=== PATIENT | female | born 1950 | race Caucasian/White ===

== ENCOUNTER 2020-02-29 09:56 | Day surgery (SDC) | payer MEDICARE, SELFPAY ==
--- NOTE | 2020-02-19 15:00 | EKG12_ITS ---
Test Reason : PRE-OP Blood Pressure : / mmHG Vent. Rate : 079 BPM Atrial Rate : 079 BPM P-R Int : 144 ms QRS Dur : 084 ms QT Int : 410 ms P-R-T Axes : 048 016 036 degrees QTc Int : 470 ms Normal sinus rhythm Nonspecific ST and T wave abnormality Prolonged QT Abnormal ECG Confirmed by YE DINERO, DELIA ([id number]), editorial assistant ORLY HERNANDEZ ([id number]) on 02/23/2020 10:59:53 AM Referred By: Levi Garnica Confirmed By:DELIA BELCHER MD
[2020-02-19 15:32] LABS: Hemoglobin 14.1 g/dL (12.0-15.0); Mean Corp Hgb Conc 33.6 g/dL (32-36); Mean Corpuscular Hgb 30.7 pg (27.0-32.0); Mean Corpuscular Volume 91.5 fL (81-99); Mean Platelet Vol. 10.6 fl (6.2-12.0); Platelet Count 408 K/mm3 (150-450); RBC Distribution Width CV 13.1 % (11.6-14.6); RBC Distribution Width SD 44.1 fl (35.1-43.9); Red Blood Count 4.59 M/mm3 (4.2-5.4); White Blood Count 8.1 K/mm3 (4.4-11.0)
[2020-02-19 15:55] LABS: Anion Gap 8 (5-15); BUN 16 mg/dL (7-18); Calcium,Total 9.1 mg/dL (8.5-10.1); Chloride 103 mmol/L (98-107); Creatinine, Serum 1.14 mg/dL (0.55-1.02); EST Glomerular Filtration Rate 50 mL/min (>60); Est Glom Filt Rate - Afr Amer 61 mL/min (>60); Glucose 95 mg/dL (74-106); Potassium 3.4 mmol/L (3.5-5.1); Sodium Level 141 mmol/L (136-145)
[2020-02-22 11:44] LABS: AST(SGOT) 34 U/L (15-37); Alanine Aminotransfer ALT/SGPT 54 U/L (13-56); Albumin, Serum 3.9 g/dL (3.2-5.0); Alkaline Phosphatase 71 U/L (45-117); Bilirubin, Direct 0.18 mg/dL (0.00-0.30); Globulin 3.3 g/dL (2.2-4.2); Protein, Total 7.2 g/dL (6.4-8.2)
[2020-02-29] VITALS (9 sets, daily range): BP systolic 126–149; BP diastolic 69–86; PULSE 73–91; RESP 16; TEMP 36.1–37.4; O2SAT 87–95; BMI 29.9
[2020-02-29] MEDS: Lactated Ringers 1,000 ML 100 ML IV (10:28)
[2020-02-29] MEDS: Epinephrine (1 mg/ml) 1 MG/ML VIAL ×2 (12:16)
[2020-02-29] MEDS: Bupiv/Epi 0.5% Mpf 30 ML Vial (12:16)
--- NOTE | 2020-02-29 13:09 | OP.PCM_ITS ---
Report of Operation Date of Procedure: 02/29/20 Pre-Operative Diagnosis: SAIS, AC arthrosis, RC tear, and chronic biceps tendon rupture right shoulder Post-Operative Diagnosis: same Surgery/Procedure Performed:: ASD, Nehal procedure, intra-articular debridement and rotator cuff repair right pantograph ii engraver: Levi Garnica Type of Anesthesia:: General/Regional Anesthesiologist: Anthony Santa - Admrichie VTE Documentation VTE Present on Admission: No VTE Mechan Device Prophylaxis: SCD's VTE Pharm Prophylaxis ordered?: No Reason prophylaxis not ordered:: Treatment Not Indicated
--- NOTE | 2020-02-29 14:45 | SUR.PHASEII ---
PATIENT HAD ULTRASLING IN ROOM, CAME FROM SURGERY WITH REGULAR ARM SLING. PAGED DR NAYLOR TO CLARIFY WHO STATES PATIENT SHOULD BE WEARING ULTRASLING. WHEN VITAL SIGNS CHECKED AT 1510, SPO2 NOTED TO BE 87%, ENCOURAGED PULMONARY TOILET, FINGERS ARE COOL. CHECK SPO2 WITH EAR PROBE, NOW 93% ON ROOM AIR. WILL GIVE PATIENT INCENTIVE SPIROMETER AND CONTINUE PULMONARY TOILET.
== END 2020-02-29 16:18 | disposition home or self-care (01) ==
LOC: SDC 09:57 → AC 10:03
PROVIDERS: Anesthesiology; PCP Family Medicine; Referring Provider Physician Assistant; Visit Provider Orthopaedic Surgery
PROC: (CPT 29827; principal; 2020-02-29 11:45)
DX: S46.211A Strain of muscle, fascia and tendon of other parts of biceps, right arm, initial encounter (principal); M75.51 Bursitis of right shoulder; M19.011 Primary osteoarthritis, right shoulder; M75.101 Unspecified rotator cuff tear or rupture of right shoulder, not specified as traumatic; Z11.59 Encounter for screening for other viral diseases; M79.7 Fibromyalgia; J45.909 Unspecified asthma, uncomplicated; Z87.891 Personal history of nicotine dependence
CPT/HCPCS: 29824; 29826; 29827; 36415; 80048; 80076; 85027; 87635; 93005; G2023; J7120; J2405; U0003

== ENCOUNTER 2020-11-09 16:41 | Emergency (ER) | payer MEDICARE, MEDICAID, SELFPAY ==
[2020-02-29 10:23] VITALS: BMI 29.9
[2020-11-09 16:43] VITALS: BP 166/90; PULSE 97; RESP 18; TEMP 36.1; O2SAT 97; BMI 25.9
--- NOTE | 2020-11-09 17:02 | ED.DCSUM_ITS ---
- ER Visit Summary Date of Service: 11/09/20 Chief Complaint: Dizziness History of Present Illness: The patient is a 70 F who presents with dizziness that began today. Patient states it began rather suddenly today. Patient states that she felt jittery and felt like her blood sugar was dropping. Patient states she turned her head and started feeling dizzy and off-balance. Patient states this is worse whenever she moves her head or bends forward. Patient denies any loss of consciousness. Patient denies any nausea or vomiting. Patient admits to some dull pain in both the ears. Patient denies any visual changes. Patient does admit to some mild neck pain. Patient denies any chest pain or shortness of breath. Physical Examination: Vital signs are stable. Patient is afebrile. Patient is in no acute distress. Pupils are equal, round, and reactive to light bilaterally. Extraocular muscles are intact. There is no nystagmus noted. Tympanic membranes are clear bilaterally. Oral mucosa is pink and moist. Neck is supple. Trachea is midline. There is no JVD noted. Heart was regular rate and rhythm. Lungs are clear and equal bilaterally. Abdomen is soft. Bowel sounds are normal. There is no tenderness. There is no rebound or guarding noted. Skin is warm dry. Cranial nerves II through XII are intact. There are no focal motor or sensory deficits noted. Extremities are intact. There is no calf tenderness or edema. Test Results: CBC and comprehensive metabolic profile were obtained and were essentially within normal limits. Urinalysis does not show any evidence of urinary tract infection. CT scan of the brain was obtained. There is no acute intracranial abnormality. This was interpreted by the radiologist and reviewed by myself. Emergency Department Course and Treatment: Patient was given a dose of meclizine initially. Patient had no improvement with this. Patient was given a dose of Valium. Patient states her symptoms are improving. Patient wants to go home. Patient was given a prescription for Valium. Patient was instructed to get plenty of rest. Patient was instructed to follow-up with her primary care physician in 5 to 7 days. Patient was instructed return if worse in any way. Patient understood and was agreeable with the plan. All questions were answered. Disposition: Discharge home Impression: 1. Vertigo This note was generated with Hydrophiation software. It may contain incorrect words, spelling, and punctuation that were not noted in review of the chart prior to signing ED Disposition - Plan for ED Patient: Disposition: Home or Assisted Living Diagnosis: Vertigo Instructions: ED Vertigo, Unspecified Prescriptions: Diazepam [Valium] 2 mg PO TID PRN PRN #10 tab PRN Reason: Vertigo Prescription Printed Referrals: Erich Hall DO [Primary Care Provider] - 3-5 Days
--- NOTE | 2020-11-09 17:04 | CT_ITS ---
STUDY: CT BRAIN WITHOUT CONTRAST REASON FOR EXAM: Female, 70 years old. Dizziness RADIATION DOSAGE (If Supplied By Facility): CTDIvol = ( 44.99 ) mGy, DLP = ( 796.11 ) mGycm TECHNIQUE: Transaxial CT imaging of the brain was performed without administration of intravenous contrast material. Individualized dose optimization techniques were used for this CT. COMPARISON: No relevant priors. FINDINGS: Normal soft tissue structures. Normal calvarium. Normal size ventricles and extra-axial spaces for the patient''s age. Normal white matter tracts of the cerebral hemispheres. Normal basal ganglia and thalami. Normal brainstem. Normal cerebellum. There is no intracranial hemorrhage. There are no findings of an acute ischemic infarction. Normal visualized paranasal sinuses. CT/Brain/Head without Contrast IMPRESSION: Normal unenhanced CT scan of the brain. Electronically Signed: Morales Mckee MD at 18:01 EST , Service support ,
[2020-11-09] MEDS: Meclizine HCl 25 MG Tablet PO (17:34)
[2020-11-09] MEDS: 0.9% Normal Saline 1,000 ML 1000 ML IV (17:34)
[2020-11-09 17:40] LABS: Absolute Lymphocyte Count 1.46 X10^3/uL (0.83-4.51); Absolute Neutrophil Count 5.9 X10^3/uL (2.0-7.7); Basophil# 0.03 X10^3/uL; Basophil% 0.4 % (0-1); Eosinophil# 0.06 X10^3/uL; Eosinophils% 0.7 % (0-5); Hematocrit 40.6 % (37-47); Hemoglobin 13.8 g/dL (12.0-15.0); Lymphocyte # 1.46 X10^3/ul (4.0); Lymphocyte % 17.7 % (19-41); Mean Corpuscular Hgb 30.5 pg (27.0-32.0); Mean Corpuscular Volume 89.6 fL (81-99); Mean Platelet Vol. 10.5 fl (6.2-12.0); Monocyte# 0.76 X10^3/uL; Monocyte% 9.2 % (0-10); NRBC Flagged by Analyzer 0 % (0-5); Neutrophil # 5.91 X10^3/uL (2.7-7.7); Neutrophil % 71.8 % (47-70); Platelet Count 390 K/mm3 (150-450); RBC Distribution Width CV 13.5 % (11.6-14.6); RBC Distribution Width SD 44.4 fl (35.1-43.9); Red Blood Count 4.53 M/mm3 (4.2-5.4); White Blood Count 8.2 K/mm3 (4.4-11.0)
[2020-11-09 17:41] LABS: Bacteria 0 SEEN /hpf (None Seen); Mucous, Urine 0 SEEN /hpf (<or=2+); Red Blood Cells-Urine 0 SEEN /hpf (0-5); Squamous Epithelial Cells - UA 0 SEEN /hpf (5-10)
[2020-11-09 17:44] LABS: Color, Urine Yellow (Yellow); Glucose, Dipstick Normal (Normal); Ketone-Dipstick Negative (Negative); Leukocyte Esterase-Dipstick 500 /ul (Negative); Nitrite-Dipstick Negative (Negative); Occult Blood-Urine Negative /ul (Negative); Protein-Dipstick Negative (Negative); Urine Bilirubin Dipstick Negative (Negative); Urine Clarity Clear (Clear); Urine Urobilinogen Normal (Normal)
[2020-11-09 17:54] LABS: ALB/GLOB Ratio 1.1 RATIO (0.9-2.4); AST(SGOT) 21 U/L (15-37); Alanine Aminotransfer ALT/SGPT 38 U/L (13-56); Albumin, Serum 3.7 g/dL (3.2-5.0); Alkaline Phosphatase 88 U/L (45-117); Anion Gap 9 (5-15); BUN 19 mg/dL (7-18); Calcium,Total 8.9 mg/dL (8.5-10.1); Chloride 105 mmol/L (98-107); Creatinine, Serum 1.19 mg/dL (0.55-1.02); EST Glomerular Filtration Rate 48 mL/min (>60); Est Glom Filt Rate - Afr Amer 58 mL/min (>60); Estimated Creatinine Clearance 35.29 ml/min; Globulin 3.3 g/dL (2.2-4.2); Glucose 90 mg/dL (74-106); Potassium 3.1 mmol/L (3.5-5.1); Sodium Level 142 mmol/L (136-145)
[2020-11-09 18:00] LABS: White Blood Cells 0-5 SEEN /hpf (0-5)
[2020-11-09] MEDS: diazePAM 5 MG Tablet 2.5 MG PO (18:46)
[2020-11-09 18:47] VITALS: BP 149/84; PULSE 77; RESP 16; O2SAT 98
[2020-11-09 19:59] VITALS: BP 175/92; PULSE 85; RESP 14; O2SAT 95
[2020-11-09 20:02] VITALS: RESP 17
== END 2020-11-09 20:03 | disposition home or self-care (01) ==
PROVIDERS: Emergency Provider Emergency Medicine; PCP Family Medicine
DX: R42 Dizziness and giddiness (principal); M54.2 Cervicalgia; J34.89 Other specified disorders of nose and nasal sinuses; H92.03 Otalgia, bilateral; I10 Essential (primary) hypertension; Z79.899 Other long term (current) drug therapy
CPT/HCPCS: 70450; 80053; 81001; 85025; 99285; A4216

== ENCOUNTER 2020-11-10 14:06 | Inpatient (IN) | payer MEDICARE, MEDICAID, SELFPAY ==
[2020-11-09 16:43] VITALS: BMI 25.9
[2020-11-10] VITALS (13 sets, daily range): BP systolic 116–183; BP diastolic 56–145; PULSE 73–88; RESP 10–19; TEMP 36.1–36.8; O2SAT 95–98; BMI 26.9; BMI 26.2; BMI 26.4
--- NOTE | 2020-11-10 14:13 | CM.ED ---
Social Work Responding to stroke alert. Patient sister present. Patient alert and oriented as well. Patient tearful and states I am scared. Support provided from this dialysis social worker and patient sister. Will continue to follow as needed. Patient prior level of functioning is independent. Patient lives alone. Aruna BROWN, GIO
[2020-11-10 14:15] LABS: Bedside Glucose 99 mg/dL (70-110)
--- NOTE | 2020-11-10 14:26 | EKG12_ITS ---
Test Reason : STROKE TEAM Blood Pressure : / mmHG Vent. Rate : 072 BPM Atrial Rate : 072 BPM P-R Int : 164 ms QRS Dur : 088 ms QT Int : 428 ms P-R-T Axes : 060 012 050 degrees QTc Int : 468 ms Normal sinus rhythm Normal ECG Confirmed by ANTHONY DINERO, MEGAN ([id number]), news videotape editor ORLY HERNANDEZ ([id number]) on 11/14/2020 11:04:02 A M Referred By: GLENYS Confirmed By:JERAMIE CRUZ MD
--- NOTE | 2020-11-10 14:26 | CT_ITS ---
We are attempting to reach an attending provider to discuss findings. An addendum with communication details will be sent when the communication is complete. STUDY: CT HEAD STROKE PROTOCOL W/O CONTRAST INJECTION REASON FOR EXAM: Female, 70 years old. Mental status change, no deficits RADIATION DOSAGE (If Supplied By Facility): CTDIvol = ( ) mGy, DLP = ( ) mGycm TECHNIQUE: Transaxial CT imaging of the brain was performed without administration of intravenous contrast material. Individualized dose optimization techniques were used for this CT. COMPARISON: 11/09/2020 FINDINGS: Normal soft tissue structures. Normal calvarium. Normal size ventricles and extra-axial spaces for the patient''s age. Normal white matter tracts of the cerebral hemispheres. Stable hypoattenuation within the right basal ganglia likely previous infarcts. Normal brainstem. Normal cerebellum. There is no intracranial hemorrhage. There are no findings of an acute ischemic infarction. Normal visualized paranasal sinuses. ASPECT score: 10 CT/STROKE Brain/Head without Cont IMPRESSION: No acute intracranial hemorrhage, midline shift or mass effect Stable hypoattenuations in the right basal ganglia likely remote infarcts Electronically Signed: Benson Ulloa MD at 14:45 EST , Service support ,
--- NOTE | 2020-11-10 14:27 | CT_ITS ---
STUDY: CTA HEAD AND NECK WITH CONTRAST REASON FOR EXAM: Female, 70 years old. Neuro deficit, acute, stroke suspected RADIATION DOSAGE (If Supplied By Facility): CTDIvol = ( 17.30 ) mGy, DLP = ( 626.36 ) mGycm TECHNIQUE: CT angiography was performed with a multi-detector CT scanner. Data acquisition was obtained from the skull base through the vertex following intravenous administration of IV 100mL Isovue-370. MIP images were reconstructed from the axial data set. Post-processing of the angiographic images was performed, with multiplanar reformation and 3D reconstruction. Individualized dose optimization techniques were used for this CT. COMPARISON: No relevant priors. FINDINGS: Normal bilateral petrous carotid arteries. Normal right cavernous carotid artery with a normal supraclinoid bifurcation. Normal left cavernous carotid artery with a normal supraclinoid bifurcation. Normal right A1 segments of the anterior cerebral artery. Normal left A1 segments of the anterior cerebral artery. Normal intact anterior communicating artery (ACOM). Normal bilateral A2 segments of the anterior cerebral arteries. Normal right M1 and M2 segments of the middle cerebral arteries, with a normal M1 bifurcation. Normal left M1 and M2 segments of the middle cerebral arteries, with a normal M1 bifurcation. Normal right posterior communicating artery (PCOM). Normal left posterior communicating artery (PCOM). Normal bilateral vertebral arteries. Normal basilar artery with a normal basilar bifurcation. The visualized bilateral superior cerebellar (SCA) arteries are normal. Normal bilateral P1, P2 and visualized P3 segments of the posterior cerebral arteries. There is no demonstrated aneurysm of the resighini of [place]. There is no demonstrated abnormality of the visualized brain. AORTIC ARCH: Normal visualized aortic arch. Normal origins of the brachiocephalic, left common carotid, and left subclavian arteries. RIGHT CAROTID ARTERIES: Normal right common carotid artery (CCA). There is mild atherosclerotic plaque formation with minimal narrowing of the right carotid bulb. Peripheral calcifications and mural thrombus at the origin of the right ICA with 50% stenosis noted on axial source images 108-110, series 2. Normal visualized cervical portion of the right internal carotid artery. Normal origin of the right external carotid artery (ECA). LEFT CAROTID ARTERIES: Normal left common carotid artery (CCA). Normal left common carotid bulb. Normal origin of the left internal carotid (ICA) artery without a hemodynamically significant stenosis. Normal visualized cervical portion of the left internal carotid artery. Normal origin of the left external carotid artery (ECA). VERTEBRAL ARTERIES: There is enhancement within the bilateral vertebral arteries with a small right vertebral artery, and a dominant left vertebral artery. The source images do not show evidence of a suspicious enhancing lesion, airway narrowing or deviation. Mild degenerative changes noted in the cervical spine. CT/STROKE CTA Head AND Neck W/Con IMPRESSION: Peripheral calcifications and mural thrombus at the origin of the right ICA with 50% stenosis noted. No evidence of dissection. No CTA evidence of common carotid or left ICA stenosis Small right vertebral artery No evidence of significant stenosis, obstructing thrombus, aneurysm or AVM in the brain N.B. : The above information has been verbally conveyed by Benson Ulloa MD to MALIKA VERONICA MD, on 11/10/2020 14:50:37 (ET). Electronically Signed: Benson Ulloa MD at 14:51 EST , Service support ,
[2020-11-10 14:39] LABS: Absolute Lymphocyte Count 1.56 X10^3/uL (0.83-4.51); Absolute Neutrophil Count 6.9 X10^3/uL (2.0-7.7); Basophil# 0.04 X10^3/uL; Basophil% 0.4 % (0-1); Eosinophil# 0.09 X10^3/uL; Hematocrit 43.9 % (37-47); Hemoglobin 15.2 g/dL (12.0-15.0); Lymphocyte # 1.56 X10^3/ul (4.0); Lymphocyte % 16.6 % (19-41); Mean Corp Hgb Conc 34.6 g/dL (32-36); Mean Corpuscular Hgb 30.6 pg (27.0-32.0); Mean Corpuscular Volume 88.5 fL (81-99); Mean Platelet Vol. 10.3 fl (6.2-12.0); Monocyte# 0.81 X10^3/uL; Monocyte% 8.6 % (0-10); NRBC Flagged by Analyzer 0 % (0-5); Neutrophil # 6.87 X10^3/uL (2.7-7.7); Neutrophil % 73.2 % (47-70); Platelet Count 446 K/mm3 (150-450); RBC Distribution Width CV 13.3 % (11.6-14.6); RBC Distribution Width SD 43.3 fl (35.1-43.9); Red Blood Count 4.96 M/mm3 (4.2-5.4); White Blood Count 9.4 K/mm3 (4.4-11.0)
--- NOTE | 2020-11-10 14:42 | RAD_ITS ---
STUDY: X-RAY CHEST REASON FOR EXAM: Female, 70 years old. Neuro deficit, acute, stroke suspected TECHNIQUE: Single AP portable view of the chest. COMPARISON: None. FINDINGS: EKG leads overlie the chest The lungs are clear and expanded. There is no demonstrated pleural abnormality. Normal size heart. Normal mediastinum and ramandeep. Normal visualized pulmonary arteries. Normal visualized aortic arch and descending thoracic aorta. Normal visualized thoracic spine. Normal visualized ribs, clavicles, and shoulders. There is no demonstrated abnormality of the visualized soft tissue structures of the upper abdomen. RAD/Chest 1 View IMPRESSION: No acute pulmonary process Electronically Signed: Benson Ulloa MD at 15:15 EST , Service support ,
[2020-11-10 14:49] LABS: International Normalized Ratio 0.9; Prothrombin Time (Protime)PT. 11.9 SECONDS (11.7-14.9)
[2020-11-10 14:50] LABS: Partial Thromboplast Time 31.7 Seconds (24.1-36.2)
--- NOTE | 2020-11-10 14:50 | CHAPLAIN ---
Type of Pastoral Visit ___ Initial Visit ___ Follow-up Visit ___ On-call Visit ___ General Patient Visit ___ Spiritual Assessment ___ Family Conference ___ Bereavement _x__ Rapid Response ___ Code Blue ___ Other (describe below) Pastoral Care Referral From ___ Patient ___ Family ___ Nurse ___ Physician ___ Liturgical Music Director ___ Oxygen Equipment Technician _x__ Other (describe below) Sacrament/Intervention ___ Active listening ___ Anointing ___ Advent ___ Bereavement ___ Communion ___ Emili exploration ___ ___ Life review ___ Prayer ___ Reconciliation ___ Sacrament of Sick _x__ Supportive presence ___ Wedding ___ Other (describe below) Pastoral Comments responded to stroke alert that was soon after cancelled; patient and her sister were in room; introduced self and role to both; offered presence with family member
[2020-11-10 14:51] LABS: Anion Gap 10 (5-15); BUN 16 mg/dL (7-18); BUN/Creat Ratio 19.6 RATIO (10-20); Calcium,Total 9.4 mg/dL (8.5-10.1); Chloride 103 mmol/L (98-107); Creatinine, Serum 0.82 mg/dL (0.55-1.02); EST Glomerular Filtration Rate 74 mL/min (>60); Est Glom Filt Rate - Afr Amer 89 mL/min (>60); Estimated Creatinine Clearance 51.21 ml/min; Glucose 97 mg/dL (74-106); Potassium 3.4 mmol/L (3.5-5.1); Sodium Level 138 mmol/L (136-145)
--- NOTE | 2020-11-10 15:03 | ED.RN ---
Pt is very tearful. states that she was here yesterday at 5pm and left at 8pm and was dx with vertigo. Pt stated that she was walking down the ramp last night and was walking sideways. Pt stated that she was trying to go straight and just kept going sideways.
--- NOTE | 2020-11-10 15:07 | ED.VIS.GEN ---
History of Present Illness Chief Complaint: Weakness Informant: Patient Narrative: Patient is a 70-year-old female who presents to the emergency department for dizziness, left-sided tingling and fine motor muscle loss. She feels like she is veering off to the left when walking. She was seen in the emergency department yesterday and diagnosed with vertigo. She was placed on Valium. She did take that this morning. She states that she did developed issues with her speech and felt like she was slurring her speech. She is trying the voice to text and it was not picking up what she was saying. She was having difficulty typing with her left hand. Has no history of strokes before in the past. She does have a moderate headache that is diffuse. She feels like she has had some blurred vision. She denies any chest pain, shortness of breath or heart palpitations. She is not on any blood thinning medications. Past Medical History - Allergies and Home Meds Allergies/Adverse Reactions: Allergies codeine Allergy (Verified 11/10/20 14:23) Vomiting Penicillins [PCN] Allergy (Verified 11/10/20 14:23) Shortness of breath Sulfa (Sulfonamide Antibiotics) Allergy (Verified 11/10/20 14:23) Vomiting Prior records reviewed: Yes Surgical History: noncontributory Smoking Status: Former smoker Review of Systems All systems negative except as indicated General: Denies: Chills, Fever, Sweats Eyes: Reports: Blurred Vision - bilaterally. Denies: Diplopia ENT: Denies: Rhinorrhea, Sore throat Cardiovascular: Denies: Chest pain, Palpitations Respiratory: Denies: Dyspnea, Cough, Dyspnea on exertion Gastrointestinal: Denies: Abdominal pain, Nausea, Vomiting, Diarrhea Genitourinary: Denies: Dysuria, Hematuria, Frequency Musculoskeletal: Denies: Back pain, Extremity Pain Skin: Denies: Rash, Wounds Neurological: Reports: Headache, Weakness, Numbness Physical Exam Vital Signs/Narrative: Vital Signs Temp Pulse Resp BP Pulse Ox 11/10/20 14:56 77 18 175/81 H 96 11/10/20 14:29 77 13 181/94 H 97 11/10/20 14:26 81 14 181/94 H 97 11/10/20 14:17 98.1 F 87 16 183/145 H 96 11/10/20 14:07 98.1 F 87 16 183/145 H 98 Inital Vital Signs reviewed: Yes General: Well nourished, Well developed, No Acute Distress Head: Normocephalic, Atraumatic Eyes: Perrl, EOMI ENT: Moist mucous membranes, No rhinorrhea Neck: Supple, Nontender Cardiovascular: Regular rate, Regular rhythm, No murmurs Respiratory: No distress, CTA bilaterally, Chest nontender Abdomen: Soft, Nontender, Nondistended, Normal bowel sounds Back: Nontender, Normal Inspection Extremities: Nontender, No edema Skin: Normal color, No rash Neurological: Alert, Oriented x3, Cranial nerves II-XII grossly intact, Normal Strength, Normal Sensation, - - Mildly slurred speech but is understandable. 5 out of 5 muscle strength. Facial droop present, NIH =3 Psychological: Normal affect, Normal Mood Diagnostic/Tx/Re-eval Chest X-Ray - ED: 1 View - Single view portable x-ray interpreted by myself. No evidence of consolidation. Normal mediastinum. No large effusion. Normal cardiac silhouette. Agree with radiologist interpretation. - EKG Initial EKG Interpretation: - - Rate of 72 bpm and normal sinus rhythm. Normal intervals. Normal axis. No significant ST elevation or depression. No T wave abnormalities. - Medical Decision Making Patient presents to the emergency department concern for stroke. Her last known well was 12:00 yesterday and she is out of the TPA window. I have given her NIH score of 3 for sensation change of the left arm, speech issue and facial droop. Will obtain CT scans, basic lab work at this time. CTA showed a 50% stenosis of the right RCA area without any large vessel occlusion or hemorrhagic stroke. Otherwise has been stable throughout ED stay. Lab work did not reveal any significant acute abnormality. Will bring into the hospital for further stroke evaluation. ED Disposition - Plan for ED Patient: Disposition: Acute Care Hospital [facility] Diagnosis: Facial droop, CVA (cerebral vascular accident)
--- NOTE | 2020-11-10 15:34 | PCM.HP.STD ---
Problem List (1) CVA (cerebral vascular accident) Status: Acute Qualifiers: CVA mechanism: unspecified Qualified Code(s): I63.9 - Cerebral infarction, unspecified (2) Chronic obstructive pulmonary disease Status: Chronic Qualifiers: COPD type: unspecified COPD Qualified Code(s): J44.9 - Chronic obstructive pulmonary disease, unspecified (3) Allergic rhinitis Status: Chronic Qualifiers: Allergic rhinitis trigger: unspecified (4) Hypertension Status: Chronic Qualifiers: Hypertension type: essential hypertension Qualified Code(s): I10 - Essential (primary) hypertension (5) Former tobacco use Status: Chronic History of Present Illness Date of Admission: 11/10/20 Chief Complaint: L sided weakness, heaviness, facial droop, slurred speech, ongoing sensation of boat rocking with activity. The patient is a 70 y/o F w/ PMHx: HTN, Chronic COPD, Former Tobacco use, Allergic rhinitis, recent presentation to the [facility] ED on 11/09/20 evening with history of onset at approximately 12:30 PM the day prior sensation of being on a boat with a rocking sensation with difficulty maintaining her balance, occasionally falling to the left more so and reportedly following turning her head administered both meclizine and Valium with reportedly some improvement however patient now represents to the [facility] ED on 11/10/20 with onset starting today left-sided facial droop, mildly slurred speech and now onset left upper extremity weakness and heaviness sensation. Upon ED arrival stroke alert called. NIH SS 3 per ED physician. Work-up in the ED included T 98.1, heart rate 87, BP 183/145 initially with repeat during evaluation 175/81, respiratory rate 16, 98% room air, CBC with WC 9.4, hemoglobin 15.2, platelet 446 without marked shift, unremarkable coags, BMP with potassium 3.4 otherwise not marked appearing, troponin less than 0.015, EKG with sinus rhythm with no acute evidence of ischemia, chest x-ray with no acute cardiopulmonary findings, CT brain with no acute intracranial hemorrhage, midline shift or mass-effect with a stable hypoattenuation in the right basal ganglia possibly a remote infarct, CTA head neck with peripheral calcifications and mural thrombus at the origin of the right ICA with 50% stenosis with no evidence of dissection, no evidence of common carotid or left ICA stenosis, small right vertebral artery, no evidence of significant stenosis, obstructing thrombus, aneurysm or AVM in the brain. Past Medical History Past Medical History (Chronic Problems): Chronic Problems Chronic obstructive pulmonary disease (Chronic) Allergic rhinitis (Chronic) Hypertension (Chronic) Former tobacco use (Chronic) Allergies codeine Allergy (Verified 11/10/20 14:23) Vomiting Penicillins [PCN] Allergy (Verified 11/10/20 14:23) Shortness of breath Sulfa (Sulfonamide Antibiotics) Allergy (Verified 11/10/20 14:23) Vomiting Home Medications: Ambulatory Orders Medication Instructions Recorded Diclofenac Sodium 75 mg PO BID PRN 02/22/20 Fluticasone/Salmeterol [Advair 1 ea IH PRN PRN 02/22/20 250-50 Diskus] Montelukast [Singulair] 10 mg PO DAILY 02/22/20 Triamterene 37.5MG/Hctz 25MG 1 cap PO DAILY 02/22/20 [Dyazide (G)] Diazepam [Valium] 2 mg PO TID PRN PRN #10 tab 11/09/20 Surgical History: - - Tonsillectomy, hysterectomy, appendectomy, right lower extremity and foot surgery, R shoulder surgery for rotator cuff and bicep tendon. 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 Tobacco Use: Non-smoker Alcohol: Occasional Drugs: None - *Family History Maternal History Items: - - Patient with maternal family history of heart disease, breast cancer. Paternal History Items: - - With a paternal family history of lymphoma, heart disease. Review of Systems Constitutional: Reports: Weakness, Fatigue. Denies: Anorexia, Chills, Fever, Malaise, Weight Change HEENT: Reports: - - L sided facial droop, slurred speech.. Denies: Head Aches, Sinus Congestion, Sinus Drainage Cardiovascular: Denies: Chest Pain, Palpitations Respiratory: Denies: Cough, Shortness of breath at rest, Sputum production Gastrointestinal: Denies: Abdominal Pain, Nausea, Vomiting Genitourinary: Denies: Dysuria Musculoskeletal: Denies: Joint Pain, Joint Tenderness Skin: Denies: Rash, Wounds Neurological: Reports: Slurred speech, Focal weakness, - - L sided heaviness sensation.. Denies: Numbness, Tingling Psychiatric: Denies: Anxiety, Depression, Homicidal Ideations, Suicidal Ideations Hematologic/ Lymphatic: Denies: Easy Bruising, Easy Bleeding VTE Information - Inpt Only VTE Present on Admission: No VTE Mechan Device Prophylaxis: SCD's VTE Pharm Prophylaxis ordered?: Yes Patient Problems: Active and Suspected Problems Facial droop (Acute) CVA (cerebral vascular accident) (Acute) Subjective: Patient seated upright in ED bed, fatigued appearance, intermittently tearful, ongoing left-sided facial droop primarily noted of the lip with flattening of the folds, correct some. Objective: Physical Examination: General: awake, alert, oriented x 3 and cooperative, seated upright in the ED bed in no apparent distress, tearful during some discussions. Skin: normal color, turgor, no icterus, cyanosis. HEENT: AT/NC, EOMI, PERRLA, mildly dry MM, ongoing left-sided mild facial droop primarily flattening near the lip edge, some correction with smiling, no carotid bruits or JVD noted. Lungs: CTA bilaterally, moderate effort, mild decrease BL bases, no rales, ronchi or wheezing. Heart: Regular rate and rhythm; no gallop, rub audible. Abdomen: soft, NTTP, ND, normal BS, no HSM. Extremities: no cyanosis, clubbing, or edema. Neurological: patient awake, alert, oriented as noted; cognitive function intact; pupils equally reactive to light and accomodation; cranial nerves II-XII grossly normal except as noted mild left-sided facial droop, correct some with smiling, moving all extremities except left upper extremity with some drift with difficulty accordingly with [id number], bilateral lower extremity intact with [id number] appropriate, reports sensation as appropriate but says that in general left side feels heavy, equivocal Babinski bilaterally. Psychiatric: affect appears anxious, intermittently tearful, no underlying history of anxiety or depression. - Physical Exam Vitals/I&O's: Vital Signs Temp Pulse Resp BP Pulse Ox 98.1 F 77 18 175/81 H 96 11/10/20 14:17 11/10/20 14:56 11/10/20 14:56 11/10/20 14:56 11/10/20 14:56 Oxygen Delivery Method Room Air Weight: 147 lb 0.773 oz Body Mass Index (BMI) 26.9 Finger Stick Blood Glucose 99 Laboratory Results 11/10/20 14:10: WBC 9.4, RBC 4.96, Hgb 15.2 H, Hct 43.9, MCV 88.5, MCH 30.6, MCHC 34.6, RDW Std Deviation 43.3, RDW Coeff of [place] 13.3, Plt Count 446, MPV 10.3, Immature Gran % (Auto) 0.200, Neut % (Auto) 73.2 H, Lymph % (Auto) 16.6 L, [place] % (Auto) 8.6, Eos % (Auto) 1.0, Baso % (Auto) 0.4, Absolute Neuts (auto) 6.9, Absolute Lymphs (auto) 1.56, Nucleated RBC % 0 11/10/20 14:10: PT 11.9, INR 0.9, APTT 31.7 11/10/20 14:10: Sodium 138, Potassium 3.4 L, Chloride 103, Carbon Dioxide 25.0, Anion Gap 10, BUN 16, Creatinine 0.82, Estim Creat Clear Calc 51.21, Est GFR (MDRD) Af Amer 89, Est GFR (MDRD) Non-Af 74, BUN/Creatinine Ratio 19.6, Glucose 97, Calcium 9.4, Troponin I < 0.015 11/10/20 14:11: POC Glucose 99 Assessment/Plan All Active Problems Facial droop (Acute) CVA (cerebral vascular accident) (Acute) The patient is a 70 y/o F w/ PMHx: HTN, Chronic COPD, Former Tobacco use, Allergic rhinitis with history of onset at approximately 11/09/20 12:30 PM sensation of being on a boat with a rocking sensation with difficulty maintaining her balance, occasionally falling to the left more so and reportedly following turning her head with ED evaluation w/ meclizine and Valium administered with reportedly some improvement however patient now represents to the [facility] ED on 11/10/20 with onset starting today left-sided facial droop, mildly slurred speech and now onset left upper extremity weakness and heaviness sensation. 1. Left-sided facial droop, slurred speech, left upper extremity weakness and sensation alteration secondary to acute CVA: ED evaluation with noted CT brain with no acute intracranial hemorrhage, midline shift or mass-effect with a stable hypoattenuation in the right basal ganglia possibly a remote infarct, CTA head neck with peripheral calcifications and mural thrombus at the origin of the right ICA with 50% stenosis with no evidence of dissection, no evidence of common carotid or left ICA stenosis, small right vertebral artery, no evidence of significant stenosis, obstructing thrombus, aneurysm or AVM in the brain. Will admit to PCU, will obtain MRI Brain, ECHO, PT/OT/Speech/Nutrition evaluation per protocol. Will consult Neurology for evaluation once work-up obtained. Will allow permissive HTN, maintain on asa, add statin w/ AM FLP, fall precautions. HgbA1c, mag, TSH, FLP pending. If appropriate patient is amenable to acute rehab. 2. Hypokalemia: Admission K+ 3.4, magnesium level requested, supplementation given, repeat level in AM. 3. Chronic COPD with Allergic Rhinitis: We will hold patient inhalers and transition to ATC DuoNeb with as needed albuterol, continue patient's Singulair regimen. 4. Hypertension: Given acute presentation we will maintain permissive hypertension with as needed agents only. 5. Former tobacco use: Encourage continued tobacco cessation. 6. DVT prophylaxis: SCDs, Lovenox. 7. CODE status: Patient does not have healthcare power of appeals referee nor living will in place. Sister also present for these discussions. Discussed CODE status at length including difference between FULL code, DNR-CCA and DNR-CC status. Following discussions about the differences in these status, requested Full Code status but notes she will think on it further1. Advanced Care Planning Face to Face Time: 16 minutes. Inpatient E&M: 58820 Init Hosp L3 Procedures: 41490 Advncd Care Plan 30 Min
--- NOTE | 2020-11-10 16:19 | ECHOD_ITS ---
Reason For Study: CVA Procedure This was a 2D Doppler, Color Flow transthoracic echocardiogram. Exam performed portable in patient room. Left Ventricle Normal LV size. The estimated ejection fraction is 65 %. No evidence for diastolic dysfunction. No regional wall motion abnormalities noted. Right Ventricle Normal RV size. Normal systolic function. Atria Normal left atrium. Normal right atrium. No doppler evidence for ASD. Bubble contrast study negative for right to left interatrial shunt. Mitral Valve There is no mitral valve stenosis. No mitral valve insufficiency. Tricuspid Valve There is no tricuspid stenosis. No tricuspid valve insufficiency. Unable to estimate RV systolic pressure due to inadequate jet, pulmonary artery pressure probably normal. Aortic Valve Trisinus/trileaflet aortic valve. There is no aortic stenosis. No aortic valve insufficiency. Pulmonic Valve There is no pulmonic valvular stenosis. No pulmonic valve insufficiency. Great Vessels Normal aortic root. Pericardium/Pleural No pericardial effusion. Medication Performed a rapid injection of agitated mix of 9 cc saline and 1cc air to assess for atrial septal defect. MMode/2D Measurements & Calculations LVIDd: 3.2 cm IVSd: 1.0 cm Ao root diam: 3.3 cm LVIDs: 2.3 cm LVPWd: 0.92 cm RVDd: 2.7 cm FS: 29.4 % LAV(MOD-bp): 32.7 ml LVAd ap4: 21.5 cm2 SV(MOD-sp4): 30.6 ml LAV(MOD-bp) Indexed: 19.6 ml/m2 EDV(MOD-sp4): 51.6 ml LAV(MOD-sp2): 28.9 ml EDV(sp4-el): 55.1 ml LAV(MOD-sp4): 32.8 ml LVAs ap4: 11.8 cm2 ESV(MOD-sp4): 21.0 ml ESV(sp4-el): 20.6 ml EF(MOD-sp4): 59.3 % EF(sp4-el): 62.5 % SV(sp4-el): 34.4 ml LA A4 area: 13.0 cm2 LA dimension(2D): 2.8 cm RA A4 area: 8.8 cm2 Time Measurements MV dec time: 0.28 sec Doppler Measurements & Calculations MV E max isaiah: 66.1 cm/sec Lat Peak E' Isaiah: 10.2 cm/sec Med Peak E' Isaiah: 7.8 cm/sec MV A max isaiah: 101.6 cm/sec E/E' lat: 6.5 E/E' med: 8.5 MV E/A: 0.65 Ao V2 max: 118.8 cm/sec LV V1 max: 93.0 cm/sec PA V2 max: 70.1 cm/sec Ao max P.6 mmHg LV V1 max P.5 mmHg TR max isaiah: 207.5 cm/sec TR max P.2 mmHg Interpretation Summary The estimated ejection fraction is 65 %. No evidence for diastolic dysfunction. Ordering Physician: Tonja Brewer Referring Physician: HEAVEN TAPIA Performed By: Domonique Salazar, JAYNA, RVT
--- NOTE | 2020-11-10 16:19 | MRI_ITS ---
We are attempting to reach an attending provider to discuss findings. An addendum with communication details will be sent when the communication is complete. HISTORY: CVA COMPARISON: CT brain 11/10/2020 TECHNIQUE: Multisequence multiplanar MR imaging of the brain per department protocol without IV gadolinium. # of images including paperwork: 279 FINDINGS: BRAIN: Small foci of right periventricular white matter infarcts mid body level of the right lateral ventricle as seen by hyperintense signal on DWI and corresponding decreased signal on ADC maps. Tiny focus of acute infarct body of the right caudate nucleus. No other areas of acute infarct. No remote parenchymal infarct. No parenchymal hemorrhage, intra-axial mass, mass effect, or midline shift. No abnormal extra-axial fluid collections. Minimal periventricular white matter and mild left periatrial white matter changes as seen by hyperintense foci of FLAIR and T2 signal. VENTRICLES: Ventricles are normal in size and configuration. No hydrocephalus. PARANASAL SINUSES: Clear. MASTOIDS: Mastoid air cells are clear. ORBITS: Orbits are unremarkable. MRI/Brain without Contrast IMPRESSION: 1. Small foci of acute infarct right periventricular white matter region/gonzalez radiata and a tiny focus of acute infarct body of right caudate nucleus. 2. No parenchymal hemorrhage. 3. Minimal chronic small vessel ischemic white matter changes. . at 2017 Reported and signed by: Christoph Mayes MD Electronically Signed: Christoph Mayes MD at 20:16 EST Tel , Service support ,
[2020-11-10] MEDS: 0.9% Normal Saline 1,000 ML 100 ML IV (16:50)
[2020-11-10 16:54] LABS: Magnesium 1.9 mg/dL (1.6-2.6)
[2020-11-10] MEDS: Potassium Chloride Oral Tablet 20 MEQ 40 MEQ PO (17:08)
--- NOTE | 2020-11-10 20:38 | PCM.HOSP.N ---
Hospitalist Note Radiologist called me to inform about abnormal finding on MRI brain. Small foci of acute infarct in right periventricular white matter and right coronary radiata and body of right caudate nucleus. Patient already on baby aspirin and atorvastatin. CT angiogram also shows 50% stenosis at origin of ICA. Plavix added for dual antiplatelet agent. Rest of the work-up is already ordered.
[2020-11-10] MEDS: Clopidogrel Bisulfate 75 MG Tablet PO (22:14)
[2020-11-10] MEDS: Atorvastatin Calcium 80 MG Tablet PO (22:14)
[2020-11-10] MEDS: MELATONIN 3 MG TABLET PO (22:15)
[2020-11-10] MEDS: Acetaminophen 325 MG Tablet 650 MG PO (22:15)
[2020-11-11] VITALS (10 sets, daily range): BP systolic 135–169; BP diastolic 72–88; PULSE 69–89; RESP 16; TEMP 36.2–37.1; O2SAT 95–96; BMI 26.2
[2020-11-11 05:01] LABS: Absolute Lymphocyte Count 1.77 X10^3/uL (0.83-4.51); Absolute Neutrophil Count 3.8 X10^3/uL (2.0-7.7); Basophil# 0.05 X10^3/uL; Basophil% 0.8 % (0-1); Eosinophil# 0.12 X10^3/uL; Eosinophils% 1.9 % (0-5); Hematocrit 41.1 % (37-47); Hemoglobin 13.7 g/dL (12.0-15.0); Lymphocyte # 1.77 X10^3/ul (4.0); Lymphocyte % 27.7 % (19-41); Mean Corp Hgb Conc 33.3 g/dL (32-36); Mean Corpuscular Hgb 30.2 pg (27.0-32.0); Mean Corpuscular Volume 90.5 fL (81-99); Mean Platelet Vol. 9.8 fl (6.2-12.0); Monocyte# 0.64 X10^3/uL; NRBC Flagged by Analyzer 0 % (0-5); Neutrophil # 3.78 X10^3/uL (2.7-7.7); Neutrophil % 59.3 % (47-70); Platelet Count 353 K/mm3 (150-450); RBC Distribution Width CV 13.7 % (11.6-14.6); Red Blood Count 4.54 M/mm3 (4.2-5.4); White Blood Count 6.4 K/mm3 (4.4-11.0)
[2020-11-11 05:33] LABS: AST(SGOT) 18 U/L (15-37); Alanine Aminotransfer ALT/SGPT 35 U/L (13-56); Albumin, Serum 3.2 g/dL (3.2-5.0); Alkaline Phosphatase 76 U/L (45-117); Anion Gap 5 (5-15); BUN 15 mg/dL (7-18); Calcium,Total 8.9 mg/dL (8.5-10.1); Chloride 107 mmol/L (98-107); Cholesterol 248 mg/dL (200); Creatinine, Serum 0.94 mg/dL (0.55-1.02); EST Glomerular Filtration Rate 63 mL/min (>60); Est Glom Filt Rate - Afr Amer 76 mL/min (>60); Estimated Creatinine Clearance 44.67 ml/min; Globulin 3.3 g/dL (2.2-4.2); Glucose 94 mg/dL (74-106); High Density Lipoprotein 60 mg/dL; Potassium 3.5 mmol/L (3.5-5.1); Protein, Total 6.5 g/dL (6.4-8.2); Sodium Level 139 mmol/L (136-145); Triglycerides 139 mg/dL; Very Low Density Lipoprotein 28 mg/dL (5-40)
[2020-11-11] MEDS: 0.9% Normal Saline 1,000 ML 100 ML IV (06:29)
--- NOTE | 2020-11-11 08:19 | TELEMED_ITS ---
[facility] Tele[facility] has confirmed receipt of a request for visit. This document confirms receipt of the order initiating the consult. To find the results of the consultation, please view the patient's reports for the scanned Telemed Consult.
[2020-11-11 08:35] LABS: Hemoglobin A1c 5.2 % (3.8-5.6)
[2020-11-11] MEDS: Enoxaparin 40 MG/0.4 ML Syringe SC (08:55)
[2020-11-11] MEDS: Aspirin 81 MG TAB.CHEW PO (08:55)
[2020-11-11] MEDS: Clopidogrel Bisulfate 75 MG Tablet PO (08:55)
[2020-11-11] MEDS: Montelukast 10 MG Tablet PO (08:55)
--- NOTE | 2020-11-11 10:43 | CASEMGMT ---
SW completed a PHQ 9 with patient as she had a Stroke. She scored an 8 which indicates minimal depression. Patient was tearful during conversation. She is normally independent and this Stroke has left her with left sided weakness. SW suggested counseling and SW will give her a list of in network counselors. SW encouraged her to think about going to [facility] 4th floor rehab pending what therapy recommends. ALYCE explained [facility] 4th floor rehab unit and she was in agreement. Vanessa ANAYA MSW
--- NOTE | 2020-11-11 11:34 | CASEMGMT ---
Assessment- SW completed assessment with patient at bedside. SW also confirmed addresses and phone numbers. She wanted her daughter to also be listed as a contact. SW did put this in the computer. Living situation- Patient lives alone in a 1 story condo. Her laundry is in the basement. She has 1 entry step. PCP: Dr Hall Specialists: None Pharmacy: [facility] [place] DME: None ADL's/IADL's: Patient is normally completely independent with everything. She drives. She also works at [employer]. Past SNF/rehab: None Past HH: None LW: She does not have them, but would like to complete them POA: She does not have them, but would like to complete them SW spoke with patient about her d/c plan. She was tearful in regards to having the Stroke. SW provided emotional support. SW spoke with her about Acute Rehab as those units specialize in Strokes. She said she wants to stay local. ALYCE told her the only one in [place] is at [facility]. She would like to go there if it is recommended. ALYCE offered to give her a list of other in network Acute Rehab Units, but she declined stating she wants [facility] 4th floor Rehab. SW also let her know SW can come back and complete HCPOP and HCLW with her. She also would like to change PCP's so SW will give her a PCP list. SW also will give her a list of counselors in network with her insurance. Plan: [facility] 4th floor rehab pending therapy evaluations and insurance approval. Vanessa ANAYA SKOOG PATCHING MACHINE OPERATOR
--- NOTE | 2020-11-11 12:31 | PN_ITS ---
<Darion Rodriguezssica MARKETING INFORMATION MANAGER - Last Filed: 11/11/20 12:42> Patient Problems: Active and Suspected Problems Facial droop (Acute) CVA (cerebral vascular accident) (Acute) Subjective: Patient seen and examined. Continues to have left-sided weakness/heaviness, left facial droop and intermittent speech difficulty. Patient amenable to rehab unit at discharge. Awaiting pre-cert. - Physical Exam Vitals/I&O's: Vital Signs Temp Pulse Resp BP Pulse Ox 98.3 F 88 16 147/87 H 96 11/11/20 10:23 11/11/20 10:23 11/11/20 10:23 11/11/20 10:23 11/11/20 10:23 Oxygen Delivery Method Room Air Weight: 145 lb 4.554 oz Body Mass Index (BMI) 26.2 Finger Stick Blood Glucose 99 Intake and Output for Last 24 Hours 11/09/20 11/10/20 11/11/20 23:59 23:59 23:59 Intake Total 906.67 / 1306.67 1570.00 / 1570.00 Balance 906.67 / 1306.67 1570.00 / 1570.00 General: Alert, Oriented x3, Cooperative HEENT: Atraumatic, PERRLA, EOMI, Normocephalic Neck: Supple, No JVD, Negative Carotid Bruits Lungs: Clear to auscultation, Normal air movement Cardiovascular: Regular rate, No murmurs Abdomen: Bowel Sounds Present, Soft, Non Tender, Non-Distended Extremities: No clubbing, No cyanosis, No edema, Capillary Refill Less than 3 Seconds Skin: No rashes, No breakdown Musculoskeletal: No Tenderness to Palpation of Joints or Extremities Neurological: Cranial nerves II-XII grossly intact, - - Left-sided weakness, left facial droop, speech difficulty. Psych/Mental Status: Normal Affect, Appropriate Laboratory Results 11/10/20 14:10: WBC 9.4, RBC 4.96, Hgb 15.2 H, Hct 43.9, MCV 88.5, MCH 30.6, MCHC 34.6, RDW Std Deviation 43.3, RDW Coeff of Keya 13.3, Plt Count 446, MPV 10.3, Immature Gran % (Auto) 0.200, Neut % (Auto) 73.2 H, Lymph % (Auto) 16.6 L, Charlton % (Auto) 8.6, Eos % (Auto) 1.0, Baso % (Auto) 0.4, Absolute Neuts (auto) 6.9, Absolute Lymphs (auto) 1.56, Nucleated RBC % 0 11/10/20 14:10: PT 11.9, INR 0.9, APTT 31.7 11/10/20 14:10: Sodium 138, Potassium 3.4 L, Chloride 103, Carbon Dioxide 25.0, Anion Gap 10, BUN 16, Creatinine 0.82, Estim Creat Clear Calc 51.21, Est GFR (MDRD) Af Amer 89, Est GFR (MDRD) Non-Af 74, BUN/Creatinine Ratio 19.6, Glucose 97, Calcium 9.4, Troponin I < 0.015 11/10/20 14:10: Magnesium 1.9 11/10/20 14:11: POC Glucose 99 11/11/20 04:45: WBC 6.4, RBC 4.54, Hgb 13.7, Hct 41.1, MCV 90.5, MCH 30.2, MCHC 33.3, RDW Std Deviation 45.0 H, RDW Coeff of Keya 13.7, Plt Count 353, MPV 9.8, Immature Gran % (Auto) 0.300, Neut % (Auto) 59.3, Lymph % (Auto) 27.7, Charlton % (Auto) 10.0, Eos % (Auto) 1.9, Baso % (Auto) 0.8, Absolute Neuts (auto) 3.8, Absolute Lymphs (auto) 1.77, Nucleated RBC % 0 11/11/20 04:45: Sodium 139, Potassium 3.5, Chloride 107, Carbon Dioxide 27.0, Anion Gap 5, BUN 15, Creatinine 0.94, Estim Creat Clear Calc 44.67, Est GFR (MDRD) Af Amer 76, Est GFR (MDRD) Non-Af 63, BUN/Creatinine Ratio 16.0, Glucose 94, Calcium 8.9, Total Bilirubin 0.90, AST 18, ALT 35, Alkaline Phosphatase 76, Total Protein 6.5, Albumin 3.2, Globulin 3.3, Albumin/Globulin Ratio 1.0, Triglycerides 139, Cholesterol 248 H, LDL Cholesterol 160 H, VLDL Cholesterol 28, HDL Cholesterol 60, TSH 4.00 H 11/11/20 04:45: Hemoglobin A1c 5.2 Current Medications Acetaminophen (Acetaminophen 325 Mg Tablet) 650 mg PO Q6H PRN PRN PRN Reason: Pain Score 1-10/Temp > 100.7 F Last Admin: 11/10/20 22:15 Dose: 650 mg Documented by: Albuterol Sulfate (Albuterol 2.5 Mg/3 Ml Vial.Neb.) 2.5 mg INHALATION Q2H PRN PRN PRN Reason: Dyspnea, wheezing Albuterol/Ipratropium (Ipratropium/Albuterol Sulfate 3 Ml Ampul.Neb) 3 ml INHALATION Q6HWA.RT COUNT INCLUDES THE [facility] Aspirin (Aspirin 81 Mg Tab.Chew) 81 mg PO DAILY@0800 COUNT INCLUDES THE [facility] Last Admin: 11/11/20 08:55 Dose: 81 mg Documented by: Atorvastatin Calcium (Atorvastatin Calcium 80 Mg Tablet) 80 mg PO QHS COUNT INCLUDES THE [facility] Last Admin: 11/10/20 22:14 Dose: 80 mg Documented by: Clopidogrel Bisulfate (Clopidogrel Bisulfate 75 Mg Tablet) 75 mg PO DAILY COUNT INCLUDES THE [facility] Last Admin: 11/11/20 08:55 Dose: 75 mg Documented by: Enoxaparin Sodium (Enoxaparin 40 Mg/0.4 Ml Syringe) 40 mg SC DAILY COUNT INCLUDES THE [facility] Last Admin: 11/11/20 08:55 Dose: 40 mg Documented by: Guaifenesin (Guaifenesin 10 Ml Udc (200mg/10ml)) 20 ml PO Q4H PRN PRN PRN Reason: COUGH Hydralazine HCl (Hydralazine 20 Mg/Ml Vial) 5 mg IV Q30M PRN PRN Reason: to maintain BP goals Labetalol HCl (Labetalol (Prefilled) 20 Mg/4 Ml) 10 - 20 mg IV Q10M PRN PRN PRN Reason: to Maintain BP Goals Magnesium Hydroxide (Magnesium Hydroxide 30 Ml Udc) 30 ml PO DAILY PRN PRN PRN Reason: Constipation Melatonin (Melatonin 3 Mg Tablet) 3 mg PO QHS PRN PRN PRN Reason: INSOMNIA Last Admin: 11/10/20 22:15 Dose: 3 mg Documented by: Montelukast Sodium (Montelukast 10 Mg Tablet) 10 mg PO DAILY COUNT INCLUDES THE [facility] Last Admin: 11/11/20 08:55 Dose: 10 mg Documented by: Psyllium Hydrophilic Mucilloid (Psyllium 1 Packet) 1 packet PO DAILY PRN PRN PRN Reason: Constipation Senna/Docusate Sodium (Senna/Docusate Sodium 1 Tablet) 2 tablet PO BID PRN PRN PRN Reason: Constipation Sodium Chloride (0.9% Saline Lock 10 Ml Syringe) 10 - 40 ml IV UD PRN PRN Reason: SALINE FLUSH Throat Lozenges (Benzocaine/Menthol 1 Lozenge) 1 lozenge MUCOUS MEM Q2H PRN PRN PRN Reason: SORE THROAT Medical Necessity - Tobacco Use Smoking Status: Former smoker Tobacco Use: Non-smoker Assessment/Plan All Active Problems Facial droop (Acute) CVA (cerebral vascular accident) (Acute) 1. Acute CVA-MRI demonstrates small acute infarct right periventricular white matter region/gonzalez radiata and tiny acute infarct body of right caudate nucleus. CTA demonstrates right ICA 50% stenosis with possible mural thrombus, no evidence of left ICA stenosis. SOC neurology consult obtained. Dual antip latelets with aspirin and Plavix for 1 month then aspirin alone. Continue high- dose statin. Echocardiogram pending. PT/OT/ST. Plan for rehab unit pending pre-cert. 2. Hypertension-resume home Dyazide regimen. As needed hydralazine. 3. Hyperlipidemia-patient reports adverse side effects with statins in the past however amenable to try again. Continue high-dose statin and monitor. 4. Chronic COPD-as needed albuterol aerosol. 5. Former tobacco use-encouraged continued cessation. DVT prophylaxis-Lovenox, SCDs Discharge planning: Rehab unit pending pre-cert/acceptance. This patient was seen by FLOYD Le under the supervision of Dr. Almendarez. <Alin Almendarez - Last Filed: 11/11/20 13:28> - Physical Exam Vitals/I&O's: Vital Signs Temp Pulse Resp BP Pulse Ox 98.3 F 88 16 147/87 H 96 11/11/20 10:23 11/11/20 10:23 11/11/20 10:23 11/11/20 10:23 11/11/20 10:23 Oxygen Delivery Method Room Air Weight: 65.9 kg Body Mass Index (BMI) 26.2 Finger Stick Blood Glucose 99 Intake and Output for Last 24 Hours 0311/10/20 11/11/20 23:59 23:59 23:59 Intake Total 906.67 / 1306.67 1570.00 / 1570.00 Balance 906.67 / 1306.67 1570.00 / 1570.00 Laboratory Results 11/10/20 14:10: WBC 9.4, RBC 4.96, Hgb 15.2 H, Hct 43.9, MCV 88.5, MCH 30.6, MCHC 34.6, RDW Std Deviation 43.3, RDW Coeff of Keya 13.3, Plt Count 446, MPV 10.3, Immature Gran % (Auto) 0.200, Neut % (Auto) 73.2 H, Lymph % (Auto) 16.6 L, Charlton % (Auto) 8.6, Eos % (Auto) 1.0, Baso % (Auto) 0.4, Absolute Neuts (auto) 6.9, Absolute Lymphs (auto) 1.56, Nucleated RBC % 0 11/10/20 14:10: PT 11.9, INR 0.9, APTT 31.7 11/10/20 14:10: Sodium 138, Potassium 3.4 L, Chloride 103, Carbon Dioxide 25.0, Anion Gap 10, BUN 16, Creatinine 0.82, Estim Creat Clear Calc 51.21, Est GFR (MDRD) Af Amer 89, Est GFR (MDRD) Non-Af 74, BUN/Creatinine Ratio 19.6, Glucose 97, Calcium 9.4, Troponin I < 0.015 11/10/20 14:10: Magnesium 1.9 11/10/20 14:11: POC Glucose 99 11/11/20 04:45: WBC 6.4, RBC 4.54, Hgb 13.7, Hct 41.1, MCV 90.5, MCH 30.2, MCHC 33.3, RDW Std Deviation 45.0 H, RDW Coeff of Keya 13.7, Plt Count 353, MPV 9.8, Immature Gran % (Auto) 0.300, Neut % (Auto) 59.3, Lymph % (Auto) 27.7, Charlton % (Auto) 10.0, Eos % (Auto) 1.9, Baso % (Auto) 0.8, Absolute Neuts (auto) 3.8, Absolute Lymphs (auto) 1.77, Nucleated RBC % 0 11/11/20 04:45: Sodium 139, Potassium 3.5, Chloride 107, Carbon Dioxide 27.0, Anion Gap 5, BUN 15, Creatinine 0.94, Estim Creat Clear Calc 44.67, Est GFR (MDRD) Af Amer 76, Est GFR (MDRD) Non-Af 63, BUN/Creatinine Ratio 16.0, Glucose 94, Calcium 8.9, Total Bilirubin 0.90, AST 18, ALT 35, Alkaline Phosphatase 76, Total Protein 6.5, Albumin 3.2, Globulin 3.3, Albumin/Globulin Ratio 1.0, Triglycerides 139, Cholesterol 248 H, LDL Cholesterol 160 H, VLDL Cholesterol 28, HDL Cholesterol 60, TSH 4.00 H 11/11/20 04:45: Hemoglobin A1c 5.2 11/11/20 04:45: Free T4 1.13, Free T3 pg/dL 1.9 L Current Medications Acetaminophen (Acetaminophen 325 Mg Tablet) 650 mg PO Q6H PRN PRN PRN Reason: Pain Score 1-10/Temp > 100.7 F Last Admin: 11/10/20 22:15 Dose: 650 mg Documented by: Albuterol Sulfate (Albuterol 2.5 Mg/3 Ml Vial.Neb.) 2.5 mg INHALATION Q2H PRN PRN PRN Reason: Dyspnea, wheezing Albuterol/Ipratropium (Ipratropium/Albuterol Sulfate 3 Ml Ampul.Neb) 3 ml INHALATION Q6HWA.RT COUNT INCLUDES THE [facility] Aspirin (Aspirin 81 Mg Tab.Chew) 81 mg PO DAILY@0800 COUNT INCLUDES THE [facility] Last Admin: 11/11/20 08:55 Dose: 81 mg Documented by: Atorvastatin Calcium (Atorvastatin Calcium 80 Mg Tablet) 80 mg PO QHS COUNT INCLUDES THE [facility] Last Admin: 11/10/20 22:14 Dose: 80 mg Documented by: Clopidogrel Bisulfate (Clopidogrel Bisulfate 75 Mg Tablet) 75 mg PO DAILY COUNT INCLUDES THE [facility] Last Admin: 11/11/20 08:55 Dose: 75 mg Documented by: Enoxaparin Sodium (Enoxaparin 40 Mg/0.4 Ml Syringe) 40 mg SC DAILY COUNT INCLUDES THE [facility] Last Admin: 11/11/20 08:55 Dose: 40 mg Documented by: Guaifenesin (Guaifenesin 10 Ml Udc (200mg/10ml)) 20 ml PO Q4H PRN PRN PRN Reason: COUGH Hydralazine HCl (Hydralazine 20 Mg/Ml Vial) 5 mg IV Q30M PRN PRN Reason: to maintain BP goals Labetalol HCl (Labetalol (Prefilled) 20 Mg/4 Ml) 10 - 20 mg IV Q10M PRN PRN PRN Reason: to Maintain BP Goals Magnesium Hydroxide (Magnesium Hydroxide 30 Ml Udc) 30 ml PO DAILY PRN PRN PRN Reason: Constipation Melatonin (Melatonin 3 Mg Tablet) 3 mg PO QHS PRN PRN PRN Reason: INSOMNIA Last Admin: 11/10/20 22:15 Dose: 3 mg Documented by: Montelukast Sodium (Montelukast 10 Mg Tablet) 10 mg PO DAILY LEANDRO Last Admin: 11/11/20 08:55 Dose: 10 mg Documented by: Psyllium Hydrophilic Mucilloid (Psyllium 1 Packet) 1 packet PO DAILY PRN PRN PRN Reason: Constipation Senna/Docusate Sodium (Senna/Docusate Sodium 1 Tablet) 2 tablet PO BID PRN PRN PRN Reason: Constipation Sodium Chloride (0.9% Saline Lock 10 Ml Syringe) 10 - 40 ml IV UD PRN PRN Reason: SALINE FLUSH Throat Lozenges (Benzocaine/Menthol 1 Lozenge) 1 lozenge MUCOUS MEM Q2H PRN PRN PRN Reason: SORE THROAT Triamterene/Hydrochlorothiazide (Triamterene 37.5mg/Hctz 25mg Capsule) 1 cap PO DAILY COUNT INCLUDES THE [facility] Assessment/Plan This patient was seen in conjunction with FLOYD Le . I have independently interviewed and examined the patient and reviewed pertinent historical, laboratory, and other data. Please refer to FLOYD Le note for details of this patient's presentation, findings, and recommendations. I have reviewed FLOYD Le note and concur with documented findings. In brief, patient is a 10-year-old lady in relatively good health who presented with left-sided weakness. Imaging studies including MRI obtained demonstrated small acute infarct right periventricular white matter region/gonzalez radiata and tiny acute infarct body of right caudate nucleus. Treatment initiated per protocol admitted to monitored bed Physical Examination: GENERAL: cooperative HEENT: Atraumatic; EYES; Anicteric, Normal Conjunctiva NECK; supple, normal thyroid, RESPIRATORY: Diminished to auscultation CARDIOVASCULAR: Regular S1 S2, GI: soft, normoactive bowel sounds, : No Renal angle tenderness; EXTREMITIES: No edema, no clubbing, MUSCULOSKELETAL: no muscle waisting NEURO: Awake; left upper extremity decreased strength 3/5 SKIN: No Rash PSYCH; Flat affect Assessment: 1. Acute CVA 2. Hypertension 3. Dyslipidemia 4. COPD 5. Previous history of tobacco use 6. DVT prophylaxis?Lovenox Recommendations: 1. I have discussed the results of my overview and impressions with the patient 2. Options for management were reviewed Inpatient E&M: [id number] [facility] [place] [facility] L3
[2020-11-11 13:15] LABS: Free T3 1.9 pg/mL (2.18-3.98); T4 Free Direct 1.13 ng/dL (0.76-1.46)
[2020-11-11] MEDS: Acetaminophen 325 MG Tablet 650 MG PO (16:42)
[2020-11-11] MEDS: Atorvastatin Calcium 80 MG Tablet PO (20:51)
[2020-11-11] MEDS: MELATONIN 3 MG TABLET PO (22:36)
[2020-11-12] VITALS (10 sets, daily range): BP systolic 135–168; BP diastolic 78–83; PULSE 67–86; RESP 15–18; TEMP 36.6–36.8; O2SAT 92–98; BMI 26.2
[2020-11-12] MEDS: Acetaminophen 325 MG Tablet 650 MG PO ×2 (03:57→23:34)
[2020-11-12 06:31] LABS: Hematocrit 41.7 % (37-47); Mean Corp Hgb Conc 33.6 g/dL (32-36); Mean Corpuscular Hgb 30.4 pg (27.0-32.0); Mean Corpuscular Volume 90.5 fL (81-99); Mean Platelet Vol. 10.4 fl (6.2-12.0); Platelet Count 352 K/mm3 (150-450); RBC Distribution Width CV 13.7 % (11.6-14.6); RBC Distribution Width SD 45.3 fl (35.1-43.9); Red Blood Count 4.61 M/mm3 (4.2-5.4); White Blood Count 8.6 K/mm3 (4.4-11.0)
[2020-11-12 06:53] LABS: Anion Gap 7 (5-15); BUN 18 mg/dL (7-18); Calcium,Total 9.1 mg/dL (8.5-10.1); Chloride 104 mmol/L (98-107); Creatinine, Serum 0.82 mg/dL (0.55-1.02); EST Glomerular Filtration Rate 74 mL/min (>60); Est Glom Filt Rate - Afr Amer 89 mL/min (>60); Estimated Creatinine Clearance 51.21 ml/min; Glucose 108 mg/dL (74-106); Magnesium 1.7 mg/dL (1.6-2.6); Potassium 3.1 mmol/L (3.5-5.1); Sodium Level 138 mmol/L (136-145)
[2020-11-12] MEDS: Montelukast 10 MG Tablet PO (08:39)
[2020-11-12] MEDS: Enoxaparin 40 MG/0.4 ML Syringe SC (08:39)
[2020-11-12] MEDS: Aspirin 81 MG TAB.CHEW PO (08:39)
[2020-11-12] MEDS: Triamterene 37.5MG/Hctz 25MG Capsule 1 CAP PO (08:40)
[2020-11-12] MEDS: Clopidogrel Bisulfate 75 MG Tablet PO (08:40)
[2020-11-12] MEDS: Diclofenac 75 MG Tablet 150 MG PO (09:43)
[2020-11-12] MEDS: Sertraline 50 MG Tablet PO (09:43)
--- NOTE | 2020-11-12 09:43 | NURSING ---
verified with patient a second time. She states she does take 150mg (2 75mg tabs) once a day as needed for pain
--- NOTE | 2020-11-12 10:16 | NURSING ---
Julia called and approval from insurance was given for in patient rehab admission on Saturday.
--- NOTE | 2020-11-12 10:25 | PN_ITS ---
<MichaelMaegan LAST MODEL MAKER - Last Filed: 11/12/20 10:34> Patient Problems: Active and Suspected Problems Facial droop (Acute) CVA (cerebral vascular accident) (Acute) Subjective: Patient seen and examined. Denies new neurologic symptoms or focal deficits. Patient tearful and states she is having a flareup of fibromyalgia. She states she has difficulty controlling her emotions during these episodes. Also admits to being overwhelmed with new stroke diagnosis and deficits. Amendable to beginning SSRI. Awaiting approval to rehab. - Physical Exam Vitals/I&O's: Vital Signs Temp Pulse Resp BP Pulse Ox 98.2 F 78 16 145/83 H 98 11/12/20 09:45 11/12/20 09:45 11/12/20 09:45 11/12/20 09:45 11/12/20 09:45 Oxygen Delivery Method Room Air Weight: 146 lb 9.718 oz Body Mass Index (BMI) 26.2 Finger Stick Blood Glucose 99 Intake and Output for Last 24 Hours 11/10/20 11/11/20 11/12/20 23:59 23:59 23:59 Intake Total 906.67 / 1306.67 1570.00 / 1820.00 490 / 490 Balance 906.67 / 1306.67 1570.00 / 1820.00 490 / 490 General: Alert, Oriented x3, Cooperative HEENT: Atraumatic, PERRLA, EOMI, Normocephalic Neck: Supple, No JVD, Negative Carotid Bruits Lungs: Clear to auscultation, Normal air movement Cardiovascular: Regular rate, No murmurs Abdomen: Bowel Sounds Present, Soft, Non Tender, Non-Distended Extremities: No clubbing, No cyanosis, No edema, Capillary Refill Less than 3 Seconds Skin: No rashes, No breakdown Musculoskeletal: No Tenderness to Palpation of Joints or Extremities Neurological: Cranial nerves II-XII grossly intact, - - Left-sided weakness, left facial droop, speech difficulty. Psych/Mental Status: Anxious, - - Tearful Laboratory Results 11/11/20 04:45: Free T4 1.13, Free T3 pg/dL 1.9 L 11/12/20 05:50: WBC 8.6, RBC 4.61, Hgb 14.0, Hct 41.7, MCV 90.5, MCH 30.4, MCHC 33.6, RDW Std Deviation 45.3 H, RDW Coeff of [place] 13.7, Plt Count 352, MPV 10.4 11/12/20 05:50: Sodium 138, Potassium 3.1 L, Chloride 104, Carbon Dioxide 27.0, Anion Gap 7, BUN 18, Creatinine 0.82, Estim Creat Clear Calc 51.21, Est GFR (MDRD) Af Amer 89, Est GFR (MDRD) Non-Af 74, BUN/Creatinine Ratio 22.0 H, Glucose 108 H, Calcium 9.1, Magnesium 1.7 Current Medications Acetaminophen (Acetaminophen 325 Mg Tablet) 650 mg PO Q6H PRN PRN PRN Reason: Pain Score 1-10/Temp > 100.7 F Last Admin: 11/12/20 03:57 Dose: 650 mg Documented by: Albuterol Sulfate (Albuterol 2.5 Mg/3 Ml Vial.Neb.) 2.5 mg INHALATION Q2H PRN PRN PRN Reason: Dyspnea, wheezing Albuterol/Ipratropium (Ipratropium/Albuterol Sulfate 3 Ml Ampul.Neb) 3 ml INHALATION Q6HWA.RT [facility] Aspirin (Aspirin 81 Mg Tab.Chew) 81 mg PO DAILY@0800 [facility] Last Admin: 11/12/20 08:39 Dose: 81 mg Documented by: Atorvastatin Calcium (Atorvastatin Calcium 80 Mg Tablet) 80 mg PO QHS [facility] Last Admin: 11/11/20 20:51 Dose: 80 mg Documented by: Clopidogrel Bisulfate (Clopidogrel Bisulfate 75 Mg Tablet) 75 mg PO DAILY [facility] Last Admin: 11/12/20 08:40 Dose: 75 mg Documented by: Diclofenac Sodium (Diclofenac 75 Mg Tablet) 150 mg PO DAILY PRN PRN PRN Reason: Pain Score 1-10 Last Admin: 11/12/20 09:43 Dose: 150 mg Documented by: Enoxaparin Sodium (Enoxaparin 40 Mg/0.4 Ml Syringe) 40 mg SC DAILY [facility] Last Admin: 11/12/20 08:39 Dose: 40 mg Documented by: Guaifenesin (Guaifenesin 10 Ml Udc (200mg/10ml)) 20 ml PO Q4H PRN PRN PRN Reason: COUGH Hydralazine HCl (Hydralazine 20 Mg/Ml Vial) 5 mg IV Q30M PRN PRN Reason: to maintain BP goals Labetalol HCl (Labetalol (Prefilled) 20 Mg/4 Ml) 10 - 20 mg IV Q10M PRN PRN PRN Reason: to Maintain BP Goals Magnesium Hydroxide (Magnesium Hydroxide 30 Ml Udc) 30 ml PO DAILY PRN PRN PRN Reason: Constipation Melatonin (Melatonin 3 Mg Tablet) 3 mg PO QHS PRN PRN PRN Reason: INSOMNIA Last Admin: 11/11/20 22:36 Dose: 3 mg Documented by: Montelukast Sodium (Montelukast 10 Mg Tablet) 10 mg PO DAILY [facility] Last Admin: 11/12/20 08:39 Dose: 10 mg Documented by: Psyllium Hydrophilic Mucilloid (Psyllium 1 Packet) 1 packet PO DAILY PRN PRN PRN Reason: Constipation Senna/Docusate Sodium (Senna/Docusate Sodium 1 Tablet) 2 tablet PO BID PRN PRN PRN Reason: Constipation Sertraline HCl (Sertraline 50 Mg Tablet) 50 mg PO DAILY [facility] Last Admin: 11/12/20 09:43 Dose: 50 mg Documented by: Sodium Chloride (0.9% Saline Lock 10 Ml Syringe) 10 - 40 ml IV UD PRN PRN Reason: SALINE FLUSH Throat Lozenges (Benzocaine/Menthol 1 Lozenge) 1 lozenge MUCOUS MEM Q2H PRN PRN PRN Reason: SORE THROAT Triamterene/Hydrochlorothiazide (Triamterene 37.5mg/Hctz 25mg Capsule) 1 cap PO DAILY [facility] Last Admin: 11/12/20 08:40 Dose: 1 cap Documented by: Medical Necessity - Tobacco Use Smoking Status: Former smoker Tobacco Use: Non-smoker Assessment/Plan All Active Problems Facial droop (Acute) CVA (cerebral vascular accident) (Acute) 1. Acute CVA-MRI demonstrates small acute infarct right periventricular white matter region/gonzalez radiata and tiny acute infarct body of right caudate nucleus. CTA demonstrates right ICA 50% stenosis with possible mural thrombus, no evidence of left ICA stenosis. SOC neurology consult obtained. Dual antiplatelets with aspirin and Plavix for 1 month then aspirin alone. Continue high-dose statin. Echocardiogram demonstrates an EF of 65%. PT/OT/ST. Plan for rehab unit pending pre-cert. 2. Hypertension-resume home Dyazide regimen. As needed hydralazine. 3. Hyperlipidemia-patient reports adverse side effects with statins in the past however amenable to try again. Continue high-dose statin and monitor. 4. Chronic COPD-as needed albuterol aerosol. 5. Former tobacco use-encouraged continued cessation. DVT prophylaxis-Lovenox, SCDs Discharge planning: Rehab unit pending pre-cert/acceptance. This patient was seen by FLOYD Le under the supervision of Dr. Almendarez. <Alin Almendarez - Last Filed: 11/12/20 12:42> - Physical Exam Vitals/I&O's: Vital Signs Temp Pulse Resp BP Pulse Ox 98.2 F 78 16 145/83 H 98 11/12/20 09:45 11/12/20 09:45 11/12/20 09:45 11/12/20 09:45 11/12/20 09:45 Oxygen Delivery Method Room Air Weight: 66.5 kg Body Mass Index (BMI) 26.2 Finger Stick Blood Glucose 99 Intake and Output for Last 24 Hours 11/10/20 11/11/20 11/12/20 23:59 23:59 23:59 Intake Total 906.67 / 1306.67 1570.00 / 1820.00 1290 / 1290 Balance 906.67 / 1306.67 1570.00 / 1820.00 1290 / 1290 Laboratory Results 11/11/20 04:45: Free T4 1.13, Free T3 pg/dL 1.9 L 11/12/20 05:50: WBC 8.6, RBC 4.61, Hgb 14.0, Hct 41.7, MCV 90.5, MCH 30.4, MCHC 33.6, RDW Std Deviation 45.3 H, RDW Coeff of [place] 13.7, Plt Count 352, MPV 10.4 11/12/20 05:50: Sodium 138, Potassium 3.1 L, Chloride 104, Carbon Dioxide 27.0, Anion Gap 7, BUN 18, Creatinine 0.82, Estim Creat Clear Calc 51.21, Est GFR (MDRD) Af Amer 89, Est GFR (MDRD) Non-Af 74, BUN/Creatinine Ratio 22.0 H, Glucose 108 H, Calcium 9.1, Magnesium 1.7 Current Medications Acetaminophen (Acetaminophen 325 Mg Tablet) 650 mg PO Q6H PRN PRN PRN Reason: Pain Score 1-10/Temp > 100.7 F Last Admin: 11/12/20 03:57 Dose: 650 mg Documented by: Albuterol Sulfate (Albuterol 2.5 Mg/3 Ml Vial.Neb.) 2.5 mg INHALATION Q2H PRN PRN PRN Reason: Dyspnea, wheezing Albuterol/Ipratropium (Ipratropium/Albuterol Sulfate 3 Ml Ampul.Neb) 3 ml INHALATION Q6HWA.RT [facility] Aspirin (Aspirin 81 Mg Tab.Chew) 81 mg PO DAILY@0800 [facility] Last Admin: 11/12/20 08:39 Dose: 81 mg Documented by: Atorvastatin Calcium (Atorvastatin Calcium 80 Mg Tablet) 80 mg PO QHS [facility] Last Admin: 11/11/20 20:51 Dose: 80 mg Documented by: Clopidogrel Bisulfate (Clopidogrel Bisulfate 75 Mg Tablet) 75 mg PO DAILY [facility] Last Admin: 11/12/20 08:40 Dose: 75 mg Documented by: Diclofenac Sodium (Diclofenac 75 Mg Tablet) 150 mg PO DAILY PRN PRN PRN Reason: Pain Score 1-10 Last Admin: 11/12/20 09:43 Dose: 150 mg Documented by: Enoxaparin Sodium (Enoxaparin 40 Mg/0.4 Ml Syringe) 40 mg SC DAILY [facility] Last Admin: 11/12/20 08:39 Dose: 40 mg Documented by: Guaifenesin (Guaifenesin 10 Ml Udc (200mg/10ml)) 20 ml PO Q4H PRN PRN PRN Reason: COUGH Hydralazine HCl (Hydralazine 20 Mg/Ml Vial) 5 mg IV Q30M PRN PRN Reason: to maintain BP goals Labetalol HCl (Labetalol (Prefilled) 20 Mg/4 Ml) 10 - 20 mg IV Q10M PRN PRN PRN Reason: to Maintain BP Goals Magnesium Hydroxide (Magnesium Hydroxide 30 Ml Udc) 30 ml PO DAILY PRN PRN PRN Reason: Constipation Melatonin (Melatonin 3 Mg Tablet) 3 mg PO QHS PRN PRN PRN Reason: INSOMNIA Last Admin: 11/11/20 22:36 Dose: 3 mg Documented by: Montelukast Sodium (Montelukast 10 Mg Tablet) 10 mg PO DAILY [facility] Last Admin: 11/12/20 08:39 Dose: 10 mg Documented by: Potassium Chloride (Potassium Chloride Oral Tablet 20 Meq) [facility] Psyllium Hydrophilic Mucilloid (Psyllium 1 Packet) 1 packet PO DAILY PRN PRN PRN Reason: Constipation Senna/Docusate Sodium (Senna/Docusate Sodium 1 Tablet) 2 tablet PO BID PRN PRN PRN Reason: Constipation Sertraline HCl (Sertraline 50 Mg Tablet) 50 mg PO DAILY [facility] Last Admin: 11/12/20 09:43 Dose: 50 mg Documented by: Sodium Chloride (0.9% Saline Lock 10 Ml Syringe) 10 - 40 ml IV UD PRN PRN Reason: SALINE FLUSH Throat Lozenges (Benzocaine/Menthol 1 Lozenge) 1 lozenge MUCOUS MEM Q2H PRN PRN PRN Reason: SORE THROAT Triamterene/Hydrochlorothiazide (Triamterene 37.5mg/Hctz 25mg Capsule) 1 cap PO DAILY [facility] Last Admin: 11/12/20 08:40 Dose: 1 cap Documented by: Assessment/Plan This patient was seen in conjunction with FLOYD Le . I have independently interviewed and examined the patient and reviewed pertinent historical, laboratory, and other data. Please refer to FLOYD Le note for details of this patient's presentation, findings, and recommendations. I have reviewed FLOYD Le note and concur with documented fi ndings. In brief, patient is a 10-year-old lady in relatively good health who presented with left-sided weakness. Imaging studies including MRI obtained demonstrated small acute infarct right periventricular white matter region/gonzalez radiata and tiny acute infarct body of right caudate nucleus. Treatment initiated per protocol admitted to [facility] bed 11/12/2020; patient seen complains of aching all over. Patient is also tearful did initiate low-dose SSRI. Awaiting insurance preset prior to transfer to [facility] facility[facility]rehab Physical Examination: GENERAL: cooperative HEENT: Atraumatic; EYES; Anicteric, Normal Conjunctiva NECK; supple, normal thyroid, RESPIRATORY: Diminished to auscultation CARDIOVASCULAR: Regular S1 S2, GI: soft, normoactive bowel sounds, : No Renal angle tenderness; EXTREMITIES: No edema, no clubbing, MUSCULOSKELETAL: no muscle waisting NEURO: Awake; left upper extremity decreased strength 3/5 SKIN: No Rash PSYCH; Flat affect Assessment: 1. Acute CVA 2. Hypertension 3. Dyslipidemia 4. COPD 5. Previous history of tobacco use 6. DVT prophylaxis?Lovenox 7. Fibromyalgia 8. Depression Recommendations: 1. I have discussed the results of my overview and impressions with the patient 2. Options for management were reviewed Inpatient E&M: [id number] Subs Hosp L2
[2020-11-12] MEDS: Potassium Chloride Oral Tablet 20 MEQ 40 MEQ PO (11:13)
[2020-11-12] MEDS: Potassium Chloride Oral Tablet 20 MEQ PO (17:28)
[2020-11-12] MEDS: Atorvastatin Calcium 80 MG Tablet PO (20:43)
[2020-11-12] MEDS: MELATONIN 3 MG TABLET PO (23:35)
[2020-11-13] VITALS (7 sets, daily range): BP systolic 135–136; BP diastolic 66–77; PULSE 65–77; RESP 15–16; TEMP 36.6; O2SAT 94–97; BMI 26.2
[2020-11-13 06:51] LABS: Hematocrit 43.8 % (37-47); Hemoglobin 14.3 g/dL (12.0-15.0); Mean Corp Hgb Conc 32.6 g/dL (32-36); Mean Corpuscular Hgb 29.5 pg (27.0-32.0); Mean Corpuscular Volume 90.3 fL (81-99); Mean Platelet Vol. 10.6 fl (6.2-12.0); Platelet Count 406 K/mm3 (150-450); RBC Distribution Width CV 13.3 % (11.6-14.6); RBC Distribution Width SD 44.6 fl (35.1-43.9); Red Blood Count 4.85 M/mm3 (4.2-5.4); White Blood Count 10.4 K/mm3 (4.4-11.0)
[2020-11-13 07:19] LABS: Anion Gap 8 (5-15); BUN 19 mg/dL (7-18); Calcium,Total 9.4 mg/dL (8.5-10.1); Chloride 103 mmol/L (98-107); Creatinine, Serum 0.83 mg/dL (0.55-1.02); EST Glomerular Filtration Rate 73 mL/min (>60); Est Glom Filt Rate - Afr Amer 88 mL/min (>60); Estimated Creatinine Clearance 50.59 ml/min; Glucose 99 mg/dL (74-106); Potassium 3.8 mmol/L (3.5-5.1); Sodium Level 135 mmol/L (136-145)
[2020-11-13] MEDS: Sertraline 50 MG Tablet PO (09:33)
[2020-11-13] MEDS: Enoxaparin 40 MG/0.4 ML Syringe SC (09:33)
[2020-11-13] MEDS: Clopidogrel Bisulfate 75 MG Tablet PO (09:34)
[2020-11-13] MEDS: Triamterene 37.5MG/Hctz 25MG Capsule 1 CAP PO (09:35)
[2020-11-13] MEDS: Potassium Chloride Oral Tablet 20 MEQ PO (09:35)
[2020-11-13] MEDS: Aspirin 81 MG TAB.CHEW PO (09:37)
--- NOTE | 2020-11-13 10:49 | DCINST_ITS ---
- Discharge Diagnoses Current Active Problems: Current Active and Chronic Problems Facial droop (Acute) CVA (cerebral vascular accident) (Acute) Chronic obstructive pulmonary disease (Chronic) Allergic rhinitis (Chronic) Hypertension (Chronic) Former tobacco use (Chronic) You will use the following diet at home:: Cardiac Discharge Activity: Return to Normal Activity Call your doctor if you observe: Numbness or Tingling, Shortness of breath, Dizziness, Fainting spells, Chest pain Additional Instructions: Patient would like referral for new PCP at discharge from rehab. Recommend carotid ultrasound to further evaluate possible right ICA mural thrombus. Patient may need vascular follow-up pending results. Allergies/Adverse Reactions: Allergies codeine Allergy (Verified 11/10/20 14:23) Vomiting Penicillins [PCN] Allergy (Verified 11/10/20 14:23) Shortness of breath Sulfa (Sulfonamide Antibiotics) Allergy (Verified 11/10/20 14:23) Vomiting Medications to take at Discharge Diclofenac Sodium 75 mg PO BID PRN 02/22/20 Fluticasone/Salmeterol [Advair 250-50 Diskus] 1 ea IH PRN PRN 02/22/20 Montelukast [Singulair] 10 mg PO DAILY 02/22/20 Triamterene 37.5MG/Hctz 25MG [Dyazide (G)] 1 cap PO DAILY 02/22/20 Diazepam [Valium] 2 mg PO TID PRN PRN #10 tab 11/09/20 Albuterol Aerosols [Ventolin Aerosols] 2.5 mg INHALATION Q2H PRN PRN vial.neb. 11/13/20 Aspirin [Aspirin, Baby] 81 mg PO DAILY@0800 tab.chew 11/13/20 Atorvastatin Calcium [Lipitor] 80 mg PO QHS tab 11/13/20 Clopidogrel Bisulfate [Plavix] 75 mg PO DAILY tab 11/13/20 Sertraline HCl [Zoloft] 50 mg PO DAILY tab 11/13/20 Primary Care Physician: Erich Hall DO [Primary Care Provider] - Please follow up with your Primary Care Physician in: 1 Week Test Results: Test results from this visit will be discussed in further detail at your follow- up appointment, if applicable. Please Follow Up With: Neurology When: 2 Weeks Proposed Discharge Date: 11/13/20
--- NOTE | 2020-11-13 10:52 | PCM.DC.SUM ---
<MichaelMaegan NON DESTRUCTIVE TESTING INSPECTOR - Last Filed: 11/13/20 11:03> Discharge Date and Diagnosis - Problem List Patient Problems: Active and Suspected Problems CVA (cerebral vascular accident) (Acute) Date of Admission: 11/10/20 Date of Discharge: 11/13/20 - Primary Discharge Diagnosis Acute Problems: Active Problems 1. Acute CVA 2. Hypertension 3. Hyperlipidemia 4. Chronic COPD 5. Former tobacco use 6. Fibromyalgia 7. Depression/anxiety - Secondary Discharge Diagnosis Chronic Problems: Chronic Problems Chronic obstructive pulmonary disease (Chronic) Allergic rhinitis (Chronic) Hypertension (Chronic) Former tobacco use (Chronic) Hospital Course and Treatment Imaging Results: Diagnostic Data Brain CT 11/10/20 14:26 IMPRESSION: No acute intracranial hemorrhage, midline shift or mass effect Stable hypoattenuations in the right basal ganglia likely remote infarcts Electronically Signed: Benson Ulloa MD at 14:45 EST , Service support , ADDENDUM: 11/10/20 1457 IMPRESSION: No acute intracranial hemorrhage, midline shift or mass effect Stable hypoattenuations in the right basal ganglia likely remote infarcts N.B. : The above information has been verbally conveyed by Benson Ulloa MD to MALIKA VERONICA MD, on 11/10/2020 14:50:55 (ET). Electronically Signed: Benson Ulloa MD at 14:45 EST , Service support , Head/Neck CTA 11/10/20 14:27 IMPRESSION: Peripheral calcifications and mural thrombus at the origin of the right ICA with 50% stenosis noted. No evidence of dissection. No CTA evidence of common carotid or left ICA stenosis Small right vertebral artery No evidence of significant stenosis, obstructing thrombus, aneurysm or AVM in the brain N.B. : The above information has been verbally conveyed by Benson Ulloa MD to MALIKA VERONICA MD, on 11/10/2020 14:50:37 (ET). Electronically Signed: Benson Ulloa MD at 14:51 EST , Service support , ADDENDUM: 11/10/20 1458 IMPRESSION: Peripheral calcifications and mural thrombus at the origin of the right ICA with 50% stenosis noted. No evidence of dissection. No CTA evidence of common carotid or left ICA stenosis Small right vertebral artery No evidence of significant stenosis, obstructing thrombus, aneurysm or AVM in the brain N.B. : The above information has been verbally conveyed by Benson Ulloa MD to MALIKA VERONICA MD, on 11/10/2020 14:50:37 (ET). Electronically Signed: Benson Ulloa MD at 14:51 EST , Service support , Chest X-Ray 11/10/20 14:42 IMPRESSION: No acute pulmonary process Electronically Signed: Benson Ulloa MD at 15:15 EST , Service support , Brain MRI 11/10/20 16:19 IMPRESSION: 1. Small foci of acute infarct right periventricular white matter region/gonzalez radiata and a tiny focus of acute infarct body of right caudate nucleus. 2. No parenchymal hemorrhage. 3. Minimal chronic small vessel ischemic white matter changes. . at 2017 Reported and signed by: Christoph Mayes MD Electronically Signed: Christoph Mayes MD at 20:16 EST Tel , Service support , ADDENDUM: 11/10/202042 IMPRESSION: 1. Small foci of acute infarct right periventricular white matter region/gonzalez radiata and a tiny focus of acute infarct body of right caudate nucleus. 2. No parenchymal hemorrhage. 3. Minimal chronic small vessel ischemic white matter changes. . at 2017 Reported and signed by: Christoph Mayes MD N.B. : The above information has been verbally conveyed by Christoph Mayes MD to Dr. Candice Singh MD, on 11/10/2020 20:36:42 (ET). Electronically Signed: Christoph Mayes MD at 20:16 EST Tel , Service support , SOC neurology Operations: None Procedures: 2-D Echocardiogram Summary of Care Provided: The patient is a 70 year old F admitted 11/10/2020 due to left-sided weakness, left facial droop and slurred speech. 1. Acute right ICA territory CVA-MRI demonstrates small acute infarct right periventricular white matter region/gonzalez radiata and tiny acute infarct body of right caudate nucleus. CTA demonstrates right ICA 50% stenosis with possible mural thrombus, no evidence of left ICA stenosis. SOC neurology consult obtained. Dual antiplatelets with aspirin and Plavix for 1 month then aspirin alone. Continue high-dose statin. Echocardiogram demonstrates an EF of 65%. PT/OT/ST. Carotid ultrasound ordered however not completed prior to discharge to rehab unit. Recommend carotid ultrasounds for further evaluation of possible right ICA mural thrombus. If carotid ultrasound is unremarkable, consider vascular consult. Neurology notes no critical stenosis. Outpatient follow-up with neurology upon discharge. 2. Hypertension-continue home Dyazide regimen. 3. Hyperlipidemia-patient reports adverse side effects with statins in the past however amenable to try again. Continue high-dose statin and monitor. 4. Chronic COPD-as needed albuterol aerosol. 5. Former tobacco use-encouraged continued cessation. 6. Fibromyalgia-patient reports flareup during admission and states her PRN Voltaren is what typically works for her. Concern for routine use of Voltaren given dual antiplatelet therapy. May consider alternative agent if patient has recurrent symptoms. 7. Depression/anxiety-patient tearful during admission about new diagnosis as well as deficits. Initiated on Zoloft 50 mg daily. Recommend further outpatient counseling/titration of medication. General: Alert, Oriented x3, Cooperative HEENT: Atraumatic, PERRLA, EOMI, Normocephalic Neck: Supple, No JVD, Negative Carotid Bruits Lungs: Clear to auscultation, Normal air movement Cardiovascular: Regular rate, No murmurs Abdomen: Bowel Sounds Present, Soft, Non Tender, Non-Distended Extremities: No clubbing, No cyanosis, No edema, Capillary Refill Less than 3 Seconds Skin: No rashes, No breakdown Musculoskeletal: No Tenderness to Palpation of Joints or Extremities Neurological: Cranial nerves II-XII grossly intact, Left-sided weakness, left facial droop, speech difficulty. Psych/Mental Status: Anxious Patient seen and examined prior to discharge. Physical assessment as noted above. Patient is stable for discharge with follow up recommendations as noted above. This patient was seen by FLOYD Le under the supervision of Dr. Almendarez. Patient Problems: Active and Suspected Problems CVA (cerebral vascular accident) (Acute) - Physical Exam Vitals/I&O's: Vital Signs Temp Pulse Resp BP Pulse Ox 97.8 F 75 16 135/66 H 95 11/13/20 09:30 11/13/20 09:30 11/13/20 09:30 11/13/20 09:30 11/13/20 09:30 Oxygen Delivery Method Room Air Weight: 146 lb 2.664 oz Body Mass Index (BMI) 26.2 Finger Stick Blood Glucose 99 Intake and Output for Last 24 Hours 11/11/20 11/12/20 11/14/20 23:59 23:59 00:59 Intake Total 1570.00 / 1820.00 1290 / 1690 700 / 700 Balance 1570.00 / 1820.00 1290 / 1690 700 / 700 Laboratory Results 11/13/20 05:10: WBC 10.4, RBC 4.85, Hgb 14.3, Hct 43.8, MCV 90.3, MCH 29.5, MCHC 32.6, RDW Std Deviation 44.6 H, RDW Coeff of [place]a 13.3, Plt Count 406, MPV 10.6 11/13/20 05:10: Sodium 135 L, Potassium 3.8, Chloride 103, Carbon Dioxide 24.0, Anion Gap 8, BUN 19 H, Creatinine 0.83, Estim Creat Clear Calc 50.59, Est GFR (MDRD) Af Amer 88, Est GFR (MDRD) Non-Af 73, BUN/Creatinine Ratio 23.0 H, Glucose 99, Calcium 9.4 Current Medications Acetaminophen (Acetaminophen 325 Mg Tablet) 650 mg PO Q6H PRN PRN PRN Reason: Pain Score 1-10/Temp > 100.7 F Last Admin: 11/12/20 23:34 Dose: 650 mg Documented by: Albuterol Sulfate (Albuterol 2.5 Mg/3 Ml Vial.Neb.) 2.5 mg INHALATION Q2H PRN PRN PRN Reason: Dyspnea, wheezing Albuterol/Ipratropium (Ipratropium/Albuterol Sulfate 3 Ml Ampul.Neb) 3 ml INHALATION Q6HWA.RT [facility] Aspirin (Aspirin 81 Mg Tab.Chew) 81 mg PO DAILY@0800 [facility] Last Admin: 11/13/20 09:37 Dose: 81 mg Documented by: Atorvastatin Calcium (Atorvastatin Calcium 80 Mg Tablet) 80 mg PO QHS [facility] Last Admin: 11/12/20 20:43 Dose: 80 mg Documented by: Clopidogrel Bisulfate (Clopidogrel Bisulfate 75 Mg Tablet) 75 mg PO DAILY [facility] Last Admin: 11/13/20 09:34 Dose: 75 mg Documented by: Diclofenac Sodium (Diclofenac 75 Mg Tablet) 150 mg PO DAILY PRN PRN PRN Reason: Pain Score 1-10 Last Admin: 11/12/20 09:43 Dose: 150 mg Documented by: Enoxaparin Sodium (Enoxaparin 40 Mg/0.4 Ml Syringe) 40 mg SC DAILY [facility] Last Admin: 11/13/20 09:33 Dose: 40 mg Documented by: Guaifenesin (Guaifenesin 10 Ml Udc (200mg/10ml)) 20 ml PO Q4H PRN PRN PRN Reason: COUGH Hydralazine HCl (Hydralazine 20 Mg/Ml Vial) 5 mg IV Q30M PRN PRN Reason: to maintain BP goals Labetalol HCl (Labetalol (Prefilled) 20 Mg/4 Ml) 10 - 20 mg IV Q10M PRN PRN PRN Reason: to Maintain BP Goals Magnesium Hydroxide (Magnesium Hydroxide 30 Ml Udc) 30 ml PO DAILY PRN PRN PRN Reason: Constipation Melatonin (Melatonin 3 Mg Tablet) 3 mg PO QHS PRN PRN PRN Reason: INSOMNIA Last Admin: 11/12/20 23:35 Dose: 3 mg Documented by: Montelukast Sodium (Montelukast 10 Mg Tablet) 10 mg PO DAILY [facility] Last Admin: 03/14/21 09:35 Dose: Not Given Documented by: Potassium Chloride (Potassium Chloride Oral Tablet 20 Meq) 20 meq PO BIDCM [facility] Last Admin: 11/13/20 09:35 Dose: 20 meq Documented by: Psyllium Hydrophilic Mucilloid (Psyllium 1 Packet) 1 packet PO DAILY PRN PRN PRN Reason: Constipation Senna/Docusate Sodium (Senna/Docusate Sodium 1 Tablet) 2 tablet PO BID PRN PRN PRN Reason: Constipation Sertraline HCl (Sertraline 50 Mg Tablet) 50 mg PO DAILY [facility] Last Admin: 11/13/20 09:33 Dose: 50 mg Documented by: Sodium Chloride (0.9% Saline Lock 10 Ml Syringe) 10 - 40 ml IV UD PRN PRN Reason: SALINE FLUSH Throat Lozenges (Benzocaine/Menthol 1 Lozenge) 1 lozenge MUCOUS MEM Q2H PRN PRN PRN Reason: SORE THROAT Triamterene/Hydrochlorothiazide (Triamterene 37.5mg/Hctz 25mg Capsule) 1 cap PO DAILY [facility] Last Admin: 11/13/20 09:35 Dose: 1 cap Documented by: Discharge Diet: Low fat/ Low Cholesterol Discharge Activity: Return to Normal Activity Call your doctor if you observe: Numbness or Tingling, Shortness of breath, Dizziness, Fainting spells, Chest pain Home Medications: Medications to take at Discharge Diclofenac Sodium 75 mg PO BID PRN 02/22/20 Fluticasone/Salmeterol [Advair 250-50 Diskus] 1 ea IH PRN PRN 02/22/20 Montelukast [Singulair] 10 mg PO DAILY 02/22/20 Triamterene 37.5MG/Hctz 25MG [Dyazide (G)] 1 cap PO DAILY 02/22/20 Diazepam [Valium] 2 mg PO TID PRN PRN #10 tab 11/09/20 Albuterol Aerosols [Ventolin Aerosols] 2.5 mg INHALATION Q2H PRN PRN vial.neb. 11/13/20 Aspirin [Aspirin, Baby] 81 mg PO DAILY@0800 tab.chew 11/13/20 Atorvastatin Calcium [Lipitor] 80 mg PO QHS tab 11/13/20 Clopidogrel Bisulfate [Plavix] 75 mg PO DAILY tab 11/13/20 Sertraline HCl [Zoloft] 50 mg PO DAILY tab 11/13/20 Primary Care Physician: Erich Hall DO [Primary Care Provider] - Please follow up with your Primary Care Physician in: 1 Week Please Follow Up With: Neurology When: 2 Weeks Disposition: Inpt Rehab Unit/Facility Minutes spent on discharge:: 35 Patient Condition:: Stable Medical Necessity - Tobacco Use Smoking Status: Former smoker Tobacco Use: Non-smoker Meaningful Use Info Meaningful Use Diagnoses (Choose all that apply): Ischemic CVA - CVA Therapy Assessed for PT,OT and/or ST?: Yes - Ischemic Stroke Antithrombotic order at d/c?: Yes Dx of Atrial fib/flutter?: No Statins at discharge?: Yes Primary Dx Acute Ischemic CVA?: Yes IV tPA ordered during stay?: No Reason IV t-PA not ordered: Medical Contraindication <Alin Almendarez - Last Filed: 11/13/20 11:55> Discharge Date and Diagnosis - Primary Discharge Diagnosis Acute Problems: Active Problems CVA (cerebral vascular accident) (Acute) - Secondary Discharge Diagnosis Chronic Problems: Chronic Problems Chronic obstructive pulmonary disease (Chronic) Allergic rhinitis (Chronic) Hypertension (Chronic) Former tobacco use (Chronic) Hospital Course and Treatment Summary of Care Provided: This patient was seen in conjunction with FLOYD Le . I have independently interviewed and examined the patient and reviewed pertinent historical, laboratory, and other data. Please refer to FLOYD Le note for details of this patient's presentation, findings, and recommendations. I have reviewed FLOYD Le note and concur with documented findings. In brief, patient is a 10-year-old lady in relatively good health who presented with left-sided weakness. Imaging studies including MRI obtained demonstrated small acute infarct right periventricular white matter region/gonzalez radiata and tiny acute infarct body of right caudate nucleus. Treatment initiated per protocol admitted to monitored bed Assessment: 1. Acute CVA 2. Hypertension 3. Dyslipidemia 4. COPD 5. Previous history of tobacco use 6. DVT prophylaxis?Lovenox 7. Fibromyalgia 8. Depression Hospital course: As documented above - Physical Exam Vitals/I&O's: Vital Signs Temp Pulse Resp BP Pulse Ox 97.8 F 75 16 135/66 H 95 11/13/20 09:30 11/13/20 09:30 11/13/20 09:30 11/13/20 09:30 11/13/20 09:30 Oxygen Delivery Method Room Air Weight: 66.3 kg Body Mass Index (BMI) 26.2 Finger Stick Blood Glucose 99 Intake and Output for Last 24 Hours 11/11/20 11/12/20 11/14/20 23:59 23:59 00:59 Intake Total 1570.00 / 1820.00 1290 / 1690 700 / 700 Balance 1570.00 / 1820.00 1290 / 1690 700 / 700 Laboratory Results 11/13/20 05:10: WBC 10.4, RBC 4.85, Hgb 14.3, Hct 43.8, MCV 90.3, MCH 29.5, MCHC 32.6, RDW Std Deviation 44.6 H, RDW Coeff of [place] 13.3, Plt Count 406, MPV 10.6 11/13/20 05:10: Sodium 135 L, Potassium 3.8, Chloride 103, Carbon Dioxide 24.0, Anion Gap 8, BUN 19 H, Creatinine 0.83, Estim Creat Clear Calc 50.59, Est GFR (MDRD) Af Amer 88, Est GFR (MDRD) Non-Af 73, BUN/Creatinine Ratio 23.0 H, Glucose 99, Calcium 9.4 Inpatient E&M: 01207 Disch Hosp
== END 2020-11-13 11:30 | DRG 66 ==
LOC: ED 14:31 → PCU 15:54
PROVIDERS: Nurse Practitioner Family; Admitting Provider Family Medicine; Emergency Provider Emergency Medicine; PCP Family Medicine; Visit Provider Internal Medicine
DX: I63.9 Cerebral infarction, unspecified (principal); R29.703 NIHSS score 3; R29.810 Facial weakness; R47.9 Unspecified speech disturbances; G83.24 Monoplegia of upper limb affecting left nondominant side; E87.6 Hypokalemia; E78.5 Hyperlipidemia, unspecified; F32.9 Major depressive disorder, single episode, unspecified; F41.9 Anxiety disorder, unspecified; I10 Essential (primary) hypertension; J44.9 Chronic obstructive pulmonary disease, unspecified; M79.7 Fibromyalgia; Z87.891 Personal history of nicotine dependence; Z79.899 Other long term (current) drug therapy
CPT/HCPCS: 36415; 70450; 70496; 70498; 70551; 71045; 80048; 80053; 80061; 81001; 82962; 83036; 83735; 84439; 84443; 84481; 84484; 85025; 85027; 85610; 85730; 92507; 92523; 92610; 93005; 93306; 96360; 97110; 97116; 97163; 97166; 97530; 97535; 97802; 99251; 99285; J7030; A4216; G0463

== ENCOUNTER 2020-11-13 11:38 | Inpatient (IN) | payer MEDICARE, MEDICAID, SELFPAY ==
[2020-11-13 08:11] VITALS: BMI 26.2
[2020-11-13 11:55] VITALS: BP 145/65; PULSE 71; RESP 16; TEMP 36.9; O2SAT 97; BMI 26.4; BMI 26.7
[2020-11-13 17:00] VITALS: O2SAT 98
[2020-11-13 19:25] VITALS: BP 149/80; PULSE 75; RESP 18; TEMP 36.6; O2SAT 93
[2020-11-13 21:20] VITALS: BMI 26.4
[2020-11-13] MEDS: Atorvastatin Calcium 80 MG Tablet PO (21:28)
[2020-11-13] MEDS: Montelukast 10 MG Tablet PO (21:29)
[2020-11-13] MEDS: Diclofenac 75 MG Tablet PO (21:30)
[2020-11-13 22:00] VITALS: PULSE 75; RESP 17; O2SAT 93
[2020-11-14] VITALS (8 sets, daily range): BP systolic 132–183; BP diastolic 73–88; PULSE 73–88; RESP 16–18; TEMP 36.6; O2SAT 96–97; BMI 26.4
[2020-11-14] MEDS: Enoxaparin 40 MG/0.4 ML Syringe SC (06:39)
[2020-11-14] MEDS: Clopidogrel Bisulfate 75 MG Tablet PO (07:55)
[2020-11-14] MEDS: Aspirin 81 MG TAB.CHEW PO (07:55)
[2020-11-14] MEDS: Triamterene 37.5MG/Hctz 25MG Capsule 1 CAP PO (07:55)
[2020-11-14] MEDS: Sertraline 50 MG Tablet PO (07:55)
[2020-11-14] MEDS: Potassium Chloride Oral Tablet 20 MEQ PO (07:55)
--- NOTE | 2020-11-14 10:29 | HP.PCM_ITS ---
Problem List (1) Hyponatremia Status: Acute (2) Hypokalemia Status: Acute (3) Hyperlipidemia Status: Chronic (4) Carotid stenosis, right Status: Chronic Comment: mural thrombus at the origin of the SHERICE which causes 50% occlusion (5) Allergic rhinitis Status: Chronic Qualifiers: Allergic rhinitis trigger: unspecified (6) Chronic obstructive pulmonary disease Status: Chronic Qualifiers: COPD type: unspecified COPD Qualified Code(s): J44.9 - Chronic obstructive pulmonary disease, unspecified (7) CVA (cerebral vascular accident) Status: Acute Qualifiers: CVA mechanism: unspecified Qualified Code(s): I63.9 - Cerebral infarction, unspecified Comment: R kourtney-ventricular white matter and the R caudate nucleus (8) Former tobacco use Status: Chronic Comment: quit 2003 (9) Hypertension Status: Chronic Qualifiers: Hypertension type: essential hypertension Qualified Code(s): I10 - Essential (primary) hypertension History of Present Illness Date of Admission: 11/13/20 Chief Complaint: Physical debility secondary to recent ischemic right p eriventricular white matter CVA/gonzalez radiata and another small focus in the right caudate nucleus Donita Jay is a 70 year old F with a past medical history of hypertension, allergy induced asthma, hyperlipidemia (untreated), tobacco dependence in remission (she started smoking at 16 years of age and quit at the age of 53), hyponatremia, hypokalemia allergic rhinitis who presented to the emergency department at [facility] on 11/09/2020 complaining of feeling as though she was falling to the left. Stat CT brain was reported as normal. She felt dizzy when she turned her head suddenly and off balance but she denied vertigo. She was discharged home with a prescription for Valium 2 mg 3 times daily as needed vertigo. On 11/10/2020 she came back to the emergency room complaining of left side weakness and heaviness, left facial droop, slurred speech and feeling as though she was on a boat rocking. NIH at presentation to the emergency room was 3 for drift in the left leg, drift in the left arm and mild facial droop. A repeat CT head showed no acute intracranial hemorrhage and showed stable hypoattenuation's in the right basal ganglia thought to be se condary to remote infarct. CTA of the head and neck showed a mural thrombus at the origin of the right internal carotid artery with 50% stenosis. There was no CTA evidence of common carotid or left ICA stenosis. There was a small right vertebral artery. She was admitted to the hospital for acute ischemic CVA work- up. MRI of the brain showed a small focus of acute infarct in the right periventricular white matter region/gonzalez radiata and a tiny focus of acute infarct in the body of the right caudate nucleus. Echocardiogram showed a normal ejection fraction of 65% with no diastolic dysfunction, no wall motion abnormalities and no valvular heart disease. A bubble contrast study was negative for right to left interatrial shunt. Consultation was obtained with [facility] on 11/11/2020 and the teleneurologist felt she had a subacute stroke in the deep R ICA territory which could be due to the Carotid but, also could be due to deep intracranial perforators. The neurologist recommended dual antiplatelet therapy for 1 month then switching to one agent. He also recommended a vascular surgery consult. she was also started on Atorvastatin 80 mg nightly for an LDL of 160. HDL was good at 60 Triglycerides were normal. On 11/12/20 She awoke and could not move her left arm at all. the Left leg felt heavier and she felt weaker. She was transferred to the inpt acute rehab unit at [facility] later in the day on 11/12 for at least 3 hours of therapy a day to restore her at or near her prior level of function. Past Medical History Past Medical History (Chronic Problems): Chronic Problems Hyperlipidemia (Chronic) Carotid stenosis, right (Chronic) mural thrombus at the origin of the SHERICE which causes 50% occlusion Chronic obstructive pulmonary disease (Chronic) Allergic rhinitis (Chronic) Hypertension (Chronic) Former tobacco use (Chronic) quit 2003 Allergies codeine Allergy (Verified 11/10/20 14:23) Vomiting Penicillins [PCN] Allergy (Verified 11/10/20 14:23) Shortness of breath Sulfa (Sulfonamide Antibiotics) Allergy (Verified 11/10/20 14:23) Vomiting Home Medications: Ambulatory Orders Medication Instructions Recorded Diclofenac Sodium 75 mg PO BID PRN 02/22/20 Fluticasone/Salmeterol [Advair 1 ea IH PRN PRN 02/22/20 250-50 Diskus] Montelukast [Singulair] 10 mg PO DAILY 02/22/20 Triamterene 37.5MG/Hctz 25MG 1 cap PO DAILY 02/22/20 [Dyazide (G)] Diazepam [Valium] 2 mg PO TID PRN PRN #10 tab 11/09/20 Albuterol Aerosols [Ventolin 2.5 mg INHALATION Q2H PRN PRN 11/13/20 Aerosols] vial.neb. Aspirin [Aspirin, Baby] 81 mg PO DAILY@0800 11/13/20 Atorvastatin Calcium [Lipitor] 80 mg PO QHS 11/13/20 Clopidogrel Bisulfate [Plavix] 75 mg PO DAILY 11/13/20 Sertraline HCl [Zoloft] 50 mg PO DAILY 11/13/20 Surgical History: - - Tonsillectomy, hysterectomy, appendectomy, right lower extremity and foot surgery, R shoulder surgery for rotator cuff and bicep tendon. 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 She works full-time at [employer] and she drives. Smoking Status: Former smoker - He smoked from the age of [age] and average 1/2 pack/day. Tobacco Use: Cigarettes Alcohol: Occasional Drugs: None - *Family History Maternal History Items: - - Patient with maternal family history of heart disease, breast cancer. Paternal History Items: - - With a paternal family history of lymphoma, heart disease. Review of Systems Constitutional: Denies: Chills, Fever, Weight Change Eyes: Denies: Double vision, Vision Change HEENT: Denies: Head Aches, Nasal Congestion, Sinus Congestion, Sinus Drainage, Sore Throat Cardiovascular: Reports: Light Headedness - when she turns her head.....denies nystagmus. Denies: Chest Pain, Edema, Orthopnea, Palpitations, Syncope Respiratory: Denies: Cough, Shortness of Breath, Shortness of breath at rest, Shortness of breath upon exertion, Sputum production, Wheezing Gastrointestinal: Denies: Abdominal Pain, Nausea, Vomiting Genitourinary: Denies: Dysuria, Frequency, Hesitancy, Urgency Gynecological: Denies: Breast symptoms Musculoskeletal: Denies: Joint Pain, Joint Tenderness Skin: Denies: Jaundice, Lesions, Rash, Wounds Neurological: Reports: Balance problems, Slurred speech. Denies: Blurred vision, Double vision, Focal weakness, Headaches, Numbness, Tingling, Tremor, Seizures Psychiatric: Denies: Anxiety, Depression, Homicidal Ideations, Suicidal Ideations Endocrine: Denies: Hx of Thyroiditis Hematologic/ Lymphatic: Denies: Easy Bruising, Easy Bleeding, Hx of blood clot VTE Information - Inpt Only VTE Present on Admission: No VTE Mechan Device Prophylaxis: SCD's, Knee High DARIEL Hose VTE Pharm Prophylaxis ordered?: No Patient Problems: Active and Suspected Problems Hyponatremia (Acute) Hypokalemia (Acute) CVA (cerebral vascular accident) (Acute) R kourtney-ventricular white matter and the R caudate nucleus - Physical Exam Vitals/I&O's: Vital Signs Temp Pulse Resp BP Pulse Ox 97.8 F 75 16 150/77 H 96 11/14/20 07:00 11/14/20 07:00 11/14/20 07:00 11/14/20 07:00 11/14/20 07:35 Oxygen Delivery Method Room Air Weight: 144 lb 9.972 oz Body Mass Index (BMI) 26.4 Finger Stick Blood Glucose 99 Intake and Output for Last 24 Hours 11/12/20 11/13/20 11/14/20 22:59 23:59 23:59 Intake Total 440 / 440 Output Total 350 / 350 Balance 90 / 90 General: Alert, Oriented x3, Cooperative, Well developed, Well nourished HEENT: Atraumatic, PERRLA, EOMI, Normocephalic, - - tongue protrudes to the left and she complains she has been biting her tongue on the left side Oral: Moist Mucosa Neck: Supple, No JVD, Negative Carotid Bruits, No Nodes, No Nuchal Rigidity, Trachea Midline Lungs: Clear to auscultation, Normal air movement, No rhonchi, No wheeze, No rales Cardiovascular: Regular rate, Regular Rhythm, Normal S1, Normal S2, No murmurs, No rub noted, No Gallop Abdomen: Bowel Sounds Present, Soft, Non Tender, Non-Distended Extremities: No clubbing, No cyanosis, No edema, Capillary Refill Less than 3 Seconds, No Calf Tenderness Skin: No rashes, No breakdown Musculoskeletal: No Tenderness to Palpation of Joints or Extremities Neurological: - - Left facial droop, mild slurring of speech with no dysphasia, Drift with the left leg and no movement in the L arm. No ataxia. No vision loss. Psych/Mental Status: Anxious - amd tearful Current Medications Acetaminophen (Acetaminophen 325 Mg Tablet) 650 mg PO Q6H PRN PRN PRN Reason: Pain Score 1-10 Albuterol Sulfate (Albuterol 2.5 Mg/3 Ml Vial.Neb.) 2.5 mg INHALATION Q2H PRN PRN PRN Reason: Dyspnea, wheezing Aspirin (Aspirin 81 Mg Tab.Chew) 81 mg PO DAILY@0800 [facility] Last Admin: 11/14/20 07:55 Dose: 81 mg Documented by: Atorvastatin Calcium (Atorvastatin Calcium 80 Mg Tablet) 80 mg PO QHS [facility] Last Admin: 11/13/20 21:28 Dose: 80 mg Documented by: Bisacodyl (Bisacodyl 10 Mg Suppository) 10 mg RC .PRN X 1 PRN PRN Reason: Constipation Clopidogrel Bisulfate (Clopidogrel Bisulfate 75 Mg Tablet) 75 mg PO DAILY [facility] Last Admin: 11/14/20 07:55 Dose: 75 mg Documented by: Diazepam (Diazepam 2 Mg Tablet) 2 mg PO TID PRN PRN PRN Reason: VERTIGO Diclofenac Sodium (Diclofenac 75 Mg Tablet) 75 mg PO BID PRN PRN PRN Reason: fibromyalgia Last Admin: 11/13/20 21:30 Dose: 75 mg Documented by: Enoxaparin Sodium (Enoxaparin 40 Mg/0.4 Ml Syringe) 40 mg SC DAILY@0600 [facility] Last Admin: 11/14/20 06:39 Dose: 40 mg Documented by: Magnesium Hydroxide (Magnesium Hydroxide 30 Ml Udc) 30 ml PO .PRN X 1 PRN PRN Reason: Constipation Montelukast Sodium (Montelukast 10 Mg Tablet) 10 mg PO DAILY@2200 [facility] Last Admin: 11/13/20 21:29 Dose: 10 mg Documented by: Potassium Chloride (Potassium Chloride Oral Tablet 20 Meq) [facility] Admin: 11/14/20 07:55 Dose: 20 meq Documented by: Senna/Docusate Sodium (Senna/Docusate Sodium 1 Tablet) 2 tablet PO BID [facility] Last Admin: 11/14/20 07:55 Dose: Not Given Documented by: Sertraline HCl (Sertraline 50 Mg Tablet) 50 mg PO DAILY [facility] Last Admin: 11/14/20 07:55 Dose: 50 mg Documented by: Triamterene/Hydrochlorothiazide (Triamterene 37.5mg/Hctz 25mg Capsule) 1 cap PO DAILY [facility] Last Admin: 11/14/20 07:55 Dose: 1 cap Documented by: Assessment/Plan All Active Problems Hyponatremia (Acute) Hypokalemia (Acute) CVA (cerebral vascular accident) (Acute) Impressions 1. Disability secondary to recent ischemic CVAs in the right periventricular gonzalez radiata and right caudate nucleus. neuro deficit has increased since admission. Extension? or is she embolizing? 2. R ICA mural thrombus with 50% stenosis due to the thrombus 3. Hyponatremia-suspect secondary to diuretics used to control hypertension 4. Hypokalemia at admission to the hospital-resolved with supplementation 5. Essential hypertension 6. Hyperlipidemia 7. Former smoker-quit in 2003 but prior to that smoked 1/2 PPD for 37 years. 8. Allergy induced asthma per patient-uses an Advair inhaler as needed? Because the patient has had significant increase in sx and I now get a 7 on e NIH a stroke alert was called. The CT of the brain shows an increase in size of the CVA in the R periventricular white matter. Per the radiologist the CTA H&N shows no change since admission. I spoke with the Dr. Allen at [facility] who also talked with the patient via tele communication and the decision was made to transfer to [facility] for angiogram. If stenosis in the R ICA is > 50% she will likely have surgery. Will transfer to PCU so she can be monitored and have neurochecks while we await transfer. I spoke with her dtr Loni and updated her on the findings and the plan. Inpatient E&M: 61668 Init Hosp L3
--- NOTE | 2020-11-14 10:41 | CASEMGMT ---
Social Work Met with patient for initial assessment. Pt confirmed full code. Pt named Loni brito, as HCPOA. Explained [employer] insurance with NRD 11/18 and continued stay is not guaranteed. Explained Team meetings each week. The goal is for pt to return home alone, but has 13 steps to basement laundry. 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 Pt frustrated with stroke and discussed some other family hardships currently. Pt was started on antidepressant on acute. SW offered to make counseling appt for pt at [place] if she chooses. Provided and explained stroke support group brochure. SW offered ongoing emotional support. Pt appreciative. Will continue to follow. Edda Mcknight, CURATOR OF MANUSCRIPTS FIELD SUPERVISOR
--- NOTE | 2020-11-14 12:00 | CASEMGMT ---
Social Work Responded to stroke alert. Pt appeared alert and able to converse. Pt appeared calm. Offered support and comfort to pt as needed. Pt being transferred to CT - assured pt dtr will be notified. Contacted dtr and explained pt had change in condition. The medical team is assessing her further and someone will be in contact with the results and further information. Dtr inquired if pt was scared. Explained her demeanor and SW provided support. Dtr very appreciative of support and call. Edda Mcknight, DIE STORAGE WORKER BIOLOGY SPECIMEN TECHNICIAN
--- NOTE | 2020-11-14 12:00 | CT_ITS ---
We are attempting to reach an attending provider to discuss findings. An addendum with communication details will be sent when the communication is complete. STUDY: CT HEAD STROKE PROTOCOL W/O CONTRAST INJECTION REASON FOR EXAM: Female, 70 years old. stroke RADIATION DOSAGE (If Supplied By Facility): CTDIvol = ( ) mGy, DLP = ( ) mGycm TECHNIQUE: Transaxial CT imaging of the brain was performed without administration of intravenous contrast material. Individualized dose optimization techniques were used for this CT. COMPARISON: 11/10/2020 FINDINGS: Normal soft tissue structures. Normal calvarium. Normal size ventricles and extra-axial spaces for the patient''s age. Normal white matter tracts of the cerebral hemispheres. Normal basal ganglia and thalami. Normal brainstem. Normal cerebellum. There is no intracranial hemorrhage. There is an increase in size and decreased attenuation of the infarct of the right periventricular white matter and caudate nucleus consistent with evolution of the infarct. Normal visualized paranasal sinuses. ASPECT score: CT/STROKE Brain/Head without Cont IMPRESSION: Further evolution of the subacute infarct of the right periventricular white matter and caudate nucleus. No acute intracranial hemorrhage. Electronically Signed: Zac Mathew MD at 12:16 EDT Tel , Service support ,
--- NOTE | 2020-11-14 12:00 | CT_ITS ---
STUDY: CTA HEAD AND NECK WITH CONTRAST REASON FOR EXAM: Female, 70 years old. stroke RADIATION DOSAGE (If Supplied By Facility): CTDIvol = ( 17.10 ) mGy, DLP = ( 617.30 ) mGycm TECHNIQUE: CT angiography was performed with a multi-detector CT scanner. Data acquisition was obtained from the skull base through the vertex following intravenous administration of IV 100mL Isovue-370. MIP images were reconstructed from the axial data set. Post-processing of the angiographic images was performed, with multiplanar reformation and 3D reconstruction. Individualized dose optimization techniques were used for this CT. COMPARISON: 11/10/2020 FINDINGS: Normal bilateral petrous carotid arteries. Normal right cavernous carotid artery with a normal supraclinoid bifurcation. Normal left cavernous carotid artery with a normal supraclinoid bifurcation. Normal right A1 segments of the anterior cerebral artery. Normal left A1 segments of the anterior cerebral artery. Normal intact anterior communicating artery (ACOM). Normal bilateral A2 segments of the anterior cerebral arteries. Normal right M1 and M2 segments of the middle cerebral arteries, with a normal M1 bifurcation. Normal left M1 and M2 segments of the middle cerebral arteries, with a normal M1 bifurcation. There is a persistent origin of the right posterior cerebral artery with absence of the posterior communicating artery (PCOM). Normal left posterior communicating artery (PCOM). Normal bilateral vertebral arteries. Normal basilar artery with a normal basilar bifurcation. The visualized bilateral superior cerebellar (SCA) arteries are normal. Normal bilateral P1, P2 and visualized P3 segments of the posterior cerebral arteries. There is no demonstrated aneurysm of the iliamna of [place]. There is no demonstrated abnormality of the visualized brain. AORTIC ARCH: Normal visualized aortic arch. Normal origins of the brachiocephalic, left common carotid, and left subclavian arteries. RIGHT CAROTID ARTERIES: Normal right common carotid artery (CCA). There is moderate atherosclerotic plaque formation with moderate narrowing of the right carotid bulb. There is mild atherosclerotic plaque formation of the origin of the right internal carotid artery with less than 50% cross sectional diameter stenosis. Normal visualized cervical portion of the right internal carotid artery. Normal origin of the right external carotid artery (ECA). LEFT CAROTID ARTERIES: Normal left common carotid artery (CCA). Normal left common carotid bulb. Normal origin of the left internal carotid (ICA) artery without a hemodynamically significant stenosis. Normal visualized cervical portion of the left internal carotid artery. Normal origin of the left external carotid artery (ECA). VERTEBRAL ARTERIES: There is enhancement within the bilateral vertebral arteries with a small right vertebral artery, and a dominant left vertebral artery. CT/STROKE CTA Head AND Neck W/Con IMPRESSION: 1. Mild (50%) right carotid stenosis. 2. No left carotid stenosis. 3. Patent vertebral arteries bilaterally. The right vertebral artery is hypoplastic. 4. Intracranially normal. N.B. : The above information has been verbally conveyed by Zac Mathew MD to Zelalem Pederson on 11/14/2020 12:29:30 (ET). Electronically Signed: Zac Mathew MD at 12:34 EDT Tel , Service support ,
[2020-11-14 12:36] LABS: Bedside Glucose 117 mg/dL (70-110)
--- NOTE | 2020-11-14 13:38 | PCM.DC.SUM ---
Discharge Date and Diagnosis - Problem List Patient Problems: Active and Suspected Problems Hyponatremia (Acute) Hypokalemia (Acute) CVA (cerebral vascular accident) (Acute) R kourtney-ventricular white matter and the R caudate nucleus Date of Admission: 11/13/20 Date of Discharge: 11/14/20 - Primary Discharge Diagnosis Acute Problems: Active Problems Ischemic, possibly embolic CVA (cerebral vascular accident) (Acute) - on 11/09/20 R kourtney-ventricular white matter and the R caudate nucleus Mural thrombus at the origin of the R ICA causing 50% stenosis Hyponatremia (Acute) Hypokalemia (Acute) Extension of the stroke on 11/12/20 Suspected Problems: anxiety/depression - Secondary Discharge Diagnosis Chronic Problems: Chronic Problems Hyperlipidemia (Chronic) Carotid stenosis, right (Chronic) mural thrombus at the origin of the SHERICE which causes 50% occlusion Chronic obstructive pulmonary disease (Chronic) Allergic rhinitis (Chronic) Hypertension (Chronic) Former tobacco use (Chronic) quit 2003 Hospital Course and Treatment Imaging Results: 11/14/20 12:00 STROKE Brain/Head without Cont [CT] Urgent STROKE CTA Head AND Neck W/Con [CT] Urgent [facility] teleneurology - Dr. Allen Operations: None Summary of Care Provided: The patient is a 70 year old F who was admitted to the inpt acute rehab unit at [facility] on 11/12/20 with disability due to acute CVA involving the right periventricular white matter and right caudate nucleus. At admission to the acute hospital she had an NIH of 3 due to drift with the left arm, drift with the left leg and mild left facial droop. When she was initially examined by myself on the morning of 11/13/2020 she had no movement in her left arm, drift with the left leg, left facial droop, slurred speech. A stroke alert was called and she was taken to CT scan. CT scan showed increasing size of the subacute infarct in the right periventricular white matter and caudate nucleus. There was no sign of hemorrhage. Repeat CTA on that date showed right carotid stenosis of 50%. The rest of the CTA was unremarkable. A teleconsult with Dr. Heart from [facility] was obtained and he recommended transfer to [facility] for an angiogram to look at the SHERICE. If the stenosis is >50% she will need surgery. If stenosis is 50% or less she will have aggressive medical management. the pt was then transferred to PCU to await transfer to [facility]. I contacted her dtr Loni and updated her on Donita's findings and plan for treatment. Loni and Donita were both agreeable to transfer. she will return to rehab when the workup at [facility] is complete. Alert and oriented X 3 MM are dry and the tongue deviates a little to the left. She reports biting her tongue on the left side when she is chewing There is a left facial droop. Intact sensation in the face. no visual loss. no carotid bruits and the carotids have brisk upstroke and good pulse volume BL. No JVD Lungs - good air exchange and they are CTA throughout HRRR, no MM and no gallop or rub abd - soft and NT no edema, no calf tenderness no movement L arm. Drift with the Left leg. No ataxia of the let leg. She had ataxia of the Left arm at admission but can not check at this time because she is unable to move the left arm. No loss of sensation. No nystagmus, EOMI. This note was generated with [employer] dictation software. It may contain incorrect words, spelling, and punctuation that were not noted in checking the note before signing. [] Patient Problems: Active and Suspected Problems Hyponatremia (Acute) Hypokalemia (Acute) CVA (cerebral vascular accident) (Acute) R kourtney-ventricular white matter and the R caudate nucleus - Physical Exam Vitals/I&O's: Vital Signs Temp Pulse Resp BP Pulse Ox 97.8 F 88 18 132/88 H 96 11/14/20 11:50 11/14/20 11:50 11/14/20 11:50 11/14/20 11:50 11/14/20 11:50 Oxygen Delivery Method Room Air Weight: 144 lb 9.972 oz Body Mass Index (BMI) 26.4 Finger Stick Blood Glucose 99 Intake and Output for Last 24 Hours 11/12/20 11/13/20 11/14/20 22:59 23:59 23:59 Intake Total 440 / 440 Output Total 350 / 350 Balance 90 / 90 Psych/Mental Status: Anxious - Tearful, Depressed Laboratory Results 11/14/20 11:50: POC Glucose 117 H Home Medications: Medications to take at Discharge Diclofenac Sodium 75 mg PO BID PRN 02/22/20 Fluticasone/Salmeterol [Advair 250-50 Diskus] 1 ea IH PRN PRN 02/22/20 Montelukast [Singulair] 10 mg PO DAILY 02/22/20 Triamterene 37.5MG/Hctz 25MG [Dyazide (G)] 1 cap PO DAILY 02/22/20 Diazepam [Valium] 2 mg PO TID PRN PRN #10 tab 11/09/20 Albuterol Aerosols [Ventolin Aerosols] 2.5 mg INHALATION Q2H PRN PRN vial.neb. 11/13/20 Aspirin [Aspirin, Baby] 81 mg PO DAILY@0800 11/13/20 Atorvastatin Calcium [Lipitor] 80 mg PO QHS 11/13/20 Clopidogrel Bisulfate [Plavix] 75 mg PO DAILY 11/13/20 Sertraline HCl [Zoloft] 50 mg PO DAILY 11/13/20 Primary Care Physician: Erich Hall DO [Primary Care Provider] - Disposition: Acute care Hospital - [facility] Minutes spent on discharge:: 30 Patient Condition:: Guarded Medical Necessity - Tobacco Use Smoking Status: Former smoker - He smoked from the age of [age] and average 1/2 pack/day. Tobacco Use: Cigarettes Meaningful Use Info Meaningful Use Diagnoses (Choose all that apply): Ischemic CVA - CVA Therapy Assessed for PT,OT and/or ST?: Yes - Ischemic Stroke Antithrombotic order at d/c?: Yes Dx of Atrial fib/flutter?: No Anticoagulant at discharge?: No Reason anticoagulant not ordered: Treatment not Indicated Statins at discharge?: Yes Primary Dx Acute Ischemic CVA?: Yes IV tPA ordered during stay?: No Reason IV t-PA not ordered: Treatment not Indicated - Outside the window Inpatient E&M: [id number] [facility]
== END 2020-11-14 12:07 | disposition short-term general hospital (02) | DRG 57 ==
PROVIDERS: Admitting Provider Internal Medicine; PCP Family Medicine; Visit Provider Internal Medicine
DX: I69.393 Ataxia following cerebral infarction (principal); I69.392 Facial weakness following cerebral infarction; J44.9 Chronic obstructive pulmonary disease, unspecified; I10 Essential (primary) hypertension; Z87.891 Personal history of nicotine dependence; E78.5 Hyperlipidemia, unspecified; Z79.82 Long term (current) use of aspirin; Z79.899 Other long term (current) drug therapy; I69.328 Other speech and language deficits following cerebral infarction
CPT/HCPCS: 70450; 70496; 70498; 82962; 92523; 97161; 97166; Q9967

== ENCOUNTER 2020-11-14 12:51 | Observation (INO) | payer MEDICARE, MEDICAID, SELFPAY ==
[2020-11-14 11:20] VITALS: BMI 26.4
[2020-11-14 13:11] VITALS: BMI 26.3
[2020-11-14 13:13] VITALS: BMI 26.3
[2020-11-14 13:29] VITALS: BP 137/77; PULSE 70; RESP 18; O2SAT 92
--- NOTE | 2020-11-14 13:47 | HP.PCM_ITS ---
<Maegan Rodriguez TATTOO IDENTIFIER - Last Filed: 11/14/20 13:57> Problem List (1) Hyperlipidemia Status: Chronic (2) Carotid stenosis, right Status: Chronic Comment: mural thrombus at the origin of the SHERICE which causes 50% occlusion (3) CVA (cerebral vascular accident) Status: Acute Comment: R kourtney-ventricular white matter and the R caudate nucleus (4) Chronic obstructive pulmonary disease Status: Chronic (5) Allergic rhinitis Status: Chronic (6) Hypertension Status: Chronic (7) Former tobacco use Status: Chronic Comment: quit 2003 History of Present Illness Date of Admission: 11/14/20 Chief Complaint: Worsening neuro symptoms. The patient is a 70 year old F who presents from rehab unit due to worsening neuro symptoms. Patient was discharged to rehab unit 11/13/2020 following acute CVA. Stroke alert called today, 11/14/2020 due to worsening neuro deficits. Patient reports worsened left-sided weakness. [facility] neurology consulted and recommends transfer for potential angiogram if right ICA stenosis is greater than 50%. Awaiting transfer to tertiary facility. Past Medical History Past Medical History (Chronic Problems): Chronic Problems Hyperlipidemia (Chronic) Carotid stenosis, right (Chronic) mural thrombus at the origin of the SHERICE which causes 50% occlusion Chronic obstructive pulmonary disease (Chronic) Allergic rhinitis (Chronic) Hypertension (Chronic) Former tobacco use (Chronic) quit 2003 Allergies codeine Allergy (Verified 11/10/20 14:23) Vomiting Penicillins [PCN] Allergy (Verified 11/10/20 14:23) Shortness of breath Sulfa (Sulfonamide Antibiotics) Allergy (Verified 11/10/20 14:23) Vomiting Home Medications: Ambulatory Orders Medication Instructions Recorded Diclofenac Sodium 75 mg PO BID PRN 02/22/20 Fluticasone/Salmeterol [Advair 1 ea IH PRN PRN 02/22/20 250-50 Diskus] Montelukast [Singulair] 10 mg PO DAILY 02/22/20 Triamterene 37.5MG/Hctz 25MG 1 cap PO DAILY 02/22/20 [Dyazide (G)] Diazepam [Valium] 2 mg PO TID PRN PRN #10 tab 11/09/20 Albuterol Aerosols [Ventolin 2.5 mg INHALATION Q2H PRN PRN 11/13/20 Aerosols] vial.neb. Aspirin [Aspirin, Baby] 81 mg PO DAILY@0800 11/13/20 Atorvastatin Calcium [Lipitor] 80 mg PO QHS 11/13/20 Clopidogrel Bisulfate [Plavix] 75 mg PO DAILY 11/13/20 Sertraline HCl [Zoloft] 50 mg PO DAILY 11/13/20 Surgical History: - - Tonsillectomy, hysterectomy, appendectomy, right lower extremity and foot surgery, R shoulder surgery for rotator cuff and bicep tendon. 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 - *Family History Maternal History Items: - - Patient with maternal family history of heart disease, breast cancer. Paternal History Items: - - With a paternal family history of lymphoma, heart disease. Review of Systems Constitutional: Denies: Chills, Fever, Weight Change HEENT: Denies: Head Aches, Sinus Congestion, Sinus Drainage Cardiovascular: Denies: Chest Pain, Palpitations Respiratory: Denies: Cough, Shortness of breath at rest, Sputum production Gastrointestinal: Denies: Abdominal Pain, Nausea, Vomiting Genitourinary: Denies: Dysuria Musculoskeletal: Denies: Joint Pain, Joint Tenderness Skin: Denies: Rash, Wounds Neurological: Reports: Slurred speech, - - Left-sided weakness with no movement left arm. Left facial droop. Psychiatric: Reports: Anxiety, Depression Hematologic/ Lymphatic: Denies: Easy Bruising, Easy Bleeding VTE Information - Inpt Only VTE Present on Admission: No VTE Mechan Device Prophylaxis: None VTE Pharm Prophylaxis ordered?: Yes - Physical Exam Vitals/I&O's: Vital Signs Pulse Resp BP Pulse Ox 70 18 137/77 H 92 11/14/20 13:29 11/14/20 13:29 11/14/20 13:29 11/14/20 13:29 Oxygen Delivery Method Room Air Weight: 144 lb Body Mass Index (BMI) 26.3 Finger Stick Blood Glucose 99 General: Alert, Oriented x3, Cooperative HEENT: Atraumatic, PERRLA, EOMI, Normocephalic Neck: Supple, No JVD, Negative Carotid Bruits Lungs: Clear to auscultation, Normal air movement Cardiovascular: Regular rate, No murmurs Abdomen: Bowel Sounds Present, Soft, Non Tender, Non-Distended Extremities: No clubbing, No cyanosis, No edema, Capillary Refill Less than 3 Seconds Skin: No rashes, No breakdown Musculoskeletal: No Tenderness to Palpation of Joints or Extremities Neurological: - - Left facial droop, slurred speech, left leg drift, flaccid left arm. Psych/Mental Status: Anxious Current Medications Hydralazine HCl (Hydralazine 20 Mg/Ml Vial) 5 mg IV Q30M PRN PRN Reason: to maintain BP goals Labetalol HCl (Labetalol (Prefilled) 20 Mg/4 Ml) 10 - 20 mg IV Q10M PRN PRN PRN Reason: to Maintain BP Goals Sodium Chloride (0.9% Saline Lock 10 Ml Syringe) 10 - 40 ml IV UD PRN PRN Reason: SALINE FLUSH Assessment/Plan All Active Problems Hyponatremia (Acute) Hypokalemia (Acute) CVA (cerebral vascular accident) (Acute) 1. Recurrent ischemic CVA-awaiting transfer to [facility] for further evaluation. 2. Hypertension-continue home Dyazide regimen. 3. Hyperlipidemia-patient reports adverse side effects with statins in the past however amenable to try again. Continue high-dose statin and monitor. 4. Chronic COPD-as needed albuterol aerosol. 5. Former tobacco use-encouraged continued cessation. 6. Fibromyalgia-on PRN voltaren. 7. Depression/anxiety-Initiated on Zoloft 50 mg daily. This patient was seen by FLOYD Le under the supervision of Dr. Rasmussen. <Sky Rasmussen F - Last Filed: 11/14/20 14:35> History of Present Illness The patient is a 70 year old F [] Past Medical History Allergies codeine Allergy (Verified 11/10/20 14:23) Vomiting Penicillins [PCN] Allergy (Verified 11/10/20 14:23) Shortness of breath Sulfa (Sulfonamide Antibiotics) Allergy (Verified 11/10/20 14:23) Vomiting - Physical Exam Vitals/I&O's: Vital Signs Pulse Resp BP Pulse Ox 70 18 137/77 H 92 11/14/20 13:29 11/14/20 13:29 11/14/20 13:29 11/14/20 13:29 Oxygen Delivery Method Room Air Weight: 144 lb Body Mass Index (BMI) 26.3 Finger Stick Blood Glucose 99 Addendum: Dr. Rasmussen I personally examined the patient and reviewed the chart. I agree with the above. 70-year-old female who recently presented with a stroke and was transferred to our inpatient rehab unit was found to be having severe left-sided symptoms this morning. She had an NIH of 7 on exam by the rehab physician and was taken down as a stroke alert for a for CT scan which showed further evolu tion of the subacute infarct in her right periventricular white matter and caudate nucleus which was seen previously. She did have another CTA of her head and neck which just showed the 50% stenosis in her right ICA. This was discussed with [facility] who recommended patient be transferred down to their facility for investigation of this carotid lesion. She was admitted to PCU for observation while pending transfer to [facility]. OBSV E&M: [id number] Observ/hosp same date L2
--- NOTE | 2020-11-14 14:00 | PCM.DC.SUM ---
Discharge Date and Diagnosis - Problem List Patient Problems: Active and Suspected Problems CVA (cerebral vascular accident) (Acute) R kourtney-ventricular white matter and the R caudate nucleus Date of Admission: 11/14/20 Date of Discharge: 11/14/20 - Primary Discharge Diagnosis Acute Problems: Active Problems 1. Recurrent ischemic CVA 2. Hypertension 3. Hyperlipidemia 4. Chronic COPD 5. Former tobacco use 6. Fibromyalgia 7. Depression/anxiety - Secondary Discharge Diagnosis Chronic Problems: Chronic Problems Hyperlipidemia (Chronic) Carotid stenosis, right (Chronic) mural thrombus at the origin of the SHERICE which causes 50% occlusion Chronic obstructive pulmonary disease (Chronic) Allergic rhinitis (Chronic) Hypertension (Chronic) Former tobacco use (Chronic) quit 2003 Hospital Course and Treatment [facility] neurology Summary of Care Provided: The patient is a 70 year old F admitted from rehab unit 11/14/2020 due to worsening neuro symptoms. 1. Recurrent ischemic CVA- Patient was discharged to rehab unit 11/13/2020 following acute CVA. Stroke alert called today, 11/14/2020 due to worsening neuro deficits. Patient reports worsened left-sided weakness. [facility] neurology consulted and recommends transfer for potential angiogram if right ICA stenosis is greater than 50%. On aspirin, Plavix, statin. 2. Hypertension-continue home Dyazide regimen. 3. Hyperlipidemia-patient reports adverse side effects with statins in the past however amenable to try again. Continue high-dose statin and monitor. 4. Chronic COPD-as needed albuterol aerosol. 5. Former tobacco use-encouraged continued cessation. 6. Fibromyalgia-on PRN voltaren. 7. Depression/anxiety-Initiated on Zoloft 50 mg daily. General: Alert, Oriented x3, Cooperative HEENT: Atraumatic, PERRLA, EOMI, Normocephalic Neck: Supple, No JVD, Negative Carotid Bruits Lungs: Clear to auscultation, Normal air movement Cardiovascular: Regular rate, No murmurs Abdomen: Bowel Sounds Present, Soft, Non Tender, Non-Distended Extremities: No clubbing, No cyanosis, No edema, Capillary Refill Less than 3 Seconds Skin: No rashes, No breakdown Musculoskeletal: No Tenderness to Palpation of Joints or Extremities Neurological: - - Left facial droop, slurred speech, left leg drift, flaccid left arm. Psych/Mental Status: Anxious Patient seen and examined prior to discharge. Physical assessment as noted above. Transferred to tertiary facility for further management. This patient was seen by FLOYD Le under the supervision of Dr. Rasmussen. Patient Problems: Active and Suspected Problems CVA (cerebral vascular accident) (Acute) R kourtney-ventricular white matter and the R caudate nucleus - Physical Exam Vitals/I&O's: Vital Signs Pulse Resp BP Pulse Ox 70 18 137/77 H 92 11/14/20 13:29 11/14/20 13:29 11/14/20 13:29 11/14/20 13:29 Oxygen Delivery Method Room Air Weight: 144 lb Body Mass Index (BMI) 26.3 Finger Stick Blood Glucose 99 Home Medications: Medications to take at Discharge Diclofenac Sodium 75 mg PO BID PRN 02/22/20 Fluticasone/Salmeterol [Advair 250-50 Diskus] 1 ea IH PRN PRN 02/22/20 Montelukast [Singulair] 10 mg PO DAILY 02/22/20 Triamterene 37.5MG/Hctz 25MG [Dyazide (G)] 1 cap PO DAILY 02/22/20 Diazepam [Valium] 2 mg PO TID PRN PRN #10 tab 11/09/20 Albuterol Aerosols [Ventolin Aerosols] 2.5 mg INHALATION Q2H PRN PRN vial.neb. 11/13/20 Aspirin [Aspirin, Baby] 81 mg PO DAILY@0800 11/13/20 Atorvastatin Calcium [Lipitor] 80 mg PO QHS 11/13/20 Clopidogrel Bisulfate [Plavix] 75 mg PO DAILY 11/13/20 Sertraline HCl [Zoloft] 50 mg PO DAILY 11/13/20 Primary Care Physician: Erich Hall DO [Primary Care Provider] - Disposition: Acute care Hospital Minutes spent on discharge:: 35 Patient Condition:: Stable Medical Necessity - Tobacco Use Smoking Status: Former smoker - He smoked from the age of [age] and average 1/2 pack/day. Meaningful Use Info Meaningful Use Diagnoses (Choose all that apply): Ischemic CVA - CVA Therapy Assessed for PT,OT and/or ST?: Yes - Ischemic Stroke Antithrombotic order at d/c?: Yes Dx of Atrial fib/flutter?: No Statins at discharge?: Yes Primary Dx Acute Ischemic CVA?: Yes IV tPA ordered during stay?: No Reason IV t-PA not ordered: Medical Contraindication
== END 2020-11-14 13:51 | disposition short-term general hospital (02) ==
PROVIDERS: Admitting Provider Family Medicine; PCP Family Medicine; Visit Provider Family Medicine
DX: I63.9 Cerebral infarction, unspecified (principal); R53.1 Weakness; I10 Essential (primary) hypertension; E78.5 Hyperlipidemia, unspecified; M79.7 Fibromyalgia; F41.9 Anxiety disorder, unspecified; R47.81 Slurred speech; R29.810 Facial weakness; J44.9 Chronic obstructive pulmonary disease, unspecified; Z87.891 Personal history of nicotine dependence; Z79.899 Other long term (current) drug therapy; Z79.51 Long term (current) use of inhaled steroids; Z79.82 Long term (current) use of aspirin; Z79.02 Long term (current) use of antithrombotics/antiplatelets; F32.9 Major depressive disorder, single episode, unspecified
CPT/HCPCS: 99218; G0378; G0379

== ENCOUNTER 2020-11-17 18:35 | Inpatient (IN) | payer MEDICARE, MEDICAID, SELFPAY ==
[2020-11-17 18:39] VITALS: BP 123/68; PULSE 73; RESP 16; TEMP 36.1; O2SAT 92; BMI 25.6
[2020-11-17 21:00] VITALS: BP 116/66; PULSE 75; RESP 16; TEMP 37.6; O2SAT 96
[2020-11-17 21:18] VITALS: O2SAT 93
[2020-11-17 21:45] VITALS: BMI 25.7
[2020-11-17] MEDS: Atorvastatin Calcium 80 MG Tablet PO (22:33)
[2020-11-17] MEDS: tiZANidine HCl 2 MG Tablet PO (22:33)
[2020-11-17] MEDS: Diclofenac 75 MG Tablet PO (22:33)
[2020-11-18] MEDS: Acetaminophen 325 MG Tablet 650 MG PO (00:23)
[2020-11-18 05:48] LABS: Absolute Lymphocyte Count 1.42 X10^3/uL (0.83-4.51); Basophil# 0.04 X10^3/uL; Basophil% 0.5 % (0-1); Eosinophil# 0.11 X10^3/uL; Eosinophils% 1.3 % (0-5); Hematocrit 40.9 % (37-47); Hemoglobin 13.7 g/dL (12.0-15.0); Lymphocyte # 1.42 X10^3/ul (4.0); Lymphocyte % 16.7 % (19-41); Mean Corp Hgb Conc 33.5 g/dL (32-36); Mean Corpuscular Hgb 29.8 pg (27.0-32.0); Mean Corpuscular Volume 88.9 fL (81-99); Mean Platelet Vol. 10.3 fl (6.2-12.0); Monocyte# 0.95 X10^3/uL; Monocyte% 11.2 % (0-10); NRBC Flagged by Analyzer 0 % (0-5); Neutrophil # 5.95 X10^3/uL (2.7-7.7); Neutrophil % 70.1 % (47-70); Platelet Count 420 K/mm3 (150-450); RBC Distribution Width CV 13.2 % (11.6-14.6); RBC Distribution Width SD 43.1 fl (35.1-43.9); White Blood Count 8.5 K/mm3 (4.4-11.0)
[2020-11-18 06:06] LABS: ALB/GLOB Ratio 0.8 RATIO (0.9-2.4); AST(SGOT) 16 U/L (15-37); Alanine Aminotransfer ALT/SGPT 32 U/L (13-56); Albumin, Serum 3.1 g/dL (3.2-5.0); Alkaline Phosphatase 116 U/L (45-117); Anion Gap 8 (5-15); BUN 22 mg/dL (7-18); Calcium,Total 9.6 mg/dL (8.5-10.1); Chloride 100 mmol/L (98-107); Creatinine, Serum 0.92 mg/dL (0.55-1.02); EST Glomerular Filtration Rate 65 mL/min (>60); Est Glom Filt Rate - Afr Amer 78 mL/min (>60); Estimated Creatinine Clearance 45.65 ml/min; Globulin 4.1 g/dL (2.2-4.2); Glucose 96 mg/dL (74-106); Magnesium 2.2 mg/dL (1.6-2.6); Phosphorus 3.9 mg/dL (2.5-4.9); Potassium 3.5 mmol/L (3.5-5.1); Protein, Total 7.2 g/dL (6.4-8.2); Sodium Level 135 mmol/L (136-145)
[2020-11-18 07:01] VITALS: BP 123/68; PULSE 68; RESP 18; TEMP 35.8; O2SAT 97
[2020-11-18] MEDS: Lidocaine 5% Patch 1 PATCH TOPICAL (08:16)
[2020-11-18] MEDS: Fluticasone/Salmeterol 232-14 Inhaler 1 PUFF INHALATION ×2 (08:16→21:00)
[2020-11-18] MEDS: Montelukast 10 MG Tablet PO (08:17)
[2020-11-18] MEDS: Aspirin 81 MG TAB.CHEW PO (08:17)
[2020-11-18] MEDS: Clopidogrel Bisulfate 75 MG Tablet PO (08:17)
[2020-11-18] MEDS: Sertraline 50 MG Tablet PO (08:17)
[2020-11-18 09:00] VITALS: O2SAT 98
[2020-11-18] MEDS: Diclofenac 75 MG Tablet PO ×2 (09:00→16:35)
[2020-11-18] MEDS: Mag Hydrox/Al Hydrox/Simeth 30 ML UDC PO (09:29)
--- NOTE | 2020-11-18 11:04 | HP.PCM_ITS ---
Problem List (1) CVA (cerebral vascular accident) Status: Acute Qualifiers: CVA mechanism: unspecified Qualified Code(s): I63.9 - Cerebral infarction, unspecified Comment: R kourtney-ventricular white matter and the R caudate nucleus. Suspect possible PAF. She has interrmittent rapid heart rate and gets lightheaded and she has been hypokalemic on a diuretic. No other reason for strokes has been found and the strokes are in 2 different locations, frontal gonzalez radiata and the R caudate nucleus. Previous stroke in the right basal ganglia. (2) Hypokalemia Status: Chronic (3) Hyponatremia Status: Acute (4) Allergic rhinitis Status: Chronic (5) Carotid stenosis, right Status: Chronic Comment: No mural thrombus and no significant stenosis of the R carotid found on a diagnostic carotid arterigram at [facility]. (6) Chronic obstructive pulmonary disease Status: Chronic Qualifiers: (7) Former tobacco use Status: Chronic Comment: quit 2003 (8) Hyperlipidemia Status: Chronic (9) Hypertension Status: Chronic Qualifiers: (10) Physical debility Status: Acute Comment: due to ischemic CVA with Left side weakness and left facial droop History of Present Illness Date of Admission: 11/17/20 Chief Complaint: debility due to recent ischemic CVA Donita Jay is a 70 year old F with a past medical history of hypertension, allergy induced asthma, hyperlipidemia (untreated), tobacco dependence in remission (she started smoking at 16 years of age and quit at the age of 53), hyponatremia, hypokalemia and allergic rhinitis who presented to the emergency department at [facility] on 11/09/2020 complaining of feeling as though she was falling to the left. Stat CT brain was reported as normal. She felt dizzy when she turned her head suddenly and off balance but she denied vertigo. She was discharged home with a prescription for Valium 2 mg 3 times daily as needed for vertigo. On 11/10/2020 she came back to the emergency room complaining of left side weakness and heaviness, left facial droop, slurred speech and feeling as though she was on a boat rocking. NIH at presentation to the emergency room was 3 for drift in the left leg, drift in the left arm and mild facial droop. A repeat CT head showed no acute intracranial hemorrhage and showed stable hypoattenuation's in the right basal ganglia thought to be secondary to remote infarct. CTA of the head and neck showed a mural thrombus at the origin of the right internal carotid artery with 50% st enosis. There was no CTA evidence of common carotid or left ICA stenosis. There was a small right vertebral artery. She was admitted to the hospital for acute ischemic CVA work-up. MRI of the brain showed a small focus of acute infarct in the right periventricular white matter region/gonzalez radiata in the R frontal lobe and a tiny focus of acute infarct in the body of the right caudate nucleus. Echocardiogram showed a normal ejection fraction of 65% with no diastolic dysfunction, no wall motion abnormalities and no valvular heart disease. A bubble contrast study was negative for right to left interatrial shunt. Consultation was obtained with [facility] on 11/11/2020 and the teleneurologist felt she had a subacute stroke in the deep R ICA territory which could be due to the R Carotid disease but, also could be due to deep intracranial perforators. The neurologist recommended dual antiplatelet therapy for 1 month then switching to one agent. He also recommended a vascular surgery consult. She was started on Atorvastatin 80 mg nightly for an LDL of 160. HDL was good at 60 Triglycerides were normal. On 11/13/20 She awoke and could not move her left arm at all. Her Left leg felt heavier and she felt weaker. She was transferred to the inpt acute rehab unit at [facility] later in the day on 11/13 for at least 3 hours of therapy a day to restore her at or near her prior level of function. At admission to the acute hospital she had an NIH of 3 due to drift with the left arm, drift with the left leg and mild left facial droop. When she was initially examined by myself on the morning of 11/14/2020 she had no movement in her left arm, drift with the left leg, left facial droop and slurred speech. I got an NIH of 9. A stroke alert was called and she was taken to CT scan. CT scan showed increasing size of the subacute infarct in the right periventricular white matter and caudate nucleus. There was no sign of hemorrhage. Repeat CTA on that date showed right carotid stenosis of 50%. The rest of the CTA was unremarkable and it was not changed from the previous CTA. Teleconsult with Dr. Heart from [facility] was obtained and he recommended transfer to [facility] for an angiogram to look at the SHERICE. Carotid angiogram at [facility] showed the right internal carotid artery to have calcification at the origin but, no significant stenosis. Surgical intervention was not indicated. She returned to acute inpt rehab at [facility] on 11/17/20 and will get at least 3 hours of therapy daily to restore function/independence at or near her level prior to the recent CVA. Past Medical History Past Medical History (Chronic Problems): Chronic Problems Hypokalemia (Chronic) Hyperlipidemia (Chronic) Carotid stenosis, right (Chronic) No mural thrombus and no significant stenosis of the R carotid found on a diagnostic carotid arterigram at [facility]. Chronic obstructive pulmonary disease (Chronic) Allergic rhinitis (Chronic) Hypertension (Chronic) Former tobacco use (Chronic) quit 2003 Allergies codeine Allergy (Verified 11/10/20 14:23) Vomiting Penicillins [PCN] Allergy (Verified 11/10/20 14:23) Shortness of breath Sulfa (Sulfonamide Antibiotics) Allergy (Verified 11/10/20 14:23) Vomiting Home Medications: Ambulatory Orders Medication Instructions Recorded Diclofenac Sodium 75 mg PO BID PRN 02/22/20 Fluticasone/Salmeterol [Advair 1 ea IH Q12H 02/22/20 250-50 Diskus] Montelukast [Singulair] 10 mg PO DAILY 02/22/20 Aspirin [Aspirin, Baby] 81 mg PO DAILY@0800 11/13/20 Atorvastatin Calcium [Lipitor] 80 mg PO QHS 11/13/20 Clopidogrel Bisulfate [Plavix] 75 mg PO DAILY 11/13/20 Sertraline HCl [Zoloft] 50 mg PO DAILY 11/13/20 Lidocaine [Lidoderm Patch] 1 patch TOPICAL DAILY 11/17/20 Tizanidine HCl [Zanaflex] 2 mg PO Q8H PRN PRN 11/17/20 Surgical History: appendectomy, hysterectomy, rotator cuff repair - right side, tonsillectomy, - - Tonsillectomy, hysterectomy, appendectomy, right lower extremity and foot surgery, R shoulder surgery for rotator cuff and bicep tendon. Psychiatric History: No pertinent psych hx TIE IN HAND History: No pertinent TIE IN HAND history Lives: Alone Smoking Status: Former smoker - quit at the age of 53 and prior to that she smoked 1/2 PPD for 32 years Tobacco Use: Cigarettes Alcohol: Occasional Drugs: None - *Family History Maternal History Items: - - Patient with maternal family history of heart disease, breast cancer. Paternal History Items: - - With a paternal family history of lymphoma, heart disease. Review of Systems Constitutional: Denies: Chills, Fever, Weight Change Eyes: Denies: Blurred vision, Vision Change HEENT: Denies: Difficulty Swallowing, Ear Pain, Head Aches, Nasal Congestion, Sinus Congestion, Sinus Drainage, Sore Throat Cardiovascular: Denies: Chest Pain, Edema, Light Headedness, Palpitations, Syncope Respiratory: Denies: Cough, Shortness of Breath, Shortness of breath at rest, Sputum production Gastrointestinal: Denies: Abdominal Pain, Constipation, Diarrhea, Nausea, Vomiting Genitourinary: Denies: Dysuria Gynecological: Denies: Vaginal discharge Musculoskeletal: Denies: Joint Pain, Joint Tenderness, Neck Pain Skin: Denies: Jaundice, Rash, Skin Changes, Wounds Neurological: Reports: Balance problems, Change in Speech, Slurred speech, Focal weakness. Denies: Blurred vision, Double vision, Headaches, Numbness, Tingling, Tremor, Seizures Psychiatric: Reports: Depression. Denies: Anxiety, Homicidal Ideations, Suicidal Ideations Endocrine: Denies: Change in Body Habitus, Hx of Thyroiditis Hematologic/ Lymphatic: Denies: Easy Bruising, Easy Bleeding, Hx of blood clot VTE Information - Inpt Only VTE Present on Admission: No VTE Mechan Device Prophylaxis: SCD's, Knee High DARIEL Hose VTE Pharm Prophylaxis ordered?: No Reason prophylaxis not ordered:: Treatment Not Indicated - she is already on ASA and Plavix and Voltaren and do not want to ppt a GI bleed Patient Problems: Active and Suspected Problems Hyponatremia (Acute) Physical debility (Acute) due to ischemic CVA with Left side weakness and left facial droop CVA (cerebral vascular accident) (Acute) R kourtney-ventricular white matter and the R caudate nucleus. Suspect possible PAF. She has interrmittent rapid heart rate and gets lightheaded and she has been hypokalemic on a diuretic. No other reason for strokes has been found and the strokes are in 2 different locations, frontal gonzalez radiata and the R caudate nucleus. Previous stroke in the right basal ganglia. - Physical Exam Vitals/I&O's: Vital Signs Temp Pulse Resp BP Pulse Ox 96.5 F L 68 18 123/68 H 98 11/18/20 07:01 11/18/20 07:01 11/18/20 07:01 11/18/20 07:01 11/18/20 09:00 Oxygen Delivery Method Room Air Weight: 138 lb 7.205 oz Body Mass Index (BMI) 25.6 Finger Stick Blood Glucose 99 Intake and Output for Last 24 Hours 11/16/20 11/17/20 11/18/20 23:59 23:59 23:59 Intake Total 120 / 120 240 / 240 Output Total 125 / 125 775 / 775 Balance -5 / -5 -535 / -535 General: Alert, Oriented x3, Cooperative, Well developed, Well nourished HEENT: Atraumatic, PERRLA, EOMI, Normocephalic Oral: Dry Mucosa Neck: Supple, No JVD, Negative Carotid Bruits, No Nodes Lungs: Clear to auscultation, Normal air movement Cardiovascular: Regular rate, Regular Rhythm, Normal S1, Normal S2, No murmurs, No rub noted, No Gallop, - - She hqs been in a regular rhythm every time I have examined her but she admits to periods of rapid heartbeat and lightheadedness in past Abdomen: Bowel Sounds Present, Soft, Non Tender, Non-Distended, No Hepato- splenomegaly, - - No abdominal bruits. No masses. Extremities: No clubbing, No cyanosis, Capillary Refill Less than 3 Seconds, Edema - trace BL ankle edema Skin: No rashes, No breakdown Musculoskeletal: No Tenderness to Palpation of Joints or Extremities, No Muscle Wasting Neurological: - - Left facial droop, no movement of the LUE and drift with the LLE. No ataxia. Left foot drop Psych/Mental Status: Normal Affect, Appropriate Laboratory Results 11/18/20 05:42: WBC 8.5, RBC 4.60, Hgb 13.7, Hct 40.9, MCV 88.9, MCH 29.8, MCHC 33.5, RDW Std Deviation 43.1, RDW Coeff of [place] 13.2, Plt Count 420, MPV 10.3, Immature Gran % (Auto) 0.200, Neut % (Auto) 70.1 H, Lymph % (Auto) 16.7 L, [place] % (Auto) 11.2 H, Eos % (Auto) 1.3, Baso % (Auto) 0.5, Absolute Neuts (auto) 6.0, Absolute Lymphs (auto) 1.42, Nucleated RBC % 0 11/18/20 05:42: Sodium 135 L, Potassium 3.5, Chloride 100, Carbon Dioxide 27.0, Anion Gap 8, BUN 22 H, Creatinine 0.92, Estim Creat Clear Calc 45.65, Est GFR (MDRD) Af Amer 78, Est GFR (MDRD) Non-Af 65, BUN/Creatinine Ratio 24.0 H, Glucose 96, Calcium 9.6, Phosphorus 3.9, Magnesium 2.2, Total Bilirubin 0.80, AST 16, ALT 32, Alkaline Phosphatase 116, Total Protein 7.2, Albumin 3.1 L, Globulin 4.1, Albumin/Globulin Ratio 0.8 L Current Medications Acetaminophen (Acetaminophen 325 Mg Tablet) 650 mg PO Q6H PRN PRN PRN Reason: PAIN Last Admin: 11/18/20 00:23 Dose: 650 mg Documented by: Al Hydroxide/Mg Hydroxide (Mag Hydrox/Al Hydrox/Simeth 30 Ml Udc) 30 ml PO Q4H PRN PRN PRN Reason: HEARTBURN OR INDIGESTION Last Admin: 11/18/20 09:29 Dose: 30 ml Documented by: Aspirin (Aspirin 81 Mg Tab.Chew) 81 mg PO DAILY@0800 [facility] Last Admin: 11/18/20 08:17 Dose: 81 mg Documented by: Atorvastatin Calcium (Atorvastatin Calcium 80 Mg Tablet) 80 mg PO QHS [facility] Last Admin: 11/17/20 22:33 Dose: 80 mg Documented by: Bisacodyl (Bisacodyl 10 Mg Suppository) 10 mg RC .PRN X 1 PRN PRN Reason: Constipation Clopidogrel Bisulfate (Clopidogrel Bisulfate 75 Mg Tablet) 75 mg PO DAILY [facility] Stop: 12/07/20 10:01 Last Admin: 11/18/20 08:17 Dose: 75 mg Documented by: Diclofenac Sodium ([facility] 75 Mg [facility]t) [facility] Last Admin: 11/18/20 09:00 Dose: 75 mg Documented by: Lidocaine (Lidocaine 5% Patch) 1 patch TOPICAL DAILY@0600 [facility]; Protocol Magnesium Hydroxide (Magnesium Hydroxide 30 Ml Udc) 30 ml PO .PRN X 1 PRN PRN Reason: Constipation Montelukast Sodium (Montelukast 10 Mg Tablet) 10 mg PO DAILY [facility] Last Admin: 11/18/20 08:17 Dose: 10 mg Documented by: Fluticasone/Salmeterol (Fluticasone/Salmeterol 232-14 Inhaler) 1 puff INHALATION BID [facility] Last Admin: 11/18/20 08:16 Dose: 1 puff Documented by: Senna/Docusate Sodium (Senna/Docusate Sodium 1 Tablet) 2 tablet PO BID [facility] Last Admin: 11/18/20 08:17 Dose: Not Given Documented by: Sertraline HCl (Sertraline 50 Mg Tablet) 50 mg PO DAILY [facility] Last Admin: 11/18/20 08:17 Dose: 50 mg Documented by: Tizanidine HCl (Tizanidine Hcl 2 Mg Tablet) 2 mg PO Q8H PRN PRN PRN Reason: Muscle spasms Last Admin: 11/17/20 22:33 Dose: 2 mg Documented by: Assessment/Plan All Active Problems Hyponatremia (Acute) Physical debility (Acute) CVA (cerebral vascular accident) (Acute) Impressions 1. Post stroke debility with left arm > left leg weakness, left facial droop and left foot drop 2. Acute ischemic CVA in the right frontal gonzalez radiata and the right caudate nucleus. Old stroke in the R basal ganglia. PAF is suspected. 3. Hyponatremia 4. Hypokalemia 5. Essential hypertension 6. Hyperlipidemia 7. COPD 8. History of allergic rhinitis 9. Tobacco dependence in remission-quit in 2004 and started at the age of 16. 10. Mural thrombus in the SHERICE r/o by carotid arteriogram - some calcification only with no significant stenosis 11. dehydration with an increased BUN/CREAT ration 12. suspected PAF 13. suspected depression - she was started on Sertraline at the initial hospitalization. Pt denies feeling depressed but, she is very tearful at times. PLAN PT for gait stability OT for ADL's ST for evaluation Analgesics as needed Bowel protocol Fall precautions Assess for Anxiety/Depression -continue sertraline which was started recently while in the hospital for stroke. GI prophylaxis -not necessary, she has no epigastric discomfort, no nausea, no vomiting and no heartburn. She has no history of peptic ulcer disease. DVT prophylaxis with Teds and SCD's Follow up with Dr. Hall and neurology following DC from [facility] DC HCTZ - she has been hypokalemic on several occasions recently and this could precipitate PAF. She has also had a low magnesium. Event monitor at DC and follow up with cardiology Encourage good fluid intake. Potassium 20 MEQ daily x 3 and then recheck K. Dual antiplatelet agents for 19 more days and then DC the Plavix and continue ASA 81 mg daily Inpatient E&M: 51113 Init Hosp L3
--- NOTE | 2020-11-18 11:42 | PCM.RU.PYE ---
Admission Information Primary Diagnosis:: Post stroke debility Status Changes from Prescreening?: No changes Identified Actual Problem List:: Cognitve Impr/Memory Loss, Depression, Alteration in Sleep, Alteration in Nutrition, Mobility Impaired, Self Care Deficit, BP, Hypertension, Fluid Change-Dehydration, Alteration-Leisure Activ. Potential Problem List:: DVT, Bleeding, Infection, UTI, Aspiration, Falls, Skin Integrity, Depression Risk of Complications DVT: DARIEL Marshall, - - on dual antiplatelet agents Bleeding: Monitor Lab Values, Nursing to Teach Precautions for anti-coagulation therapy., Wound, if applicable, to be assessed every shift., Stroke patients assessed for lethargy or change in status. Infection: Clinical Staff to Monitor for S/S of infection:, S/S of infection include fever, redness, warmth, etc. Urinary Tract Infection: Monitor for frequency, burning, discomfort, or incontinence., Nursing will obtain urine sample for urinalysis and C&S when ordered. Aspiration: Clinical staff will monitor for coughing, drooling, congestion., Speech will evaluate swallowing and dsyphasia., Nursing will monitor patient swallowing during meals. Falls: Patient will be evaluated for Fall Precautions, Patient will be placed on Fall Precautions as indicated per protocol. Skin Breakdown: Nursing will assess skin daily using assessment tool., Nursing will place on Skin Breakdown Precautions as indicated. Pain: Clinical staff will assess patient's pain level per protocol., Medications will be given, if needed, and the pain level reassessed., Other methods: Massage, distraction, decrease stimulus, etc. used PRN. Plan of Care Patient requires physician specializing in physical medicine and rehab oversight to provide close medical supervision of rehab issues including: Pain Management, Sleep Problems, Bowel and Bladder, Medical and co-morbidity Management, DVT prophylaxis, Rehabilitation Leadership, Coordination of treatment team Patient needs Physical Therapy: For a minimum of 1 hour, At least 5 out of 7 days Patient needs Physical Therapy to improve:: Mobility, Mobility, Mobility, Strengthening, Transfers, Stretching, ROM, Endurance, Stairs, Gait, Balance Patient needs Occupational Therapy: For a minimum of 1 hour, At least 5 out of 7 days Patient needs Occupational Therapy to improve ADL's incl.: Eating, Grooming, Bathing, Dressing, Toileting, Toilet transfers, Community Reintegration, Higher functioning activities, Household tasks, Adaptive Equipment, Splinting, Other activities as determined Patient requires speech therapy: For a minimum of 1 hour, At least 5 out of 7 days Patient requires speech therapy for: Swallowing, Cognition, Language Skills, Compensatory Strategies Patient requires 24/ Rehabilitation Nursing for: Pain Issues, Identifying and preventing risk factors, Monitoring and reporting current medical conditions, Assisting with ambulation, transfer, and all ADL's, Teaching patients about disease process and medications, Family teaching, Providing safe environment, Bowel and Bladder Issues, Skin integrity, Medication Management Patient needs [employer]/ Case Management for: Discharge Planning, Arranging Home Equipment or Services, Family Interventions Patient needs Dietary and Nutrition Services for: Adequate Nutrition, Nutritional Supplements, Nutritional Education Goals Patient will remain: free from falls, or injury at time of discharge. Patient will perform bed mobility at: MOD I level of assist. Patient will complete transfers from bed to chair at: MOD I level of assist. Patient will ambulate: 100 feet, with MOD I assist, with LRD Patient will complete upper body dressing at: MOD I level of assist. Patient will complete lower body dressing at: MOD I level of assist. Patient will complete toileting at: MOD I level of assist. Patient will perform bathing at: Standby Assist. Patient will complete grooming at: MOD I level of assist. Patient will complete home management skills at: MOD I level of assist. Patient will achieve: at MOD I assist, - - 2 steps with least restrictive device Patient will have pain level of: of 3 or less Patient's skin will: remain intact, free from infection. Patient will receive: adequate nutrition. Discharge Planning Pt Prognosis for Sig. Practical Improv. w/in Reasonable Time: Good Estimated Length of stay (days): 28 Anticipated D/C Destination: TBD Was Preadmission Assessment Accurate?: Yes
[2020-11-18] MEDS: Potassium Chloride Oral Tablet 20 MEQ PO (11:46)
--- NOTE | 2020-11-18 14:06 | NT.THERAPY_ITS ---
Nutrition Therapy Report - History Nutrition Services has been consulted to:: Manage nutrient details of diet order, Conduct nutrition education Current diet / nutrition support order:: cardiac - Anthropometric Measurements Height:: 5 ft 2 in Weight:: 62.8 kg Body Mass Index (BMI):: 25.3 - Relevant Labs Relevant Labs:: Neut % (Auto) 70.1 % (47-70) H 11/18/20 05:42 Lymph % (Auto) 16.7 % (19-41) L 11/18/20 05:42 [place] % (Auto) 11.2 % (0-10) H 11/18/20 05:42 Sodium 135 mmol/L (136-145) L 11/18/20 05:42 BUN 22 mg/dL (7-18) H 11/18/20 05:42 BUN/Creatinine Ratio 24.0 RATIO (10-20) H 11/18/20 05:42 Albumin 3.1 g/dL (3.2-5.0) L 11/18/20 05:42 Albumin/Globulin Ratio 0.8 RATIO (0.9-2.4) L 11/18/20 05:42 - Assessment Food / Nutrition-Related History:: Good intake reported by nursing at breakfast this AM. Pt states appetite/intake has been poor d/t dislike of [facility] food. Pt was at [facility] 11/10-11/14 and transfered to [facility] prior to admission to [facility]. Wt on 11/10/20 was 143.5#, CBW 138.5#- 5#/3.4% wt loss x 8 days is significant. No special diet at home, states she was on a regular diet at [facility]. - Nutrition Diagnosis Problem / Etiology / Signs & Symptoms (PES):: acute, moderate malnutrition r/t inadequate energy intake during recent hopsitalizations as evidenced by wt loss of 5#/3.4% x 8 days, estimated PO intake meeting <75% of nutritional needs x 1 week. Evidence of Malnutrition Exists:: Yes Moderate PCM:: Acute Illness - Nutrition Intervention Nutrition Prescription:: [id number] calories/day (RMRx1.3). 52-62 g protein/day (1g/kg). 1800mL fluid/day (30mL/kg) - Food / Nutrient Delivery Interventions Summary of nutrition intervention:: Pt does not understand purpose of low sodium/low fat diet. Explained benefits of low sodium/low fat diet for cardiovascular disease. Pt states she does not like low sodium foods and prefers to add salt to foods. Discussed alternate ways to add flavor, pt not interested in making dietary adjustments at this time. Pt states she would like to continue to lose wt w/ goal wt being ~125#. Explained to pt the importance of adequate nu trition to assist w/ therapy and that additional, rapid wt loss is likely not appropriate at this time. Nutrition support ordered as / adjusted to:: continue cardiac diet as ordered Nutrition education provided?: Yes - MNT Monitoring Further MNT monitoring and evaluation required?: Yes MNT Follow-up in:: 7-9 days
[2020-11-18 14:11] VITALS: BMI 25.3
[2020-11-18 15:17] VITALS: BMI 25.3
[2020-11-18 18:57] VITALS: BP 115/71; PULSE 74; RESP 16; TEMP 36.8; O2SAT 95
[2020-11-18] MEDS: Atorvastatin Calcium 80 MG Tablet PO (21:00)
[2020-11-18] MEDS: Senna/Docusate Sodium 1 Tablet 2 TABLET PO (21:00)
[2020-11-18 21:38] VITALS: BMI 25.3
[2020-11-18 22:00] VITALS: PULSE 70; RESP 16; O2SAT 95
[2020-11-18] MEDS: tiZANidine HCl 2 MG Tablet PO (23:27)
[2020-11-19] MEDS: Acetaminophen 325 MG Tablet 650 MG PO ×2 (01:40→21:50)
[2020-11-19] MEDS: Lidocaine 5% Patch 1 PATCH TOPICAL (05:47)
[2020-11-19] MEDS: Aspirin 81 MG TAB.CHEW PO (07:36)
[2020-11-19] MEDS: Diclofenac 75 MG Tablet PO ×2 (07:37→16:52)
[2020-11-19] MEDS: Montelukast 10 MG Tablet PO (07:37)
[2020-11-19] MEDS: Potassium Chloride Oral Tablet 20 MEQ PO (07:37)
[2020-11-19] MEDS: Clopidogrel Bisulfate 75 MG Tablet PO (07:37)
[2020-11-19] MEDS: Sertraline 50 MG Tablet PO (07:37)
[2020-11-19] MEDS: Fluticasone/Salmeterol 232-14 Inhaler 1 PUFF INHALATION ×2 (07:38→21:47)
[2020-11-19] MEDS: tiZANidine HCl 2 MG Tablet PO ×2 (07:39→21:50)
[2020-11-19 09:10] VITALS: BP 121/69; PULSE 81; RESP 16; TEMP 36.7; O2SAT 97
[2020-11-19 09:42] VITALS: BMI 25.3
[2020-11-19 13:17] VITALS: O2SAT 97
[2020-11-19 19:00] VITALS: BP 134/85; PULSE 71; RESP 17; TEMP 36.4; O2SAT 99
[2020-11-19 20:15] VITALS: BMI 25.3
[2020-11-19] MEDS: Atorvastatin Calcium 80 MG Tablet PO (21:47)
[2020-11-20] MEDS: Lidocaine 5% Patch 1 PATCH TOPICAL (06:35)
[2020-11-20 08:23] VITALS: BP 137/70; PULSE 72; RESP 16; TEMP 36.4; O2SAT 95
[2020-11-20] MEDS: Diclofenac 75 MG Tablet PO ×2 (08:28→16:48)
[2020-11-20] MEDS: Sertraline 50 MG Tablet PO (08:28)
[2020-11-20] MEDS: Aspirin 81 MG TAB.CHEW PO (08:28)
[2020-11-20] MEDS: Potassium Chloride Oral Tablet 20 MEQ PO (08:28)
[2020-11-20] MEDS: Fluticasone/Salmeterol 232-14 Inhaler 1 PUFF INHALATION ×2 (08:28→21:16)
[2020-11-20] MEDS: Montelukast 10 MG Tablet PO (08:28)
[2020-11-20] MEDS: tiZANidine HCl 2 MG Tablet PO ×2 (08:29→21:18)
[2020-11-20] MEDS: Clopidogrel Bisulfate 75 MG Tablet PO (08:29)
[2020-11-20 08:55] VITALS: BMI 25.3
[2020-11-20 19:30] VITALS: BP 131/81; PULSE 73; RESP 16; TEMP 36.1; O2SAT 96
[2020-11-20 20:20] VITALS: BMI 25.3
[2020-11-20] MEDS: Senna/Docusate Sodium 1 Tablet 2 TABLET PO (21:16)
[2020-11-20] MEDS: Atorvastatin Calcium 80 MG Tablet PO (21:16)
[2020-11-21] MEDS: Lidocaine 5% Patch 1 PATCH TOPICAL (04:34)
[2020-11-21 07:27] VITALS: BP 130/81; PULSE 70; RESP 18; TEMP 36.3; O2SAT 96
[2020-11-21] MEDS: Sertraline 50 MG Tablet PO (07:31)
[2020-11-21] MEDS: Potassium Chloride Oral Tablet 20 MEQ PO (07:31)
[2020-11-21] MEDS: Aspirin 81 MG TAB.CHEW PO (07:31)
[2020-11-21] MEDS: Diclofenac 75 MG Tablet PO ×2 (07:32→16:14)
[2020-11-21] MEDS: Senna/Docusate Sodium 1 Tablet 2 TABLET PO (07:32)
[2020-11-21] MEDS: Clopidogrel Bisulfate 75 MG Tablet PO (07:32)
[2020-11-21] MEDS: Fluticasone/Salmeterol 232-14 Inhaler 1 PUFF INHALATION ×2 (07:32→21:34)
[2020-11-21 09:29] VITALS: BMI 25.3
--- NOTE | 2020-11-21 10:40 | PN_ITS ---
Progress Note Donita was seen on team rounds today. Her grandson Pee participated by phone. All questions were addressed and answered. Afebrile VSS - BP's have remained in goal with discontinuation of the diuretic Maintaining appropriate oxygen saturation on RA Oral intake is adequate. She is complaining about the food. States is is too dry and has no taste. She wants to be on a regular diet and tells me she eats a pretty Healthy diet. She would like to get [employer] BMP with ham, salami and pepperoni. I told her that the Salami and pepperoni have high fat and she also told me that one time she ate a pound of alcala. We discussed fat restriction and no added salt. She agrees to limit alcala, Salami and pepperoni. Encouraged her to eat more chicken, fish and turkey and avoid red meat more than once a week and to boil, broil and bake not yousif. Discussed with nursing - nursing would like me to set visitation guidelines. She can have 3 visits a week......only 1 person per visit. I reinforced with Donita that family can feel free to call me for updates on progress if they would like. Reviewed the PT/OT/ST notes and listened to their presentations on rounds. Medication list reviewed. Diuretic was discontinued last Saturday. Alert and appropriate, NAD, has not been wearing the boot on the left foot for foot drop while she is in bed. I reinforced with her why she is wearing the boot and told her I recommended she only take it off at night and she understands and is agreeable. Lungs are CTA with no conversational dyspnea and no tachypnea. HRRR, no gallop she has a trace of ankle edema BL. Denies calf pain no rashes and no skin breakdown Abd is soft and non-tender she has some movement in the left foot now. She has some scapular movement on the R but no other movement in the left arm. Impressions 1. 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 Essential HTN - controlled 3. HLD 4. hypokalemia and hyponatremia with dehydration due to diuretic therapy used to control HTN - this was discontinued on 11/18/20 5. depression? Change the diet to regular with no added salt and have the primer expeditor and drier educate her on fat control and how to make better choices. continue the Sertraline Continue therapy lab in the AM to check the K and the creat she is to wear the boot at all times except at night when she is sleeping STROKE Vital Signs/Narrative: Vital Signs Temp Pulse Resp BP Pulse Ox 11/21/20 07:27 97.4 F L 70 18 130/81 H 96 Inpatient E&M: 92734 Subs Hosp L2
--- NOTE | 2020-11-21 12:30 | CASEMGMT ---
Addendum entered by Shayna Reilly 11/21/20 12:54: Correction: Patient Pee brooks present via speaker phone. Original Note: Social Work Team meeting held. Patient present. Patient spouse, Sara present via speaker phone. Patient to continue with further care and treatment on the Inpatient Rehab unit. Patient primary goal is to return to home alone. Social work to continue to follow for discharge planning and support. Insurance update due on 11/25/2020. Will continue to follow. Aruna BROWN, GIO
--- NOTE | 2020-11-21 12:55 | CASEMGMT ---
Social Work Team meeting held. Patient present. Patient Pee brooks present via speaker phone. Patient to continue with further care and treatment on the Inpatient Rehab unit. Patient primary goal is to return to home alone. Social work to continue to follow for discharge planning and support. Insurance update due on 11/25/2020. Will continue to follow.
[2020-11-21 19:24] VITALS: BP 130/75; PULSE 69; RESP 17; TEMP 36.4; O2SAT 96
[2020-11-21 21:23] VITALS: BMI 25.3
[2020-11-21] MEDS: Atorvastatin Calcium 80 MG Tablet PO (21:34)
[2020-11-21] MEDS: Montelukast 10 MG Tablet PO (21:34)
[2020-11-21 22:00] VITALS: PULSE 63; RESP 16; O2SAT 97
[2020-11-22] MEDS: Acetaminophen 325 MG Tablet 650 MG PO ×2 (01:04→21:15)
[2020-11-22] MEDS: tiZANidine HCl 2 MG Tablet PO ×2 (01:05→21:14)
[2020-11-22] MEDS: Lidocaine 5% Patch 1 PATCH TOPICAL (04:45)
[2020-11-22 05:51] LABS: Anion Gap 5 (5-15); BUN 20 mg/dL (7-18); BUN/Creat Ratio 25.4 RATIO (10-20); Calcium,Total 9.1 mg/dL (8.5-10.1); Chloride 103 mmol/L (98-107); Creatinine, Serum 0.79 mg/dL (0.55-1.02); EST Glomerular Filtration Rate 77 mL/min (>60); Est Glom Filt Rate - Afr Amer 93 mL/min (>60); Estimated Creatinine Clearance 41.99 ml/min; Glucose 83 mg/dL (74-106); Magnesium 1.9 mg/dL (1.6-2.6); Potassium 4.3 mmol/L (3.5-5.1); Sodium Level 136 mmol/L (136-145)
[2020-11-22 07:06] VITALS: BP 120/67; PULSE 64; RESP 16; TEMP 36.2; O2SAT 95
[2020-11-22] MEDS: Potassium Chloride Oral Tablet 20 MEQ PO (07:43)
[2020-11-22] MEDS: Aspirin 81 MG TAB.CHEW PO (07:43)
[2020-11-22] MEDS: Clopidogrel Bisulfate 75 MG Tablet PO (07:44)
[2020-11-22] MEDS: Sertraline 50 MG Tablet PO (07:44)
[2020-11-22] MEDS: Fluticasone/Salmeterol 232-14 Inhaler 1 PUFF INHALATION ×2 (07:44→21:16)
[2020-11-22] MEDS: Diclofenac 75 MG Tablet PO ×2 (07:44→16:47)
--- NOTE | 2020-11-22 11:02 | PCM.PN.BLA ---
Progress Note Afebrile VSS Maintaining appropriate oxygen saturation on RA Oral intake is poor....she does not like the food, katherin because she is not allowed to have salt Discussed with nursing - Nursing reports that she is having a hard time going to sleep at night.....she is taking Flexeril to help get to sleep. She asked the nurses about Melatonin. she has had trouble sleeping that predates this stroke Reviewed the PT/OT/ST notes Medication list reviewed. All lab was personally reviewed. Sodium is within normal limits at 136 today and the potassium is 4.3. The BUN is 20 and the creatinine has come down to 0.79 with discontinuation of hydrochlorothiazide and supplementation of potassium. The magnesium is 1.9 and I would like it to be 2. alert, out of sorts HRRR Lungs - CTA has her boot on abd - soft and NT no calf pain no leg edema Impressions 1. post stroke debility 2. cryptogenic CVA - suspect she has been having AF because she complains of feeling her heart race at times and there is no significant arterial disease on the carotid angiogram. K chronically low due to HCTZ which has been discontinued. She needs a 30 day event monitor at DC 3. HTN 4. insomnia 5. suspected Depression - we talked about this at length and I told her depression after a stroke is very common because people are worried about what will happen to them and this causes decreased motivation to do therapy if not treated. She is OK with being on Sertraline 6. foot drop 7. cognitive dysfunction which she is unaware of Start Slo-mag once a day to keep the Mag at 2 or greater Continue the potassium at 20 MEQ per day to keep the K at 4 or greater check the K and the Mag prior to DC and keep the mag at 2 and the K at 4 add Trazodone 50 mg at HS to the current drug regimen. STROKE Vital Signs/Narrative: Vital Signs Temp Pulse Resp BP Pulse Ox 11/22/20 07:06 97.1 F L 64 16 120/67 95 Inpatient E&M: [id number] Subs Hosp L2
[2020-11-22 14:23] VITALS: BMI 25.3
--- NOTE | 2020-11-22 16:55 | CHAPLAIN ---
Type of Pastoral Visit _x__ Initial Visit ___ Follow-up Visit ___ On-call Visit ___ General Patient Visit ___ Spiritual Assessment ___ Family Conference ___ Bereavement ___ Rapid Response ___ Code Blue ___ Other (describe below) Pastoral Care Referral From _x__ Patient ___ Family ___ Nurse ___ Physician ___ Fruit Sorter ___ Team Truck Driver ___ Other (describe below) Sacrament/Intervention _x__ Active listening ___ Anointing ___ Mandaen ___ Bereavement ___ Communion _x__ Emili exploration ___ _x__ Life review _x__ Prayer ___ Reconciliation ___ Sacrament of Sick _x__ Supportive presence ___ Wedding ___ Other (describe below) Pastoral Comments lots of life review and presentation of patient's own thoughts on living and dying; pt appears highly motivated and yet is also expressive of whatever is going to happen will happen and no one can stop it; pt speaks of her strong personality and can do attitude; pt has many grandchildren; pt has a connective to [employer] [facility] in [place] but is not very active there.
[2020-11-22 19:25] VITALS: BP 143/69; PULSE 64; RESP 18; TEMP 36.4; O2SAT 98
[2020-11-22] MEDS: Atorvastatin Calcium 80 MG Tablet PO (21:16)
[2020-11-22] MEDS: Montelukast 10 MG Tablet PO (21:16)
[2020-11-22] MEDS: traZODone 50 MG Tablet PO (21:16)
[2020-11-22 21:25] VITALS: BMI 25.3
[2020-11-22 22:00] VITALS: PULSE 64; RESP 16; O2SAT 98
[2020-11-23] MEDS: Lidocaine 5% Patch 1 PATCH TOPICAL (05:32)
[2020-11-23 07:39] VITALS: BP 139/77; PULSE 74; RESP 17; TEMP 36.7; O2SAT 96
[2020-11-23] MEDS: Fluticasone/Salmeterol 232-14 Inhaler 1 PUFF INHALATION ×2 (08:35→21:52)
[2020-11-23] MEDS: Clopidogrel Bisulfate 75 MG Tablet PO (08:36)
[2020-11-23] MEDS: Magnesium Chloride 64 MG Delay Rel.Tablet 128 MG PO (08:36)
[2020-11-23] MEDS: Sertraline 50 MG Tablet PO (08:36)
[2020-11-23] MEDS: Diclofenac 75 MG Tablet PO ×2 (08:36→16:28)
[2020-11-23] MEDS: Aspirin 81 MG TAB.CHEW PO (08:36)
[2020-11-23] MEDS: Potassium Chloride Oral Tablet 20 MEQ PO (08:36)
--- NOTE | 2020-11-23 10:53 | PN_ITS ---
Progress Note Trazodone was added to her drug regimen yesterday due to complaints of insomnia. Nursing reports that she slept well last night woke a few times but went back to sleep. She has been on the Sertraline for > 1 week now and has no adverse side effects. Vanessa tells me she slept much better last night. She still maintains that she does not like any of the food in the hospital. she is frustrated at having no salt on her tray. she still maintains that she eats a healthy diet at home.......tells me that she only eats alcala about once a week. she grills a lot and does not yousif. She denies palpitations, CP, SOB, cephalgia, lightheadedness. she is not really aware of the cognitive deficit she has and ST has concern about her safety awareness and they at this time do not feel she will be safe at home alone. Pt still thinks she is going to be able to go back to work at [employer] Poor insight into her situation at this time. seems to have decent family support. alert, conversant, showed me pictures of family and dogs and talked about her family she is making good eye contact with me now and she is no longer tearful Lungs - CTA HRRR abd - soft ad NT Still with Left hemiplegia but she is making progress in therapy and is ambulating in the halls with a WW no edema, no calf pain no rashes and no skin breakdown Impressions 1. 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 Essential HTN - controlled 3. HLD 4. hypokalemia and hyponatremia with dehydration due to diuretic therapy used to control HTN - this was discontinued on 11/18/20 5. depression? Increase the Sertraline to 100 mg daily Continue therapy. DC the Trazodone and start Gabapentin for Fibromyalgia. She thinks the reason she does not sleep well is due to the pain from fibromyalgia. fibromyalgia pain is worse in the winter months when she does not get as much exercise change her to a regular diet and continue with education regarding salt and fat reduction in diet STROKE Vital Signs/Narrative: Vital Signs Temp Pulse Resp BP Pulse Ox 11/23/20 07:39 98.0 F 74 17 139/77 H 96 Inpatient E&M: [id number] Subs Hosp L2
[2020-11-23 12:19] VITALS: BMI 25.3
[2020-11-23] MEDS: Gabapentin 100 MG Capsule PO (16:29)
[2020-11-23 19:21] VITALS: BP 166/80; PULSE 69; RESP 16; TEMP 36.6; O2SAT 94
[2020-11-23 19:40] VITALS: PULSE 69; RESP 16; BMI 25.3
[2020-11-23] MEDS: Atorvastatin Calcium 80 MG Tablet PO (21:51)
[2020-11-23] MEDS: Montelukast 10 MG Tablet PO (21:51)
[2020-11-23] MEDS: Gabapentin 300 MG Capsule PO (21:53)
[2020-11-24] MEDS: Lidocaine 5% Patch 1 PATCH TOPICAL (06:25)
[2020-11-24] MEDS: Potassium Chloride Oral Tablet 20 MEQ PO (07:55)
[2020-11-24] MEDS: Aspirin 81 MG TAB.CHEW PO (07:55)
[2020-11-24] MEDS: Gabapentin 100 MG Capsule PO ×2 (07:55→16:07)
[2020-11-24] MEDS: Diclofenac 75 MG Tablet PO ×2 (07:55→16:07)
[2020-11-24] MEDS: Fluticasone/Salmeterol 232-14 Inhaler 1 PUFF INHALATION ×2 (07:56→19:48)
[2020-11-24] MEDS: Magnesium Chloride 64 MG Delay Rel.Tablet 128 MG PO (07:56)
[2020-11-24] MEDS: Sertraline 50 MG Tablet PO (07:56)
[2020-11-24] MEDS: Clopidogrel Bisulfate 75 MG Tablet PO (07:56)
[2020-11-24 08:51] VITALS: BP 105/71; PULSE 80; RESP 18; TEMP 36.6; O2SAT 96
[2020-11-24 09:04] VITALS: BMI 25.3
[2020-11-24 19:30] VITALS: BP 163/82; PULSE 73; RESP 18; TEMP 36.2; O2SAT 97; BMI 25.3
[2020-11-24] MEDS: Gabapentin 300 MG Capsule PO (19:48)
[2020-11-24] MEDS: Atorvastatin Calcium 80 MG Tablet PO (19:48)
[2020-11-24] MEDS: Montelukast 10 MG Tablet PO (19:53)
[2020-11-25 07:44] VITALS: BP 118/86; PULSE 66; RESP 16; TEMP 37.1; O2SAT 96
[2020-11-25] MEDS: Aspirin 81 MG TAB.CHEW PO (07:44)
[2020-11-25] MEDS: Magnesium Chloride 64 MG Delay Rel.Tablet 128 MG PO (07:45)
[2020-11-25] MEDS: Potassium Chloride Oral Tablet 20 MEQ PO (07:45)
[2020-11-25] MEDS: Clopidogrel Bisulfate 75 MG Tablet PO (07:45)
[2020-11-25] MEDS: Fluticasone/Salmeterol 232-14 Inhaler 1 PUFF INHALATION ×2 (07:45→21:09)
[2020-11-25] MEDS: Diclofenac 75 MG Tablet PO ×2 (07:45→16:25)
[2020-11-25] MEDS: Gabapentin 100 MG Capsule PO ×2 (07:45→16:25)
[2020-11-25] MEDS: Sertraline 50 MG Tablet PO (07:46)
[2020-11-25 15:57] VITALS: BMI 25.3
[2020-11-25 19:35] VITALS: BP 134/75; PULSE 78; RESP 16; TEMP 36.3; O2SAT 96
[2020-11-25] MEDS: Gabapentin 300 MG Capsule PO (21:09)
[2020-11-25] MEDS: Atorvastatin Calcium 80 MG Tablet PO (21:09)
[2020-11-25] MEDS: Montelukast 10 MG Tablet PO (21:10)
[2020-11-25] MEDS: tiZANidine HCl 2 MG Tablet PO (23:05)
[2020-11-25] MEDS: Acetaminophen 325 MG Tablet 650 MG PO (23:05)
[2020-11-26 01:55] VITALS: BMI 25.3
[2020-11-26] MEDS: Lidocaine 5% Patch 1 PATCH TOPICAL (06:37)
[2020-11-26 08:25] VITALS: BP 136/62; PULSE 69; RESP 16; TEMP 36.5; O2SAT 95
[2020-11-26] MEDS: Aspirin 81 MG TAB.CHEW PO (09:29)
[2020-11-26] MEDS: Diclofenac 75 MG Tablet PO ×2 (09:29→16:44)
[2020-11-26] MEDS: Clopidogrel Bisulfate 75 MG Tablet PO (09:30)
[2020-11-26] MEDS: Sertraline 50 MG Tablet PO (09:30)
[2020-11-26] MEDS: Fluticasone/Salmeterol 232-14 Inhaler 1 PUFF INHALATION ×2 (09:30→21:01)
[2020-11-26] MEDS: Potassium Chloride Oral Tablet 20 MEQ PO (09:32)
[2020-11-26] MEDS: Magnesium Chloride 64 MG Delay Rel.Tablet 128 MG PO (09:33)
[2020-11-26] MEDS: Gabapentin 100 MG Capsule PO ×2 (09:35→16:44)
[2020-11-26 17:00] VITALS: BMI 25.3
[2020-11-26 19:13] VITALS: BP 143/75; PULSE 71; RESP 16; TEMP 36.6; O2SAT 95
[2020-11-26] MEDS: Gabapentin 300 MG Capsule PO (21:01)
[2020-11-26] MEDS: Montelukast 10 MG Tablet PO (21:01)
[2020-11-26] MEDS: Atorvastatin Calcium 80 MG Tablet PO (21:01)
[2020-11-26] MEDS: tiZANidine HCl 2 MG Tablet PO (22:29)
--- NOTE | 2020-11-27 03:00 | NURSING ---
PT UP TO BATHROOM AND C/O SHARP PAIN LEFT WRIST THAT IS RADIATING UP ARM. PT IS REQUESTING TYLENOL ONLY FOR PAIN. DECLINES ICE PACK OR INCREASED ELEVATION OF L WRIST. PT STATES SHE NOTICED SHE IS ALSO GETTING SOME MOVEMENT OF L THUMB. PILLOW UNDER LUE ADJUSTED. PT STATES PAIN TO L WRIST WAS FIRST NOTED DURING THERAPY.
[2020-11-27] MEDS: Acetaminophen 325 MG Tablet 650 MG PO (03:39)
[2020-11-27] MEDS: Lidocaine 5% Patch 1 PATCH TOPICAL (06:33)
[2020-11-27] MEDS: Fluticasone/Salmeterol 232-14 Inhaler 1 PUFF INHALATION ×2 (08:01→20:44)
[2020-11-27] MEDS: Gabapentin 100 MG Capsule PO ×2 (08:01→17:19)
[2020-11-27] MEDS: Sertraline 50 MG Tablet PO (08:02)
[2020-11-27] MEDS: Magnesium Chloride 64 MG Delay Rel.Tablet 128 MG PO (08:02)
[2020-11-27] MEDS: Aspirin 81 MG TAB.CHEW PO (08:02)
[2020-11-27] MEDS: Clopidogrel Bisulfate 75 MG Tablet PO (08:02)
[2020-11-27] MEDS: Diclofenac 75 MG Tablet PO ×2 (08:03→17:19)
[2020-11-27] MEDS: Potassium Chloride Oral Tablet 20 MEQ PO (08:03)
[2020-11-27 08:24] VITALS: BP 135/62; PULSE 64; RESP 16; TEMP 36.4; O2SAT 95
[2020-11-27 15:18] VITALS: BMI 25.3
[2020-11-27 18:59] VITALS: BP 127/81; PULSE 77; RESP 18; TEMP 36.6; O2SAT 96
[2020-11-27] MEDS: Atorvastatin Calcium 80 MG Tablet PO (20:44)
[2020-11-27] MEDS: Montelukast 10 MG Tablet PO (20:44)
[2020-11-27] MEDS: Gabapentin 300 MG Capsule PO (20:44)
[2020-11-27] MEDS: tiZANidine HCl 2 MG Tablet PO (20:46)
[2020-11-28] MEDS: Fluticasone/Salmeterol 232-14 Inhaler 1 PUFF INHALATION ×2 (07:42→20:11)
[2020-11-28] MEDS: Gabapentin 100 MG Capsule PO ×2 (07:43→16:04)
[2020-11-28] MEDS: Clopidogrel Bisulfate 75 MG Tablet PO (07:43)
[2020-11-28] MEDS: Diclofenac 75 MG Tablet PO ×2 (07:43→16:03)
[2020-11-28] MEDS: Potassium Chloride Oral Tablet 20 MEQ PO (07:43)
[2020-11-28] MEDS: Aspirin 81 MG TAB.CHEW PO (07:43)
[2020-11-28] MEDS: Sertraline 50 MG Tablet PO (07:43)
[2020-11-28] MEDS: Magnesium Chloride 64 MG Delay Rel.Tablet 128 MG PO (07:43)
[2020-11-28 07:57] VITALS: BP 147/84; PULSE 63; RESP 16; TEMP 36.5; O2SAT 94
[2020-11-28 09:41] VITALS: BMI 25.3
--- NOTE | 2020-11-28 10:07 | CASEMGMT ---
Social Work IDT met with patient and sister via conference call for Team meeting. Discussed patient's progress in therapy and nursing. Pt progressing well; however, IDT recommending 24/7 supervision due to impulsivity, poor safety awareness and needing assistance with ADLs at this time. Inquired about alternative plan. Pt cannot DC to sisters home due to steps, and dtr works. Offered to email list of nonskilled HHC - sister agreed and stated 'they will figure it out. Explained [facility] NRD 12/02 and continued stay us not guaranteed. SW to continue to follow.
--- NOTE | 2020-11-28 11:52 | PN_ITS ---
Progress Note Kristopher was seen on team rounds today. Her Sister Nataliia participated by phone. All questions were answered. Afebrile VSS Maintaining appropriate oxygen saturation on RA Oral intake is good Good bowel function without constipation. Discussed with nursing - no problems that need addressed Reviewed the PT/OT/ST notes Medication list reviewed. Vanessa tells me that the fibromyalgia pain is better with gabapentin. When I asked her if it could be better than it is now she said she is happy where she is at. She is sleeping well. She has no complaints. Alert, oriented x3, no apparent distress, sitting in the recliner at the bedside, she was able to apply her own make-up today. She makes good eye contact and has an upbeat mood. Mucous membranes are moist Lungs-clear to auscultation, not tachypneic, no conversational dyspnea Heart-regular rate and rhythm Abdomen-soft, nontender, nondistended No calf tenderness Impressions 1. 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 Essential HTN - controlled 3. HLD 4. hypokalemia and hyponatremia with dehydration due to diuretic therapy used to control HTN - this was discontinued on 11/18/20 5. depression? 6. Fibromyalgia-good improvement in pain with gabapentin. No adverse side effects. 7. 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 [facility] is recommending she follow up with neurology up here rather than in [place]. Her insurance [employer] is assisting her with finding a neurologist who is in network in the area. STROKE Vital Signs/Narrative: Vital Signs Temp Pulse Resp BP Pulse Ox 11/28/20 07:57 97.7 F L 63 16 147/84 H 94 Inpatient E&M: [id number] Subs Hosp L2
[2020-11-28 18:54] VITALS: BP 149/79; PULSE 69; RESP 16; TEMP 36.4; O2SAT 95
[2020-11-28 19:50] VITALS: BMI 25.3
[2020-11-28 19:53] VITALS: PULSE 76; RESP 16
[2020-11-28] MEDS: Gabapentin 300 MG Capsule PO (20:02)
[2020-11-28] MEDS: Atorvastatin Calcium 80 MG Tablet PO (20:10)
[2020-11-28] MEDS: Montelukast 10 MG Tablet PO (20:11)
[2020-11-28] MEDS: Acetaminophen 325 MG Tablet 650 MG PO (20:12)
[2020-11-29] MEDS: tiZANidine HCl 2 MG Tablet PO ×2 (04:25→22:15)
[2020-11-29 07:46] VITALS: BP 134/66; PULSE 79; RESP 16; TEMP 36.4; O2SAT 95
[2020-11-29] MEDS: Gabapentin 100 MG Capsule PO ×2 (08:04→16:31)
[2020-11-29] MEDS: Aspirin 81 MG TAB.CHEW PO (08:04)
[2020-11-29] MEDS: Sertraline 50 MG Tablet PO (08:04)
[2020-11-29] MEDS: Magnesium Chloride 64 MG Delay Rel.Tablet 128 MG PO (08:04)
[2020-11-29] MEDS: Clopidogrel Bisulfate 75 MG Tablet PO (08:04)
[2020-11-29] MEDS: Potassium Chloride Oral Tablet 20 MEQ PO (08:04)
[2020-11-29] MEDS: Diclofenac 75 MG Tablet PO ×2 (08:04→16:31)
[2020-11-29] MEDS: Fluticasone/Salmeterol 232-14 Inhaler 1 PUFF INHALATION ×2 (08:08→22:11)
[2020-11-29 14:52] VITALS: BMI 25.3
--- NOTE | 2020-11-29 15:37 | CHAPLAIN ---
Type of Pastoral Visit ___ Initial Visit _x__ Follow-up Visit ___ On-call Visit ___ General Patient Visit ___ Spiritual Assessment ___ Family Conference ___ Bereavement ___ Rapid Response ___ Code Blue ___ Other (describe below) Pastoral Care Referral From _x__ Patient ___ Family ___ Nurse ___ Physician ___ Loan Associate ___ Senior Supply Chain Analyst ___ Other (describe below) Sacrament/Intervention _x__ Active listening ___ Anointing ___ Jain ___ Bereavement ___ Communion ___ Emili exploration ___ ___ Life review ___ Prayer ___ Reconciliation ___ Sacrament of Sick ___ Supportive presence ___ Wedding ___ Other (describe below) Pastoral Comments
[2020-11-29 19:17] VITALS: BP 138/79; PULSE 74; RESP 18; TEMP 36.6; O2SAT 97
[2020-11-29] MEDS: Gabapentin 300 MG Capsule PO (21:05)
[2020-11-29 22:00] VITALS: PULSE 79; RESP 17
[2020-11-29 22:08] VITALS: BMI 25.3
[2020-11-29] MEDS: Montelukast 10 MG Tablet PO (22:11)
[2020-11-29] MEDS: Atorvastatin Calcium 80 MG Tablet PO (22:11)
[2020-11-29] MEDS: Acetaminophen 325 MG Tablet 650 MG PO (22:20)
[2020-11-30] MEDS: Fluticasone/Salmeterol 232-14 Inhaler 1 PUFF INHALATION ×2 (07:39→21:24)
[2020-11-30] MEDS: Clopidogrel Bisulfate 75 MG Tablet PO (07:40)
[2020-11-30] MEDS: Sertraline 50 MG Tablet PO (07:40)
[2020-11-30] MEDS: Magnesium Chloride 64 MG Delay Rel.Tablet 128 MG PO (07:40)
[2020-11-30] MEDS: Potassium Chloride Oral Tablet 20 MEQ PO (07:40)
[2020-11-30] MEDS: Gabapentin 100 MG Capsule PO ×2 (07:40→16:38)
[2020-11-30] MEDS: Aspirin 81 MG TAB.CHEW PO (07:40)
[2020-11-30] MEDS: Diclofenac 75 MG Tablet PO ×2 (09:12→16:38)
[2020-11-30 09:53] VITALS: BP 133/71; PULSE 66; RESP 16; TEMP 35.8; O2SAT 94
--- NOTE | 2020-11-30 11:56 | PCM.PN.BLA ---
Progress Note Afebrile VSS-blood pressure is controlled Maintaining appropriate oxygen saturation on RA Oral intake is good Discussed with nursing - no problems that need addressed Reviewed the PT/OT/ST notes. Vanessa is suffering from various surfaces and performing bed mobility with minimal assistance x1. She has a ascended and descended 5 steps using a right railing only at minimal assist in a step to step pattern. She is ambulated 165 feet x 3 using a platform walker at minimal assist x1. Still with some scissoring of the left lower extremity. She is doing 11 stands in 30 seconds now. She is standby assist with toileting. She has demonstrated functional mobility with a quad cane with CGA/min assist for balance for approximately 70 feet. She is now able to stand for 8 minutes at contact-guard assist. Still requiring moderate assistance with lower body dressing and upper body dressing. Minimal assistance with grooming. She is standby assist for toileting. She has been trained in strategies to improve speech clarity and has excellent recall of the strategies. Impulsivity has decreased. Medication list reviewed. Vanessa denies chest pain, palpitations, shortness of breath, nausea/vomiting/abdominal pain, constipation/diarrhea, lightheadedness. Alert and oriented x3, tearful because she is happy she is improving. Lungs-clear to auscultation with good air exchange Heart-regular rate and vfhntd-nohbtxa-paht, nontender, nondistended No calf pain, no peripheral edema No rashes and no skin breakdown I observed her using the quad cane today and she is doing well with only occasional LOB. She is making good progress in therapy. she is doing much better with speech with executive function, problem solving, sequencing and planning. she still hopes to go home at [place] but, she lives by herself so we will need to see continued progress. Impressions 1. post stroke debility 2. suspected PAF 3. HTN 4. fibromyalgia - good improvement and sleep with the addition on Gabapentin to the drug regimen. 5. 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
--- NOTE | 2020-11-30 14:49 | NURSING ---
pt refused eliane welch and [facility]
[2020-11-30 14:50] VITALS: BMI 25.3
[2020-11-30 21:15] VITALS: BP 132/84; PULSE 64; RESP 16; TEMP 36.1; O2SAT 98; BMI 25.3
[2020-11-30] MEDS: Atorvastatin Calcium 80 MG Tablet PO (21:23)
[2020-11-30] MEDS: tiZANidine HCl 2 MG Tablet PO (21:23)
[2020-11-30] MEDS: Montelukast 10 MG Tablet PO (21:23)
[2020-11-30] MEDS: Gabapentin 300 MG Capsule PO (21:24)
--- NOTE | 2020-12-01 04:57 | NURSING ---
REVIEWED AND AGREE WITH METAL SPRAYER PRODUCTION ASSESSMENT. LLRN
[2020-12-01] MEDS: Lidocaine 5% Patch 1 PATCH TOPICAL (06:43)
[2020-12-01 07:00] VITALS: BP 130/71; PULSE 75; RESP 16; TEMP 36.3; O2SAT 95
[2020-12-01] MEDS: Potassium Chloride Oral Tablet 20 MEQ PO (08:05)
[2020-12-01] MEDS: Diclofenac 75 MG Tablet PO ×2 (08:05→17:21)
[2020-12-01] MEDS: Gabapentin 100 MG Capsule PO ×2 (08:05→17:20)
[2020-12-01] MEDS: Aspirin 81 MG TAB.CHEW PO (08:05)
[2020-12-01 08:35] VITALS: PULSE 72
[2020-12-01] MEDS: Clopidogrel Bisulfate 75 MG Tablet PO (10:30)
[2020-12-01] MEDS: Magnesium Chloride 64 MG Delay Rel.Tablet 128 MG PO (10:30)
[2020-12-01] MEDS: Sertraline 50 MG Tablet PO (10:30)
[2020-12-01] MEDS: Fluticasone/Salmeterol 232-14 Inhaler 1 PUFF INHALATION ×2 (10:32→20:50)
[2020-12-01 13:19] VITALS: BMI 25.3
[2020-12-01 20:30] VITALS: BP 125/77; PULSE 74; RESP 16; TEMP 36.6; O2SAT 96; BMI 25.3
[2020-12-01] MEDS: Atorvastatin Calcium 80 MG Tablet PO (20:50)
[2020-12-01] MEDS: Gabapentin 300 MG Capsule PO (20:50)
[2020-12-01] MEDS: tiZANidine HCl 2 MG Tablet PO (20:50)
[2020-12-01] MEDS: Montelukast 10 MG Tablet PO (20:50)
--- NOTE | 2020-12-02 02:20 | NURSING ---
REVIEWED AND AGREE WITH [employer] [employer]'S FUNCTIONAL ASSESSMENT CHARTING.
[2020-12-02 08:23] VITALS: BP 133/81; PULSE 75; RESP 20; TEMP 36.4; O2SAT 95
[2020-12-02] MEDS: Fluticasone/Salmeterol 232-14 Inhaler 1 PUFF INHALATION ×2 (09:07→21:20)
[2020-12-02] MEDS: Aspirin 81 MG TAB.CHEW PO (09:07)
[2020-12-02] MEDS: Magnesium Chloride 64 MG Delay Rel.Tablet 128 MG PO (09:07)
[2020-12-02] MEDS: Diclofenac 75 MG Tablet PO ×2 (09:07→17:22)
[2020-12-02] MEDS: Clopidogrel Bisulfate 75 MG Tablet PO (09:07)
[2020-12-02] MEDS: Potassium Chloride Oral Tablet 20 MEQ PO (09:07)
[2020-12-02] MEDS: Gabapentin 100 MG Capsule PO ×2 (09:07→17:22)
[2020-12-02] MEDS: Sertraline 50 MG Tablet PO (09:08)
--- NOTE | 2020-12-02 11:00 | PCM.PN.BLA ---
Progress Note Afebrile VSS Maintaining appropriate oxygen saturation on RA Oral intake is adequate Discussed with nursing - no problems that need addressed Reviewed the PT/OT/ST notes Medication list reviewed. Mood is better and she is no longer bursting into tears frequently. She is very motivated and is very active in therapy. sleeping better at night. She denies chest pain, shortness of breath, palpitations, dysuria, calf pain. Alert and oriented x3. Making good eye contact when talking with me. She is appropriate. The neck is supple, mucous membranes are moist Lungs-clear to auscultation with no wheezes, rhonchi or rails Heart-regular rate and rhythm, no gallop, no ectopy Abdomen-soft, nontender, nondistended, normal bowel sounds, no guarding with palpation No peripheral edema, no calf tenderness No rashes and no skin breakdown Impressions 1. post stroke debility - Left facial droop and left hemiparesis 2. suspected PAF - has been having racing heart and palpitations intermittently. Was deficient in Mag and K due to HCTZ. 3. HTN - controlled 4. fibromyalgia - good improvement and sleep with the addition on Gabapentin to the drug regimen. 5. 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 Continue ongoing discharge planning. STROKE Vital Signs/Narrative: Vital Signs Temp Pulse Resp BP Pulse Ox 12/02/20 08:23 97.6 F L 75 20 H 133/81 H 95 Inpatient E&M: [id number] Subs Hosp L2
--- NOTE | 2020-12-02 12:38 | CASEMGMT ---
Addendum entered by Edda Mcknight 12/02/20 15:09: Followed up with pt. TCU has bed availability for DC 12/05. Will submit for precert. If precert not obtained, will DC to another SNF. Awaiting to hear from [facility] and [facility]. Will continue to follow. Original Note: Social Work Insurance inquiring about DC plans and indicating setting DC date for this date. However, with further information and no finalized DC plans in place from family, insurance NRD 12/05 with anticipated DC 12/05. Spoke with pt's sister to inquire about plans and informed her of insurance. Sister explained her and dtr have not discussed further a plan for pt but she cannot come to either of their homes due to work and stairs. Sister stated she was hoping insurance would give a few more weeks for rehab. Explained as discussed in Team Saturday, insurance update his date and continued stay is not guaranteed and insurance can issue DC same day and they were inquiring about alternative DC plans previously. Explained SW needs to work on DC plans this date to have in place for 12/05. Explained DC options: [facility] is in network with TCU and [facility] in [facility], however, insurance cannot approve SNF stay. If pt does not prefer those facilities or insurance denies, pt would choose other SNFs to DC to. Pt cannot pay privately for SNF - discussed Medicaid. Sister stated she will talk with dtr this afternoon but advised speaking with pt. SW agreed with speak with pt but wanted to follow up with family as well. Spoke with pt and explained above information. Pt stated she already has Medicaid. Emailed [facility] to inquire about status if it covers SNF. Pt understands options and first choice is TCU, if bed availiblity and [facility] approves. Next prefers [facility] and [facility]. Referrals made to all 3 SNFs. Will await LON and SNF outcome. Pt emotional and expressed frustration with stroke and just getting life back on track prior. Provided emotional and verbal support. Provided information to Stroke Support Group and encouraged to attend. had started pt on antidepressant on admission. Pt states she isn't depressed, just frustrated. Validated feelings and assured SW will assist in DC plans and for her to continue to focus on rehab. Pt agreeable. Will continue to follow. Edda Mcknight, JUNIOR LEGAL SECRETARY HUNTING GUIDE
[2020-12-02 17:00] VITALS: BMI 25.3
[2020-12-02] MEDS: Montelukast 10 MG Tablet PO (21:20)
[2020-12-02] MEDS: Atorvastatin Calcium 80 MG Tablet PO (21:20)
[2020-12-02] MEDS: Gabapentin 300 MG Capsule PO (21:20)
[2020-12-02] MEDS: tiZANidine HCl 2 MG Tablet PO (21:26)
[2020-12-02] MEDS: Acetaminophen 325 MG Tablet 650 MG PO (21:29)
[2020-12-02 22:00] VITALS: BP 165/77; PULSE 73; RESP 16; TEMP 36.8; O2SAT 94
[2020-12-03 01:28] VITALS: BMI 25.3
[2020-12-03] MEDS: Acetaminophen 325 MG Tablet 650 MG PO ×2 (06:28→21:14)
[2020-12-03 07:54] VITALS: BP 148/67; PULSE 69; RESP 18; TEMP 36.6; O2SAT 94
[2020-12-03 08:01] LABS: Anion Gap 4 (5-15); BUN 18 mg/dL (7-18); BUN/Creat Ratio 23.1 RATIO (10-20); Calcium,Total 9.3 mg/dL (8.5-10.1); Chloride 106 mmol/L (98-107); Creatinine, Serum 0.78 mg/dL (0.55-1.02); EST Glomerular Filtration Rate 78 mL/min (>60); Est Glom Filt Rate - Afr Amer 94 mL/min (>60); Estimated Creatinine Clearance 41.99 ml/min; Glucose 93 mg/dL (74-106); Magnesium 1.9 mg/dL (1.6-2.6); Sodium Level 138 mmol/L (136-145)
--- NOTE | 2020-12-03 08:23 | PN_ITS ---
Progress Note Afebrile Systolic blood pressure has been mildly elevated but she has been very upset the past 2 days because she has been controlled she will likely have to discharge on Saturday. She will need to go to group home as she is not ready to go home and be by herself safely. All lab was personally reviewed. K is 4.0 on 20 MEQ of potassium s upplementation daily. The mag is 1.9 on 128 mg of slo-mag daily. She complains of having pain in the great toe bunion where the brace rubs. She has no other complaints today. She is sleeping well. Good appetite although she continues to complain about the food preparation. Alert, oriented x3, no apparent distress, sitting in the recliner at the bedside Mucous membranes are moist, no mucosal lesions Neck is supple Lungs-clear to auscultation throughout Heart-regular rate and rhythm Abdomen-soft, nontender, nondistended Negative Homans and negative Jeffery signs No edema Persistent left hemiparesis but she is now able to walk with a quad cane Impressions 1. Post stroke debility with left hemiparesis and left facial droop. Cognitive function has improved 2. Suspected paroxysmal atrial [id number] event monitor is currently in place. Will need to follow-up with [facility] post discharge for interpretation of the recording and consult 3. Gqixspbgkqcc-luca-kufwjhxoam 4. Hypomagnesemia-we will maintain the magnesium at approximately 2 or greater to decrease risk for atrial fibrillation 5. Oincqjbgsnm-ojamqzst-obrlhcef supplements to maintain the potassium at 4 or greater due to suspected PAF. 6. Depression Increase the Sertraline to 100 mg daily Increase the Slo-mag to 128 mg BID to keep the Mag at 2 Continue the potassium supplement.......even though she is off HCTZ the K and Mag need to be supplemented Will likely have to DC to SNF on Saturday because the insurance company is expected to cut her. Arthritis compounded cream to painful joints TID PRN pain STROKE Vital Signs/Narrative: Vital Signs Temp Pulse Resp BP Pulse Ox 12/03/20 07:54 97.8 F 69 18 148/67 H 94 Inpatient E&M: [id number] Subs Hosp L2
[2020-12-03] MEDS: Fluticasone/Salmeterol 232-14 Inhaler 1 PUFF INHALATION ×2 (09:26→21:09)
[2020-12-03] MEDS: Gabapentin 100 MG Capsule PO ×2 (09:27→16:50)
[2020-12-03] MEDS: Aspirin 81 MG TAB.CHEW PO (09:28)
[2020-12-03] MEDS: Potassium Chloride Oral Tablet 20 MEQ PO (09:28)
[2020-12-03] MEDS: Diclofenac 75 MG Tablet PO ×2 (09:28→16:50)
[2020-12-03] MEDS: Magnesium Chloride 64 MG Delay Rel.Tablet 128 MG PO ×2 (09:29→16:50)
[2020-12-03] MEDS: Clopidogrel Bisulfate 75 MG Tablet PO (09:30)
[2020-12-03] MEDS: Sertraline 100 MG Tablet PO (10:28)
[2020-12-03 14:06] VITALS: BMI 25.3
[2020-12-03 19:34] VITALS: BP 126/56; PULSE 63; RESP 18; TEMP 36.8; O2SAT 95
[2020-12-03] MEDS: Gabapentin 300 MG Capsule PO (21:09)
[2020-12-03] MEDS: Atorvastatin Calcium 80 MG Tablet PO (21:10)
[2020-12-03] MEDS: tiZANidine HCl 2 MG Tablet PO (21:10)
[2020-12-03] MEDS: Montelukast 10 MG Tablet PO (21:10)
[2020-12-03 21:19] VITALS: BMI 25.3
[2020-12-03 22:00] VITALS: PULSE 63; RESP 16; O2SAT 95
[2020-12-04] MEDS: Lidocaine 5% Patch 1 PATCH TOPICAL (05:19)
[2020-12-04 07:44] VITALS: BP 145/83; PULSE 73; RESP 16; TEMP 36.3; O2SAT 95
[2020-12-04] MEDS: Diclofenac 75 MG Tablet PO ×2 (08:01→16:01)
[2020-12-04] MEDS: Potassium Chloride Oral Tablet 20 MEQ PO (08:01)
[2020-12-04] MEDS: Gabapentin 100 MG Capsule PO ×2 (08:01→16:02)
[2020-12-04] MEDS: Magnesium Chloride 64 MG Delay Rel.Tablet 128 MG PO ×2 (08:01→16:02)
[2020-12-04] MEDS: Clopidogrel Bisulfate 75 MG Tablet PO (08:01)
[2020-12-04] MEDS: Fluticasone/Salmeterol 232-14 Inhaler 1 PUFF INHALATION ×2 (08:02→21:26)
[2020-12-04] MEDS: Aspirin 81 MG TAB.CHEW PO (08:02)
--- NOTE | 2020-12-04 08:30 | NURSING ---
Reported to nurse that she did not want her Zoloft because it made her feel funny yesterday. Yesterday, this nurse informed her about the increase in dosage and the patient had reported she was a basket case on Saturday. Today, patient reported she was not depressed and did not need it.
[2020-12-04 14:41] VITALS: BMI 25.3
--- NOTE | 2020-12-04 18:45 | NURSING ---
x1 assist with cane for ambulation but staff is mod to max assist at times due to left leg and foot severe weakness and gets off balance easy. Left arm remains flaccid but can lift at the shoulder level and slight movement of some fingers to left hand but not much.
[2020-12-04 19:03] VITALS: BP 134/88; PULSE 78; RESP 16; TEMP 36.7; O2SAT 98
[2020-12-04] MEDS: Gabapentin 300 MG Capsule PO (21:26)
[2020-12-04] MEDS: Atorvastatin Calcium 80 MG Tablet PO (21:26)
[2020-12-04] MEDS: Montelukast 10 MG Tablet PO (21:26)
[2020-12-04 21:30] VITALS: BMI 25.3
[2020-12-04 22:00] VITALS: PULSE 72; RESP 16; O2SAT 96
[2020-12-05 07:06] VITALS: BP 124/87; PULSE 87; RESP 16; TEMP 36.7; O2SAT 96
[2020-12-05] MEDS: Diclofenac 75 MG Tablet PO (08:40)
[2020-12-05] MEDS: Gabapentin 100 MG Capsule PO (08:40)
[2020-12-05] MEDS: Magnesium Chloride 64 MG Delay Rel.Tablet 128 MG PO (08:40)
[2020-12-05] MEDS: Aspirin 81 MG TAB.CHEW PO (08:41)
[2020-12-05] MEDS: Potassium Chloride Oral Tablet 20 MEQ PO (08:41)
[2020-12-05] MEDS: Clopidogrel Bisulfate 75 MG Tablet PO (08:41)
[2020-12-05] MEDS: Fluticasone/Salmeterol 232-14 Inhaler 1 PUFF INHALATION (08:48)
--- NOTE | 2020-12-05 10:33 | CASEMGMT ---
Social Work IDT met with patient and sister via conference call for Team meeting. Discussed DC plans. Explained precert submitted to insurance for TCU placement. If denied, [facility] accepted for pt to DC this date under Medicaid. Still awaiting [facility] SNF outcome. Pt flexible and agreeable to either DC plan. Will continue to follow. Edda Mcknight, STEPHANIE DIRECTOR OF CONSUMER MARKETING
--- NOTE | 2020-12-05 12:08 | CASEMGMT ---
Social Work [facility] approved for TCU. Pt agreeable to DC to TCU 12/05. Notified [facility] and [facility]. Pt stated she would call sister. Plan: DC TCU 12/05 [facility]
--- NOTE | 2020-12-05 13:34 | TREXTCAR_ITS ---
- Diet 11/21/20 10:40 Diet: Regular - No Added Salt Is pt able to select menu?: Yes - Routine Orders/Code Status Enema Type: Fleetz Enema Frequency: Daily PRN Suppository Type: Dulcolax 10mg Suppository Frequency: Daily PRN Code Status: Full Code - Therapies Weight Bearing: Full weight bearing Physical Therapy: Eval and Treat Occupational Therapy: Eval and Treat - Problem/Diagnosis (1) CVA (cerebral vascular accident) Status: Acute Comment: R kourtney-ventricular white matter and the R caudate nucleus. Suspect possible PAF. She has interrmittent rapid heart rate and gets lightheaded and she has been hypokalemic on a diuretic. No other reason for strokes has been found and the strokes are in 2 different locations, frontal gonzalez radiata and the R caudate nucleus. Previous stroke in the right basal ganglia. (2) Hypokalemia Status: Resolved (3) Hyponatremia Status: Resolved (4) Allergic rhinitis Status: Chronic (5) Carotid stenosis, right Status: Resolved Comment: No mural thrombus and no significant stenosis of the R carotid found on a diagnostic carotid arterigram at [facility]. (6) Chronic obstructive pulmonary disease Status: Chronic (7) Former tobacco use Status: Chronic Comment: quit 2003 (8) Hyperlipidemia Status: Chronic (9) Hypertension Status: Chronic (10) Physical debility Status: Acute Comment: due to ischemic CVA with Left side weakness and left fa cial droop (11) Depression Status: Acute (12) Hypomagnesemia Status: Resolved (13) Cognitive dysfunction Status: Acute Comment: Due to CVA (14) Fibromyalgia Status: Chronic - Allergies/Procedures Done in Hospital Allergies/Adverse Reactions: Allergies codeine Allergy (Verified 11/10/20 14:23) Vomiting Penicillins [PCN] Allergy (Verified 11/10/20 14:23) Shortness of breath Sulfa (Sulfonamide Antibiotics) Allergy (Verified 11/10/20 14:23) Vomiting Procedures: None - Type of Care/Length of Stay Estimated LOS: Convalescent Care Less Than 30 days Type of Care Needed: Skilled Rehab Potential: Good Prognosis: Good - Additional Orders/Day of Discharge H&P will serve as current which was dated: 11/18/20 Day of Discharge: 12/05/20 - Dietary and Speech Recommendations Dietitian Recommendations/Changes: Will continue Regular No Added Salt diet as ordered. - Follow Up Care Primary Care Physician: Erich Hall DO [Primary Care Provider] - Please follow up with your Primary Care Physician in: Following discharge from TCU Please Follow Up With: Neurology
[2020-12-05 13:39] VITALS: BP 124/87; PULSE 87; RESP 16; TEMP 36.7; O2SAT 96
--- NOTE | 2020-12-05 13:40 | DS.PCM_ITS ---
Discharge Date and Diagnosis - Problem List Patient Problems: Active and Suspected Problems Physical debility (Acute) due to ischemic CVA with Left side weakness and left facial droop Depression (Acute) Cognitive dysfunction (Acute) Due to CVA CVA (cerebral vascular accident) (Acute) R kourtney-ventricular white matter and the R caudate nucleus. Suspect possible PAF. She has interrmittent rapid heart rate and gets lightheaded and she has been hypokalemic on a diuretic. No other reason for strokes has been found a nd the strokes are in 2 different locations, frontal gonzalez radiata and the R caudate nucleus. Previous stroke in the right basal ganglia. Date of Admission: 11/17/20 Date of Discharge: 12/05/20 - Primary Discharge Diagnosis Acute Problems: Active Problems Physical debility (Acute) due to ischemic CVA with Left side weakness and left facial droop Depression (Acute) Cognitive dysfunction (Acute) Due to CVA CVA (cerebral vascular accident) (Acute) R kourtney-ventricular white matter and the R caudate nucleus. Suspect possible PAF. She has interrmittent rapid heart rate and gets lightheaded and she has been hypokalemic on a diuretic. No other reason for strokes has been found and the strokes are in 2 different locations, frontal gonzalez radiata and the R caudate nucleus. Previous stroke in the right basal ganglia. - Secondary Discharge Diagnosis Chronic Problems: Chronic Problems Hyperlipidemia (Chronic) Fibromyalgia (Chronic) Chronic obstructive pulmonary disease (Chronic) Allergic rhinitis (Chronic) Hypertension (Chronic) Former tobacco use (Chronic) quit 2003 Hospital Course and Treatment Summary of Care Provided: Donita Jay is a 70 year old F with a past medical history of hypert ension, allergy induced asthma, hyperlipidemia (untreated), tobacco dependence in remission (she started smoking at 16 years of age and quit at the age of 53), hyponatremia, hypokalemia and allergic rhinitis who presented to the emergency department at [facility] on 11/09/2020 complaining of feeling as though she was falling to the left. Stat CT brain was reported as normal. She felt dizzy when she turned her head suddenly and off balance but she denied vertigo. She was discharged home with a prescription for Valium 2 mg 3 times daily as needed for vertigo. On 11/10/2020 she came back to the emergency room complaining of left side weakness and heaviness, left facial droop, slurred speech and feeling as though she was on a boat rocking. NIH at presentation to the emergency room was 3 for drift in the left leg, drift in the left arm and mild facial droop. A repeat CT head showed no acute intracranial hemorrhage and showed stable hypoattenuation's in the right basal ganglia thought to be secondary to remote infarct. CTA of the head and neck showed a mural thrombus at the origin of the right internal carotid artery with 50% stenosis. There was no CTA evidence of common carotid or left ICA stenosis. There was a small right vertebral artery. She was admitted to the hospital for acute ischemic CVA work- up. MRI of the brain showed a small focus of acute infarct in the right periventricular white matter region/gonzalez radiata in the R frontal lobe and a tiny focus of acute infarct in the body of the right caudate nucleus. Echocardiogram showed a normal ejection fraction of 65% with no diastolic dysfunction, no wall motion abnormalities and no valvular heart disease. A bubble contrast study was negative for right to left interatrial shunt. Consultation was obtained with [facility] teleneurology on 11/11/2020 and the teleneurologist felt she had a subacute stroke in the deep R ICA territory which could be due to the R Carotid disease but, also could be due to deep intracranial perforators. The neurologist recommended dual antiplatelet therapy for 1 month then switching to one agent. He also recommended a vascular surgery consult. She was started on Atorvastatin 80 mg nightly for an LDL of 160. HDL was good at 60 Triglycerides were normal. On 11/13/20 She awoke and could not move her left arm at all. Her Left leg felt heavier and she felt weaker. She was transferred to the inpt acute rehab unit at [facility] later in the day on 11/13 for at least 3 hours of therapy a day to restore her at or near her prior level of function. When she was initially examined by myself on the morning of 11/14/2020 she had no movement in her left arm, drift with the left leg, left facial droop and slurred speech. I got an NIH of 9. A stroke alert was called and she was taken to CT scan. CT scan showed increasing size of the subacute infarct in the right periventricular white matter and caudate nucleus. There was no sign of hemorrhage. Repeat CTA on that date showed right carotid stenosis of 50%. The rest of the CTA was unremarkable and it was not changed from the previous CTA. Teleconsult with Dr. Heart from [facility] was obtained and he recommended transfer to [facility] for an angiogram to look at the SHERICE. Carotid angiogram at [facility] showed the right internal carotid artery to have calcification at the origin but, no significant stenosis. Surgical intervention was not indicated. She returned to acute inpt rehab at [facility] on 11/17/20 and will get at least 3 hours of therapy daily to restore function/independence at or near her level prior to the recent CVA. Donita did very well in acute rehab and at the time of DC she was able to ambulate 75 feet with a quad cane at min assist with occasional moderate assist required due to unsteadiness. She had a ascended and descended 5 steps x2 using a right railing at minimal assistance on 11/28/2020. She was able to get on and off the toilet and complete her toileting tasks at contact-guard assist. She was able to get on and off the shower/tub bench standby assist and complete bathing tasks at a minimal assist x1. Cognitive function improved significantly and was able to use compensatory strategies for improved speech intelligibility and participating conversation with her family and the staff. She had 85 to 90% accuracy with minimal cueing during turn-taking and verbal exchanges with the speech therapist. Vanessa lives by herself and will have no one to assist her at home when she is discharged. Her insurance company approved a stay in transitional care so that she may continue to improve and return to her home at discharge from TCU. Donita was transferred to TCU on 12/05/20 in stable condition for ongoing therapy. I suspect the etiology of the strokes was PAF. She was low in potassium and magnesium on lab prior to the stroke, more likely than not related to HCTZ used for BP control. HCTZ was discontinued while she was in rehab and the BP remained well controlled. She remains on a potassium and magnesium supplement and potassium was 4 and magnesium 1.9 on her most recent lab. Mag dose was increased to keep the mag at 2 or greater. She currently has a 30 day event monitor on and will follow up with cardiology for the results of the monitor following the removal of the unit. She will also need to follow up with Dr. Hall and neurology. Alert, oriented x3, no apparent distress, good mood. Making good eye contact. Participating in conversation with the therapists Mucous membranes are moist Lungs-clear to auscultation throughout with mildly diminished breath sounds Heart-regular rate and rhythm, no murmur, no gallop Abdomen-soft, nontender, nondistended, normal bowel sounds heard, no guarding with palpation No calf pain, no ankle edema No rashes and no skin breakdown Strength is improving in her left upper extremity and left leg. She is now walking with a quad cane. No facial droop, cranial nerves II through XII are grossly intact. This note was generated with Grows Up dictation software. It may contain incorrect words, spelling, and punctuation that were not noted in checking the note before signing. Patient Problems: Active and Suspected Problems Physical debility (Acute) due to ischemic CVA with Left side weakness and left facial droop Depression (Acute) Cognitive dysfunction (Acute) Due to CVA CVA (cerebral vascular accident) (Acute) R kourtney-ventricular white matter and the R caudate nucleus. Suspect possible PAF. She has interrmittent rapid heart rate and gets lightheaded and she has been hypokalemic on a diuretic. No other reason for strokes has been found and the strokes are in 2 different locations, frontal gonzalez radiata and the R caudate nucleus. Previous stroke in the right basal ganglia. - Physical Exam Vitals/I&O's: Vital Signs Temp Pulse Resp BP Pulse Ox 98.0 F 87 16 124/87 H 96 12/05/20 07:06 12/05/20 07:06 12/05/20 07:06 12/05/20 07:06 12/05/20 07:06 Oxygen Delivery Method Room Air Weight: 145 lb 12.8 oz Body Mass Index (BMI) 25.3 Finger Stick Blood Glucose 99 Intake and Output for Last 24 Hours 12/03/20 12/04/20 12/05/20 23:59 23:59 23:59 Intake Total 1760 / 1760 1400 / 1400 360 / 360 Output Total 150 / 150 Balance 1610 / 1610 1400 / 1400 360 / 360 Microbiology Past 72 Hours 12/05/20 08:45 Mucosa - Nose SARS-CoV-2 Antigen (Rapid) - Final Current Medications Acetaminophen (Acetaminophen 325 Mg Tablet) 650 mg PO Q6H PRN PRN PRN Reason: PAIN Last Admin: 12/03/20 21:14 Dose: 650 mg Documented by: Al Hydroxide/Mg Hydroxide (Mag Hydrox/Al Hydrox/Simeth 30 Ml Udc) 30 ml PO Q4H PRN PRN PRN Reason: HEARTBURN OR INDIGESTION Last Admin: 11/18/20 09:29 Dose: 30 ml Documented by: Aspirin (Aspirin 81 Mg Tab.Chew) 81 mg PO DAILY@0800 [facility] Last Admin: 12/05/20 08:41 Dose: 81 mg Documented by: Atorvastatin Calcium (Atorvastatin Calcium 80 Mg Tablet) 80 mg PO QHS [facility] Last Admin: 12/04/20 21:26 Dose: 80 mg Documented by: Bisacodyl (Bisacodyl 10 Mg Suppository) 10 mg RC .PRN X 1 PRN PRN Reason: Constipation Clopidogrel Bisulfate (Clopidogrel Bisulfate 75 Mg Tablet) 75 mg PO DAILY [facility] Stop: 12/07/20 10:01 Last Admin: 12/05/20 08:41 Dose: 75 mg Documented by: Compound Med (Arthritis Pain Compound 60 Click Tube) 2 click TOPICAL TID PRN; Protocol PRN Reason: JOINT PAIN 1-10 Diclofenac Sodium ([facility]ic[facility] 75 Mg [facility]t) [facility] Last Admin: 12/05/20 08:40 Dose: 75 mg Documented by: Gabapentin (Gabapentin 100 Mg Capsule) [facility] Last Admin: 12/05/20 08:40 Dose: 100 mg Documented by: Gabapentin (Gabapentin 300 Mg Capsule) 300 mg PO 2100 [facility] Last Admin: 12/04/20 21:26 Dose: 300 mg Documented by: Ipratropium Stafford (Ipratropium Stafford 0.06% Nasal [place]) 2 spray NASAL TID PRN PRN Reason: post nasal drip/congestion Lidocaine (Lidocaine 5% Patch) 1 patch TOPICAL DAILY@0600 [facility]; Protocol Last Admin: 12/05/20 06:57 Dose: Not Given Documented by: Magnesium Chloride (Magnesium Chloride 64 Mg Delay Rel.Tablet) [facility] Last Admin: 12/05/20 08:40 Dose: 128 mg Documented by: Magnesium Hydroxide (Magnesium Hydroxide 30 Ml Udc) 30 ml PO .PRN X 1 PRN PRN Reason: Constipation Montelukast Sodium (Montelukast 10 Mg Tablet) 10 mg PO DAILY@2200 [facility] Last Admin: 12/04/20 21:26 Dose: 10 mg Documented by: Potassium Chloride (Potassium Chloride Oral Tablet 20 Meq) [facility] meq [facility] Last Admin: 12/05/20 08:41 Dose: 20 meq Documented by: Fluticasone/Salmeterol (Fluticasone/Salmeterol 232-14 Inhaler) 1 puff INHALATION BID [facility] Last Admin: 12/05/20 08:48 Dose: 1 puff Documented by: Senna/Docusate Sodium (Senna/Docusate Sodium 1 Tablet) 2 tablet PO BID [facility] Last Admin: 12/05/20 08:41 Dose: Not Given Documented by: Sertraline HCl (Sertraline 50 Mg Tablet) 50 mg PO DAILY [facility] Last Admin: 12/05/20 12:51 Dose: Not Given Documented by: Tizanidine HCl (Tizanidine Hcl 2 Mg Tablet) 2 mg PO Q8H PRN PRN PRN Reason: Muscle spasms Last Admin: 12/03/20 21:10 Dose: 2 mg Documented by: Home Medications: Medications to take at Discharge Diclofenac Sodium 75 mg PO BID PRN 02/22/20 Fluticasone/Salmeterol [Advair 250-50 Diskus] 1 ea IH Q12H 02/22/20 Montelukast [Singulair] 10 mg PO DAILY 02/22/20 Aspirin [Aspirin, Baby] 81 mg PO DAILY@0800 11/13/20 Atorvastatin Calcium [Lipitor] 80 mg PO QHS 11/13/20 Clopidogrel Bisulfate [Plavix] 75 mg PO DAILY 11/13/20 Sertraline HCl [Zoloft] 50 mg PO DAILY 11/13/20 Lidocaine [Lidoderm Patch] 1 patch TOPICAL DAILY 11/17/20 Tizanidine HCl [Zanaflex] 2 mg PO Q8H PRN PRN 11/17/20 Acetaminophen [Tylenol Tablet] 650 mg PO Q6H PRN PRN tablet 12/05/20 Arthritis Pain Compound 2 click TOPICAL TID PRN gm 12/05/20 Bisacodyl [Dulcolax] 10 mg RC .PRN X 1 PRN suppos. 12/05/20 Gabapentin [Neurontin] 100 mg PO BIDCM capsule 12/05/20 Gabapentin [Neurontin] 300 mg PO 2100 capsule 12/05/20 Ipratropium Stafford 0.06% [ATROVENT NASAL SPRAY] 2 spray NASAL TID PRN nasal.srtej 12/05/20 Mag Hydrox/Al Hydrox/Simeth [Mylanta II] 30 ml PO Q4H PRN PRN udc 12/05/20 Magnesium Chloride [Slow-Mag] 71.5 mg PO TID #1 tablet. 12/05/20 Magnesium Hydroxide [Milk Of Magnesia] 30 ml PO .PRN X 1 PRN udc 12/05/20 Potassium Chloride Oral Tablet [K-Dur] 20 meq PO DAILYCM tablet 12/05/20 Sertraline HCl [Zoloft] 50 mg PO DAILY tablet 12/05/20 Tizanidine HCl [Zanaflex] 2 mg PO Q8H PRN PRN tablet 12/05/20 Following Prescriptions Were Given to Patient: Magnesium Chloride [Slow-Mag] 71.5 mg PO TID #1 tablet. Primary Care Physician: Erich Hall DO [Primary Care Provider] - Please follow up with your Primary Care Physician in: Following discharge from TCU Please Follow Up With: Neurology Disposition: Assisted facility Minutes spent on discharge:: 35 Patient Condition:: Stable - improved from admission to the rehab unit Medical Necessity - Tobacco Use Smoking Status: Former smoker Tobacco Use: Cigarettes Meaningful Use Info Meaningful Use Diagnoses (Choose all that apply): Ischemic CVA - CVA Therapy Assessed for PT,OT and/or ST?: Yes - Ischemic Stroke Antithrombotic order at d/c?: Yes Dx of Atrial fib/flutter?: No Anticoagulant at discharge?: No Reason anticoagulant not ordered: Treatment not Indicated Statins at discharge?: Yes Primary Dx Acute Ischemic CVA?: Yes IV tPA ordered during stay?: No Reason IV t-PA not ordered: Treatment not Indicated Inpatient E&M: 69556 Disch Hosp
[2020-12-05 15:19] VITALS: BMI 25.3
--- NOTE | 2020-12-05 15:20 | NURSING ---
Discharged to TCu report called to [facility]
== END 2020-12-05 15:19 | disposition skilled nursing facility (03) | DRG 57 ==
PROVIDERS: Admitting Provider Internal Medicine; PCP Family Medicine; Visit Provider Internal Medicine
DX: I69.354 Hemiplegia and hemiparesis following cerebral infarction affecting left non-dominant side (principal); I69.392 Facial weakness following cerebral infarction; I69.319 Unspecified symptoms and signs involving cognitive functions following cerebral infarction; I69.328 Other speech and language deficits following cerebral infarction; E78.5 Hyperlipidemia, unspecified; J44.9 Chronic obstructive pulmonary disease, unspecified; I10 Essential (primary) hypertension; F32.9 Major depressive disorder, single episode, unspecified; I48.0 Paroxysmal atrial fibrillation; M21.372 Foot drop, left foot; M79.7 Fibromyalgia; Z87.891 Personal history of nicotine dependence
CPT/HCPCS: 36415; 80048; 80053; 83735; 84100; 85025; 87426; 92507; 92523; 97110; 97112; 97116; 97129; 97130; 97140; 97162; 97166; 97530; 97535; 97802; 97803; 99251; G0463

== ENCOUNTER 2020-12-05 15:05 | Inpatient (IN) | payer MEDICARE, MEDICAID, SELFPAY ==
[2020-12-05 15:19] VITALS: BMI 25.3
[2020-12-05 15:27] VITALS: BP 130/81; PULSE 73; RESP 18; TEMP 36.2; O2SAT 95; BMI 26.4
[2020-12-05] MEDS: Diclofenac 75 MG Tablet PO (17:51)
[2020-12-05] MEDS: Fluticasone/Salmeterol 232-14 Inhaler 1 PUFF INHALATION (17:51)
[2020-12-05] MEDS: Gabapentin 100 MG Capsule PO (17:52)
--- NOTE | 2020-12-05 19:54 | HP.PCM_ITS ---
Problem List (1) Debility Status: Acute (2) Left hemiparesis Status: Acute (3) Muscle spasm Status: Chronic (4) Hyponatremia Status: Chronic (5) Hypokalemia Status: Chronic (6) Hyperlipidemia Status: Chronic (7) Carotid stenosis, right Status: Chronic Comment: No mural thrombus and no significant stenosis of the R carotid found on a diagnostic carotid arterigram at [facility]. (8) Depression Status: Acute (9) Hypomagnesemia Status: Chronic (10) CVA (cerebral vascular accident) Status: Chronic Qualifiers: Comment: R kourtney-ventricular white matter and the R caudate nucleus. Suspect possible PAF. She has interrmittent rapid heart rate and gets lightheaded and she has been hypokalemic on a diuretic. No other reason for strokes has been found and the strokes are in 2 different locations, frontal gonzalez radiata and the R caudate nucleus. Previous stroke in the right basal ganglia. (11) Chronic obstructive pulmonary disease Status: Chronic Qualifiers: (12) Allergic rhinitis Status: Chronic (13) Hypertension Status: Chronic Qualifiers: History of Present Illness Date of Admission: 12/05/20 Chief Complaint: Here for rehabilitation, strengthening, prior to discharge home alone. 11/18/2020 The patient is a 70 year old Female admitted to Inpatient Rehab Unit after stroke, left hemiparesis. PT/OT/[employer]. Stop Hydrochlorothiazide due to hypokalemia. Continue Aspirin 81MG, Plavix stopped because patient had 19 days of dual antiplatelet therapy. Magnesium supplementation for hypomagnesemia. Sertraline was increased to 100MG daily but patient unable to tolerate higher dose, lowered dose. Unable to go home because she lives alone, unable to live independently yet. 12/05/2020 Admit to TCU with debility, here for rehabilitation, strengthening, prior to discharge home alone. Past Medical History Past Medical History (Chronic Problems): Chronic Problems Hyponatremia (Chronic) Hypokalemia (Chronic) Hyperlipidemia (Chronic) Carotid stenosis, right (Chronic) No mural thrombus and no significant stenosis of the R carotid found on a diagnostic carotid arterigram at [facility]. Hypomagnesemia (Chronic) Fibromyalgia (Chronic) Muscle spasm (Chronic) CVA (cerebral vascular accident) (Chronic) R kourtney-ventricular white matter and the R caudate nucleus. Suspect possible PAF. She has interrmittent rapid heart rate and gets lightheaded and she has been hypokalemic on a diuretic. No other reason for strokes has been found and the strokes are in 2 different locations, frontal gonzalez radiata and the R caudate nucleus. Previous stroke in the right basal ganglia. Chronic obstructive pulmonary disease (Chronic) Allergic rhinitis (Chronic) Hypertension (Chronic) Former tobacco use (Chronic) quit 2003 Allergies codeine Allergy (Verified 11/10/20 14:23) Vomiting Penicillins [PCN] Allergy (Verified 11/10/20 14:23) Shortness of breath Sulfa (Sulfonamide Antibiotics) Allergy (Verified 11/10/20 14:23) Vomiting Home Medications: Ambulatory Orders Medication Instructions Recorded Diclofenac Sodium 75 mg PO BID PRN 02/22/20 Fluticasone/Salmeterol [Advair 1 ea IH Q12H 02/22/20 250-50 Diskus] Montelukast [Singulair] 10 mg PO DAILY 02/22/20 Aspirin [Aspirin, Baby] 81 mg PO DAILY@0800 11/13/20 Atorvastatin Calcium [Lipitor] 80 mg PO QHS 11/13/20 Clopidogrel Bisulfate [Plavix] 75 mg PO DAILY 11/13/20 Sertraline HCl [Zoloft] 50 mg PO DAILY 11/13/20 Lidocaine [Lidoderm Patch] 1 patch TOPICAL DAILY 11/17/20 Tizanidine HCl [Zanaflex] 2 mg PO Q8H PRN PRN 11/17/20 Acetaminophen [Tylenol Tablet] 650 mg PO Q6H PRN PRN tablet 12/05/20 Arthritis Pain Compound 2 click TOPICAL TID PRN gm 12/05/20 Bisacodyl [Dulcolax] 10 mg RC .PRN X 1 PRN suppos. 12/05/20 Gabapentin [Neurontin] 100 mg PO BIDCM 12/05/20 Gabapentin [Neurontin] 300 mg PO 2100 12/05/20 Ipratropium [place] 0.06% 2 spray NASAL TID PRN nasal.sry 12/05/20 [ATROVENT NASAL SPRAY] Mag Hydrox/Al Hydrox/Simeth 30 ml PO Q4H PRN PRN udc 12/05/20 [Mylanta II] Magnesium Chloride [Slow-Mag] 71.5 mg PO TID 12/05/20 Magnesium Hydroxide [Milk Of 30 ml PO .PRN X 1 PRN udc 12/05/20 Magnesia] Potassium Chloride Oral Tablet 20 meq PO DAILYCM 12/05/20 [K-Dur] Surgical History: appendectomy, hysterectomy, rotator cuff repair - right side, tonsillectomy, - - right lower extremity and foot surgery, R shoulder surgery for rotator cuff and bicep tendon. 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 Tobacco Use: Cigarettes Alcohol: Occasional Drugs: None - *Family History Maternal History Items: Cancer - Breast., Heart Disease Paternal History Items: Cancer - Lymphoma., Heart Disease Review of Systems Constitutional: Denies: Chills, Fever, Weight Change HEENT: Denies: Head Aches, Sinus Congestion, Sinus Drainage Cardiovascular: Denies: Chest Pain, Palpitations Respiratory: Denies: Cough, Shortness of breath at rest, Sputum production Gastrointestinal: Denies: Abdominal Pain, Nausea, Vomiting Genitourinary: Denies: Dysuria Musculoskeletal: Denies: Joint Pain, Joint Tenderness Skin: Denies: Rash, Wounds Neurological: Denies: Numbness, Tingling, Focal weakness Psychiatric: Denies: Anxiety, Depression, Homicidal Ideations, Suicidal Ideations Hematologic/ Lymphatic: Denies: Easy Bruising, Easy Bleeding VTE Information - Inpt Only VTE Present on Admission: No VTE Mechan Device Prophylaxis: Knee High DARIEL Hose VTE Pharm Prophylaxis ordered?: No Reason prophylaxis not ordered:: Treatment Not Indicated Patient Problems: Active and Suspected Problems Depression (Acute) Debility (Acute) Left hemiparesis (Acute) - Physical Exam Vitals/I&O's: Vital Signs Temp Pulse Resp BP Pulse Ox 97.2 F L 73 18 130/81 H 95 12/05/20 15:27 12/05/20 15:27 12/05/20 15:27 12/05/20 15:27 12/05/20 15:27 Oxygen Delivery Method Room Air Weight: 65.544 kg Body Mass Index (BMI) 26.4 Finger Stick Blood Glucose 99 Intake and Output for Last 24 Hours 12/03/20 12/04/20 12/05/20 23:59 23:59 23:59 Intake Total 120 / 120 Balance 120 / 120 General: Alert, Oriented x3, Cooperative HEENT: Atraumatic, PERRLA, EOMI, Normocephalic Neck: Supple, No JVD, Negative Carotid Bruits Lungs: Clear to auscultation, Normal air movement Cardiovascular: Regular rate, No murmurs Abdomen: Bowel Sounds Present, Soft, Non Tender Extremities: No edema, Capillary Refill Less than 3 Seconds Skin: No rashes, No breakdown Musculoskeletal: No Tenderness to Palpation of Joints or Extremities Neurological: Cranial nerves II-XII grossly intact, - - Left upper extremity weakness. Psych/Mental Status: Normal Affect, Appropriate Current Medications Acetaminophen (Acetaminophen 325 Mg Tablet) 650 mg PO Q6H PRN PRN PRN Reason: PAIN Al Hydroxide/Mg Hydroxide (Mag Hydrox/Al Hydrox/Simeth 30 Ml Udc) 30 ml PO Q4H PRN PRN PRN Reason: HEARTBURN OR INDIGESTION Aspirin (Aspirin 81 Mg Tab.Chew) 81 mg PO DAILY@0800 [facility] Atorvastatin Calcium (Atorvastatin Calcium 80 Mg Tablet) 80 mg PO QHS [facility] Bisacodyl (Bisacodyl 10 Mg Suppository) 10 mg RC DAILY PRN PRN Reason: Constipation Clopidogrel Bisulfate (Clopidogrel Bisulfate 75 Mg Tablet) 75 mg PO DAILY [facility] Stop: 12/07/20 07:00 Compound Med (Arthritis Pain Compound 60 Click Tube) 2 click TOPICAL TID PRN; Protocol PRN Reason: JOINT PAIN 1-10 Diclofenac Sodium (Dic[facility] 75 Mg Tablet) [facility] Last Admin: 12/05/20 17:51 Dose: 75 mg Documented by: Gabapentin (Gabapentin 100 Mg Capsule) [facility] Last Admin: 12/05/20 17:52 Dose: 100 mg Documented by: Gabapentin (Gabapentin 300 Mg Capsule) 300 mg PO 2100 [facility] Ipratropium [place] (Ipratropium [place] 0.06% Nasal [place]) 2 spray NASAL TID PRN PRN Reason: post nasal drip/congestion Lidocaine (Lidocaine 5% Patch) 1 patch TOPICAL DAILY [facility]; Protocol Magnesium Chloride (Magnesium Chloride 64 Mg Delay Rel.Tablet) 64 mg PO TID [facility] Magnesium Hydroxide (Magnesium Hydroxide 30 Ml Udc) 30 ml PO .PRN X 1 PRN PRN Reason: Constipation Montelukast Sodium (Montelukast 10 Mg Tablet) 10 mg PO DAILY [facility] Potassium Chloride (Potassium Chloride Oral Tablet 20 Meq) [facility] Fluticasone/Salmeterol (Fluticasone/Salmeterol 232-14 Inhaler) 1 puff INHALATION Q12 LEANDRO Last Admin: 12/05/20 17:51 Dose: 1 puff Documented by: Sertraline HCl (Sertraline 50 Mg Tablet) 50 mg PO DAILY [facility] Tizanidine HCl (Tizanidine Hcl 2 Mg Tablet) 2 mg PO Q8H PRN PRN PRN Reason: SPASMS Tuberculin PPD (Tuberculin,Purif.Prot.Deriv. 50 Tu/Ml Vial) 5 tu ID [id number] Stop: 12/06/20 10:01 Tuberculin PPD (Tuberculin,Purif.Prot.Deriv. 50 Tu/Ml Vial) 5 tu ID [id number] Stop: 12/13/20 10:01 Assessment/Plan All Active Problems Physical debility (Acute) Depression (Acute) Cognitive dysfunction (Acute) Debility (Acute) Left hemiparesis (Acute) 70 year old female with below past medical history hospitalized for stroke, left hemiparesis, admitted to Inpatient Rehab Unit, now transferred to TCU with continued debility, here for rehabilitation, strengthening, prior to discharge home alone. * Debility - PT/OT/ST. * Pain - Tylenol 650MG Q6H PRN, Arthritis pain compound 2 clicks topical TID PRN, Voltaren 75MG BIDCM, Lidoderm patch 1 patch topical daily. * Bowel - Dulcolax 10MG PO daily PRN, MOM 30ML daily PRN. * Adult immunization - Administer Prevnar 13, Pneumovax 23, Fluzone, COVID19 vaccine as appropriate. * DVT prophylaxis - Hold, on dual antiplatelet therapy. * Stroke - Aspirin 81MG daily, Plavix 75MG daily thru 12/07/2020. * Hyperlipidemia - High intensity Atorvastatin 80MG QHS. * COPD - Advair 232-14 1 puff Q12H. * Neuropathic pain - Gabapentin 100MG BID, 300MG QHS. * Allergic Rhinitis - Atrovent nasal spray 2 sprays nasal TID PRN, Singulair 10MG daily. * Indigestion - Mylanta II 30MG Q4H PRN. * Hypomagnesemia - Magnesium 64MG TID. * Hypokalemia - K-Dur 20MEQ daily. * Depression - Sertraline 50MG daily, stable chronic use, GDR not recommended. * Muscle spasm - Tizanidine 2MG Q8H PRN.
[2020-12-05] MEDS: Acetaminophen 325 MG Tablet 650 MG PO (21:02)
[2020-12-05] MEDS: Gabapentin 300 MG Capsule PO (21:03)
[2020-12-05] MEDS: Magnesium Chloride 64 MG Delay Rel.Tablet PO (21:03)
[2020-12-05] MEDS: Atorvastatin Calcium 80 MG Tablet PO (21:04)
[2020-12-05] MEDS: tiZANidine HCl 2 MG Tablet PO (21:30)
[2020-12-05] MEDS: Arthritis Pain Compound 60 CLICK TUBE TOPICAL (21:31)
[2020-12-06 05:12] VITALS: BP 153/67; PULSE 60; RESP 18; TEMP 36.6; O2SAT 95
[2020-12-06] MEDS: Fluticasone/Salmeterol 232-14 Inhaler 1 PUFF INHALATION ×2 (05:23→17:37)
[2020-12-06] MEDS: Magnesium Chloride 64 MG Delay Rel.Tablet PO ×3 (05:24→20:33)
[2020-12-06] MEDS: Clopidogrel Bisulfate 75 MG Tablet PO (05:24)
[2020-12-06] MEDS: Montelukast 10 MG Tablet PO (05:24)
[2020-12-06 06:02] LABS: Basophil# 0.07 X10^3/uL; Eosinophil# 0.16 X10^3/uL; Eosinophils% 2.2 % (0-5); Hematocrit 39.2 % (37-47); Hemoglobin 12.8 g/dL (12.0-15.0); Lymphocyte % 19.1 % (19-41); Mean Corp Hgb Conc 32.7 g/dL (32-36); Mean Corpuscular Hgb 30.1 pg (27.0-32.0); Mean Corpuscular Volume 92.2 fL (81-99); Mean Platelet Vol. 10.1 fl (6.2-12.0); Monocyte# 0.67 X10^3/uL; Monocyte% 9.1 % (0-10); NRBC Flagged by Analyzer 0 % (0-5); Neutrophil # 5.02 X10^3/uL (2.7-7.7); Neutrophil % 68.3 % (47-70); Platelet Count 389 K/mm3 (150-450); RBC Distribution Width CV 14.1 % (11.6-14.6); RBC Distribution Width SD 47.5 fl (35.1-43.9); Red Blood Count 4.25 M/mm3 (4.2-5.4); White Blood Count 7.3 K/mm3 (4.4-11.0)
[2020-12-06 06:36] LABS: Anion Gap 5 (5-15); BUN 18 mg/dL (7-18); Calcium,Total 9.2 mg/dL (8.5-10.1); Chloride 110 mmol/L (98-107); Creatinine, Serum 0.72 mg/dL (0.55-1.02); EST Glomerular Filtration Rate 85 mL/min (>60); Est Glom Filt Rate - Afr Amer 103 mL/min (>60); Estimated Creatinine Clearance 41.99 ml/min; Glucose 95 mg/dL (74-106); Potassium 3.8 mmol/L (3.5-5.1); Sodium Level 139 mmol/L (136-145)
[2020-12-06] MEDS: Potassium Chloride Oral Tablet 20 MEQ PO (09:18)
[2020-12-06] MEDS: Diclofenac 75 MG Tablet PO ×2 (09:18→17:36)
[2020-12-06] MEDS: Gabapentin 100 MG Capsule PO ×2 (09:18→17:36)
[2020-12-06] MEDS: Aspirin 81 MG TAB.CHEW PO (09:18)
--- NOTE | 2020-12-06 09:20 | NURSING ---
pt refused tedhose. this nurse offered adenike wraps and pt still said no. pt stated i dont think i need them and i dont like them. this nurse explained to pt why they are needed. pt still refused. rn aware.
[2020-12-06] MEDS: Tuberculin,Purif.prot.deriv. 50 TU/ML Vial 5 ML ID (11:55)
--- NOTE | 2020-12-06 13:00 | PCM.PN.RX ---
<Sky Molina C - Last Filed: 12/06/20 13:00> Progress Note - Pharmacy Subjective: [] TCU Admission Objective: Allergies codeine Allergy (Verified 11/10/20 14:23) Vomiting Penicillins [PCN] Allergy (Verified 11/10/20 14:23) Shortness of breath Sulfa (Sulfonamide Antibiotics) Allergy (Verified 11/10/20 14:23) Vomiting Current Medications Generic Name Dose Route Start Last Admin Trade Name Freq PRN Reason Stop Dose Admin Acetaminophen 650 mg 12/05/20 15:40 12/05/20 21:02 Acetaminophen 325 Mg Tablet PO 650 mg Q6H PRN PRN Administration PAIN Al Hydroxide/Mg Hydroxide 30 ml 12/05/20 15:41 Mag Hydrox/Al Hydrox/Simeth 30 Ml Udc PO Q4H PRN PRN HEARTBURN OR INDIGESTION Aspirin 81 mg 12/06/20 08:00 12/06/20 09:18 Aspirin 81 Mg Tab.Chew PO 81 mg DAILY@0800 LEANDRO Administration Atorvastatin Calcium 80 mg 12/05/20 22:00 12/05/20 21:04 Atorvastatin Calcium 80 Mg Tablet PO 80 mg QHS LEANDRO Administration Bisacodyl 10 mg 12/05/20 15:44 Bisacodyl 10 Mg Suppository RC DAILY PRN Constipation Clopidogrel Bisulfate 75 mg 12/06/20 06:00 12/06/20 05:24 Clopidogrel Bisulfate 75 Mg Tablet PO 12/07/20 07:00 75 mg DAILY LEANDRO Administration Compound Med 2 click 12/05/20 15:40 12/05/20 21:31 Arthritis Pain Compound 60 Click Tube TOPICAL 2 click TID PRN Administration JOINT PAIN 1-10 Protocol Diclofenac Sodium 75 mg 12/05/20 17:00 12/06/20 09:18 Diclofenac 75 Mg Tablet PO 75 mg BIDCM LEANDRO Administration Gabapentin 100 mg 12/05/20 17:00 12/06/20 09:18 Gabapentin 100 Mg Capsule PO 100 mg BIDCM LEANDRO Administration Gabapentin 300 mg 12/05/20 21:00 12/05/20 21:03 Gabapentin 300 Mg Capsule PO 300 mg 2100 LEANDRO Administration Ipratropium [place] 2 spray 12/05/20 15:41 Ipratropium [place] 0.06% Nasal [place] NASAL TID PRN post nasal drip/congestion Lidocaine 1 patch 12/06/20 06:00 12/06/20 05:22 Lidocaine 5% Patch TOPICAL Not Given DAILY [facility] Protocol Magnesium Chloride 64 mg 12/05/20 22:00 12/06/20 05:24 Magnesium Chloride 64 Mg Delay Rel.Tablet PO 64 mg TID LEANDRO Administration Magnesium Hydroxide 30 ml 12/05/20 15:41 Magnesium Hydroxide 30 Ml Udc PO .PRN X 1 PRN Constipation Montelukast Sodium 10 mg 12/06/20 06:00 12/06/20 05:24 Montelukast 10 Mg Tablet PO 10 mg DAILY LEANDRO Administration Potassium Chloride 20 meq 12/06/20 08:00 12/06/20 09:18 Potassium Chloride Oral Tablet 20 Meq PO 20 meq DAILYCM LEANDRO Administration Fluticasone/Salmeterol 1 puff 12/05/20 18:00 12/06/20 05:23 Fluticasone/Salmeterol 232-14 Inhaler INHALATION 1 puff Q12 LEANDRO Administration Tizanidine HCl 2 mg 12/05/20 16:45 12/05/20 21:30 Tizanidine Hcl 2 Mg Tablet PO 2 mg Q8H PRN PRN Administration SPASMS Tuberculin PPD 5 tu 12/13/20 10:00 Tuberculin,Purif.Prot.Deriv. 50 Tu/Ml Vial ID 12/13/20 10:01 X1 ONE Problem List Hyponatremia (Chronic) Hypokalemia (Chronic) Hyperlipidemia (Chronic) Carotid stenosis, right (Chronic) Depression (Acute) Hypomagnesemia (Chronic) Debility (Acute) Left hemiparesis (Acute) Muscle spasm (Chronic) CVA (cerebral vascular accident) (Chronic) Chronic obstructive pulmonary disease (Chronic) Allergic rhinitis (Chronic) Hypertension (Chronic) Vital Signs Temp Pulse Resp BP Pulse Ox 97.9 F 60 18 153/67 H 95 12/06/20 05:12 12/06/20 05:12 12/06/20 05:12 12/06/20 05:12 12/06/20 05:12 Oxygen Delivery Method Room Air Weight: 65.5 kg Body Mass Index (BMI) 26.4 Finger Stick Blood Glucose 99 Sodium 139 mmol/L (136-145) 12/06/20 05:53 Potassium 3.8 mmol/L (3.5-5.1) 12/06/20 05:53 Chloride 110 mmol/L (98-107) H 12/06/20 05:53 Carbon Dioxide 24.0 mmol/L (21.0-32.0) 12/06/20 05:53 Anion Gap 5 (5-15) 12/06/20 05:53 BUN 18 mg/dL (7-18) 12/06/20 05:53 Creatinine 0.72 mg/dL (0.55-1.02) 12/06/20 05:53 Est GFR (MDRD) Af Amer 103 mL/min (>60) 12/06/20 05:53 Est GFR (MDRD) Non-Af 85 mL/min (>60) 12/06/20 05:53 BUN/Creatinine Ratio 25.0 RATIO (10-20) H 12/06/20 05:53 Glucose 95 mg/dL (74-106) 12/06/20 05:53 Assessment/Plan: *1) Pain: Acetaminophen 650mg po q6h prn for pain, Arthritis Pain Compound-2 clicks to back 3 times a day as needed for pain 1-10, Diclofenac 75mg po bid with food, Lidocaine patch daily. Please continue to monitor prn usage and signs/symptoms of increased/decreased pain. --Please ensure that the Lidocaine is being worn 12 hours on and 12 hours off 2) Hyperlipidemia: Atorvastatin 80mg po qhs. Pt's LFT's are within normal limits. Pt's Triglycerides are 139, LDL is 160, HDL is 60, and Total Cholesterol is 248. Please continue to monitor labs appropriately. 3) Stroke: Aspirin 81mg po daily, Plavix 75mg thru 12/07/20. Please continue to monitor for signs/symptoms of bleeding. Confirmed Plavix stop date of 12/07/20 (21 days of dual therapy) *4) Neuropathic Pain: Gabapentin 100mg po bid with food, and Gabapentin 300mg at 2100. Gabapentin is a BEERS medication. If the pt has a history of falls or fractures, or is a fall risk, it is recommended to avoid unless safer alternatives are not available. Gabapentin may cause ataxia, impaired psychomotor function, syncope, and lead to additional falls. -Please document risk vs benefit thanks 5) Hypokalemia and Hypomagnesemia : Potassium 20meq po daily with food, Magnesium Chloride 64mg po tid. Pt's magnesium level is 1.9 and potassium level is 3.8. Both are within normal limits. Please continue to monitor labs. 6) Muscle Spasms: Tizanidine 2mg po q8h prn for spasms. Please continue to monitor for sedation after use. *7) COPD: Advair 232-14-1 puff po bid. Please ensure that pt is rinsing mouth after each use to avoid oral thrush. Thanks Psychotropic Medications: none Unnecessary Medications: none Bowel Regimen: Bisacodyl 10mg rectally daily prn for constipation, Milk of Mag 30ml po x1 prn constipation. Please continue to monitor prn usage and for signs/symptoms of constipation/diarrhea. Date of Note:: 12/06/20 - Provider Comments Provider responsibility: Provider responsible to enter orders to implement recommendations <Sandeep Gambino Chi - Last Filed: 12/06/20 17:33> Progress Note - Pharmacy Subjective: [] Objective: Allergies codeine Allergy (Verified 11/10/20 14:23) Vomiting Penicillins [PCN] Allergy (Verified 11/10/20 14:23) Shortness of breath Sulfa (Sulfonamide Antibiotics) Allergy (Verified 11/10/20 14:23) Vomiting Current Medications Generic Name Dose Route Start Last Admin Trade Name Freq PRN Reason Stop Dose Admin Acetaminophen 650 mg 12/05/20 15:40 12/05/20 21:02 Acetaminophen 325 Mg Tablet PO 650 mg Q6H PRN PRN Administration PAIN Al Hydroxide/Mg Hydroxide 30 ml 12/05/20 15:41 Mag Hydrox/Al Hydrox/Simeth 30 Ml Udc PO Q4H PRN PRN HEARTBURN OR INDIGESTION Aspirin 81 mg 12/06/20 08:00 12/06/20 09:18 Aspirin 81 Mg Tab.Chew PO 81 mg DAILY@0800 LEANDRO Administration Atorvastatin Calcium 80 mg 12/05/20 22:00 12/05/20 21:04 Atorvastatin Calcium 80 Mg Tablet PO 80 mg QHS LEANDRO Administration Bisacodyl 10 mg 12/05/20 15:44 Bisacodyl 10 Mg Suppository RC DAILY PRN Constipation Clopidogrel Bisulfate 75 mg 12/06/20 06:00 12/06/20 05:24 Clopidogrel Bisulfate 75 Mg Tablet PO 12/07/20 07:00 75 mg DAILY LEANDRO Administration Compound Med 2 click 12/05/20 15:40 12/05/20 21:31 Arthritis Pain Compound 60 Click Tube TOPICAL 2 click TID PRN Administration JOINT PAIN 1-10 Protocol Diclofenac Sodium 75 mg 12/05/20 17:00 12/06/20 09:18 Diclofenac 75 Mg Tablet PO 75 mg BIDCM [facility] Administration Gabapentin 100 mg 12/05/20 17:00 12/06/20 09:18 Gabapentin 100 Mg Capsule PO 100 mg BIDCM LEANDRO Administration Gabapentin 300 mg 12/05/20 21:00 12/05/20 21:03 Gabapentin 300 Mg Capsule PO 300 mg 2100 LEANDRO Administration Ipratropium [place] 2 spray 12/05/20 15:41 Ipratropium [place] 0.06% Nasal [place] NASAL TID PRN post nasal drip/congestion Lidocaine 1 patch 12/06/20 06:00 12/06/20 05:22 Lidocaine 5% Patch TOPICAL Not Given DAILY [facility] Protocol Magnesium Chloride 64 mg 12/05/20 22:00 12/06/20 15:04 Magnesium Chloride 64 Mg Delay Rel.Tablet PO 64 mg TID LEANDRO Administration Magnesium Hydroxide 30 ml 12/05/20 15:41 Magnesium Hydroxide 30 Ml Udc PO .PRN X 1 PRN Constipation Montelukast Sodium 10 mg 12/06/20 06:00 12/06/20 05:24 Montelukast 10 Mg Tablet PO 10 mg DAILY [facility] Administration Potassium Chloride 20 meq 12/06/20 08:00 12/06/20 09:18 Potassium Chloride Oral Tablet 20 [facility] Administration Fluticasone/Salmeterol 1 puff 12/05/20 18:00 12/06/20 05:23 Fluticasone/Salmeterol 232-14 Inhaler INHALATION 1 puff Q12 LEANDRO Administration Tizanidine HCl 2 mg 12/05/20 16:45 12/05/20 21:30 Tizanidine Hcl 2 Mg Tablet PO 2 mg Q8H PRN PRN Administration SPASMS Tuberculin PPD 5 tu 12/13/20 10:00 Tuberculin,Purif.Prot.Deriv. 50 Tu/Ml Vial ID 12/13/20 10:01 X1 ONE Problem List Hyponatremia (Chronic) Hypokalemia (Chronic) Hyperlipidemia (Chronic) Carotid stenosis, right (Chronic) Depression (Acute) Hypomagnesemia (Chronic) Debility (Acute) Left hemiparesis (Acute) Muscle spasm (Chronic) CVA (cerebral vascular accident) (Chronic) Chronic obstructive pulmonary disease (Chronic) Allergic rhinitis (Chronic) Hypertension (Chronic) Vital Signs Temp Pulse Resp BP Pulse Ox 98.0 F 66 17 146/73 H 94 12/06/20 13:56 12/06/20 13:56 12/06/20 13:56 12/06/20 13:56 12/06/20 13:56 Oxygen Delivery Method Room Air Weight: 65.5 kg Body Mass Index (BMI) 26.4 Finger Stick Blood Glucose 99 Sodium 139 mmol/L (136-145) 12/06/20 05:53 Potassium 3.8 mmol/L (3.5-5.1) 12/06/20 05:53 Chloride 110 mmol/L (98-107) H 12/06/20 05:53 Carbon Dioxide 24.0 mmol/L (21.0-32.0) 12/06/20 05:53 Anion Gap 5 (5-15) 12/06/20 05:53 BUN 18 mg/dL (7-18) 12/06/20 05:53 Creatinine 0.72 mg/dL (0.55-1.02) 12/06/20 05:53 Est GFR (MDRD) Af Amer 103 mL/min (>60) 12/06/20 05:53 Est GFR (MDRD) Non-Af 85 mL/min (>60) 12/06/20 05:53 BUN/Creatinine Ratio 25.0 RATIO (10-20) H 12/06/20 05:53 Glucose 95 mg/dL (74-106) 12/06/20 05:53 Assessment/Plan: Psychotropic Medications: Unnecessary Medications: Bowel Regimen: - Provider Comments Provider responsibility: Provider responsible to enter orders to implement recommendations Provider Comments to Recommendations by Pharmacy: Agree
[2020-12-06 13:56] VITALS: BP 146/73; PULSE 66; RESP 17; TEMP 36.7; O2SAT 94
[2020-12-06] MEDS: Atorvastatin Calcium 80 MG Tablet PO (20:33)
[2020-12-06] MEDS: Gabapentin 300 MG Capsule PO (20:33)
[2020-12-06] MEDS: tiZANidine HCl 2 MG Tablet PO (20:34)
[2020-12-06] MEDS: Acetaminophen 325 MG Tablet 650 MG PO (20:34)
[2020-12-07] MEDS: Clopidogrel Bisulfate 75 MG Tablet PO (05:12)
[2020-12-07] MEDS: Fluticasone/Salmeterol 232-14 Inhaler 1 PUFF INHALATION ×2 (05:12→17:19)
[2020-12-07] MEDS: Magnesium Chloride 64 MG Delay Rel.Tablet PO ×3 (05:12→20:00)
[2020-12-07] MEDS: Lidocaine 5% Patch 1 PATCH TOPICAL (05:12)
[2020-12-07] MEDS: Montelukast 10 MG Tablet PO (05:12)
[2020-12-07 05:15] VITALS: BP 133/80; PULSE 77; RESP 18; TEMP 36.8; O2SAT 95
[2020-12-07] MEDS: Aspirin 81 MG TAB.CHEW PO (09:48)
[2020-12-07] MEDS: Gabapentin 100 MG Capsule PO ×2 (09:48→17:20)
[2020-12-07] MEDS: Potassium Chloride Oral Tablet 20 MEQ PO (09:48)
[2020-12-07] MEDS: Diclofenac 75 MG Tablet PO ×2 (09:49→17:20)
[2020-12-07 13:19] VITALS: BP 141/77; PULSE 57; RESP 16; TEMP 36.2; O2SAT 95
--- NOTE | 2020-12-07 14:52 | NURSING ---
Caustic Loader Note: Permission for Compassionate Care Visit given for family to visit resident for adjustment purposes. Scheduled visit for 12/11/20 for sister, Jena Sims.
--- NOTE | 2020-12-07 16:59 | CASEMGMT ---
Addendum entered by Edda Mcknight 12/07/20 17:14: Submitted application to [facility] Agency on Aging. Original Note: Social Work Spoke with pt's sister about DC Plans as insurance update is 12/08. Sister, dtr and pt conversed and still state they can only provide care at night after work. Explained skilled HHC would not be enough for during the daytime. Sister states pt cannot pay privately for assistance. Explained SW can refer to Home Care Waiver program through Medicaid to determine if she is eligible for aides that [facility] can cover, however, this process can take several months to get established, and still not an immediate plan. Offered SNFs - [facility]- has accepted her and [facility] will still pay for her time there. [facility] states pt will need to go to SNF under Medicaid for that transition period. SW will continue to assist with DC plans, however, IDT recommending continued skilled therapy and nursing care prior to transition to LTP. Edda Mcknight, STEPHANIE TUCKER
[2020-12-07] MEDS: Atorvastatin Calcium 80 MG Tablet PO (20:00)
[2020-12-07] MEDS: Gabapentin 300 MG Capsule PO (20:00)
[2020-12-08] MEDS: Montelukast 10 MG Tablet PO (04:56)
[2020-12-08] MEDS: Magnesium Chloride 64 MG Delay Rel.Tablet PO ×3 (04:57→19:59)
[2020-12-08] MEDS: Ipratropium Bromide 0.06% NASAL SPRAY 2 SPRAY NASAL (04:57)
[2020-12-08] MEDS: Fluticasone/Salmeterol 232-14 Inhaler 1 PUFF INHALATION ×2 (04:58→17:55)
[2020-12-08 04:59] VITALS: BP 126/75; PULSE 83; RESP 17; TEMP 36.7; O2SAT 97
--- NOTE | 2020-12-08 05:00 | NURSING ---
Pt refused the lidocaine patch this am.
[2020-12-08] MEDS: Aspirin 81 MG TAB.CHEW PO (09:41)
[2020-12-08] MEDS: Gabapentin 100 MG Capsule PO ×2 (09:41→17:55)
[2020-12-08] MEDS: Potassium Chloride Oral Tablet 20 MEQ PO (09:41)
[2020-12-08] MEDS: Diclofenac 75 MG Tablet PO ×2 (09:41→17:55)
[2020-12-08 10:00] VITALS: PULSE 80; RESP 18
[2020-12-08 13:30] VITALS: BP 155/77
[2020-12-08 13:45] VITALS: BP 179/81; PULSE 79; RESP 20; TEMP 36.3; O2SAT 97
[2020-12-08] MEDS: Gabapentin 300 MG Capsule PO (19:59)
[2020-12-08] MEDS: Atorvastatin Calcium 80 MG Tablet PO (20:00)
[2020-12-09 00:36] VITALS: BP 156/89; PULSE 77; RESP 16; TEMP 36.4; O2SAT 97
[2020-12-09] MEDS: Magnesium Chloride 64 MG Delay Rel.Tablet PO ×3 (05:22→20:14)
[2020-12-09] MEDS: Montelukast 10 MG Tablet PO (05:22)
[2020-12-09] MEDS: Fluticasone/Salmeterol 232-14 Inhaler 1 PUFF INHALATION ×2 (05:22→17:18)
[2020-12-09] MEDS: Diclofenac 75 MG Tablet PO ×2 (08:42→17:18)
[2020-12-09] MEDS: Aspirin 81 MG TAB.CHEW PO (08:42)
[2020-12-09] MEDS: Potassium Chloride Oral Tablet 20 MEQ PO (08:42)
[2020-12-09] MEDS: Gabapentin 100 MG Capsule PO ×2 (08:42→17:18)
[2020-12-09 13:55] VITALS: BP 122/56; PULSE 68; RESP 15; TEMP 36.5; O2SAT 95
[2020-12-09] MEDS: Gabapentin 300 MG Capsule PO (20:14)
[2020-12-09] MEDS: Atorvastatin Calcium 80 MG Tablet PO (20:14)
[2020-12-09] MEDS: Acetaminophen 325 MG Tablet 650 MG PO (22:32)
[2020-12-09] MEDS: Arthritis Pain Compound 60 CLICK TUBE TOPICAL (22:33)
--- NOTE | 2020-12-09 22:35 | NURSING ---
Pt c/o rt shoulder and rt wrist pain, cream applied as ordered. Lt wrist splint in place, but pt refused to wear lt boot to bed.
[2020-12-10 05:29] VITALS: BP 129/66; PULSE 66; RESP 16; TEMP 36.7; O2SAT 92
[2020-12-10] MEDS: Lidocaine 5% Patch 1 PATCH TOPICAL (05:32)
[2020-12-10] MEDS: Magnesium Chloride 64 MG Delay Rel.Tablet PO ×3 (05:34→22:24)
[2020-12-10] MEDS: Montelukast 10 MG Tablet PO (05:34)
[2020-12-10] MEDS: Fluticasone/Salmeterol 232-14 Inhaler 1 PUFF INHALATION ×2 (05:34→17:19)
[2020-12-10] MEDS: Aspirin 81 MG TAB.CHEW PO (09:25)
[2020-12-10] MEDS: Gabapentin 100 MG Capsule PO ×2 (09:25→17:19)
[2020-12-10] MEDS: Potassium Chloride Oral Tablet 20 MEQ PO (09:25)
[2020-12-10] MEDS: Diclofenac 75 MG Tablet PO ×2 (09:25→17:19)
[2020-12-10 13:56] VITALS: BP 147/104; PULSE 78; RESP 18; TEMP 36.1; O2SAT 98
[2020-12-10] MEDS: Acetaminophen 325 MG Tablet 650 MG PO ×2 (13:56→22:28)
[2020-12-10] MEDS: tiZANidine HCl 2 MG Tablet PO (22:22)
[2020-12-10] MEDS: Gabapentin 300 MG Capsule PO (22:24)
[2020-12-10] MEDS: Atorvastatin Calcium 80 MG Tablet PO (22:24)
[2020-12-11 05:00] VITALS: BP 136/73; PULSE 81; RESP 16; TEMP 36.8; O2SAT 92
[2020-12-11] MEDS: Magnesium Chloride 64 MG Delay Rel.Tablet PO ×3 (06:08→21:07)
[2020-12-11] MEDS: Montelukast 10 MG Tablet PO (06:08)
[2020-12-11] MEDS: Fluticasone/Salmeterol 232-14 Inhaler 1 PUFF INHALATION ×2 (06:08→17:44)
[2020-12-11] MEDS: Lidocaine 5% Patch 1 PATCH TOPICAL (06:10)
[2020-12-11 06:30] LABS: Bedside Glucose 97 mg/dL (70-110)
[2020-12-11] MEDS: Potassium Chloride Oral Tablet 20 MEQ PO (09:33)
[2020-12-11] MEDS: Aspirin 81 MG TAB.CHEW PO (09:33)
[2020-12-11] MEDS: Gabapentin 100 MG Capsule PO ×2 (09:34→17:44)
[2020-12-11] MEDS: Diclofenac 75 MG Tablet PO ×2 (09:34→17:44)
[2020-12-11 10:00] VITALS: RESP 15
[2020-12-11 14:47] VITALS: BP 148/67; PULSE 73; RESP 16; TEMP 36.1; O2SAT 92
[2020-12-11] MEDS: Gabapentin 300 MG Capsule PO (21:07)
[2020-12-11] MEDS: tiZANidine HCl 2 MG Tablet PO (21:07)
[2020-12-11] MEDS: Atorvastatin Calcium 80 MG Tablet PO (21:07)
[2020-12-12 05:00] VITALS: BP 126/69; PULSE 79; RESP 16; O2SAT 93
[2020-12-12] MEDS: Magnesium Chloride 64 MG Delay Rel.Tablet PO ×3 (05:11→20:54)
[2020-12-12] MEDS: Montelukast 10 MG Tablet PO (05:11)
[2020-12-12] MEDS: Fluticasone/Salmeterol 232-14 Inhaler 1 PUFF INHALATION ×2 (05:12→18:25)
[2020-12-12] MEDS: Potassium Chloride Oral Tablet 20 MEQ PO (09:04)
[2020-12-12] MEDS: Gabapentin 100 MG Capsule PO ×2 (09:04→18:24)
[2020-12-12] MEDS: Aspirin 81 MG TAB.CHEW PO (09:04)
[2020-12-12] MEDS: Diclofenac 75 MG Tablet PO ×2 (09:05→18:25)
[2020-12-12 12:07] VITALS: PULSE 84; RESP 16; O2SAT 98
[2020-12-12 13:45] VITALS: BP 118/61; PULSE 79; RESP 16; TEMP 36.3; O2SAT 95
--- NOTE | 2020-12-12 16:13 | CASEMGMT ---
Social Work Brief interview for mental status (BIMS) and resident mood assessment (PHQ-9) completed on this day. BIMS score . PHQ-9 score 10/29. Aruna BROWN, SUSYS
--- NOTE | 2020-12-12 16:16 | CASEMGMT ---
Social Work Patient continued stay has been denied by insurance with last cover day being 12/14/2020 and discharge or patient financial responsibility to begin on 12/15/2020. This social work job titles updated patient on above information. Patient voiced understanding and signed notice of medicare non-coverage. Patient wished to return to home. This social work job titles communicating concerns of patient returning to home and from chart review it has been discussed that patient would transition to ECF ([facility]) for patient safety. Patient states I want to go home. This social work job titles acknowledging patient desire and wishes. Patient able to voice reasons for why team is concerned for patient safety. Patient inquired about [employer] passport waiver. Patient educated that even if patient qualifies for PASSPORT that it will take time to have aides set up in the home. Patient request for social work job titles to look into [employer] option further to see if aides could be set up by 12/15/2020 as patient does plan to discharge. Active support and listening provided. PLAN: Discharge on 12/15/2020 - undetermined location. Social Work to continue to follow. Aruna BROWN, GIO
--- NOTE | 2020-12-12 16:54 | CHAPLAIN ---
Type of Pastoral Visit ___ Initial Visit _x__ Follow-up Visit ___ On-call Visit ___ General Patient Visit ___ Spiritual Assessment ___ Family Conference ___ Bereavement ___ Rapid Response ___ Code Blue ___ Other (describe below) Pastoral Care Referral From _x__ Patient ___ Family ___ Nurse ___ Physician ___ Radio Installer ___ Weathercaster ___ Other (describe below) Sacrament/Intervention _x__ Active listening ___ Anointing ___ Synagogue ___ Bereavement ___ Communion _x__ Emili exploration ___ _x__ Life review _x__ Prayer ___ Reconciliation ___ Sacrament of Sick _x__ Supportive presence ___ Wedding ___ Other (describe below) Pastoral Comments patient is tearful as she reviews how many people have reached out to her in support and kind deeds
[2020-12-12] MEDS: Gabapentin 300 MG Capsule PO (20:54)
[2020-12-12] MEDS: Acetaminophen 325 MG Tablet 650 MG PO (20:54)
[2020-12-12] MEDS: tiZANidine HCl 2 MG Tablet PO (20:54)
[2020-12-12] MEDS: Atorvastatin Calcium 80 MG Tablet PO (20:54)
[2020-12-13 05:39] VITALS: BP 148/78; PULSE 71; RESP 16; TEMP 36.2; O2SAT 94
[2020-12-13] MEDS: Fluticasone/Salmeterol 232-14 Inhaler 1 PUFF INHALATION ×2 (05:47→18:05)
[2020-12-13] MEDS: Montelukast 10 MG Tablet PO (05:47)
[2020-12-13] MEDS: Magnesium Chloride 64 MG Delay Rel.Tablet PO ×3 (05:47→20:58)
[2020-12-13 06:06] LABS: Absolute Lymphocyte Count 1.48 X10^3/uL (0.83-4.51); Basophil# 0.05 X10^3/uL; Basophil% 0.8 % (0-1); Eosinophil# 0.16 X10^3/uL; Eosinophils% 2.5 % (0-5); Hematocrit 40.4 % (37-47); Hemoglobin 12.7 g/dL (12.0-15.0); Lymphocyte # 1.48 X10^3/ul (4.0); Lymphocyte % 23.1 % (19-41); Mean Corp Hgb Conc 31.4 g/dL (32-36); Mean Corpuscular Hgb 29.7 pg (27.0-32.0); Mean Corpuscular Volume 94.6 fL (81-99); Mean Platelet Vol. 10.6 fl (6.2-12.0); Monocyte% 10.9 % (0-10); NRBC Flagged by Analyzer 0 % (0-5); Neutrophil # 3.99 X10^3/uL (2.7-7.7); Neutrophil % 62.4 % (47-70); Platelet Count 350 K/mm3 (150-450); RBC Distribution Width CV 14.3 % (11.6-14.6); RBC Distribution Width SD 49.7 fl (35.1-43.9); Red Blood Count 4.27 M/mm3 (4.2-5.4); White Blood Count 6.4 K/mm3 (4.4-11.0)
[2020-12-13 06:36] LABS: Anion Gap 5 (5-15); BUN 24 mg/dL (7-18); BUN/Creat Ratio 33.7 RATIO (10-20); Calcium,Total 9.3 mg/dL (8.5-10.1); Chloride 108 mmol/L (98-107); Creatinine, Serum 0.71 mg/dL (0.55-1.02); EST Glomerular Filtration Rate 86 mL/min (>60); Est Glom Filt Rate - Afr Amer 104 mL/min (>60); Estimated Creatinine Clearance 41.99 ml/min; Glucose 83 mg/dL (74-106); Sodium Level 140 mmol/L (136-145)
[2020-12-13] MEDS: Potassium Chloride Oral Tablet 20 MEQ PO (08:11)
[2020-12-13] MEDS: Diclofenac 75 MG Tablet PO ×2 (08:11→18:05)
[2020-12-13] MEDS: Aspirin 81 MG TAB.CHEW PO (08:11)
[2020-12-13] MEDS: Gabapentin 100 MG Capsule PO ×2 (08:11→18:06)
[2020-12-13 14:09] VITALS: BP 133/71; PULSE 89; RESP 18; TEMP 36.7; O2SAT 94
[2020-12-13] MEDS: Tuberculin,Purif.prot.deriv. 50 TU/ML Vial 5 ML ID (14:57)
--- NOTE | 2020-12-13 15:14 | CASEMGMT ---
Social Work Followed up with pt to finalize DC plans. Pt is adamant about returning home and stating she has been talking with Dejah at [facility] to get aides 35 hours/wk. Pt provided with Dejah's phone number to confirm the information. Spoke with Dejah whom stated there is another assessment that needs completed, the approval time and coordination of services would take about 3 weeks. Provided pt's DC date of 12/15. Spoke with pt and explained above. Pt stated Dejah did not tell her that and she cannot g home without assistance during the day - what else can I do. Explained she can still DC to [place], per IDTs recommendation. Pt concerned about how much therapy she will be getting and if she would need to do another 14 day quarantine. Provided pt with admissions contact information to inquire further. Admissions from [place] reached out to SW requested updated information to review. Reiterated pt's concerns/questions. Will await outcome. Edda Mcknight, STEPHANIE COMBSW
[2020-12-13] MEDS: Gabapentin 300 MG Capsule PO (18:05)
[2020-12-13] MEDS: Acetaminophen 325 MG Tablet 650 MG PO (18:05)
[2020-12-13] MEDS: Atorvastatin Calcium 80 MG Tablet PO (20:58)
[2020-12-13] MEDS: tiZANidine HCl 2 MG Tablet PO (20:58)
[2020-12-13 21:03] VITALS: RESP 16
[2020-12-14 05:00] VITALS: BP 134/65; PULSE 68; RESP 18; TEMP 37; O2SAT 94
[2020-12-14] MEDS: Fluticasone/Salmeterol 232-14 Inhaler 1 PUFF INHALATION ×2 (05:21→17:37)
[2020-12-14] MEDS: Montelukast 10 MG Tablet PO (05:22)
[2020-12-14] MEDS: Magnesium Chloride 64 MG Delay Rel.Tablet PO ×3 (05:22→20:54)
--- NOTE | 2020-12-14 09:13 | CASEMGMT ---
Addendum entered by Edda Mcknight 12/15/20 13:05: LOC results received. Faxed to [facility]. Addendum entered by Edda Mcknight 12/14/20 14:26: LOC submitted. Addendum entered by Edda Mcknight 12/14/20 10:46: Spoke with [facility] whom no longer needs a new LON application submitted; however, does need a LOC. PASRR completed. Will send for LOC once DC instructions are completed. Original Note: Social Work IDT met with patient and dtr via conference call for care plan meeting. Discussed patient's progress in therapy and nursing. Discussed DC plans. Spoke with [facility] and they can accept pt, but pt's LON is QMB and requesting new application and most recent bank statement showing balance is under $2,000. Pt can complete new application and had mailed bank statement available. Made copies and balance is under $2,000. Pt states her friend can transport her. Plan: DC to [place] 12/15 under LON STEPHANIE [facility]
[2020-12-14] MEDS: Aspirin 81 MG TAB.CHEW PO (09:23)
[2020-12-14] MEDS: Diclofenac 75 MG Tablet PO ×2 (09:23→17:37)
[2020-12-14] MEDS: Gabapentin 100 MG Capsule PO ×2 (09:23→17:37)
[2020-12-14] MEDS: Potassium Chloride Oral Tablet 20 MEQ PO (09:23)
[2020-12-14] MEDS: Acetaminophen 325 MG Tablet 650 MG PO (09:27)
--- NOTE | 2020-12-14 11:09 | PCM.TXEXTCAR ---
- Diet 12/05/20 15:43 Diet: Regular - General Food consistency:: Regular Liquid Consistency:: Regular/Thin Dietary Modifications:: No Added Salt Is pt able to select menu?: Yes - Routine Orders/Code Status Enema Type: Fleetz Enema Frequency: Daily PRN Suppository Type: Dulcolax 10mg Suppository Frequency: Daily PRN Routine Lab Work: - - CMP, lipid panel, Mag in 1 week Code Status: Full Code - Therapies Weight Bearing: Full weight bearing Extremity Affected:: Left Upper Physical Therapy: Eval and Treat Occupational Therapy: Eval and Treat - Problem/Diagnosis (1) Debility Status: Acute (2) Depression Status: Acute (3) Left hemiparesis Status: Acute (4) Allergic rhinitis Status: Chronic (5) CVA (cerebral vascular accident) Status: Chronic Comment: R kourtney-ventricular white matter and the R caudate nucleus. Suspect possible PAF. She has interrmittent rapid heart rate and gets lightheaded and she has been hypokalemic on a diuretic. No other reason for strokes has been found and the strokes are in 2 different locations, frontal gonzalez radiata and the R caudate nucleus. Previous stroke in the right basal ganglia. (6) Carotid stenosis, right Status: Chronic Comment: No mural thrombus and no significant stenosis of the R carotid found on a diagnostic carotid arterigram at [facility]. (7) Chronic obstructive pulmonary disease Status: Chronic (8) Hyperlipidemia Status: Chronic (9) Hypertension Status: Chronic (10) Hypokalemia Status: Chronic Comment: resolved with chronic potassium supplementation (11) Hypomagnesemia Status: Chronic Comment: on a magnesium supplement (12) Hyponatremia Status: Resolved Comment: resolved with discontinuation of the HCTZ (13) Muscle spasm Status: Chronic (14) Cognitive dysfunction Status: Acute Comment: Due to CVA (15) Physical debility Status: Acute Comment: due to ischemic CVA with Left side weakness and left facial droop (16) Fibromyalgia Status: Chronic (17) Former tobacco use Status: Chronic Comment: quit 2003 - Allergies/Procedures Done in Hospital Allergies/Adverse Reactions: Allergies codeine Allergy (Verified 11/10/20 14:23) Vomiting Penicillins [PCN] Allergy (Verified 11/10/20 14:23) Shortness of breath Sulfa (Sulfonamide Antibiotics) Allergy (Verified 03/11/21 14:23) Vomiting Procedures: None - Type of Care/Length of Stay Estimated LOS: Convalescent Care Less Than 30 days Type of Care Needed: Skilled Rehab Potential: Good Prognosis: Good - Additional Orders/Day of Discharge H&P will serve as current which was dated: 12/05/20 Day of Discharge: 12/15/20 - Dietary and Speech Recommendations Dietitian Recommendations/Changes: continue regular no added salt diet - Follow Up Care Primary Care Physician: Erich Hall DO [Primary Care Provider] - Please Follow Up With: Eduardo Borden MD Please Follow Up With: Erich Hall DO Please Follow Up With: [facility] - to interpret the 30 day event monitor and consult on pt
--- NOTE | 2020-12-14 11:17 | DS.PCM_ITS ---
Discharge Date and Diagnosis - Problem List Patient Problems: Active and Suspected Problems Physical debility (Acute) due to ischemic CVA with Left side weakness and left facial droop Depression (Acute) Cognitive dysfunction (Acute) Due to CVA Debility (Acute) Left hemiparesis (Acute) Date of Admission: 12/05/20 Date of Discharge: 12/15/20 - Primary Discharge Diagnosis Acute Problems: Active Problems Physical debility (Acute) due to ischemic CVA with Left side weakness and left facial droop Depression (Acute) - she is refusing antidepressants Cognitive dysfunction (Acute) Due to CVA Left hemiparesis with left facial droop (Acute) - Secondary Discharge Diagnosis Chronic Problems: Chronic Problems Hypokalemia (Chronic) resolved with chronic potassium supplementation Hyperlipidemia (Chronic) Carotid stenosis, right (Chronic) No mural thrombus and no significant stenosis of the R carotid found on a diagnostic carotid arterigram at [facility]. Hypomagnesemia (Chronic) on a magnesium supplement Fibromyalgia (Chronic) Muscle spasm (Chronic) CVA (cerebral vascular accident) (Chronic) R kourtney-ventricular white matter and the R caudate nucleus. Suspect possible PAF. She has interrmittent rapid heart rate and gets lightheaded and she has been hypokalemic on a diuretic. No other reason for strokes has been found and the strokes are in 2 different locations, frontal gonzalez radiata and the R caudate nucleus. Previous stroke in the right basal ganglia. Chronic obstructive pulmonary disease (Chronic) Allergic rhinitis (Chronic) Hypertension (Chronic) Former tobacco use (Chronic) quit 2003 Hospital Course and Treatment Imaging Results: Laboratory Last Values WBC 6.4 K/mm3 (4.4-11.0) 12/13/20 05:35 RBC 4.27 M/mm3 (4.2-5.4) 12/13/20 05:35 Hgb 12.7 g/dL (12.0-15.0) 12/13/20 05:35 Hct 40.4 % (37-47) 12/13/20 05:35 MCV 94.6 fL (81-99) 12/13/20 05:35 MCH 29.7 pg (27.0-32.0) 12/13/20 05:35 MCHC 31.4 g/dL (32-36) L 12/13/20 05:35 RDW Std Deviation 49.7 fl (35.1-43.9) H 12/13/20 05:35 RDW Coeff of [place]a 14.3 % (11.6-14.6) 12/13/20 05:35 Plt Count 350 K/mm3 (150-450) 12/13/20 05:35 MPV 10.6 fl (6.2-12.0) 12/13/20 05:35 Immature Gran % (Auto) 0.300 % (0.0-0.9) 12/13/20 05:35 Neut % (Auto) 62.4 % (47-70) 12/13/20 05:35 Lymph % (Auto) 23.1 % (19-41) 12/13/20 05:35 Centre % (Auto) 10.9 % (0-10) H 12/13/20 05:35 Eos % (Auto) 2.5 % (0-5) 12/13/20 05:35 Baso % (Auto) 0.8 % (0-1) 12/13/20 05:35 Absolute Neuts (auto) 4.0 X10^3/uL (2.0-7.7) 12/13/20 05:35 Absolute Lymphs (auto) 1.48 X10^3/uL (0.83-4.51) 12/13/20 05:35 Nucleated RBC % 0 % (0-5) 12/13/20 05:35 Sodium 140 mmol/L (136-145) 12/13/20 05:35 Potassium 4.0 mmol/L (3.5-5.1) 12/13/20 05:35 Chloride 108 mmol/L (98-107) H 12/13/20 05:35 Carbon Dioxide 27.0 mmol/L (21.0-32.0) 12/13/20 05:35 Anion Gap 5 (5-15) 12/13/20 05:35 BUN 24 mg/dL (7-18) H 12/13/20 05:35 Creatinine 0.71 mg/dL (0.55-1.02) 12/13/20 05:35 Estim Creat Clear Calc 41.99 ml/min 12/13/20 05:35 Est GFR (MDRD) Af Amer 104 mL/min (>60) 12/13/20 05:35 Est GFR (MDRD) Non-Af 86 mL/min (>60) 12/13/20 05:35 BUN/Creatinine Ratio 33.7 RATIO (10-20) H 12/13/20 05:35 Glucose 83 mg/dL (74-106) 12/13/20 05:35 Calcium 9.3 mg/dL (8.5-10.1) 12/13/20 05:35 COVID-19 (KERRY) Not Detected (Not Detect) 12/06/20 14:45 POC Glucose 97 mg/dL (70-110) 12/11/20 06:20 Summary of Care Provided: Donita Jay is a 70 year old F with a past medical history of hypertension, allergy induced asthma, hyperlipidemia (untreated), tobacco dependence in remission (she started smoking at 16 years of age and quit at the age of 53), hyponatremia, hypokalemia and allergic rhinitis who presented to the emergency department at [facility] on 11/09/2020 complaining of feeling as though she was falling to the left. Stat CT brain was reported as normal. She felt dizzy when she turned her head suddenly and off balance but she denied vertigo. She was discharged home with a prescription for Valium 2 mg 3 times daily as needed for vertigo. On 11/10/2020 she came back to the emergency room complaining of left side weakness and heaviness, left facial droop, slurred speech and feeling as though she was on a boat rocking. NIH at presentation to the emergency room was 3 for drift in the left leg, drift in the left arm and mild facial droop. A repeat CT head showed no acute intracranial hemorrhage and showed stable hypoattenuation's in the right basal ganglia thought to be secondary to remote infarct. CTA of the head and neck showed a mural thrombus at the origin of the right internal carotid artery with 50% sten osis. There was no CTA evidence of common carotid or left ICA stenosis. There was a small right vertebral artery. She was admitted to the hospital for acute ischemic CVA work-up. MRI of the brain showed a small focus of acute infarct in the right periventricular white matter region/gonzalez radiata in the R frontal lobe and a tiny focus of acute infarct in the body of the right caudate nucleus. Echocardiogram showed a normal ejection fraction of 65% with no diastolic dysfunction, no wall motion abnormalities and no valvular heart disease. A bubble contrast study was negative for right to left interatrial shunt. Consultation was obtained with [facility] teleneurology on 11/11/2020 and the teleneurologist felt she had a subacute stroke in the deep R ICA territory which could be due to the R Carotid disease but, also could be due to deep intracranial perforators. The neurologist recommended dual antiplatelet therapy for 1 month then switching to one agent. He also recommended a vascular surgery consult. She was started on Atorvastatin 80 mg nightly for an LDL of 160. HDL was good at 60 Triglycerides were normal. On 11/13/20 She awoke and could not move her left arm at all. Her Left leg felt heavier and she felt weaker. She was transferred to the inpt acute rehab unit at [facility] later in the day on 11/13 for at least 3 hours of therapy a day to restore her at or near her prior level of function. When she was initially examined by myself on the morning of 11/14/2020 she had no movement in her left arm, drift with the left leg, left facial droop and slurred speech. I got an NIH of 9. A stroke alert was called and she was taken to CT scan. CT scan showed increasing size of the subacute infarct in the right periventricular white matter and caudate nucleus. There was no sign of hemorrhage. Repeat CTA on that date showed right carotid stenosis of 50%. The rest of the CTA was unremarkable and it was not changed from the previous CTA. Teleconsult with Dr. Heart from [facility] was obtained and he recommended transfer to [facility] for an angiogram to look at the SHERICE. Carotid angiogram at [facility] showed the right internal carotid artery to have calcification at the origin but, no significant stenosis. Surgical intervention was not indicated. She returned to acute inpt rehab at [facility] on 11/17/20 and will get at least 3 hours of therapy daily to restore function/independence at or near her level prior to the recent CVA. Donita did very well in acute rehab and at the time of DC she was able to ambulate 75 feet with a quad cane at min assist with occasional moderate assist required due to unsteadiness. She had a ascended and descended 5 steps x2 using a right railing at minimal assistance on 11/28/2020. She was able to get on and off the toilet and complete her toileting tasks at contact-guard assist. She was able to get on and off the shower/tub bench standby assist and complete bathing tasks at a minimal assist x1. Cognitive function improved significantly and was able to use compensatory strategies for improved speech intelligibility and participating conversation with her family and the staff. She had 85 to 90% accuracy with minimal cueing during turn-taking and verbal exchanges with the speech therapist. Vanessa lives by herself and will have no one to assist her at home when she is discharged. Her insurance company approved a stay in transitional care so that she may continue to improve and return to her home at discharge from TCU. Donita was transferred to TCU on 12/05/20 in stable condition for ongoing therapy. I suspect the etiology of the strokes was PAF. She was low in potassium and magnesium on lab prior to the stroke, more likely than not related to HCTZ used for BP control. HCTZ was discontinued while she was in rehab and the BP remained well controlled. She remains on a potassium and magnesium supplement and potassium was 4 and magnesium 1.9 on her most recent lab. Mag dose was increased to keep the mag at 2 or greater. She currently has a 30 day event monitor on and will follow up with cardiology for the results of the monitor following the removal of the unit. She will also need to follow up with Dr. Hall and neurology. She was transferred to TCU/SNF at [facility] on 12/05/2020 for additional skilled therapy prior to plan discharge home when safe. At the time of DC from TCU she is still requiring assistance with dressing, toileting, bathing and tub/shower transfer. She is going to go to another SNF and hopefully with more therapy she will be able to go home and care for herself safely. She will need a CMP to check liver function, a lipid panel since she is now on a high intensity statin for the past 6 weeks and a mag level in 1 week. K is stable at 4 on the current supplement. Anna did not want to take Zoloft any longer when she got to TCU and it was discontinued. She did fine on 50 mg but when it was increased she had side effects and now she is afraid to take it. Since the Sertraline was discontinued she has become severely depressed. She is tearful and chronically tired. She is not eating well and she blames it on not liking the hospital food. She is not sleeping well....this likely contributes to the fatigue. I started her on Remeron on 12/14/20. Donita would benefit from psychotherapy going forward. Alert, oriented x3, tearful and says she is terrible. This is a marked decline since the Sertraline was discontinued. Mucous membranes are dry Lungs-clear to auscultation throughout with mildly diminished breath sounds Heart-regular rate and rhythm, no murmur, no gallop Abdomen-soft, nontender, nondistended, normal bowel sounds heard, no guarding with palpation No calf pain, no ankle edema No rashes and no skin breakdown Ability to ambulate has declined since she has been confined in her room and since she has stopped the antidepressant she was taking in acute rehab. she has a mild facial droop and L hemiparesis. This note was generated with [employer] dictation software. It may contain incorrect words, spelling, and punctuation that were not noted in checking the note before signing. Patient Problems: Active and Suspected Problems Physical debility (Acute) due to ischemic CVA with Left side weakness and left facial droop Depression (Acute) Cognitive dysfunction (Acute) Due to CVA Debility (Acute) Left hemiparesis (Acute) - Physical Exam Vitals/I&O's: Vital Signs Temp Pulse Resp BP Pulse Ox 98.6 F 68 18 134/65 H 94 12/14/20 05:00 12/14/20 05:00 12/14/20 05:00 12/14/20 05:00 12/14/20 05:00 Oxygen Delivery Method Room Air Weight: 143 lb 3 oz Body Mass Index (BMI) 26.4 Finger Stick Blood Glucose 99 Intake and Output for Last 24 Hours 12/12/20 12/13/20 12/14/20 23:59 23:59 23:59 Intake Total 1080 / 1080 820 / 820 240 / 240 Balance 1080 / 1080 820 / 820 240 / 240 Laboratory Results 12/14/20 10:45: COVID-19 (KERRY) Pending Current Medications Acetaminophen (Acetaminophen 325 Mg Tablet) 650 mg PO Q6H PRN PRN PRN Reason: PAIN Last Admin: 12/14/20 09:27 Dose: 650 mg Documented by: Al Hydroxide/Mg Hydroxide (Mag Hydrox/Al Hydrox/Simeth 30 Ml Udc) 30 ml PO Q4H PRN PRN PRN Reason: HEARTBURN OR INDIGESTION Aspirin (Aspirin 81 Mg Tab.Chew) 81 mg PO DAILY@0800 [facility] Last Admin: 12/14/20 09:23 Dose: 81 mg Documented by: Atorvastatin Calcium (Atorvastatin Calcium 80 Mg Tablet) 80 mg PO QHS [facility] Last Admin: 12/13/20 20:58 Dose: 80 mg Documented by: Bisacodyl (Bisacodyl 10 Mg Suppository) 10 mg RC DAILY PRN PRN Reason: Constipation Compound Med (Arthritis Pain Compound 60 Click Tube) 2 click TOPICAL TID PRN; Protocol PRN Reason: JOINT PAIN 1-10 Last Admin: 12/09/20 22:33 Dose: 2 click Documented by: Diclofenac Sodium (Diclofenac 75 Mg Tablet) 75 mg PO BIDCM [facility] Last Admin: 12/14/20 09:23 Dose: 75 mg Documented by: Gabapentin (Gabapentin 100 Mg Capsule) 100 mg PO BIDCM [facility] Last Admin: 12/14/20 09:23 Dose: 100 mg Documented by: Gabapentin (Gabapentin 300 Mg Capsule) 300 mg PO 2100 [facility] Last Admin: 12/13/20 18:05 Dose: 300 mg Documented by: Ipratropium [place] (Ipratropium [place] 0.06% Nasal [place]) 2 spray NASAL TID PRN PRN Reason: post nasal drip/congestion Last Admin: 12/08/20 04:57 Dose: 2 spray Documented by: Lidocaine (Lidocaine 5% Patch) 1 patch TOPICAL DAILY [facility]; Protocol Last Admin: 12/14/20 05:23 Dose: Not Given Documented by: Magnesium Chloride (Magnesium Chloride 64 Mg Delay Rel.Tablet) 64 mg PO TID [facility] Last Admin: 12/14/20 05:22 Dose: 64 mg Documented by: Magnesium Hydroxide (Magnesium Hydroxide 30 Ml Udc) 30 ml PO .PRN X 1 PRN PRN Reason: Constipation Montelukast Sodium (Montelukast 10 Mg Tablet) 10 mg PO DAILY [facility] Last Admin: 12/14/20 05:22 Dose: 10 mg Documented by: Potassium Chloride (Potassium Chloride Oral Tablet 20 Meq) [facility] Admin: 12/14/20 09:23 Dose: 20 meq Documented by: Fluticasone/Salmeterol (Fluticasone/Salmeterol 232-14 Inhaler) 1 puff INHALATION Q12 [facility] Last Admin: 12/14/20 05:21 Dose: 1 puff Documented by: Tizanidine HCl (Tizanidine Hcl 2 Mg Tablet) 2 mg PO [facility] Last Admin: 12/13/20 20:58 Dose: 2 mg Documented by: Home Medications: Medications to take at Discharge Diclofenac Sodium 75 mg PO BID PRN 02/22/20 Fluticasone/Salmeterol [Advair 250-50 Diskus] 1 ea IH Q12H 02/22/20 Montelukast [Singulair] 10 mg PO DAILY 02/22/20 Aspirin [Aspirin, Baby] 81 mg PO DAILY@0800 11/13/20 Atorvastatin Calcium [Lipitor] 80 mg PO QHS 11/13/20 Tizanidine HCl [Zanaflex] 2 mg PO Q8H PRN PRN 11/17/20 Acetaminophen [Tylenol Tablet] 650 mg PO Q6H PRN PRN tablet 12/05/20 Arthritis Pain Compound 2 click TOPICAL TID PRN gm 12/05/20 Bisacodyl [Dulcolax] 10 mg RC .PRN X 1 PRN suppos. 12/05/20 Gabapentin [Neurontin] 100 mg PO BIDCM 12/05/20 Gabapentin [Neurontin] 300 mg PO 2100 12/05/20 Ipratropium [place] 0.06% [ATROVENT NASAL SPRAY] 2 spray NASAL TID PRN nasal.sry 12/05/20 Mag Hydrox/Al Hydrox/Simeth [Mylanta II] 30 ml PO Q4H PRN PRN udc 12/05/20 Magnesium Chloride [Slow-Mag] 71.5 mg PO TID 12/05/20 Magnesium Hydroxide [Milk Of Magnesia] 30 ml PO .PRN X 1 PRN udc 12/05/20 Potassium Chloride Oral Tablet [K-Dur] 20 meq PO DAILYCM 12/05/20 Bisacodyl [Dulcolax] 10 mg RC DAILY PRN suppos. 12/14/20 Mirtazapine [Remeron] 15 mg PO QHS #1 tablet 12/14/20 Following Prescriptions Were Given to Patient: Mirtazapine [Remeron] 15 mg PO QHS #1 tablet Primary Care Physician: Petrilla,Erich, DO [Primary Care Provider] - Please Follow Up With: Eduardo Borden MD Please Follow Up With: Erich Hall DO Minutes spent on discharge:: 40 Patient Condition:: Fair Medical Necessity - Tobacco Use Smoking Status: Former smoker - Quit at 53. Tobacco Use: Cigarettes Meaningful Use Info Meaningful Use Diagnoses (Choose all that apply): Ischemic CVA - CVA Therapy Assessed for PT,OT and/or ST?: Yes - Ischemic Stroke Antithrombotic order at d/c?: Yes Dx of Atrial fib/flutter?: No Anticoagulant at discharge?: No Reason anticoagulant not ordered: Treatment not Indicated Statins at discharge?: Yes Primary Dx Acute Ischemic CVA?: Yes IV tPA ordered during stay?: No Reason IV t-PA not ordered: Treatment not Indicated Inpatient E&M: 52000 Disch Hosp
[2020-12-14 13:47] VITALS: PULSE 83; RESP 16; O2SAT 96
[2020-12-14 13:59] VITALS: BP 115/64; PULSE 86; RESP 16; TEMP 36.1; O2SAT 96
--- NOTE | 2020-12-14 16:11 | NURSING ---
changed battery on heart monitor and charging other.
[2020-12-14] MEDS: Gabapentin 300 MG Capsule PO (20:53)
[2020-12-14] MEDS: Mirtazapine 15 MG Tablet PO (20:54)
[2020-12-14] MEDS: Atorvastatin Calcium 80 MG Tablet PO (20:54)
[2020-12-14] MEDS: tiZANidine HCl 2 MG Tablet PO (20:54)
[2020-12-15 03:55] VITALS: BP 146/72; PULSE 76; RESP 16; TEMP 36.3; O2SAT 98
[2020-12-15] MEDS: Lidocaine 5% Patch 1 PATCH TOPICAL (06:28)
[2020-12-15] MEDS: Fluticasone/Salmeterol 232-14 Inhaler 1 PUFF INHALATION (06:28)
[2020-12-15] MEDS: Magnesium Chloride 64 MG Delay Rel.Tablet PO ×2 (06:28→14:08)
[2020-12-15] MEDS: Montelukast 10 MG Tablet PO (06:28)
[2020-12-15] MEDS: Potassium Chloride Oral Tablet 20 MEQ PO (09:03)
[2020-12-15] MEDS: Gabapentin 100 MG Capsule PO (09:03)
[2020-12-15] MEDS: Aspirin 81 MG TAB.CHEW PO (09:03)
[2020-12-15 10:00] VITALS: PULSE 92; RESP 16; O2SAT 96
[2020-12-15] MEDS: Diclofenac 75 MG Tablet PO (10:15)
--- NOTE | 2020-12-15 13:19 | MDS.RN ---
Information for the mds was obtained from review of the clinical record, interview of resident, staff, and direct observation of resident's care.
[2020-12-15 13:34] VITALS: BP 142/74; PULSE 80; RESP 16; TEMP 36.6; O2SAT 97
--- NOTE | 2020-12-15 13:58 | NURSING ---
Called report on pt to [facility] spoke with nurse Lopes
[2020-12-15 14:09] VITALS: BP 142/74; PULSE 80; RESP 16; TEMP 36.7; O2SAT 97
== END 2020-12-15 14:30 | disposition skilled nursing facility (03) | DRG 57 ==
PROVIDERS: Internal Medicine; Admitting Provider Family Medicine Geriatric Medicine; PCP Family Medicine; Visit Provider Family Medicine Geriatric Medicine
DX: I69.354 Hemiplegia and hemiparesis following cerebral infarction affecting left non-dominant side (principal); I69.392 Facial weakness following cerebral infarction; I69.328 Other speech and language deficits following cerebral infarction; I10 Essential (primary) hypertension; J44.9 Chronic obstructive pulmonary disease, unspecified; E78.5 Hyperlipidemia, unspecified; E87.6 Hypokalemia; F32.9 Major depressive disorder, single episode, unspecified; I48.0 Paroxysmal atrial fibrillation; M79.7 Fibromyalgia; E83.42 Hypomagnesemia; Z87.891 Personal history of nicotine dependence; Z79.02 Long term (current) use of antithrombotics/antiplatelets; Z79.899 Other long term (current) drug therapy
CPT/HCPCS: 36415; 80048; 82962; 85025; 87635; 92523; 97032; 97110; 97116; 97162; 97166; 97530; 97535; U0002

== ENCOUNTER 2020-12-15 13:00 | Outpatient (RCR) | payer MEDICARE, MEDICAID, SELFPAY ==
[2020-12-05 15:27] VITALS: BMI 26.4
[2020-12-15] MEDS: COVID-19 VACC, MRNA(PFIZER)/PF 30 MCG/0.3 ML SYRINGE IM (13:00)
[2021-01-05] MEDS: COVID-19 VACC, MRNA(PFIZER)/PF 30 MCG/0.3 ML SYRINGE IM (14:09)
== END 2021-02-07 23:59 ==
LOC: IMMUN 13:00
PROVIDERS: PCP Family Medicine; Visit Provider Family Medicine
DX: Z23 Encounter for immunization (principal)
CPT/HCPCS: 0001A; 0002A; 91300

== ENCOUNTER → 2021-03-23 16:02 | Outpatient (CLI) | payer MEDICARE, MEDICAID, SELFPAY ==
[2021-02-02 14:14] VITALS: BMI 26.4
--- NOTE | 2021-03-23 16:04 | MRI_ITS ---
STUDY: MRI RIGHT SHOULDER REASON FOR EXAM: Female, 70 years old. pain, LIMITED R.O.M, prev surgery 02/29/20, pt fell 10/2020 TECHNIQUE: Standardized fat and water weighted pulse sequences were obtained in all 3 orthogonal planes. COMPARISON: None. FINDINGS: There is severe narrowing of the glenohumeral articulation. The humeral head is high riding abutting the undersurface of the acromion due to a large full-thickness tear of the supraspinatus tendon which is retracted 4.11 cm proximal to the greater tuberosity. Screw tract anguiano are seen in the head and greater tuberosity from prior rotator cuff repair. There is partial tearing of the infraspinatus tendon at its insertion site. A small linear humeral joint effusion is present. The anterior aspect of the glenoid is torn and detached anteriorly. The intracapsular aspect of the osseous tendon is completely torn. A small joint effusion is present. Normal subscapularis tendon. Normal teres minor tendon. There is mild muscular atrophy of the supraspinatus muscle. There is mild muscular atrophy of the infraspinatus muscle. Normal subscapularis muscle. Normal teres minor muscle. Normal biceps labral complex. Normal capsulo- ligamentous complex. Normal rotator interval. There is mild osteoarthritis of the acromioclavicular articulation. There is a Type II morphology (curved), with a neutral orientation. There is no subacromial-subdeltoid bursal fluid. Normal visualized coracohumeral and coracoacromial ligaments. Normal quadrilateral space. Normal axillary space. Normal deltoid muscle. Normal trapezius muscle. MRI/Upper Ext Joint Only(Routine) IMPRESSION: 1. There is severe narrowing of the glenohumeral articulation. The humeral head is high riding abutting the undersurface of the acromion due to a large full-thickness tear of the supraspinatus tendon which is retracted 4.11 cm proximal to the greater tuberosity. 2. Screw tract anguiano are seen in the head and greater tuberosity from prior rotator cuff repair. 3. There is partial tearing of the infraspinatus tendon at its insertion site. A small linear humeral joint effusion is present. Electronically Signed: Kt Grover MD at 19:10 EDT , Service support ,
== END ==
PROVIDERS: PCP Internal Medicine; Referring Provider Orthopaedic Surgery; Visit Provider Orthopaedic Surgery
DX: M75.101 Unspecified rotator cuff tear or rupture of right shoulder, not specified as traumatic (principal); M25.511 Pain in right shoulder
CPT/HCPCS: 73221

== ENCOUNTER 2021-04-22 16:34 | Emergency (ER) | payer OTHER, MEDICARE, MEDICAID, SELFPAY ==
[2021-04-22 16:37] VITALS: BP 144/90; PULSE 91; RESP 16; TEMP 36.2; O2SAT 96; BMI 26.3
--- NOTE | 2021-04-22 16:50 | CT_ITS ---
STUDY: CT CHEST WITHOUT CONTRAST REASON FOR EXAM: Female, 70 years old. Injury RADIATION DOSAGE (If Supplied By Facility): CTDIvol = ( 13.92 ) mGy, DLP = ( 431.24 ) mGycm TECHNIQUE: Transaxial imaging was performed without the administration of intravenous contrast material. Individualized dose optimization techniques were used for this CT. COMPARISON: None. FINDINGS: The lungs are normal. Right upper lobe calcified granuloma. Normal heart and pericardium. Normal mediastinum. Right hilar granulomatous calcifications. Normal unenhanced pulmonary arteries. Calcified upper lobe calcified granuloma. Aorta arch and descending thoracic aorta. Normal osseous structures. There is no demonstrated abnormality of the visualized upper abdomen. CT/Chest without Contrast IMPRESSION: No acute thoracic pathology. Electronically Signed: Jonny Cruz DO at 18:59 EDT Tel [phone], Service support ,
--- NOTE | 2021-04-22 16:50 | CT_ITS ---
STUDY: CT BRAIN WITHOUT CONTRAST REASON FOR EXAM: Female, 70 years old. Injury RADIATION DOSAGE (If Supplied By Facility): CTDIvol = ( 44.99 ) mGy, DLP = ( 779.24 ) mGycm TECHNIQUE: Transaxial CT imaging of the brain was performed without administration of intravenous contrast material. Individualized dose optimization techniques were used for this CT. COMPARISON: 11/14/2020 FINDINGS: Normal soft tissue structures. Normal calvarium. Normal size ventricles and extra-axial spaces for the patient''s age. Old infarct in the right deep white matter of the right cerebral hemisphere. Normal basal ganglia and thalami. Normal brainstem. Normal cerebellum. There is no intracranial hemorrhage. There are no findings of an acute ischemic infarction. Normal visualized paranasal sinuses. CT/Brain/Head without Contrast IMPRESSION: No acute intracranial pathology of the brain. Old right-sided cerebral focal infarct. Electronically Signed: Jonny Cruz DO at 18:47 EDT Tel [phone], Service support ,
--- NOTE | 2021-04-22 17:10 | RAD_ITS ---
STUDY: X-RAY - LEFT HAND REASON FOR EXAM: Female, 70 years old. Injury TECHNIQUE: 3 view(s) of the hand. COMPARISON: None. FINDINGS: Normal radiocarpal articulation. Normal distal radioulnar joint. Normal visualized carpal bones. Normal carpal articulations Normal carpometacarpal articulation of the thumb. Normal second through fifth carpometacarpal joints. Normal metacarpi. Normal metacarpophalangeal joint of the thumb. Normal interphalangeal joint of the thumb. Normal proximal and distal phalanges of the thumb. Normal metacarpophalangeal joints of the second through fifth fingers. Degenerative changes at the proximal and distal interphalangeal joints of the second through fifth fingers. Mild subluxation at the proximal interphalangeal joint of the third finger. Degenerative changes of the phalanges of the second through fifth fingers. The soft tissue structures are unremarkable. RAD/Hand Min 3 Views IMPRESSION: Degenerative changes of the hand. Mild subluxation at the proximal interphalangeal joint of the third finger. Electronically Signed: Jonny Cruz DO at 19:08 EDT Tel [phone], Service support ,
[2021-04-22] MEDS: Lidocaine 1% (20 ml mdv) 20 ML Vial INFILT (17:44)
[2021-04-22 17:48] VITALS: BP 174/77; PULSE 84; RESP 15; O2SAT 97
--- NOTE | 2021-04-22 18:58 | EDS_ITS ---
HPI History of Present Illness Chief Complaint: Fall Informant: patient and friend Narrative Narrative: 70-year-old female presented to the emergency department following a fall at work. Patient states she tripped on a rug striking her head on the ground. She notes pain in the left axilla along the rib cage. She notes a laceration to her inner lip. She notes facial contusion. Patient also notes pain to the left hand and swelling over the dorsal aspect. No loss of consciousness. [facility] Medical History Dermatitis Hypertension Right shoulder pain Stroke/cerebrovascular accident Vaginal candidiasis Home Medications diclofenac sodium 75 mg PO BID PRN 02/22/20 [History Last Taken 11/09/20] montelukast 10 mg PO DAILY 02/22/20 [History Last Taken 11/09/20] aspirin 81 mg PO DAILY@0800 11/13/20 [History Last Taken Unknown] acetaminophen 650 mg PO Q6H PRN PRN tablet 12/05/20 [Rx Last Taken Unknown] potassium chloride 20 meq PO DAILYCM 12/05/20 [History Last Taken Unknown] Handicap Placard #1 ea 01/03/21 [Rx Last Taken Unknown] atorvastatin 80 mg tablet 80 mg PO QHS #90 tab 01/04/21 [Rx Last Taken Unknown] buspirone 7.5 mg tablet 7.5 mg PO TID #90 tab 01/04/21 [Rx Last Taken Unknown] magnesium oxide 400 mg PO DAILY #90 cap 01/04/21 [Rx Last Taken Unknown] citalopram 20 mg tablet 20 mg PO DAILY #60 tab 02/02/21 [Rx Last Taken Unknown] gabapentin 100 mg capsule 100 mg PO BIDCM #180 cap 02/02/21 [Rx Last Taken Unknown] gabapentin 300 mg capsule 300 mg PO QHS #90 cap 02/02/21 [Rx Last Taken Unknown] cyclobenzaprine 10 mg tablet 5 mg PO TID PRN #60 tab 02/17/21 [Rx Last Taken Unknown] amlodipine 5 mg tablet 5 mg PO DAILY #30 tab 04/11/21 [Rx Last Taken Unknown] hydrocortisone 2.5 % topical cream 1 applic TOPICAL BID PRN #30 g 04/11/21 [Rx Last Taken Unknown] Allergy/AdvReac Type Severity Reaction Status Date / Time codeine Allergy Vomiting Verified 04/22/21 16:37 Penicillins [PCN] Allergy Shortness Verified 04/22/21 16:37 of breath Sulfa (Sulfonamide Allergy Vomiting Verified 04/22/21 16:37 Antibiotics) Family History Brother CVA (cerebral vascular accident) Grandfather Heart disease Mother Breast cancer Father Cancer Surgical History History of History of hysterectomy History of shoulder surgery History of tonsillectomy Hx of foot surgery Social History Smoking Status: Former smoker quit date: 09/02/03 Tobacco: How many years used: 40 alcohol intake: never substance use type: does not use what type of physical activity do you participate in: walking frequency: daily ROS ROS ED Constitutional Constitutional ED: Denies chills or weight loss Eyes Eyes: Denies change in vision or diplopia ENT ENT ED: Reports other Details: Lip laceration ; Denies ear pain, rhinorrhea or sore throat Cardiovascular Cardiovascular: Reports chest pain; Denies orthopnea, palpitations or racing heartbeat Respiratory/Chest Respiratory/Chest: Denies cough, dyspnea or orthopnea Gastrointestinal Gastrointestinal: Denies abdominal pain, diarrhea, nausea or vomiting Genitourinary Genitourinary ED: Denies dysuria, hematuria or urinary frequency Musculoskeletal Musculoskeletal: Reports other Details: Left hand pain ; Denies arthralgias or myalgias Integumentary Denies abscess or rash Neurologic Neurologic: Denies headache(s) or weakness Psychiatric Psychiatric: Denies anxiety, depression, suicidal ideation or suicidal thoughts Endocrine Endocrinology: Denies polydipsia, polyphagia or polyuria Allergic/Immunologic Allergic/Immunologic ED: Denies mouth swelling, tongue swelling or urticaria EXAM Physical Exam Const Vital Signs: 04/22/21 16:37 04/22/21 16:42 04/22/21 17:48 Temperature 97.2 F L Temperature Source Temporal Pulse Rate 91 84 Respiratory Rate 16 15 Respiratory Effort Normal Respiratory Depth Normal Respiratory Pattern Normal Blood Pressure 144/90 H 174/77 H Blood Pressure Mean 108 109 Pulse Ox 96 97 Oxygen Delivery Method Room Air Room Air Room Air Positive well nourished and well developed General Appearance ED: well developed HEENT Reports normocephalic, head/scalp atraumatic and moist mucous membranes HEENT Narrative: There is 1/2 cm gaping left lip laceration more on the lower lip but right at the junction of upper and lower lip on the left. There is concomitant swelling on the outside of the cheek. No malocclusion. No obvious dental injury. Midface stable. Eyes PERRL and EOMs intact bilaterally Neck no lymphadenopathy, supple and no JVD Chest Wall Chest Narrative: Tender to palpation in the left axillary ribs. No obvious deformity or crepitance. Resp normal respiratory effort and clear to auscultation bilaterally Cardio regular rate, regular rhythm and no murmurs GI normal to inspection, nondistended, normoactive bowel sounds and non-tender Palpation: soft Back/Spine no CVA tenderness and normal ROM Extremity Extremity Narrative: Swelling and tenderness to the dorsum of the left hand. No obvious deformity. General Extremety ED: Negative for edema General Extremity: Negative for edema Neuro oriented x3 and CN's II-XII intact bilaterally Sensorium / Orientation: alert Motor Exam: strength 5/5 throughout Psych mental status grossly normal Mood & Affect: Negative for depressed or tearful Skin no rashes or lesions noted and no wounds MDM MDM MDM Narrative Medical decision making narrative: CT of the brain and noncontrasted chest was obtained. No obvious fracture or intracranial hemorrhage noted. My interpretation of the plain films of the left hand is no acute fracture. The wound was locally anesthetized using 1% lidocaine. It was washed and explored. A total of 3 simple interrupted Vicryl sutures were placed with good approximation. Patient received wound care counseling. Return if worsening or concerns Radiography Diagnostic Testing: Radiology Impression Brain CT 04/22/21 16:50 IMPRESSION: No acute intracranial pathology of the brain. Old right-sided cerebral focal infarct. Electronically Signed: Jonny Cruz DO at 18:47 EDT Tel [phone], Service support , Discharge Plan Triage Chief Complaint: Fall ED Provider: Venu Perez Dx/Rx/DC Orders Clinical Impression: Laceration of lip, Contusion of face, Chest wall contusion, Contusion of hand, left Instructions: ED Chest Wall Contusion, ED Facial Contusion, ED Laceration, Lip or Mouth Prescriptions: No Action (DME) Handicap Placard See Rx Instructions .ROUTE .MEDSUPPLY Qty: 1 RF: 0 citalopram 20 mg tablet 20 mg PO DAILY Qty: 60 RF: 3 gabapentin 300 mg capsule 300 mg PO QHS Qty: 90 RF: 1 gabapentin 100 mg capsule 100 mg PO BIDCM Qty: 180 RF: 1 amlodipine 5 mg tablet 5 mg PO DAILY Qty: 30 RF: 2 hydrocortisone 2.5 % cream 1 applic topical BID PRN (Reason: rash) Qty: 30 RF: 2 diclofenac sodium 75 MG tablet,delayed release (DR/EC) 75 mg PO BID PRN (Reason: fibromyalgia) RF: 0 montelukast 10 MG tablet 10 mg PO DAILY RF: 0 aspirin 81 MG tablet,chewable 81 mg PO DAILY@0800 RF: 0 acetaminophen 325 MG tablet 650 mg PO Q6H PRN PRN (Reason: PAIN) RF: 0 potassium chloride 20 MEQ tablet 20 meq PO DAILYCM RF: 0 atorvastatin 80 mg tablet 80 mg PO QHS Qty: 90 RF: 3 buspirone 7.5 mg tablet 7.5 mg PO TID Qty: 90 RF: 1 magnesium oxide 400 mg magnesium capsule 400 mg PO DAILY Qty: 90 RF: 0 cyclobenzaprine 10 mg tablet 5 mg PO TID PRN (Reason: muscle spasm) Qty: 60 RF: 2 Primary Care Provider: Shantelle Mclain Referrals: Shantelle Mclain MD [Primary Care Provider] - Clinic,NOW [NON-STAFF] - As soon as possible Disposition Disposition: Home, Self Care
[2021-04-22 19:09] VITALS: BP 166/80; PULSE 74; RESP 16; O2SAT 94
== END 2021-04-22 19:16 | disposition home or self-care (01) ==
PROVIDERS: Emergency Provider Emergency Medicine; PCP Internal Medicine; Visit Provider Emergency Medicine
DX: S01.511A Laceration without foreign body of lip, initial encounter (principal); S00.83XA Contusion of other part of head, initial encounter; S20.219A Contusion of unspecified front wall of thorax, initial encounter; S60.222A Contusion of left hand, initial encounter; W01.0XXA Fall on same level from slipping, tripping and stumbling without subsequent striking against object, initial encounter; Y93.9 Activity, unspecified; Y92.9 Unspecified place or not applicable; I10 Essential (primary) hypertension; Z86.73 Personal history of transient ischemic attack (TIA), and cerebral infarction without residual deficits; Z79.82 Long term (current) use of aspirin; Z79.899 Other long term (current) drug therapy; Z87.891 Personal history of nicotine dependence
CPT/HCPCS: 12011; 70450; 71250; 73130; 99283

== ENCOUNTER → 2021-06-01 08:21 | Outpatient (CLI) | payer MEDICARE, MEDICAID, SELFPAY ==
[2021-06-01 12:34] LABS: Absolute Lymphocyte Count 1.32 X10^3/uL (0.83-4.51); Absolute Neutrophil Count 3.6 X10^3/uL (2.0-7.7); Basophil# 0.04 X10^3/uL; Basophil% 0.7 % (0-1); Eosinophil# 0.13 X10^3/uL; Eosinophils% 2.3 % (0-5); Hematocrit 43.1 % (37-47); Hemoglobin 14.5 g/dL (12.0-15.0); Lymphocyte # 1.32 X10^3/ul (0.83-4.51); Lymphocyte % 23.2 % (19-41); Mean Corp Hgb Conc 33.6 g/dL (32-36); Mean Corpuscular Hgb 30.7 pg (27.0-32.0); Mean Corpuscular Volume 91.1 fL (81-99); Mean Platelet Vol. 10.7 fl (6.2-12.0); Monocyte# 0.57 X10^3/uL; NRBC Flagged by Analyzer 0 % (0-5); Neutrophil # 3.63 X10^3/uL (2.7-7.7); Neutrophil % 63.6 % (47-70); Platelet Count 374 K/mm3 (150-450); RBC Distribution Width CV 13.8 % (11.6-14.6); RBC Distribution Width SD 46.4 fl (35.1-43.9); Red Blood Count 4.73 M/mm3 (4.2-5.4); White Blood Count 5.7 K/mm3 (4.4-11.0)
[2021-06-01 12:55] LABS: ALB/GLOB Ratio 0.9 RATIO (0.9-2.4); AST(SGOT) 24 U/L (15-37); Alanine Aminotransfer ALT/SGPT 52 U/L (13-56); Albumin, Serum 3.4 g/dL (3.2-5.0); Alkaline Phosphatase 120 U/L (45-117); Anion Gap 8 (5-15); BUN 15 mg/dL (7-18); BUN/Creat Ratio 19.3 RATIO (10-20); Chloride 107 mmol/L (98-107); Creatinine, Serum 0.78 mg/dL (0.55-1.02); EST Glomerular Filtration Rate 78 mL/min (>60); Est Glom Filt Rate - Afr Amer 95 mL/min (>60); Globulin 3.8 g/dL (2.2-4.2); Glucose 87 mg/dL (74-106); Potassium 4.1 mmol/L (3.5-5.1); Protein, Total 7.2 g/dL (6.4-8.2); Sodium Level 141 mmol/L (136-145)
[2021-06-02 15:54] LABS: T4 Free Direct 0.87 ng/dL (0.76-1.46); Thyroid Stim Hormone (TSH) 2.83 uIU/mL (0.358-3.74)
[2021-06-02 16:45] LABS: Vitamin B12 580 pg/mL (211-911); Vitamin D,25 Hydroxy 28.6 ng/mL
== END ==
PROVIDERS: Nurse Practitioner Family; PCP Internal Medicine; Referring Provider Internal Medicine; Visit Provider Internal Medicine
DX: E03.9 Hypothyroidism, unspecified (principal); E55.9 Vitamin D deficiency, unspecified; E56.9 Vitamin deficiency, unspecified
CPT/HCPCS: 36415; 80053; 82306; 82607; 84439; 84443; 85025

== ENCOUNTER 2021-08-08 09:30 | Outpatient (RCR) | payer MEDICARE, MEDICAID, SELFPAY ==
[2020-12-05 15:27] VITALS: BMI 26.4
--- NOTE | 2021-01-02 18:03 | HP.PTEVAL_ITS ---
Patient's Visit Information SATURNINO MAY is a 70 year old F referred to Physical Therapy by Dr. Shantelle Mclain MD with a diagnosis of CVA. Date of Evaluation: 01/02/21 Physical Therapist: Julito Baez, PT, Cert MDT, OCS - Visit Plan Frequency: 2x /Week Duration: 4 Weeks Plan: PT INTERVENTIONS GAIT AND BALANCE TRAINING,LE STRENGTHENING ESPECIALLY LEFT ,FUNCTIONAL STRENGTHENI NG AND ENDURANCE PROGRAM - Subjective This 70 y/o female presents to physical therapy with with CVA with left side hemispheres.Patient November 09 noticed dizziness and falling went to ER thought it was vertigo . Patient d/c and next morning unable to stand and walk and unable to move left arm and leg. November [address] [facility]. Patient transferred [facility] for 5 days for further testing. MRI showed right basali ganglia CVA ,right caudate nucleus frontal radiata. Patient was eventually transferred to Rehab 2 weeks ,then TCU 2weeks then [facility] for 2weeks. Intially used walker with paltorm left then transferred to December 01. D/C to home Last Saturday. lives alone . [place] . Bathroom tub/shower with bench. Patient able o bath/ dress and cook.Patient denies parathesia/tingling. Patient sleeping not good. Patient had RTC surgery last year done by DR Solano now has frozen shoulder. SOCAIL : single. VOCATION: [employer] part-time - Pain Right Shoulder Pain Intensity (Out of 10): 9 Pain Intensity Range: N/A - Objective POSTURE: mild foward posture ,left arm dangles. NEURO: denies parathesia/tingling ,hyperrflexia achilles and patella tendon ,ataxia hypertonicity left UE/LE,light touch intact. PROM: LE WFL. MMT: QUADS/HAMS RIGHT 4/5,LEFT 4-/5,HIP FLEXION RIGHT 4/5,LEFT 3+/5 ,HIP ABD RIGHT 4-/5,LEFT 3+/5 ,ANKLE LEFT 4-/5,RIGHT 4/5. BALANCE: fair+ with QC. GAIT: ambulates with QC with ataxia left leg with decrease control and placement with increase hip flexion. FLEXABLITY: hams mild tight - Balance Scores CATSIB Score (Max score 120 seconds): 35 - Goals Goal 1:: I with HEP. Goal Time Frame: 4-6 Weeks Goal 2:: Patient to ambulate with least restrictive with quality of gait community distances Goal Time Frame: 4-6 Weeks Goal 3:: Improve dynamic balance good- Goal Time Frame: 4-6 Weeks Goal 4:: Patient to increase strength by 4-/5 left leg to improve with gait Goal Time Frame: 4-6 Weeks Goal 5:: Patient to improve CATSIB BY 5 POINTS OR > to improve balance Goal Time Frame: 4-6 Weeks Goal 6:: Patient to improve LFES score by 5-10points or > to improve function with gait. Goal Time Frame: 4-6 Weeks - Rehabilitation Potential Physical Therapy Diagnosis: This patient had CVA with left side hemiparesis with weakness left side ,hypertonicity ,impairs ,gait and balance thus benefit from skilled PT to address these impairments Rehabilitation Potential: Good - Anticipated Interventions Patient/Client Instruction: Educate patient on: Condition, Plan of Care For the Purpose of:: To decrease pain, To improve muscle performance and motor function, To improve ability to perform ADL's, To increase tolerance to activity/condition/position, To improve performance and independence with ADL's, To improve ability of physical actions for home/community/work/leisure, To improve gait and locomotor functions, To improve endurance, To improve balance, To reduce risk of recurrence, To improve tolerance to ADL's Therapeutic Exercise to Include: Strength training, Endurance training, Balance training, Coordination, Gait and locomotor training Comment: BLE For the Purpose of:: To improve muscle performance and motor function, To improve ability to perform ADL's, To increase tolerance to activity/condition/position, To improve performance and independence with ADL's, To improve ability of physical actions for home/community/work/leisure, To improve gait and locomotor functions, To increase flexibility/ROM, To improve endurance, To improve balance, To improve safety with gait, To improve tolerance to ADL's Functional Training to Include: Gait training For the Purpose of:: To improve muscle performance and motor function, To increase tolerance to activity/condition/position, To improve performance and independence with ADL's, To improve ability of physical actions for home/community/work/leisure, To improve gait and locomotor functions Thank you for the opportunity to evaluate your patient. For Medicare and Medicare HMO plans, please review the plan of care and approve it. It will need to be FAXED BACK to us at [phone] for Medicare purposes. For Medicare only, by signing this I certify the plan of care. Please let me know if there are questions or concerns regarding this plan of care. Physician Signature: Date:
--- NOTE | 2021-01-10 15:07 | HP.OTEVAL_ITS ---
Patient's Visit Information SATURNINO MAY is a 70 year old F, referred to Occupational Therapy by Dr. Shantelle Mclain MD, with a diagnosis of CVA left side weakness. Date of Evaluation: 01/10/21 Occupational Therapist: Sari Turner, ARIANA/Neal, CHT - Subjective This 70 y/o female presents to physical therapy with with CVA with left side hemispheres.Patient November 09 noticed dizziness and falling went to ER thought it was vertigo . Patient d/c and next morning unable to stand and walk and unable to move left arm and leg. November 10 admitted to [facility]. Patient transferred [facility] for 5 days for further testing. MRI showed right basali ganglia CVA ,right caudate nucleus frontal radiata. Patient was eventually transferred to Rehab 2 weeks ,then [facility] 2weeks then [facility] for 2weeks. Intially used walker with paltform left then transferred to December 01. D/C to home Last Saturday. lives alone . [place] . Bathroom tub/shower with bench. Patient able o bath/ dress and cook.Patient denies parathesia/tingling. Patient sleeping not good. Patient had RTC surgery last year done by DR Solano now has frozen shoulder. SOCAIL : single. VOCATION: [employer] part-time. [ End ] - ADLs Comments: pt states she is doing fine states she is using at extended tub shower chair- pt ambulates with quad cane- pt lives alone in ranch home with laundry is in basement pt states she has supportive family to assist with laundry. Friends will get groceries. pt states she did not get much therapy with her left arm at [facility]CU or [facility]- - Pain right shoulder 5 Pain Intensity Range: 3, 6 - ROM Shoulder: right 90* with pain left slight initiation Elbow: right WNL left 20* Forearm: right WNL left 30* Wrist: right WNL left initiation of wrist motion ROM Comments: pt demo with initiation of digit ROM and thumb flex- - Strength Shoulder: right NT due to pain left unable Elbow: right 4+/5 left trace Stiff Leg Derrick Operator: right 60# left 3# Lateral Pinch: right 10# left unable Tripod Pinch: right 10# left unable - Sensation Sensation Comments: denies - Stroke Specific Quality of Life Total SS-QOL Score: 135 - Quick DASH-Disab of Arm,Shoulder& Hand Quick DASH Score: 78.3325 - Goals Goal:: Pt will demo to jossie. MMT to left UE at a 4/5 testing level by d/c Goal:: pt will demo shoulder flex to 140* or greater to increase pts ind. with ADLs and IADLs by d/c. pt will demo full elbow flex/ext to increase pts ind with ADLs and IADLs by d/c. pt will demo wrist ext with grasp of object from table top 80% of the time by d/c Goal:: pt will demo the ability to manipulate med/large and small objects in left hand to increase ind. with ADLs and IADLs by d/c - Rehabilitation General Assessment: pt demo with left shoulder sublux, and initiation of motor movement of elbow, forearm, wrist and digits - pts movement and strength limit her functional use of left UE with bilateral hand skills with bathing, dressing cleaning and cooking tasks- pt unable to drive or perform laundry as this is located in her basement- pt would benefit from skilled OT services 3-2-3x week for 8 weeks to increase functional ROM and initiate grasp release of left hand with ADLs and IADls. pt demo understanding and agree to POC Rehabilitation Potential: Good - Anticipated Interventions A/AAROM/PROM, Strengthening, Fine Motor Coord/Baron, Neuro Reeducation, ADL Training, Education re assistive Equipment - Visit Plan Frequency: 2-3x /Week Duration: 2 Months TEXT: Thank you for the opportunity to evaluate your patient. For Medicare and Medicare HMO plans, please review the plan of care and approve it. It will need to be FAXED BACK to us at [phone] for Medicare purposes. Please let me know if there are questions or concerns regarding this plan of care. Physician Signature:___ Date:
--- NOTE | 2021-02-09 11:00 | HP.PTREVAL_ITS ---
Dr. Shantelle Mclain MD, It has been my pleasure to treat SATURNINO MAY over the last 11 visits for CVA (Left-sided weakness). Please see the progress note below for an update on the physical therapy plan of care! Subjective: Doing better progressed to cane .Pain in shoulder betterr Objective/Function: Stairs: 1 flight x3 trips recip using Right rail (close SBA). GAIT: Ambulates with straight cane 2 point gait mild ataxia with decrease control and placement with slight inversion ankle. BALANCE: GOOD -. MMT: LEFT quad/hams 4-/5,hip flexion 4-/5,hip abd 3+/5,ankle 4-/5. NEURO: ataxia left leg. AROM: shoulder flexion 115 degrees, abduction 110 degrees. MMT: RIGHT SHOULDER SUPRASPINATOUS ,INFRASPINATOUS 3+/5,DELTOID 3/5 Plan Plan: INTERVENTIONS GAIT AND BALANCE TRAINING,LE STRENGTHENING ESPECIALLY LEFT, FUNCTIONAL STRENGTHENING AND ENDURANCE PROGRAM,ROM AND STRINGTHNEING RIGGHT SHOULDER Goals Goal 1:: I with HEP. Goal Time Frame: 4-6 Weeks Goal Progress: Progressing Goal 2:: Patient to ambulate with least restrictive with quality of gait community distances Goal Time Frame: 4-6 Weeks Goal Progress: Progressing Goal 3:: Improve dynamic balance good- Goal Time Frame: 4-6 Weeks Goal Progress: Progressing Goal 4:: Patient to increase strength by 4-/5 left leg to improve with gait Goal Time Frame: 4-6 Weeks Goal Progress: Progressing Goal 5:: Patient to improve CATSIB BY 5 POINTS OR > to improve balance Goal Time Frame: 4-6 Weeks Goal Progress: Progressing Goal 6:: Patient to improve LFES score by 5-10points or > to improve function with gait. Goal Time Frame: 4-6 Weeks Goal Progress: Progressing Anticipated Interventions Patient/Client Instruction: Educate patient on: Condition, Plan of Care For the Purpose of:: To decrease pain, To improve muscle performance and motor function, To improve ability to perform ADL's, To increase tolerance to activity/condition/position, To improve performance and independence with ADL's, To improve ability of physical actions for home/community/work/leisure, To improve gait and locomotor functions, To improve endurance, To improve balance, To reduce risk of recurrence, To improve tolerance to ADL's Therapeutic Exercise to Include: Strength training, Endurance training, Balance training, Coordination, Gait and locomotor training Comment: BLE For the Purpose of:: To improve muscle performance and motor function, To improve ability to perform ADL's, To increase tolerance to activity/condition/position, To improve performance and independence with ADL's, To improve ability of physical actions for home/community/work/leisure, To improve gait and locomotor functions, To increase flexibility/ROM, To improve endurance, To improve balance, To improve safety with gait, To improve tolerance to ADL's Functional Training to Include: Gait training For the Purpose of:: To improve muscle performance and motor function, To increase tolerance to activity/condition/position, To improve performance and independence with ADL's, To improve ability of physical actions for h ome/community/work/leisure, To improve gait and locomotor functions Manual Therapy Techniques to Include: Massage, Mobilization, Passive ROM, Functional dry needling, Soft tissue mobilization For the Purpose of:: To decrease pain, To increase ROM, To improve muscle performance and motor function, To increase tolerance to activity/condition/position, To decrease soft tissue restriction, To increase flexibility/ROM, To assume or resume ADL's, To improve tolerance to ADL's TENS: Yes Cryotherapy (ice pack, ice massage): Yes Thermo therapy (hot pack): Yes Ultrasound (thermal/non thermal): Yes For the Purpose of:: To decrease pain, To increase ROM, To increase oxygenation perfusion, To improve muscle performance and motor function, To increase tolerance to activity/condition/position, To improve health of tissue, To inc rease flexibility/ROM Please do not hesitate to contact me at [phone] by phone or if you have questions or concerns regarding this new plan of care! Sincerely, Julito Baez, PT, Cert MDT, OCS
--- NOTE | 2021-02-09 13:25 | HP.OTREVAL ---
Dr. Shantelle Mclain MD, It has been my pleasure to treat SATURNINO MAY over the last 8 visits for CVA left side weakness. Please see the progress note below for an update on the occupational therapy plan of care! Subjective: pt arrives for OT following PT- pt is making good gains with her ROM and strength Objective/Function: pt demo a increase in AROM of elbow from 30* to 95*. pt demo increase in wrist ext to 30* and noted increase in digit ext and thumb motion- pt shoulder continues to be limited with AROM. pt demo with increase grasp with med. size objects but demonstrates difficulty with digit release- Plan Frequency: 2-3x /Week Duration: 2 Months Plan: pt would benefit from skilled OT services 2-3x week for 6 weeks to continue to challenge pts return of left functional use of her arm. Goals - Goals Patient Goals: Regain Mobility, Regain Strength, Improve Fine Motor Skills, Use Hand/Wrist/Arm Normally Again Goal:: Pt will demo to jossie. MMT to left UE at a 4/5 testing level by d/c Goal:: pt will demo shoulder flex to 140* or greater to increase pts ind. with ADLs and IADLs by d/c pt making gains with shoulder. pt will demo full elbow flex/ext to increase pts ind with ADLs and IADLs by d/c making gains with movement but weakness limiting pts full elbow ROM. pt will demo wrist ext with grasp of object from table top 80% of the time by d/c Making gains with grasp but continues to struggle with release of objects. Goal:: pt will demo the ability to manipulate med/large and small objects in left hand to increase ind. with ADLs and IADLs by d/c Anticipated Interventions Anticipated Interventions: A/AAROM/PROM, Strengthening, Fine Motor Coord/Baron, Neuro Reeducation, ADL Training, Education re assistive Equipment Please do not hesitate to contact me at [phone] by phone or if you have questions or concerns regarding this new plan of care! Sincerely, Sari Turner, OTR/L, CHT
--- NOTE | 2021-03-20 12:11 | HP.PTREVAL_ITS ---
Dr. Shantelle Mclain MD, It has been my pleasure to treat SATURNINO MAY over the last 24 visits for CVA (Left-sided weakness). Please see the progress note below for an update on the physical therapy plan of care! Subjective: Doing well ,but yesterday achy everywhere. Walks without cane in home Objective/Function: POSTURE: mild forward posture Left leg rotateed. GAIT: ambulated with no device decrease mild stance left. flexor synergy ankle with hip/knee flexion. NEURO: hyperreflexia, Achilles and patella, flexor sy nergy. mild ataxia. MMT : LLE QUADS/HAMS 4/5,HIP FLEXION 4-/5,ANKLE 4-/5. AROM RIGHT SHOULDER: flexion 120 degrees,abd 95 degrees, Plan Plan: cont with poc for 24 units 2x/week for 4weeks. GAIT AND BALANCE TRAINING, LE STRENGTH (ESPECIALLY LEFT), FUNCTIONAL STRENGTHENING AND ENDURANCE PROGRAM, RIGHT SHLD STRENGTH AND ROM Goals Goal 1:: I with HEP. Goal Time Frame: 4-6 Weeks Goal Progress: Progressing Goal 2:: Patient to ambulate with least restrictive with quality of gait community distances Goal Time Frame: 4-6 Weeks Goal Progress: Progressing Goal 3:: Improve dynamic balance good- Goal Time Frame: 4-6 Weeks Goal Progress: Progressing Goal 4:: Patient to increase strength by 4-/5 left leg to improve with gait Goal Time Frame: 4-6 Weeks Goal Progress: Progressing Goal 5:: Patient to improve CATSIB BY 5 POINTS OR > to improve balance(MET). (NEW GOAL) Patient to improve CATSIB by 5 points or >. Goal Time Frame: 4-6 Weeks Goal Progress: Progressing Goal 6:: Patient to improve LFES score by 5-10points or > to improve function with gait. Goal Time Frame: 4-6 Weeks Goal Progress: Progressing Anticipated Interventions Patient/Client Instruction: Educate patient on: Condition, Plan of Care For the Purpose of:: To decrease pain, To improve muscle performance and motor function, To improve ability to perform ADL's, To increase tolerance to activity/condition/position, To improve performance and independence with ADL's, To improve ability of physical actions for home/community/work/leisure, To improve gait and locomotor functions, To improve endurance, To improve balance, To reduce risk of recurrence, To improve tolerance to ADL's Therapeutic Exercise to Include: Strength training, Endurance training, Balance training, Coordination, Gait and locomotor training Comment: BLE For the Purpose of:: To improve muscle performance and motor function, To improve ability to perform ADL's, To increase tolerance to activity/condition/position, To improve performance and independence with ADL's, To improve ability of physical actions for home/community/work/leisure, To improve gait and locomotor functions, To increase flexibility/ROM, To improve endurance, To improve balance, To improve safety with gait, To improve tolerance to ADL's Functional Training to Include: Gait training For the Purpose of:: To improve muscle performance and motor function, To increase tolerance to activity/condition/position, To improve performance and independence with ADL's, To improve ability of physical actions for home/community/work/leisure, To improve gait and locomotor functions Manual Therapy Techniques to Include: Massage, Mobilization, Passive ROM, Functional dry needling, Soft tissue mobilization For the Purpose of:: To decrease pain, To increase ROM, To improve muscle performance and motor function, To increase tolerance to activity /condition/position, To decrease soft tissue restriction, To increase flexibility/ROM, To assume or resume ADL's, To improve tolerance to ADL's TENS: Yes Cryotherapy (ice pack, ice massage): Yes Thermo therapy (hot pack): Yes Ultrasound (thermal/non thermal): Yes For the Purpose of:: To decrease pain, To increase ROM, To increase oxygenation perfusion, To improve muscle performance and motor function, To increase tolerance to activity/condition/position, To improve health of tissue, To increase flexibility/ROM Please do not hesitate to contact me at [phone] by phone or if you have questions or concerns regarding this new plan of care! Sincerely, Julito Baez, PT, Cert MDT, OCS
--- NOTE | 2021-04-10 08:04 | HP.PTEVAL2_ITS ---
Patient's Visit Information SATURNINO MAY is a 70 year old F referred to Physical Therapy by Dr. Erich aHll DO with a diagnosis of R RTC tear with RTC atrophy. Date of Evaluation: 04/04/21 Physical Therapist: Jim Hernández DPT - Visit Plan Frequency: 2x /Week Duration: 4 Weeks Plan: Start with RTC stability, deltoid strengthening. Progress as tolerated. Will have to work around absent supraspinatus muscle. Work on deltoid, trapezius strengthening. - Subjective Subjective: Pt. is here today after seeing her physician for her R shoulder pain. She has a subsequent full thickness supraspinatus RTC tear with 4.5cm retr action. Pt. 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 She has a weak LUE, greatest in her shoulder. She is having increased R shoulder pain with all lifting, raising her arm over her head, opening doors, sleeping and with upper body dressing. She is able to drive, but does report some pain with turning. She relies on her R shoulder for most tasks due to L shoulder weakness. She reports being limited with her R shoulder to activiites below shoulder height. She is unable to get in cabinets and other overhead activities. She denies N/T, but does have pain that goes down her arm at times. Pt. was told that her options are PT, injection or reverse total shoulder due to retraction of RTC (repair not being possible). Pt. is hopeful to increase her R shoulder ROM and strength in order to get back to all recreational and household activities with decreased symptoms. - Pain R shoulder Intensity: 1 Pain Intensity Range: 0, 5 - Objective Objective: POSTURE: Pt. has general flexed posture with rounded shoulders. Pt. has R UE is slight guarded posture with slight shoulder elevation. L UE is in guarded posture with arm at side. PALPATION: pt. has minimal pain with palpation throughout RUE. Pt. has no sulcus sign on R shoulder, marked on L due to muscle weakness after CVA. NEURO: Pt. has normal sensation of R UE without issues. Pt. has normal DTR of R biceps and triceps. ROM: AROM: R shoulder: flexion 110deg, abd 95deg, functional ER C1, functional IR L3. No pain with movements, but limited with over head motions. PROM: R shoulder: flexion 160deg, abd 150deg, ER at 90dge 60deg, IR at 90deg 40deg. Pt. had slight soreness at end range of motion, but moslty limited secondary to stiffness. MMT: UE: limited strength in LUE due to CVA injury. RUE: wrist and elbow 5/5 throughout. R shoulder: flexion 4-/5, abd 4-/5, ER 3-/5, IR 4+/5, ext 5/5. - Goals Goal 1:: LTG: Pt. to be I with HEP for R shoulder strengthening. Goal Time Frame: 4-6 Weeks Goal 2:: STG: Pt. to report no pain with all daily activities. Goal Time Frame: 2-4 Weeks Goal 3:: LTG: pt. to have increased strength of R shoulder by 1/2 grade throughout effected musculature. Goal Time Frame: 4-6 Weeks Goal 4:: LTG: Pt. to be able to reach over head even with aberrant motion allowing for increased function. Goal Time Frame: 4-6 Weeks Goal 5:: LTG: Pt. to have increased active R shoulder ROM to at least 130deg of overhead motions allowing for increased ability to complete functional tasks. Goal Time Frame: 4-6 Weeks - Rehabilitation Potential Physical Therapy Diagnosis: Pt. has signs and symptoms consistent with R RTC with significant muscle atrophy. Pt. has limited active over head mobility in her R shoulder due to RTC tear and muscle atrophy. Due to her limited strength and mobility in her L UE she has to highly rely on her RUE for daily tasks. Physician did suggest possible need for reverse TSA at some point. She is hesitant to do any surgeries effecting her R shoulder, due to limited LUE functional mobility at this point in time. I would recommend working on strengthening and stability of her R shoulder to increase functional use. Rehabilitation Potential: Fair - Anticipated Interventions Patient/Client Instruction: Educate patient on: Condition, Plan of Care, Risk Factors, Benefits of Fitness Program For the Purpose of:: To facilitate caregiver knowledge, To improve self management, To prevent re-injury, To improve ability to perform tasks related to life management, To improve tolerance to ADL's Therapeutic Exercise to Include: Strength training, Power training, Coordination, Flexibilty training, Passive ROM, Active ROM, Scapular Strength/Stabilization For the Purpose of:: To decrease pain, To decrease swelling/inflammation, To increase ROM, To improve nutrient delivery to tissue, To increase oxygenation perfusion, To improve health of tissue, To decrease soft tissue restriction, To increase flexibility/ROM Thank you for the opportunity to evaluate your patient. For Medicare and Medicare HMO plans, please review the plan of care and approve it. It will need to be FAXED BACK to us at [phone] for Medicare purposes. For Medicare only, by signing this I certify the plan of care. Please let me know if there are questions or concerns regarding this plan of care. Physician Signature: Date:
--- NOTE | 2021-04-19 10:00 | HP.PTREVAL ---
Dr. Gregorio Lopez, DO, It has been my pleasure to treat SATURNINO MAY over the last 32 visits for CVA (Left-sided weakness). Please see the progress note below for an update on the physical therapy plan of care! Subjective: Talked about transition to Sliver sneakers. Patient states back to work doing well .getting back to normal with activity Objective/Function: POSTURE: mild forward posture. NEURO: min ataxia LLE. GAIT: ambulates with slight antalgic gait min ataxia LLE. BALANCE: GOOD-. MMT: LLE QUADS/HAMS 4/5,4-/5 HIP FLEXION ,ANKLE 4-/5. STAIRS: alternating with on rail Plan Plan: Cont with poc for 12 units 2x/week for 4weeks. GAIT AND BALANCE TRAINING, LE STRENGTH (ESPECIALLY LEFT), FUNCTIONAL STRENGTHENING AND ENDURANCE PROGRAM, RIGHT SHLD STRENGTH AND ROM Balance/Gait/Functional tests - Balance/Special Test Scores Functional Gait Assessment Score: 18 % Disability: 40.0000 CATSIB Score (Max score 120 seconds): 110 Lower Extremity Functional Score: 32 Quick DASH Score: 61.3625 Goals Goal 1:: I with HEP. Goal Time Frame: 4-6 Weeks Goal Progress: Goal Met Goal 2:: Patient to ambulate with least restrictive with quality of gait community distances Goal Time Frame: 4-6 Weeks Goal Progress: Progressing Goal 3:: Improve dynamic balance good- Goal Time Frame: 4-6 Weeks Goal Progress: Progressing Goal 4:: Patient to increase strength by 4+/5 left leg to improve with gait (new goal) Goal Time Frame: 4-6 Weeks Goal Progress: Progressing Goal 5:: Patient to improve CATSIB BY 5 POINTS OR > to improve balance(MET). (NEW GOAL) Patient to improve CATSIB by 5 points or >. Goal Time Frame: 4-6 Weeks Goal Progress: Progressing Goal 6:: Patient to improve LFES score by 5-10points or > to improve function with gait. Goal Time Frame: 4-6 Weeks Goal Progress: Progressing Anticipated Interventions Patient/Client Instruction: Educate patient on: Condition, Plan of Care For the Purpose of:: To decrease pain, To improve muscle performance and motor function, To improve ability to perform ADL's, To increase tolerance to activity/condition/position, To improve performance and independence with ADL's, To improve ability of physical actions for home/community/work/leisure, To improve gait and locomotor functions, To improve endurance, To improve balance, To reduce risk of recurrence, To improve tolerance to ADL's Therapeutic Exercise to Include: Strength training, Endurance training, Balance training, Coordination, Gait and locomotor training Comment: BLE For the Purpose of:: To improve muscle performance and motor function, To improve ability to perform ADL's, To increase tolerance to activity/condition/position, To improve performance and independence with ADL's, To improve ability of physical actions for home/community/work/leisure, To improve gait and locomotor functions, To increase flexibility/ROM, To improve endurance, To improve balance, To improve safety with gait, To improve tolerance to ADL's Functional Training to Include: Gait training For the Purpose of:: To improve muscle performance and motor function, To increase tolerance to activity/condition/position, To improve performance and independence with ADL's, To improve ability of physical actions for home/community/work/leisure, To improve gait and locomotor functions Manual Therapy Techniques to Include: Massage, Mobilization, Passive ROM, Functional dry needling, Soft tissue mobilization For the Purpose of:: To decrease pain, To increase ROM, To improve muscle performance and motor function, To increase tolerance to activity/condition/position, To decrease soft tissue restriction, To increase flexibility/ROM, To assume or resume ADL's, To improve tolerance to ADL's TENS: Yes Cryotherapy (ice pack, ice massage): Yes Thermo therapy (hot pack): Yes Ultrasound (thermal/non thermal): Yes For the Purpose of:: To decrease pain, To increase ROM, To increase oxygenation perfusion, To improve muscle performance and motor function, To increase tolerance to activity/condition/position, To improve health of tissue, To increase flexibility/ROM Please do not hesitate to contact me at [phone] by phone or if you have questions or concerns regarding this new plan of care! Sincerely, Julito Baez, PT, Cert MDT, OCS
--- NOTE | 2021-04-19 11:00 | HP.OTREVAL ---
Dr. Gregorio Lopez, DO, It has been my pleasure to treat SATURNINO MAY over the last 14 visits for CVA left side weakness. Please see the progress note below for an update on the occupational therapy plan of care! Subjective: Pt arrived late from PT stating that she worked really hard yesterday at work, but feels good. She reported that she is doing well at home, but still would like to see more improvement with ADLs and IADLs. Objective/Function: Pt did very well with grasping 6 small wooden blocks and ambulating to the correct cups to place them. Pt is able to pinch small wooden blocks better than before and can in-hand manipulate very well. She has made gains with FMS in pinching and grasping, and made gains on sh flexion. pt would benefit from continued skilled OT services to work with FMS and increase return of left UE ROM- pt continues to need k-tape to assist in left shoulder stability. left shoulder flex continues to be limited at 65* prior to compensating with arching her back. pt has returned to work and has noticed increase fatigue. pt continues to perform right shoulder isometrics, t-band green and orange in color-. will continue to ed. pt on ad. eq. Plan Frequency: 1-2x /Week Duration: 4 Weeks Visits in this POC: 48 units approved Plan: cont POC 2x week for weeks Goals - Goals Patient Goals: Regain Mobility, Regain Strength, Improve Fine Motor Skills, Use Hand/Wrist/Arm Normally Again Goal:: Pt will demo to jossie. MMT to left UE at a 4/5 testing level by d/c Goal:: pt will demo shoulder flex to 140* or greater to increase pts ind. with ADLs and IADLs by d/c pt making gains with shoulder. pt will demo full elbow flex/ext to increase pts ind with ADLs and IADLs by d/c making gains with movement but weakness limiting pts full elbow ROM. pt will demo wrist ext with grasp of object from table top 80% of the time by d/c Making gains with grasp but continues to struggle with release of objects. Goal:: pt will demo the ability to manipulate med/large and small objects in left hand to increase ind. with ADLs and IADLs by d/c Anticipated Interventions Anticipated Interventions: A/AAROM/PROM, Strengthening, Fine Motor Coord/Baron, Neuro Reeducation, ADL Training, Education re assistive Equipment Please do not hesitate to contact me at [phone] by phone or if you have questions or concerns regarding this new plan of care! Sincerely, Sari Turner, OTR/L, CHT
--- NOTE | 2021-06-22 09:31 | HP.PTREVAL_ITS ---
Dr. Gregorio Lopez, DO, It has been my pleasure to treat SATURNINO MAY over the last 40 visits for CVA (Left-sided weakness). Please see the progress note below for an update on the physical therapy plan of care! Subjective: Received 12 new visits. Doing better. Working 8 hours day Objective/Function: POSTURE: MILD FORWARD POSTUTR. GAIT: RECIPROCAL PATTERN DECREASE TRUNK ROTATION WITH FLEXOR SYNERGY ANKLE ATAXIA. MMT:QUADS/HAMS 4/5,HIP FLEXION 4-/5,ANKLE 3+/5. BALANCE: FAIR+ Plan Plan: Received 12 visits. GAIT AND BALANCE TRAINING, LE STRENGTH (ESPECIALLY LEFT), FUNCTIONAL STRENGTHENING AND ENDURANCE PROGRAM, RIGHT SHLD STRENGTH AND ROM Balance/Gait/Functional tests - Balance/Special Test Scores Functional Gait Assessment Score: 20 % Disability: 33.3400 CATSIB Score (Max score 120 seconds): 110 Lower Extremity Functional Score: 49 Quick DASH Score: 61.3625 Goals Goal 1:: I with HEP. Goal Time Frame: 4-6 Weeks Goal Progress: Goal Met Goal 2:: Patient to ambulate with least restrictive with quality of gait community distances (GOAL MET) Goal Time Frame: 4-6 Weeks Goal Progress: Goal Met Goal 3:: Improve dynamic balance good. ( NEW GOAL) Goal Time Frame: 4-6 Weeks Goal Progress: Progressing Goal 4:: Patient to increase strength by 4+/5 left leg to improve with gait (new goal) Goal Time Frame: 4-6 Weeks Goal Progress: Progressing Goal 5:: Patient to improve CATSIB BY 5 POINTS OR > to improve balance(MET). (NEW GOAL) Patient to improve CATSIB by 5 points or >. Goal Time Frame: 4-6 Weeks Goal Progress: Progressing Goal 6:: Patient to improve LFES score by 5-10points or > to improve function with gait. Goal Time Frame: 4-6 Weeks Goal Progress: Progressing Anticipated Interventions Patient/Client Instruction: Educate patient on: Condition, Plan of Care For the Purpose of:: To decrease pain, To improve muscle performance and motor function, To improve ability to perform ADL's, To increase tolerance to activity/condition/position, To improve performance and independence with ADL's, To improve ability of physical actions for home/community/work/leisure, To improve gait and locomotor functions, To improve endurance, To improve balance, To reduce risk of recurrence, To improve tolerance to ADL's Therapeutic Exercise to Include: Strength training, Endurance training, Balance training, Coordination, Gait and locomotor training Comment: BLE For the Purpose of:: To improve muscle performance and motor function, To improve ability to perform ADL's, To increase tolerance to activity/condi tion/position, To improve performance and independence with ADL's, To improve ability of physical actions for home/community/work/leisure, To improve gait and locomotor functions, To increase flexibility/ROM, To improve endurance, To improve balance, To improve safety with gait, To improve tolerance to ADL's Functional Training to Include: Gait training For the Purpose of:: To improve muscle performance and motor function, To increase tolerance to activity/condition/position, To improve performance and independence with ADL's, To improve ability of physical actions for home/community/work/leisure, To improve gait and locomotor functions Manual Therapy Techniques to Include: Massage, Mobilization, Passive ROM, Functi onal dry needling, Soft tissue mobilization For the Purpose of:: To decrease pain, To increase ROM, To improve muscle performance and motor function, To increase tolerance to activity/condition/position, To decrease soft tissue restriction, To increase flexibility/ROM, To assume or resume ADL's, To improve tolerance to ADL's TENS: Yes Cryotherapy (ice pack, ice massage): Yes Thermo therapy (hot pack): Yes Ultrasound (thermal/non thermal): Yes For the Purpose of:: To decrease pain, To increase ROM, To increase oxygenation perfusion, To improve muscle performance and motor function, To increase tolerance to activity/condition/position, To improve health of tissue, To increase flexibility/ROM Please do not hesitate to contact me at [phone] by phone or if you have questions or concerns regarding this new plan of care! Sincerely, Julito Baez, PT, Cert MDT, OCS
== END 2021-08-08 19:00 | disposition home or self-care (01) ==
LOC: OT 09:30
PROVIDERS: PCP Internal Medicine; Referring Provider Orthopaedic Surgery; Visit Provider Orthopaedic Surgery
DX: S46.011D Strain of muscle(s) and tendon(s) of the rotator cuff of right shoulder, subsequent encounter (principal); X58.XXXD Exposure to other specified factors, subsequent encounter; I69.354 Hemiplegia and hemiparesis following cerebral infarction affecting left non-dominant side; M50.10 Cervical disc disorder with radiculopathy, unspecified cervical region
CPT/HCPCS: 97110; 97112; 97140; 97161; 97162; 97164; 97166; 97530

== ENCOUNTER 2021-08-24 13:30 | Outpatient (RCR) | payer MEDICARE, MEDICAID, SELFPAY ==
--- NOTE | 2021-08-24 13:55 | HP.OTREVAL ---
Dr. Shantelle Mclain MD, It has been my pleasure to treat SATURNINO MAY over the last 12 visits for CVA. Please see the progress note below for an update on the occupational therapy plan of care! Subjective: pt arrives to session- reports she is working 45-50 hours a week-this limits pts ability to perform her HEP- pts states she using her left UE more with cooking- and with work task- pt continues to have concerns with her left shoulder as this is not returning as well- Objective/Function: left shoulder flex 30*. shoulder flexion in semi anti-gravity position 55*. pt demo with left elbow -25/140. pt demo with full forearm supination and pronation (with fluid movement pattern). pt demo left wrist flex/ext with fluid motion-. pt demo the ability to form a composite fist and open fingers-. pt attempted 9-hole peg test more difficulty with shoulder movement patterns- than digits -pt continues to struggle with a fluid grasp/pinch release of small objects-. left coater brake linings strength ranges 10-13#. left lateral pinch 8#. pt continues to demo limited left UE and FMS return to her PLOF- pt would benefit from continued services 2x week for 8 weeks. Plan Frequency: 2x /Week Duration: 2 Months Plan: therapy is requesting cont. of OT services 2x week for 8 weeks. Anticipated Interventions Please do not hesitate to contact me at [phone] by phone or if you have questions or concerns regarding this new plan of care! Sincerely, Sari Turner, OTR/L, CHT
--- NOTE | 2021-08-24 14:46 | HP.PTDCSUM ---
It has been my pleasure to treat SATURNINO MAY referred by Dr. Shantelle Mclain MD, with the diagnosis of DR. LANIER for a total of 48 visit(s). Discharge Date: 08/24/21 Please see the following information for a summary of their discharge status. Subjective: Doing good overall .. RTW and driving Right Shoulder Pain Intensity (Out of 10): 3 % Improvement: 75 Objective/Function: POSTURE: lid forward posture. GAIT: ambulates with slight flexor synergy ankle foot left foot ,slight compensation for hip flexion. BALANCE: GOOD-. MMT: quads/hams 4/5,hip flexion 4-/5,ankle 4-/5 Goal 1:: I with HEP to improve function. Goal Progress: Goal Met Goal 2:: Patient to improve dynamic balance to prevent falls Goal Progress: Goal Met Goal 3:: Patient improve CATSIB 90 POINTS Goal Progress: Goal Met Goal 4:: Patient to improve LFES score score by 10 points to prevent falls Goal Progress: Goal Met Goal 5:: Patient to improve functional gait assessment by 10 points to improve gait Goal Progress: Goal Met Goal 6:: Improve quality gait on level/unlevel surface 90% of the time with left foot Goal Progress: Goal Met Plan: D/C Discharge Comments: d/c If there are questions or concerns regarding this patient's physical therapy, please feel free to call me at [phone]. Thank you for the referral of this patient. Sincerely, Julito Baez, PT, Cert MDT, OCS Balance/Gait/Functional tests - Balance/Special Test Scores Lower Extremity Functional Score: 55
== END 2021-08-24 19:00 | disposition home or self-care (01) ==
LOC: OT 13:30
PROVIDERS: PCP Internal Medicine; Referring Provider Internal Medicine; Visit Provider Internal Medicine
DX: M12.811 Other specific arthropathies, not elsewhere classified, right shoulder (principal)
CPT/HCPCS: 97110; 97530

== ENCOUNTER 2021-10-13 15:24 | Outpatient (CLI) | payer MEDICARE, MEDICAID, SELFPAY ==
--- NOTE | 2021-10-13 15:27 | MRI_ITS ---
STUDY: MRI LEFT SHOULDER REASON FOR EXAM: Female, 71 years old. Left Shoulder Pain, L arm not progressing with therapy as it should after stroke TECHNIQUE: Standardized fat and water weighted pulse sequences were obtained in all 3 orthogonal planes. COMPARISON: CT of the chest dated April 22, 2021 FINDINGS: A full-thickness tear of the far anterior aspect of supraspinatus tendon is present, with retraction of the tendon 2.72 cm from the greater tuberosity. Normal infraspinatus tendon. Normal subscapularis tendon. Normal teres minor tendon. There is mild muscular atrophy of the supraspinatus muscle. There is mild muscular atrophy of the infraspinatus muscle. Normal subscapularis muscle. There is mild muscular atrophy of the teres minor muscle. Normal glenohumeral articulation. Normal humeral head and visualized proximal humerus. Normal biceps labral complex. The intracapsular aspect along head of the biceps tendon demonstrates tarsal tearing and high-grade tendinosis. There is labral degeneration with blunting of the clyde, but there is no demonstrated discrete labral tear. Normal capsulo- ligamentous complex. Normal rotator interval. There is mild osteoarthritis of the acromioclavicular articulation. There is a Type II morphology (curved), with a neutral orientation. There is minimal fluid distention of the subacromial bursa, consistent with mild subacromial-subdeltoid bursitis. Normal visualized coracohumeral and coracoacromial ligaments. Normal quadrilateral space. Normal axillary space. Normal deltoid muscle. Normal trapezius muscle. MRI/Upper Ext Joint Only(Routine) IMPRESSION: 1. Full-thickness tear in the far anterior aspect of supraspinatus tendon. 2. The intracapsular aspect along head of the biceps tendon demonstrates tarsal tearing and high-grade tendinosis Electronically Signed: Kt Grover MD at 22:04 EST ,
== END 2021-10-13 23:59 | disposition home or self-care (01) ==
LOC: MRI 15:27
PROVIDERS: PCP Internal Medicine; Referring Provider Internal Medicine; Visit Provider Internal Medicine
DX: M12.812 Other specific arthropathies, not elsewhere classified, left shoulder (principal); M75.82 Other shoulder lesions, left shoulder; M75.42 Impingement syndrome of left shoulder; M25.519 Pain in unspecified shoulder; G89.29 Other chronic pain
CPT/HCPCS: 73221

== ENCOUNTER 2021-10-31 09:13 | Outpatient (CLI) | payer MEDICARE, MEDICAID, SELFPAY ==
--- NOTE | 2021-10-31 09:19 | BI_ITS ---
MAMMOGRAPHY - BILATERAL SCREENING REASON FOR EXAM: Female, 71 years old. Routine annual screening examination. PERTINENT HISTORY: Mother with breast cancer. TECHNIQUE: Digital bilateral breast luis manuel (3D mammographic acquisition) in the CC and MLO projections. 2-D mediolateral oblique (MLO) and craniocaudad (CC) views of both breasts were obtained. CAD: Full Field Digital Mammography with Computer Added Detection was performed. COMPARISON: None. FINDINGS: Breast Composition: There are scattered areas of fibroglandular density. There are no dominant masses or suspicious calcifications. Asymmetry of breast tissue were more breast tissue is seen in the upper outer quadrant of the right breast as compared to the left side. Small benign-appearing bilateral axillary lymph nodes. No other significant abnormalities are identified. BI/SCRN MAMM (CAD)W/LUIS MANUEL BILAT IMPRESSION: Negative screening mammogram. Yearly followup mammogram recommended. (A) ASSESSMENT CATEGORY: BIRADS Category 2: Benign. A letter regarding these results will be sent to the patient by the facility within 30 days. Approximately 10% of breast cancers are not detected by mammography. A normal mammogram should not delay biopsy of a clinically suspicious abnormality. [id number] Electronically Signed: Andre Church MD at 10:09 EST ,
--- NOTE | 2021-10-31 09:45 | BD_ITS ---
STUDY: DUAL ENERGY X-RAY ABSORPTIOMETRY / DXA REASON FOR EXAM: Female, 71 years old. Post menopausal TECHNIQUE: Bone Mineral Density (BMD) measurements of lumbar spine and bilateral hips were obtained. COMPARISON: None. FINDINGS: Lumbar Spine (L1-L4): g/cm2 (0.950) / T-score (-0.6) / Z-score (1.5) Findings are suggestive of normal bone density with a low fracture risk. Left Femur Total: g/cm2 (0.772) / T-score (-1.4) / Z-score (0.1) Left Femoral Neck: g/cm2 (0.652) / T-score (-1.8) / Z-score (0.0) Right Femur Total: g/cm2 (0.796) / T-score (-1.2) / Z-score (0.3) Right Femoral Neck: g/cm2 (0.648) / T-score (-1.8) / Z-score (0.0) BD/Dexa Bone Density Study IMPRESSION: The patient is considered osteopenic as outlined below according to World Humza Organization (WHO) criteria with a moderate fracture risk. Reference Information: The T-score is the number of standard deviations above or below the standard which is normal for young adults at their peak bone mineral density. The World Health Organization (WHO) interprets the T-scores as follows: Above -1 Normal bone density Between -1 and -2.5 Osteopenia Equal to / or below -2.5 Osteoporosis As a practical clinical guideline, osteopenia may be graded as follows: Mild -1 through -1.5 Moderate -1.6 through -2.0 Severe -2.1 through -2.4 The Z-score is the number of standard deviations above or below age-matched controls. A Z-score of less than -1.5 would be considered abnormal. References: 1. NIH Osteoporosis and Related Bone Diseases www osteo.org 2. International Society for Clinical Densitometry www iscd.org 3. National Osteoporosis Foundation www nof.org Electronically Signed: Andre Church MD at 10:40 EST ,
== END 2021-10-31 23:59 | disposition home or self-care (01) ==
LOC: OPBD 09:17
PROVIDERS: PCP Internal Medicine; Visit Provider Internal Medicine
DX: Z12.31 Encounter for screening mammogram for malignant neoplasm of breast (principal); Z78.0 Asymptomatic menopausal state
CPT/HCPCS: 77063; 77067; 77080

== ENCOUNTER → 2021-12-26 | Outpatient (CLI) | payer MEDICARE, MEDICAID, SELFPAY ==
[2021-12-26 15:21] LABS: Anion Gap 6 (5-15); BUN 18 mg/dL (7-18); BUN/Creat Ratio 25.6 RATIO (10-20); Calcium,Total 9.2 mg/dL (8.5-10.1); Chloride 106 mmol/L (98-107); EST Glomerular Filtration Rate 87 mL/min (>60); Est Glom Filt Rate - Afr Amer 106 mL/min (>60); Glucose 93 mg/dL (74-106); Magnesium 2.2 mg/dL (1.6-2.6); Potassium 4.1 mmol/L (3.5-5.1); Sodium Level 138 mmol/L (136-145)
== END | disposition home or self-care (01) ==
LOC: BIMLAB 14:13
PROVIDERS: PCP Internal Medicine; Referring Provider Internal Medicine; Visit Provider Internal Medicine
DX: I10 Essential (primary) hypertension (principal); M85.80 Other specified disorders of bone density and structure, unspecified site
CPT/HCPCS: 36415; 80048; 82306; 83735

== ENCOUNTER → 2022-04-02 | Outpatient (CLI) | payer MEDICARE, MEDICAID, SELFPAY ==
[2022-04-02 12:16] LABS: Absolute Lymphocyte Count 1.67 X10^3/uL (0.83-4.51); Absolute Neutrophil Count 3.6 X10^3/uL (2.0-7.7); Basophil# 0.05 X10^3/uL; Basophil% 0.8 % (0-1); Eosinophil# 0.11 X10^3/uL; Eosinophils% 1.8 % (0-5); Hematocrit 42.7 % (37-47); Hemoglobin 14.3 g/dL (12.0-15.0); Lymphocyte # 1.67 X10^3/ul (0.83-4.51); Lymphocyte % 27.2 % (19-41); Mean Corp Hgb Conc 33.5 g/dL (32-36); Mean Corpuscular Volume 92.4 fL (81-99); Mean Platelet Vol. 9.9 fl (6.2-12.0); Monocyte# 0.69 X10^3/uL; Monocyte% 11.3 % (0-10); NRBC Flagged by Analyzer 0 % (0-5); Neutrophil % 58.7 % (47-70); Platelet Count 359 K/mm3 (150-450); RBC Distribution Width CV 14.1 % (11.6-14.6); RBC Distribution Width SD 47.8 fl (35.1-43.9); Red Blood Count 4.62 M/mm3 (4.2-5.4); White Blood Count 6.1 K/mm3 (4.4-11.0)
[2022-04-02 12:41] LABS: ALB/GLOB Ratio 1.1 RATIO (0.9-2.4); AST(SGOT) 20 U/L (15-37); Alanine Aminotransfer ALT/SGPT 27 U/L (13-56); Albumin, Serum 3.6 g/dL (3.2-5.0); Alkaline Phosphatase 85 U/L (45-117); Anion Gap 3 (5-15); BUN 17 mg/dL (7-18); Calcium,Total 9.3 mg/dL (8.5-10.1); Chloride 108 mmol/L (98-107); Cholesterol 267 mg/dL (200); Creatinine, Serum 0.77 mg/dL (0.55-1.02); EST Glomerular Filtration Rate 79 mL/min (>60); Est Glom Filt Rate - Afr Amer 95 mL/min (>60); Globulin 3.3 g/dL (2.2-4.2); Glucose 68 mg/dL (74-106); High Density Lipoprotein 68 mg/dL; Protein, Total 6.9 g/dL (6.4-8.2); Sodium Level 139 mmol/L (136-145); Triglycerides 181 mg/dL; Very Low Density Lipoprotein 36 mg/dL (5-40)
== END | disposition home or self-care (01) ==
LOC: BIMLAB 11:34
PROVIDERS: PCP Internal Medicine; Visit Provider Internal Medicine
DX: E78.5 Hyperlipidemia, unspecified (principal); I10 Essential (primary) hypertension
CPT/HCPCS: 36415; 80053; 80061; 85025

== ENCOUNTER 2022-06-01 12:00 | Outpatient (RCR) | payer MEDICARE, MEDICAID, SELFPAY ==
--- NOTE | 2021-11-10 14:02 | HP.PTEVAL ---
Patient's Visit Information SATURNINO MAY is a 71 year old F referred to Physical Therapy by Dr. Gregorio Lopez DO with a diagnosis of LEFT SHOULDER RTC TEAR ,STIFFNESS. Date of Evaluation: 11/10/21 Physical Therapist: Julito Baez, PT, Cert MDT, OCS - Visit Plan Frequency: 2x /Week Duration: 4 Weeks Plan: PT INTERVETIONS PROM/AAROM ,ISOMTRICS STRENGTHENING LEFT SHOULR RTC/SCAPULAR ,POSTUARLA EX'S AND MANUAL THERAPY G-H MOBS - Subjective This 71 y/o female presents to physical left shoulder RTC tear ,stiffness . Patient has h/o CVA affecting left side . Patient has had PT for right shoulder for RTC and re-tore and for CVA . Patient has left shoulder pain with inability to use left along with pain and had MRI showed RTC tear . Along with tear patient has hemiparesis. Patient has inability to use left arm for ADL and function/housework tasks., Patient has difficulty with reaching behind back bathing, cooking. Denies paresthesia tingling. MEDS muscle relaxer-bacoflin. GOALS: improve ROM and function left UE. SOCIAL: SINGLE. VOCATION: [employer] - Pain Left Shoulder Pain Intensity (Out of 10): 4 Comment: MOVEMENT - Objective POSTURE: rounded shoulders head forward. PALPTION: tender AC. NEURO: hypertonicity left shoulder ,reflexes C5-6-7 hyperlexia. AROM unable NT, except L1. PROM : shoulder flexion 140 abduction ,scapation 135 degrees, ER 55 degrees ,IR. MMT: DELTOLID POOR, infraspinatus 3-/5, subscapularis 3+/5 ,supraspinatus pOOR - Special Tests L Shoulder External Rotation Lag Test - RC Tear: Positive L Shoulder Supine Impingement Test - RC Tear: Negative L Shoulder Lift Off Test - Subscapular Tear: Positive L Shoulder Drop Sign - IS Test: Positive L Shoulder Belly Press - SupScap: Negative L Shoulder Edwards Osvaldo - Impingement: Positive - Balance/Special Test Scores Quick DASH Score: 65.9075 - Goals Goal 1:: Patient to be I with HEP for left shoulder Goal Time Frame: 4-6 Weeks Goal 2:: Patient to improve AROM WFL , < 90 degrees for ADLS and self hygiene. Goal Time Frame: 4-6 Weeks Goal 3:: Patient increase strength of left shoulder WFL to perform ADLS at least 90 degrees . Goal Time Frame: 4-6 Weeks Goal 4:: Patient to improve quick dash score by 5 points or > to improve QOL. Goal Time Frame: 4-6 Weeks - Rehabilitation Potential Physical Therapy Diagnosis: Patient has left shoulder weakness ,poor ROM which impairs function with ADLS with MRI found to have RTC tear of supraspinatus and complexity issue with hemiparesis due to CVA thus will benefit from skilled PT Rehabilitation Potential: Good - Anticipated Interventions Patient/Client Instruction: Educate patient on: Condition, Plan of Care For the Purpose of:: To decrease pain, To increase ROM, To improve muscle performance and motor function, To improve ability to perform ADL's, To increase tolerance to activity/condition/position, To improve performance and independence with ADL's, To improve ability of physical actions for home/community/work/leisure, To improve health of tissue, To decrease soft tissue restriction, To increase flexibility/ROM, To assume or resume ADL's, To reduce risk of recurrence, To improve tolerance to ADL's Therapeutic Exercise to Include: Strength training, Postural training, Flexibilty training, Passive ROM, Active ROM, Scapular Strength/Stabilization For the Purpose of:: To decrease pain, To increase ROM, To improve muscle performance and motor function, To increase tolerance to activity/condition/position, To improve performance and independence with ADL's, To improve ability of physical actions for home/community/work/leisure, To improve health of tissue, To decrease soft tissue restriction, To increase flexibility/ROM, To assume or resume ADL's, To improve tolerance to ADL's Manual Therapy Techniques to Include: Mobilization, Passive ROM Comment: G-H For the Purpose of:: To decrease pain, To increase ROM, To improve nutrient delivery to tissue, To increase oxygenation perfusion, To improve health of tissue, To decrease soft tissue restriction Thank you for the opportunity to evaluate your patient. For Medicare and Medicare HMO plans, please review the plan of care and approve it. It will need to be FAXED BACK to us at [phone] for Medicare purposes. For Medicare only, by signing this I certify the plan of care. Please let me know if there are questions or concerns regarding this plan of care. Physician Signature: Date:
--- NOTE | 2021-12-26 11:12 | HP.PTREVAL_ITS ---
Dr. Gregorio Lopez, DO, It has been my pleasure to treat SATURNINO MAY over the last 9 visits for LEFT SHOULDER RTC TEAR ,STIFFNESS. Please see the progress note below for an update on the physical therapy plan of care! Subjective: Patient states improving Objective/Function: POSTURE: LUE SYNERGY FLEXOR. PROM: LEFT SHOULDER FLEXION /ABD 15O DEGREES. MMT: SHOULDER 1/5 DETOIOD,INFRASPINATOUS 2/3,SUBSCPULARIS 2+/5 Plan Plan: PT INTERVETIONS PROM/AAROM ,ISOMTRICS STRENGTHENING LEFT SHOULR R TC/SCAPULAR ,POSTUARLA EX'S AND MANUAL THERAPY G-H MOBS Balance/Gait/Functional tests - Balance/Special Test Scores Quick DASH Score: 65.9075 Goals Goal 1:: Patient to be I with HEP for left shoulder Goal Time Frame: 4-6 Weeks Goal Progress: Goal Met Goal 2:: Patient to improve AROM WFL , < 90 degrees for ADLS and self hygiene. Goal Time Frame: 4-6 Weeks Goal Progress: Goal Met Goal 3:: Patient increase strength of left shoulder WFL to perform ADLS at least 90 degrees . Goal Time Frame: 4-6 Weeks Goal Progress: Goal Met Goal 4:: Patient to improve quick dash score by 5 points or > to improve QOL. Goal Time Frame: 4-6 Weeks Goal Progress: Goal Met Anticipated Interventions Patient/Client Instruction: Educate patient on: Condition, Plan of Care For the Purpose of:: To decrease pain, To increase ROM, To improve muscle performance and motor function, To improve ability to perform ADL's, To increase tolerance to activity/condition/position, To improve performance and independence with ADL's, To improve ability of physical actions for home/community/work/leisure, To improve health of tissue, To decrease soft tissue restriction, To increase flexibility/ROM, To assume or resume ADL's, To reduce risk of recurrence, To improve tolerance to ADL's Therapeutic Exercise to Include: Strength training, Postural training, F lexibilty training, Passive ROM, Active ROM, Scapular Strength/Stabilization For the Purpose of:: To decrease pain, To increase ROM, To improve muscle performance and motor function, To increase tolerance to activity/condition/position, To improve performance and independence with ADL's, To improve ability of physical actions for home/community/work/leisure, To improve health of tissue, To decrease soft tissue restriction, To increase flexibility/ROM, To assume or resume ADL's, To improve tolerance to ADL's Manual Therapy Techniques to Include: Mobilization, Passive ROM Comment: G-H For the Purpose of:: To decrease pain, To increase ROM, To improve nutrient delivery to tissue, To increase oxygenation perfusion, To improve health of tissue, To decrease soft tissue restriction Please do not hesitate to contact me at [phone] by phone or if you have questions or concerns regarding this new plan of care! Sincerely, Julito Baez, PT, Cert MDT, OCS
--- NOTE | 2022-01-31 15:36 | HP.PTREVAL_ITS ---
Dr. Gregorio Lopez, DO, It has been my pleasure to treat SATURNINO MAY over the last 16 visits for LEFT SHOULDER RTC TEAR ,STIFFNESS. Please see the progress note below for an update on the physical therapy plan of care! Subjective: Doing okay .. I'm able to use my left arm more at work lifting and ADL's reaching so it getting stronger Objective/Function: POSTURE: rounded shoulders left arm elbow in flexor synergy. NEURO: flexor synergy left upper extremity ,reflexes hyperlexia C-6-7. PROM: shoulder flexion 150 degrees /abduction 150 degrees ,ER 90. MMT: DETOID 1/5,RTC -supraspinatus 1/5,infraspinatus 3-/5,subscapularis 3+/5 ,biceps /triceps 3+/5. Patient is able to grasp better with left hand increasing resistance with weights Plan Plan: Requesting 10 more visits. PT INTERVETIONS PROM/AAROM ,ISOMTRICS STRENGTHENING LEFT SHOULR RTC/SCAPULAR ,POSTUARLA EX'S AND MANUAL THERAPY G-H MOBS,NEURO PNF Balance/Gait/Functional tests - Balance/Special Test Scores Quick DASH Score: 56.8175 Goals Goal 1:: Patient to be I with HEP for left shoulder Goal Time Frame: 4-6 Weeks Goal Progress: Goal Met Goal 2:: Patient to improve AROM WFL , < 90 degrees for ADLS and self hygiene. Goal Time Frame: 4-6 Weeks Goal Progress: Goal Met Goal 3:: Patient increase strength of left shoulder WFL to perform ADLS at least 90 degrees . Goal Time Frame: 4-6 Weeks Goal Progress: Goal Met Goal 4:: Patient to improve quick dash score by 5 points or > to improve QOL. Goal Time Frame: 4-6 Weeks Goal Progress: Goal Met Anticipated Interventions Patient/Client Instruction: Educate patient on: Condition, Plan of Care For the Purpose of:: To decrease pain, To increase ROM, To improve muscle performance and motor function, To improve ability to perform ADL's, To increase tolerance to activity/condition/position, To improve performance and independence with ADL's, To improve ability of physical actions for home/community/work/leisure, To improve health of tissue, To decrease soft tissue restriction, To increase flexibility/ROM, To assume or resume ADL's, To reduce risk of recurrence, To improve tolerance to ADL's Therapeutic Exercise to Include: Strength training, Postural training, Flexibilty training, Passive ROM, Active ROM, Scapular Strength/Stabilization For the Purpose of:: To decrease pain, To increase ROM, To improve muscle performance and motor function, To increase tolerance to act ivity/condition/position, To improve performance and independence with ADL's, To improve ability of physical actions for home/community/work/leisure, To improve health of tissue, To decrease soft tissue restriction, To increase flexibility/ROM, To assume or resume ADL's, To improve tolerance to ADL's Manual Therapy Techniques to Include: Mobilization, Passive ROM Comment: G-H For the Purpose of:: To decrease pain, To increase ROM, To improve nutrient delivery to tissue, To increase oxygenation perfusion, To improve health of tissue, To decrease soft tissue restriction Please do not hesitate to contact me at [phone] by phone or if you have questions or concerns regarding this new plan of care! Sincerely, Julito Baez, PT, Cert MDT, OCS
--- NOTE | 2022-04-19 10:56 | HP.PTREVAL ---
Dr. Gregorio Lopez, DO, It has been my pleasure to treat SATURNINO MAY over the last 19 visits for LEFT RADIUS FX , LEFT FIBULAR DISTAL FX , LEFT SHOULDER RTC TEAR. Please see the progress note below for an update on the physical therapy plan of care! Subjective: Patient fell ~ 8weeks in garage ,rolled ankle on uneven concreate on February 24. causing left radius fx ,left fibular fx . Seen ER at placed boot left ankle and DR Lopez place hard cast. . Patient had cast left wrist and boot removed and recommended velcro brace left wrist. Patient okay no falls ,difficulty with left hand for ADL;s with 3# wit limitations and okay to have weight through shoulder. Main issues is stiffness. . Objective/Function: POSTURE: rounded shoulders head forward. NEURO: mild ataxia left UE , hypertonicity left UE mod flexors synergy ,reflexes C5-6-7 hyperreflexia , Achilles and patella hyperreflexia. GAIT: mild ataxia left LE slight drags left leg ER left leg with mild decreases control with flexor synergy. WRIST AROM LEFT: supination 70 degrees, pronation 80 degrees ,extension 60 degrees, flexion 70 degrees. SHOULDER PROM; ABD 150 degrees , flexion 140 degrees ,ER 70 degrees. ANKLE : DF - 5 degrees ,PF 60 degrees ,IN 40 degrees ,EV 0 degrees. MMT: ANKLE DF 3+/5,PF 4-/5 ,EV 4-/5,IN 4-/5 ,wrist flexion/extension /supination/pronation 3+/5 Plan Plan: PT INTERVETIONS PROM/AAROM ,ISOMTRICS STRENGTHENING LEFT SHOULR RTC/SCAPULAR ,POSTUARLA EX'S AND MANUAL THERAPY G-H MOBS,NEURO PNF ADD LAFT ANKLE ROM/FLEXABLITY ,STRENGTH LEFT ANKLE ,AND ROM/STRENGTHENING WRIST Balance/Gait/Functional tests - Balance/Special Test Scores Quick DASH Score: 59.0900 Goals Goal 1:: Patient to be I with HEP for left shoulder/wrist/ankle Goal Time Frame: 4-6 Weeks Goal Progress: Goal Met Goal 2:: Patient to improve AROM WFL , > 90 degrees for ADLS and self hygiene. Goal Time Frame: 4-6 Weeks Goal Progress: Goal Met Goal 3:: Patient increase strength of left wrist 4-/5 and ankle WFL to improve gait ,shoulder WFL to increase 90 degrees for ADLLS Goal Time Frame: 4-6 Weeks Goal Progress: Goal Met Goal 4:: Patient to improve quick dash score by 5 points or > to improve QOL. Goal Time Frame: 4-6 Weeks Goal Progress: Goal Met Goal 5:: Patient to improve gait with increase flexibility of ankle DF to decrease toe drag Goal Time Frame: 4-6 Weeks Anticipated Interventions Patient/Client Instruction: Educate patient on: Condition, Plan of Care For the Purpose of:: To decrease pain, To increase ROM, To improve muscle performance and motor function, To improve ability to perform ADL's, To increase tolerance to activity/condition/position, To improve performance and independence with ADL's, To improve ability of physical actions for home/community/work/leisure, To improve health of tissue, To decrease soft tissue restriction, To increase flexibility/ROM, To assume or resume ADL's, To reduce risk of recurrence, To improve tolerance to ADL's Therapeutic Exercise to Include: Strength training, Postural training, Flexibilty training, Passive ROM, Active ROM, Scapular Strength/Stabilization For the Purpose of:: To decrease pain, To increase ROM, To improve muscle performance and motor function, To increase tolerance to activity/condition/position, To improve performance and independence with ADL's, To improve ability of physical actions for home/community/work/leisure, To improve health of tissue, To decrease soft tissue restriction, To increase flexibility/ROM, To assume or resume ADL's, To improve tolerance to ADL's Manual Therapy Techniques to Include: Mobilization, Passive ROM Comment: G-H For the Purpose of:: To decrease pain, To increase ROM, To improve nutrient delivery to tissue, To increase oxygenation perfusion, To improve health of tissue, To decrease soft tissue restriction Please do not hesitate to contact me at [phone] by phone or if you have questions or concerns regarding this new plan of care! Sincerely, Julito Baez PT, Cert MDT, OCS
== END 2022-06-01 19:00 | disposition home or self-care (01) ==
LOC: PT 12:00
PROVIDERS: PCP Internal Medicine; Referring Provider Orthopaedic Surgery; Visit Provider Orthopaedic Surgery
DX: M75.102 Unspecified rotator cuff tear or rupture of left shoulder, not specified as traumatic (principal); M25.612 Stiffness of left shoulder, not elsewhere classified; I69.354 Hemiplegia and hemiparesis following cerebral infarction affecting left non-dominant side
CPT/HCPCS: 97110; 97162; 97164

== ENCOUNTER 2022-06-11 10:41 | Outpatient (RCR) | payer MEDICARE, MEDICAID, SELFPAY ==
--- NOTE | 2022-08-24 10:54 | HP.PTDCSUM ---
It has been my pleasure to treat SATURNINO MAY referred by Dr. Gregorio Lopez DO, with the diagnosis of LEFT RADIUS FX , LEFT FIBULAR DISTAL FX , LEFT SHOULDER RTC TEAR for a total of 28 visit(s). Discharge Date: Please see the following information for a summary of their discharge status. Subjective: Doing better tightness in legs % Improvement: 50 Objective/Function: Doing well today with strengthening and ROM to improve functional activity with LUE and gait Goal 1:: Patient to be I with HEP for shoulder, elbow, wrist and leg Goal Progress: Progressing Goal 2:: Patient to improve AROM WFL , > 90 degrees for ADLS and self hygiene. Goal Progress: Progressing Goal 3:: Patient increase strength of left wrist 4-/5 and ankle WFL to improve gait ,shoulder WFL to increase 90 degrees for ADLLS Goal Progress: Progressing Goal 4:: Patient to improve quick dash score by 5 points or > to improve QOL. Goal Progress: Progressing Goal 5:: Patient to improve gait with increase flexibility of ankle DF to decrease toe drag Goal Progress: Progressing Goal 6:: Patient to demonstrate 50% improvement with increase function Plan: PT INTERVETIONS PROM/AAROM ,ISOMTRICS STRENGTHENING LEFT SHOULR RTC/SCAPULAR ,POSTURAL EX'S AND MANUAL THERAPY G-H MOBS,NEURO PNF ADD LAFT ANKLE ROM/FLEXABLITY ,STRENGTH LEFT ANKLE ,AND ROM/STRENGTHENING WRIST If there are questions or concerns regarding this patient's physical therapy, please feel free to call me at [phone]. Thank you for the referral of this patient. Sincerely, Julito Baez, PT, Cert MDT, OCS
== END 2022-06-11 19:00 | disposition home or self-care (01) ==
LOC: PT 10:41
PROVIDERS: PCP Internal Medicine; Referring Provider Orthopaedic Surgery; Visit Provider Orthopaedic Surgery
DX: S52.92XD Unspecified fracture of left forearm, subsequent encounter for closed fracture with routine healing (principal); S82.402D Unspecified fracture of shaft of left fibula, subsequent encounter for closed fracture with routine healing; S46.012D Strain of muscle(s) and tendon(s) of the rotator cuff of left shoulder, subsequent encounter; X58.XXXD Exposure to other specified factors, subsequent encounter; I69.354 Hemiplegia and hemiparesis following cerebral infarction affecting left non-dominant side
CPT/HCPCS: 97110

== ENCOUNTER → 2022-06-26 | Outpatient (CLI) | payer MEDICARE, SELFPAY ==
[2022-06-26 15:45] LABS: ALB/GLOB Ratio 1.1 RATIO (0.9-2.4); AST(SGOT) 14 U/L (15-37); Alanine Aminotransfer ALT/SGPT 34 U/L (13-56); Albumin, Serum 3.8 g/dL (3.2-5.0); Alkaline Phosphatase 88 U/L (45-117); Anion Gap 7 (5-15); BUN 18 mg/dL (7-18); BUN/Creat Ratio 21.6 RATIO (10-20); Calcium,Total 9.2 mg/dL (8.5-10.1); Chloride 107 mmol/L (98-107); Cholesterol 271 mg/dL (200); Creatinine, Serum 0.83 mg/dL (0.55-1.02); EST Glomerular Filtration Rate 72 mL/min (>60); Est Glom Filt Rate - Afr Amer 87 mL/min (>60); Globulin 3.5 g/dL (2.2-4.2); Glucose 129 mg/dL (74-106); High Density Lipoprotein 75 mg/dL; Potassium 3.7 mmol/L (3.5-5.1); Protein, Total 7.3 g/dL (6.4-8.2); Sodium Level 137 mmol/L (136-145); Triglycerides 143 mg/dL; Very Low Density Lipoprotein 29 mg/dL (5-40)
[2022-06-28 11:23] LABS: Hemoglobin A1c 5.3 % (3.8-5.6)
== END | disposition home or self-care (01) ==
LOC: BIMLAB 12:01
PROVIDERS: PCP Internal Medicine; Visit Provider Internal Medicine
DX: E78.5 Hyperlipidemia, unspecified (principal); R73.9 Hyperglycemia, unspecified
CPT/HCPCS: 36415; 80053; 80061; 83036

== ENCOUNTER 2022-07-17 13:34 | Outpatient (CLI) | payer MEDICARE, SELFPAY ==
[2022-07-17 15:02] LABS: CRP < 2.90 mg/L (0.0-3.0)
[2022-07-19 14:49] LABS: ANTINUCLEAR ANTIBODIES DIRECT Positive (Negative)
[2022-07-25 16:48] LABS: CCP IgG Antibodies 11 units (0-19); HLA B27 Negative (.)
== END 2022-07-17 23:59 | disposition home or self-care (01) ==
LOC: LAB 13:35
PROVIDERS: PCP Internal Medicine; Visit Provider Podiatrist
DX: M19.072 Primary osteoarthritis, left ankle and foot (principal)
CPT/HCPCS: 36415; 81374; 86038; 86140; 86200; 86431

== ENCOUNTER → 2022-09-12 | Outpatient (CLI) | payer MEDICARE, SELFPAY ==
[2022-09-13 14:09] LABS: SJOGREN'S Anti-SS-A test < 0.2 AI (0.0-0.9); SJOGREN'S Anti-SS-B test < 0.2 AI (0.0-0.9)
[2022-09-13 17:33] LABS: Anti-dsDNA Ab <1 IU/mL (0-9)
== END | disposition home or self-care (01) ==
LOC: LAB 11:15
PROVIDERS: PCP Internal Medicine; Referring Provider Podiatrist; Visit Provider Podiatrist
DX: M79.672 Pain in left foot (principal)
CPT/HCPCS: 36415; 86225; 86235

== ENCOUNTER → 2022-12-05 | Outpatient (CLI) | payer MEDICARE, MEDICAID, SELFPAY ==
[2022-12-05 12:28] LABS: Absolute Lymphocyte Count 1.12 X10^3/uL (0.83-4.51); Absolute Neutrophil Count 4.1 X10^3/uL (2.0-7.7); Basophil# 0.02 X10^3/uL; Basophil% 0.3 % (0-1); Eosinophil# 0.05 X10^3/uL; Eosinophils% 0.8 % (0-5); Hemoglobin 14.3 g/dL (12.0-15.0); Lymphocyte # 1.12 X10^3/ul (0.83-4.51); Lymphocyte % 18.6 % (19-41); Mean Corpuscular Hgb 31.2 pg (27.0-32.0); Mean Corpuscular Volume 91.7 fL (81-99); Monocyte# 0.75 X10^3/uL; Monocyte% 12.5 % (0-10); NRBC Flagged by Analyzer 0 % (0-5); Neutrophil # 4.05 X10^3/uL (2.7-7.7); Neutrophil % 67.5 % (47-70); Platelet Count 309 K/mm3 (150-450); RBC Distribution Width CV 13.3 % (11.6-14.6); RBC Distribution Width SD 45.4 fl (35.1-43.9); Red Blood Count 4.58 M/mm3 (4.2-5.4)
[2022-12-05 12:45] LABS: ALB/GLOB Ratio 1.1 RATIO (0.9-2.4); AST(SGOT) 28 U/L (15-37); Alanine Aminotransfer ALT/SGPT 39 U/L (13-56); Albumin, Serum 3.5 g/dL (3.2-5.0); Alkaline Phosphatase 88 U/L (45-117); Anion Gap 5 (5-15); BUN 22 mg/dL (7-18); BUN/Creat Ratio 25.2 RATIO (10-20); Calcium,Total 9.2 mg/dL (8.5-10.1); Chloride 108 mmol/L (98-107); Creatinine, Serum 0.87 mg/dL (0.55-1.02); EST Glomerular Filtration Rate 68 mL/min (>60); Est Glom Filt Rate - Afr Amer 82 mL/min (>60); Globulin 3.3 g/dL (2.2-4.2); Glucose 102 mg/dL (74-106); Potassium 3.4 mmol/L (3.5-5.1); Protein, Total 6.8 g/dL (6.4-8.2); Sodium Level 140 mmol/L (136-145)
[2022-12-06 13:08] LABS: ANTINUCLEAR ANTIBODIES DIRECT Positive (Negative); Anti-Centromere B Ab <0.2 AI (0.0-0.9); Anti-Chromatin <0.2 AI (0.0-0.9); Anti-Jo <0.2 AI (0.0-0.9); Anti-Scleroderma-70 AB <0.2 AI (0.0-0.9); RNP Ab 1.1 AI (0.0-0.9); SJOGREN'S Anti-SS-A test < 0.2 AI (0.0-0.9); SJOGREN'S Anti-SS-B test < 0.2 AI (0.0-0.9); Smith Ab <0.2 AI (0.0-0.9)
[2022-12-06 14:23] LABS: Anti-dsDNA Ab <1 IU/mL (0-9)
== END | disposition home or self-care (01) ==
LOC: BIMLAB 10:22
PROVIDERS: PCP Internal Medicine; Visit Provider Internal Medicine
DX: M13.0 Polyarthritis, unspecified (principal); E78.5 Hyperlipidemia, unspecified; I10 Essential (primary) hypertension
CPT/HCPCS: 36415; 80053; 85025; 86038; 86225; 86235

== ENCOUNTER 2023-01-15 14:19 | Observation (INO) | payer MEDICARE, MEDICAID, SELFPAY ==
[2023-01-15 13:25] VITALS: BP 159/83; PULSE 86; RESP 16; TEMP 36.9; O2SAT 96
--- NOTE | 2023-01-15 13:25 | HP.PCM.HOS_ITS ---
HPI - General General Date of Admission: 01/15/23 Date of Service: 01/15/23 HPI Narrative SATURNINO MAY, is a 72 F with a past history as outlined which includes a history of stroke. She presents as a transfer from an outside hospital where she presented with a complaint of dizziness and lightheadedness which have been going on for 1 day prior to admission. Patient has residual left-sided upper extremity weakness from her previous stroke. She says she came back from work the day before admission and went to bed. She got up and went to the bathroom but felt very dizzy and lightheaded and nearly fell. She was able to get back to bed. She slept it off thinking that she was tired. However waking up in the morning of the day of presentation, she again felt very lightheaded and dizzy and thought she was going to fall down. She denied any headache, did admit to some numbness and tingling around the left side of her mouth but denied any numbness and tingling of any extremities. She denied any worsening weakness of any extremities. Review systems was otherwise negative. She presented at an outside hospital where CT of the brain done was negative for any evidence of stroke. She was patient [facility] be [facility] Patient however preferred to be transferred to [facility]. On arrival at [facility] and at time of my review, she complained of a headache but says she thought was due to nasal congestion which had also resulted in right ear fullness. He still did have a bit of dizziness and lightheadedness. She denied any other symptoms. Review of systems otherwise negative. Vitals in the ED were blood pressure 159/83, pulse rate of 86 and respiratory rate of 16. Temperature was 98.5 Fahrenheit and she was saturating at 96% on room air. CBC and BMP done at outside hospital also essentially unremarkable and EKG done they also showed no acute ST changes. She has been admitted to be managed for dizziness and lightheadedness to rule out a stroke. [facility] Medical History Anxiety and depression Colon cancer screening Contusion of left chest wall Contusion of left hip Dermatitis Elevated blood sugar Flatulence, eructation and gas pain Former tobacco use GERD (gastroesophageal reflux disease) Hammertoe, bilateral Health care maintenance Hypothyroidism Laceration of right middle finger Osteoarthritis Osteopenia Peripheral edema Polyarthropathy Right shoulder pain Rotator cuff impingement syndrome of left shoulder Rotator cuff tear Rotator cuff tear, left Scalp abrasion Stroke/cerebrovascular accident Tendinitis of left rotator cuff Vaginal candidiasis Home Medications aspirin 81 mg chewable tablet 81 mg PO DAILY@0800 heart 11/13/20 [History Last Taken 01/13/23] acetaminophen 325 mg tablet 650 mg PO Q6H PRN PRN PAIN 12/05/20 [Rx Last Taken Unknown] Handicap Placard #1 ea 01/03/21 [Rx Last Taken Unknown] hydrocortisone 2.5 % topical cream 1 applic topical BID PRN rash #30 grams 04/11/21 [Rx Last Taken Unknown] citalopram 20 mg tablet 20 mg PO DAILY #90 tabs 08/29/22 [Rx Last Taken 01/13/23] gabapentin 300 mg capsule 300 mg PO QHS nerve pain #90 caps 08/29/22 [Rx Last Taken 01/13/23] omeprazole 40 mg capsule,delayed release 40 mg PO DAILY #90 caps 08/29/22 [Rx Last Taken 01/13/23] amlodipine 5 mg tablet 5 mg PO DAILY #90 tabs 08/30/22 [Rx Last Taken 01/13/23] buspirone 7.5 mg tablet 7.5 mg PO BID #180 tabs 08/30/22 [Rx Last Taken 01/13/23] potassium chloride 20 mEq tablet,extended release(part/cryst) 20 meq PO DAILYCM potassium #90 tabs 08/30/22 [Rx Last Taken 01/13/23] baclofen 5 mg tablet 20 mg PO Q8H 10/01/22 [History Last Taken 01/13/23] diclofenac sodium 75 mg tablet,delayed release 75 mg PO BID 10/01/22 [History Last Taken 01/13/23] cholecalciferol (vitamin D3) 50 mcg (2,000 unit) capsule 50 mcg PO QHS 01/15/23 [History Last Taken 01/13/23] magnesium oxide 500 mg PO QHS 01/15/23 [History Last Taken 01/13/23] montelukast 10 mg tablet 10 mg PO QHS allegries 01/15/23 [History Last Taken 01/13/23] Allergy/AdvReac Type Severity Reaction Status Date / Time adhesive Allergy Rash Verified 12/05/22 09:48 codeine Allergy Vomiting Verified 12/05/22 09:48 latex Allergy Rash, hives Verified 12/05/22 09:48 Penicillins [PCN] Allergy Shortness Verified 12/05/22 09:48 of breath procaine [From Novocain] Allergy Anaphylaxis Verified 12/05/22 09:48 Sulfa (Sulfonamide Allergy Vomiting Verified 12/05/22 09:48 Antibiotics) Family History Brother CVA (cerebral vascular accident) Grandfather Heart disease Mother Breast cancer Father Cancer Surgical History History of History of hysterectomy History of shoulder surgery History of tonsillectomy Hx of foot surgery Social History Smoking Status: Former smoker quit date: 09/02/03 Tobacco: How many years used: 40 alcohol intake: never substance use type: does not use what type of physical activity do you participate in: walking frequency: daily ROS Constitutional Constitutional: Denies anorexia, chills, fatigue, malaise or weakness Eyes Eyes: Denies change in vision ENT HEENT: Reports headache(s) and nasal congestion; Denies ear pain, nasal discharge or sore throat Cardiovascular Cardiovascular: Reports lightheadedness; Denies chest pain, dyspnea on exertion, edema, orthopnea, palpitations, paroxysmal nocturnal dyspnea, rapid heart rate or syncope Respiratory/Chest Respiratory/Chest: Denies cough, dyspnea, productive cough, shortness of breath at rest, shortness of breath with exertion or wheezing Gastrointestinal Gastrointestinal: Denies abdominal pain, constipation, diarrhea, nausea or vomiting Genitourinary Genitourinary: Denies burning urination or dysuria Musculoskeletal Musculoskeletal: Denies arthralgias Neurologic Neurologic: Reports dizziness, focal weakness, headache(s) and numbness; Denies confusion, seizure-like activity, seizures, syncope or tingling Psychiatric Psychiatric: Denies anxiety or depression Hematologic/Lymphatic Hematologic/Lymphatic: Denies anemia Physical Exam Const alert, oriented x3 and no apparent distress General Appearance: cooperative HEENT normocephalic, head/scalp atraumatic, hearing grossly normal bilaterally and moist oral mucous membranes Mouth: oral and palatal mucosa normal Eyes PERRL, EOMs intact bilaterally and conjunctivae normal Neck no lymphadenopathy and supple Resp normal respiratory effort, no retractions, no use of accessory muscles and clear to auscultation bilaterally Cardio regular rate, regular rhythm, S1 normal heart sound, S2 normal heart sound and no murmurs GI normal to inspection, nondistended, normoactive bowel sounds, soft to palpation, non-tender and non-distended Extremity normal to inspection, full ROM and no clubbing, cyanosis or edema Neuro oriented x3, CN's II-XII intact bilaterally, moves all extremities and no focal motor deficits Neuro Narrative: has 4/5 power in LUE, which is chronic. Has chronic foot drop of left foot. Has no mouth droop. NIHSS is 1 (for residual LUE weakness) Sensorium / Orientation: awake and alert Psych affect normal Assessment & Plan Assessment/Plan (1) Dizziness: PLAN: Plan #Dizziness, to rule out a stroke * Admit to PCU. * CT of the brain done at outside hospital was negative for any evidence of stroke. She says she has had 2 previous strokes and both times the presented with such dizziness. * Get an MRI of the brain and CTA of the head and neck * P.o. aspirin 81 mg daily as well as Plavix which was already known from history of stroke. High intensity statin. * Consult PT OT. * Check lipid panel along order 2D echo. * Hold BP meds to allow for permissive hypertension in case she does have a stroke. IV labetalol as needed * For precautions. * #Hypertension: On amlodipine which is currently on hold #History of CVA x2 with residual right-sided weakness: On aspirin and high intensity statin. Says she wore a Holter monitor for 30 days and there was no evidence of any arrhythmia. #Anxiety and depression: On buspirone and citalopram #GERD: On PPI DVT prophylaxis: Lovenox CODE STATUS: Full code * Patient counseled extensively about different types of CODE STATUS including full code, DNR CCA and DNR CCA. Patient elects to be full code. * Total qals-ea-xnfa time 17 minutes. Charges/Coding Visit Charges Inpatient E&M: 35017 Init Hosp L2 Procedures Hospitalists Procedures: 46952 Advncd Care Plan 30 Min
[2023-01-15 13:36] VITALS: BMI 26.8
--- NOTE | 2023-01-15 14:23 | ECHOD_ITS ---
Reason For Study: TIA/CVA Procedure This was a 2D Doppler, Color Flow transthoracic echocardiogram. The study was technically difficult. Patient scanned laying supine due to bad left arm, hip, and rotator cuff. Exam performed portable in patient room. Left Ventricle Normal left ventricle. The estimated ejection fraction is 55-60 %. Right Ventricle Normal right ventricle. Normal systolic function. Atria Normal left atrium. Normal right atrium. Mitral Valve The mitral valve is structurally normal. No prolapse or stenosis seen. Tricuspid Valve Normal tricuspid valve. Aortic Valve The aortic valve is not well visualized in the short axis view. Pulmonic Valve The pulmonic valve is not well visualized. Great Vessels Normal aortic root. Pericardium/Pleural No pericardial effusion. MMode/2D Measurements & Calculations LVIDd: 4.4 cm IVSd: 1.1 cm LVAd ap4: 24.0 cm2 LVIDs: 2.6 cm LVPWd: 1.0 cm LVLd ap4: 7.5 cm FS: 40.0 % EDV(MOD-sp4): 66.1 ml EDV(sp4-el): 65.5 ml LVAs ap4: 12.2 cm2 LVLs ap4: 5.9 cm ESV(MOD-sp4): 23.3 ml ESV(sp4-el): 21.3 ml EF(MOD-sp4): 64.7 % EF(sp4-el): 67.5 % SV(MOD-sp4): 42.8 ml SV(sp4-el): 44.2 ml Time Measurements MV dec time: 0.19 sec Doppler Measurements & Calculations MV E max isaiah: 67.7 cm/sec Lat Peak E' Isaiah: 11.2 cm/sec Med Peak E' Isaiah: 7.6 cm/sec MV A max isaiah: 99.5 cm/sec E/E' lat: 6.0 E/E' med: 8.9 MV E/A: 0.68 MV V2 max: 118.2 cm/sec MV dec slope: 349.3 cm/sec2 Ao V2 max: 113.5 cm/sec MV max P.6 mmHg Ao max P.2 mmHg MV V2 mean: 67.9 cm/sec Ao V2 mean: 74.6 cm/sec MV mean P.1 mmHg Ao mean P.6 mmHg MV V2 VTI: 22.7 cm Ao V2 VTI: 24.4 cm AV (velocity ratio): 0.67 LV V1 max: 76.1 cm/sec LV V1 max P.3 mmHg LV V1 mean P.2 mmHg LV V1 mean: 52.6 cm/sec LV V1 VTI: 16.4 cm ECHO/Echo Complete Interpretation Summary The estimated ejection fraction is 55-60 %. No significant change from prior echocardiogram in Ordering Physician: Bárbara Pierre Referring Physician: Jhoan Dickey Performed By: Sherron Riojas RCS
--- NOTE | 2023-01-15 14:44 | CT_ITS ---
STUDY: CT BRAIN WITHOUT CONTRAST REASON FOR EXAM: Female, 72 years old. Stroke like symptoms RADIATION DOSAGE (If Supplied By Facility): CTDIvol = ( 44.99 ) mGy, DLP = ( 796.11 ) mGycm TECHNIQUE: Transaxial CT imaging of the brain was performed without administration of intravenous contrast material. Individualized dose optimization techniques were used for this CT. COMPARISON: Comparison is made with prior study dated April 22, 2021. FINDINGS: Normal soft tissue structures. Normal calvarium. Normal size ventricles and extra-axial spaces for the patient''s age. Normal white matter tracts of the cerebral hemispheres. Stable focal encephalomalacia in the body of the right caudate nucleus. No acute abnormality is seen. Normal brainstem. Normal cerebellum. There is no intracranial hemorrhage. There are no findings of an acute ischemic infarction. Normal visualized paranasal sinuses. CT/Brain/Head without Contrast IMPRESSION: Stable focal encephalomalacia in the body of the right caudate nucleus. Electronically Signed: Andre Church MD at 15:03 EDT ,
--- NOTE | 2023-01-15 14:53 | EKG12_ITS ---
Test Reason : GENERAL Blood Pressure : / mmHG Vent. Rate : 081 BPM Atrial Rate : 081 BPM P-R Int : 162 ms QRS Dur : 084 ms QT Int : 392 ms P-R-T Axes : 061 018 053 degrees QTc Int : 455 ms Normal sinus rhythm Nonspecific ST abnormality Abnormal ECG When compared with ECG of 10-NOV-2020 14:37, No significant change was found Confirmed by YE DINERO, DELIA ([id number]), editor trade journal ORLY HERNANDEZ ([id number]) on 01/17/2023 10:01:01 AM Referred By: Jhoan Dickey Confirmed By:DELIA BELCHER MD
[2023-01-15 15:00] VITALS: O2SAT 96
[2023-01-15 15:34] LABS: Troponin-I HS 6 pg/mL (3.0-54.0)
[2023-01-15 17:12] VITALS: BMI 26.8
[2023-01-15 17:25] VITALS: BP 150/95; PULSE 94; RESP 16; TEMP 36.9; O2SAT 94
[2023-01-15 18:22] LABS: Troponin-I HS 6 pg/mL (3.0-54.0)
[2023-01-15 20:47] VITALS: O2SAT 94
[2023-01-15 21:25] VITALS: BP 133/77; PULSE 78; RESP 18; TEMP 37; O2SAT 95
[2023-01-15 21:49] LABS: Troponin-I HS 7 pg/mL (3.0-54.0)
[2023-01-15] MEDS: busPIRone 5 MG Tablet 7.5 MG PO (23:31)
[2023-01-15] MEDS: Gabapentin 300 MG Capsule PO (23:31)
[2023-01-15] MEDS: Baclofen 10 MG Tablet 20 MG PO (23:32)
[2023-01-15] MEDS: Montelukast 10 MG Tablet PO (23:32)
[2023-01-16 01:25] VITALS: BP 147/69; PULSE 69; RESP 18; TEMP 36.4; O2SAT 92
[2023-01-16 02:20] VITALS: BMI 26.8
[2023-01-16 04:58] LABS: Absolute Lymphocyte Count 1.69 X10^3/uL (0.83-4.51); Basophil# 0.04 X10^3/uL; Basophil% 0.5 % (0-1); Eosinophils% 1.3 % (0-5); Hematocrit 43.5 % (37-47); Hemoglobin 14.7 g/dL (12.0-15.0); Lymphocyte # 1.69 X10^3/ul (0.83-4.51); Lymphocyte % 22.1 % (19-41); Mean Corp Hgb Conc 33.8 g/dL (32-36); Mean Corpuscular Hgb 30.5 pg (27.0-32.0); Mean Corpuscular Volume 90.2 fL (81-99); Mean Platelet Vol. 10.2 fl (6.2-12.0); Monocyte# 0.81 X10^3/uL; Monocyte% 10.6 % (0-10); NRBC Flagged by Analyzer 0 % (0-5); Neutrophil # 4.97 X10^3/uL (2.7-7.7); Neutrophil % 65.2 % (47-70); Platelet Count 353 K/mm3 (150-450); RBC Distribution Width CV 13.2 % (11.6-14.6); RBC Distribution Width SD 43.6 fl (35.1-43.9); Red Blood Count 4.82 M/mm3 (4.2-5.4); White Blood Count 7.6 K/mm3 (4.4-11.0)
[2023-01-16 05:22] LABS: Anion Gap 10 (5-15); BUN 15 mg/dL (7-18); BUN/Creat Ratio 23.1 RATIO (10-20); Chloride 106 mmol/L (98-107); Cholesterol 224 mg/dL (200); Creatinine, Serum 0.65 mg/dL (0.55-1.02); EST Glomerular Filtration Rate 95 mL/min (>60); Est Glom Filt Rate - Afr Amer 115 mL/min (>60); Estimated Creatinine Clearance 40.81 ml/min; Glucose 86 mg/dL (74-106); High Density Lipoprotein 61 mg/dL; Potassium 3.3 mmol/L (3.5-5.1); Sodium Level 139 mmol/L (136-145); Triglycerides 147 mg/dL; Very Low Density Lipoprotein 29 mg/dL (5-40)
[2023-01-16 05:25] VITALS: BP 172/76; PULSE 71; RESP 18; TEMP 36.7; O2SAT 94
--- NOTE | 2023-01-16 05:55 | CT_ITS ---
EXAM: CT ANGIOGRAPHY HEAD AND NECK WITH INTRAVENOUS CONTRAST CLINICAL INDICATION: dizziness TECHNIQUE: [place] [facility]/head and neck CT angiography protocol performed with intravenous contrast. This CT exam was performed using one or more of the following dose reduction techniques: automated exposure control, adjustment of the mA and/or kV according to patient size, and/or use of iterative reconstruction technique. MIP reconstructed images were created and reviewed. CONTRAST: IV 100mL [id number] COMPARISON: 11/14/2020 FINDINGS: HEAD: RIGHT ANTERIOR CEREBRAL ARTERY: Unremarkable. No significant stenosis at the visualized segments. Anterior communicating artery is present. No aneurysm. RIGHT MIDDLE CEREBRAL ARTERY: Unremarkable. No significant stenosis at the visualized segments. No aneurysm. RIGHT POSTERIOR CEREBRAL ARTERY: Unremarkable. No occlusion or significant stenosis. No aneurysm. RIGHT INTRACRANIAL INTERNAL CAROTID ARTERY: Unremarkable. No significant stenosis. No dissection or occlusion. RIGHT INTRACRANIAL VERTEBRAL ARTERY: Unremarkable. No significant stenosis. No dissection or occlusion. LEFT ANTERIOR CEREBRAL ARTERY: Unremarkable. No significant stenosis at the visualized segments. No aneurysm. LEFT MIDDLE CEREBRAL ARTERY: Unremarkable. No significant stenosis at the visualized segments. No aneurysm. LEFT POSTERIOR CEREBRAL ARTERY: Unremarkable. No occlusion or significant stenosis. No aneurysm. LEFT INTRACRANIAL INTERNAL CAROTID ARTERY: Unremarkable. No significant stenosis. No dissection or occlusion. LEFT INTRACRANIAL VERTEBRAL ARTERY: Unremarkable. No significant stenosis. No dissection or occlusion. BASILAR ARTERY: Unremarkable. No significant stenosis. No aneurysm. OTHER VASCULATURE: No vascular malformation. NECK: RIGHT COMMON CAROTID ARTERY: Unremarkable. No significant stenosis. No dissection or occlusion. RIGHT EXTRACRANIAL INTERNAL CAROTID ARTERY: Mild, 40% stenosis of the proximal right ICA. No dissection or occlusion. RIGHT EXTERNAL CAROTID ARTERY: Unremarkable. No occlusion. RIGHT EXTRACRANIAL VERTEBRAL ARTERY: Unremarkable. No significant stenosis. No dissection or occlusion. LEFT COMMON CAROTID ARTERY: Unremarkable. No significant stenosis. No dissection or occlusion. LEFT EXTRACRANIAL INTERNAL CAROTID ARTERY: Unremarkable. No significant stenosis. No dissection or occlusion. LEFT EXTERNAL CAROTID ARTERY: Unremarkable. No occlusion. LEFT EXTRACRANIAL VERTEBRAL ARTERY: Unremarkable. No significant stenosis. No dissection or occlusion. BRACHIOCEPHALIC AND SUBCLAVIAN ARTERIES: Unremarkable as visualized. No occlusion or significant stenosis. LUNG APICES: Unremarkable as visualized. HEAD and NECK: BONES/JOINTS: Degenerative changes of the cervical spine. No discrete lytic or blastic abnormalities. SOFT TISSUES: Unremarkable. CAROTID STENOSIS REFERENCE USING NASCET CRITERIA: % ICA stenosis = (1 - narrowest ICA diameter/diameter of distal cervical ICA) x 100. Mild - <50% stenosis. Moderate - 50-69% stenosis. Severe - 70-94% stenosis. Near occlusion - 95-99% stenosis. Occluded - 100% stenosis. CT/CTA Head AND Neck W/ Contrast IMPRESSION: 1. No large vessel occlusion, dissection, or other acute arterial abnormality identified on this CTA evaluation of the head/neck. 2. Mild, 40% stenosis of the proximal right ICA. Electronically Signed: Parviz Kemp MD at 7:35 EDT ,
[2023-01-16] MEDS: Baclofen 10 MG Tablet 20 MG PO ×2 (06:27→13:58)
[2023-01-16] MEDS: busPIRone 5 MG Tablet 7.5 MG PO (08:37)
[2023-01-16] MEDS: Potassium Chloride Oral Tablet 20 MEQ PO (08:37)
[2023-01-16] MEDS: Pantoprazole Sodium 40 MG Tablet PO (08:37)
[2023-01-16] MEDS: Aspirin 81 MG TAB.CHEW PO (08:37)
[2023-01-16] MEDS: Citalopram 20 MG Tablet PO (08:38)
[2023-01-16] MEDS: Enoxaparin 40 MG/0.4 ML Syringe SC (08:47)
[2023-01-16] MEDS: 0.9% Saline Lock 10 ML Syringe IV (08:47)
--- NOTE | 2023-01-16 09:00 | MRI_ITS ---
EXAM: MR HEAD WITHOUT INTRAVENOUS CONTRAST CLINICAL INDICATION: CVA TECHNIQUE: Multiplanar and multisequence MR images of the brain were obtained without intravenous contrast. COMPARISON: CT brain 01/15/2023 FINDINGS: BRAIN AND EXTRA-AXIAL SPACES: Increased T2 signal intensity within the cerebral white matter suggestive of chronic microvascular change. Right periventricular cystic leukomalacia changes involving the gonzalez radiata consistent with old infarct. No evidence of acute ischemic change. No intra- or extra-axial hemorrhage. No intracranial mass or mass effect. Posterior fossa structures are unremarkable. No hydrocephalus. Basal cisterns are patent. SELLA: Normal. Normal sella turcica, pituitary gland, infundibular stalk, optic chiasm and hypothalamus. AUDITORY SYSTEM: Normal. The internal auditory canals are patent. BONES/JOINTS: Intact calvarium. SINUSES: Unremarkable as visualized. Clear. MASTOID AIR CELLS: Unremarkable as visualized. Clear. ORBITS: Unremarkable as visualized. Both globes, extraocular muscles, optic nerves and retrobulbar fat appear unremarkable. VASCULATURE: Unremarkable as visualized. Normal flow voids in the major intracranial circulation. MRI/Brain without Contrast IMPRESSION: No acute intracranial abnormality. Chronic ischemic change. Electronically Signed: Adal Maki MD at 9:56 EDT ,
[2023-01-16 10:00] VITALS: BP 150/81; PULSE 82; RESP 18; TEMP 36.3; O2SAT 95
--- NOTE | 2023-01-16 10:54 | DCINST_ITS ---
Discharge Instructions Diet Discharge Diet: Low fat / Low cholesterol Activity Discharge Activity: Return to Normal Activity Dressing / Incision Call your doctor if you observe: Fever of 101 or Higher, Shortness of breath, Dizziness, Fainting spells, Swelling in the ankles, Chest pain and Increased palpitations (irregular heartbeat) Follow Up Care Test Results: Test results from this visit will be discussed in further detail at your follow- up appointment, if applicable. Discharge Plan Admission Admit Date/Time: 01/15/23 14:19 Attending Provider: Sky Rasmussen Primary Care Provider: Shantelle Mclain Consulting Providers: Jhoan Dickey ; Bárbara Pierre Instructions Additional Instructions / Restrictions: We will have you follow-up as an outpatient with physical therapy for vestibular therapy Discharge Orders/Prescriptions Prescriptions: Continued (DME) Handicap Placard See Rx Instructions .ROUTE .MEDSUPPLY Qty: 1 0RF Rx Instructions: As directed, length of time 3 years hydrocortisone 2.5 % cream 1 applic topical BID PRN (Reason: rash) Qty: 30 2RF Rx Instructions: apply to psoriasis areas baclofen 5 mg tablet 20 mg PO Q8H Label Comments: take 1 tablet by mouth three times a day diclofenac sodium 75 mg tablet,delayed release (DR/EC) 75 mg PO BID aspirin 81 MG tablet,chewable 81 mg PO DAILY@0800 acetaminophen 325 MG tablet 650 mg PO Q6H PRN PRN (Reason: PAIN) 0RF montelukast 10 mg tablet 10 mg PO QHS cholecalciferol (vitamin D3) 50 mcg (2,000 unit) capsule 50 mcg PO QHS magnesium oxide 400 mg magnesium capsule 500 mg PO QHS omeprazole 40 mg capsule,delayed release(DR/EC) 40 mg PO DAILY Qty: 90 1RF citalopram 20 mg tablet 20 mg PO DAILY Qty: 90 3RF gabapentin 300 mg capsule 300 mg PO QHS Qty: 90 1RF amlodipine 5 mg tablet 5 mg PO DAILY Qty: 90 3RF buspirone 7.5 mg tablet 7.5 mg PO BID Qty: 180 3RF potassium chloride 20 mEq tablet,ER particles/crystals 20 meq PO DAILYCM Qty: 90 1RF Referrals / Follow Up: Shantelle Mclain MD [Primary Care Provider] - Within 1 Week Disposition Disposition (needs filled in before D/C Order can be placed): Home, Self Care
--- NOTE | 2023-01-16 11:20 | PHA.DC.MR ---
Pharmacy Service has performed discharge medication reconciliation for this patient. The patient's discharge medication list was reviewed for discrepancies and discrepancies were resolved. Home Medications aspirin 81 mg chewable tablet 81 mg PO DAILY@0800 heart 11/13/20 acetaminophen 325 mg tablet 650 mg PO Q6H PRN PRN PAIN 12/05/20 Handicap Placard #1 ea 01/03/21 hydrocortisone 2.5 % topical cream 1 applic topical BID PRN rash #30 grams 04/11/21 citalopram 20 mg tablet 20 mg PO DAILY #90 tabs 08/29/22 gabapentin 300 mg capsule 300 mg PO QHS nerve pain #90 caps 08/29/22 omeprazole 40 mg capsule,delayed release 40 mg PO DAILY #90 caps 08/29/22 amlodipine 5 mg tablet 5 mg PO DAILY #90 tabs 08/30/22 buspirone 7.5 mg tablet 7.5 mg PO BID #180 tabs 08/30/22 potassium chloride 20 mEq tablet,extended release(part/cryst) 20 meq PO DAILYCM potassium #90 tabs 08/30/22 baclofen 5 mg tablet 20 mg PO Q8H 10/01/22 diclofenac sodium 75 mg tablet,delayed release 75 mg PO BID 10/01/22 cholecalciferol (vitamin D3) 50 mcg (2,000 unit) capsule 50 mcg PO QHS 01/15/23 magnesium oxide 500 mg PO QHS 01/15/23 montelukast 10 mg tablet 10 mg PO QHS allegries 01/15/23
--- NOTE | 2023-01-16 13:02 | CHAPLAIN ---
Type of Pastoral Visit _x__ Initial Visit ___ Follow-up Visit ___ On-call Visit ___ General Patient Visit ___ Spiritual Assessment ___ Family Conference ___ Bereavement ___ Rapid Response ___ Code Blue ___ Other (describe below) Pastoral Care Referral From _x__ Patient ___ Family ___ Nurse ___ Physician ___ Hair Or Beauty Salon Manager ___ Fur Sewer ___ Other (describe below) Sacrament/Intervention _x__ Active listening ___ Anointing ___ Caodaism ___ Bereavement ___ Communion ___ Emili exploration ___ _x__ Life review _x__ Prayer ___ Reconciliation ___ Sacrament of Sick ___ Supportive presence ___ Wedding ___ Other (describe below) Pastoral Comments patient remembers this bread wrapping machine feeder from previous admission in 2020; pt gives current health information and review of her recovery of stroke in 2020; pt has friend in room for support; pt is optimisitc and welcomes the presence and prayer of this bread wrapping machine feeder for support
[2023-01-16 14:01] VITALS: O2SAT 94
--- NOTE | 2023-01-16 14:20 | PCM.DC.SUM ---
Providers Date of Admission: 01/15/23 Primary Care Physician: Dr. Shantelle Mclain MD Reason For Visit: DIZZINESS AND WEAKNESS Diagnosis Discharge Diagnosis (1) Dizziness: Status: Acute Code(s): R42 - Dizziness and giddiness Medications at Discharge Home Medications aspirin 81 mg chewable tablet 81 mg PO DAILY@0800 heart 11/13/20 acetaminophen 325 mg tablet 650 mg PO Q6H PRN PRN PAIN 12/05/20 Handicap Placard #1 ea 01/03/21 hydrocortisone 2.5 % topical cream 1 applic topical BID PRN rash #30 grams 04/11/21 citalopram 20 mg tablet 20 mg PO DAILY #90 tabs 08/29/22 gabapentin 300 mg capsule 300 mg PO QHS nerve pain #90 caps 08/29/22 omeprazole 40 mg capsule,delayed release 40 mg PO DAILY #90 caps 08/29/22 amlodipine 5 mg tablet 5 mg PO DAILY #90 tabs 08/30/22 buspirone 7.5 mg tablet 7.5 mg PO BID #180 tabs 08/30/22 potassium chloride 20 mEq tablet,extended release(part/cryst) 20 meq PO DAILYCM potassium #90 tabs 08/30/22 baclofen 5 mg tablet 20 mg PO Q8H 10/01/22 diclofenac sodium 75 mg tablet,delayed release 75 mg PO BID 10/01/22 cholecalciferol (vitamin D3) 50 mcg (2,000 unit) capsule 50 mcg PO QHS 01/15/23 magnesium oxide 500 mg PO QHS 01/15/23 montelukast 10 mg tablet 10 mg PO QHS allegries 01/15/23 Hospital Course Operations None Procedures 2-D Echocardiogram Summary of Care Provided Minutes Spent on Discharge: 38 Hospital Course: Per HPI: SATURNINO MAY, is a 72 F with a past history as outlined which includes a history of stroke.? She presents as a transfer from an outside hospital where she presented with a complaint of dizziness and lightheadedness which have been going on for 1 day prior to admission.? Patient has residual left-sided upper extremity weakness from her previous stroke.? She says she came back from work the day before admission and went to bed.? She got up and went to the bathroom but felt very dizzy and lightheaded and nearly fell.? She was able to get back to bed.? She slept it off thinking that she was tired.? However waking up in the morning of the day of presentation, she again felt very lightheaded and dizzy and thought she was going to fall down.? She denied any headache, did admit to some numbness and tingling around the left side of her mouth but denied any numbness and tingling of any extremities.? She denied any worsening weakness of any extremities.? Review systems was otherwise negative.? She presented at an outside hospital where CT of the brain done was negative for any evidence of stroke.? She was patient to be admitted there to be worked up for stroke with further imaging to be done.? Patient however preferred to be transferred to [facility].? On arrival at [facility] and at time of my review, she complained of a headache but says she thought was due to nasal congestion which had also resulted in right ear fullness.? He still did have a bit of dizziness and lightheadedness.? She denied any other symptoms.? Review of systems otherwise negative.? Vitals in the ED were blood pressure 159/83, pulse rate of 86 and respiratory rate of 16.? Temperature was 98.5 Fahrenheit and she was saturating at 96% on room air.? CBC and BMP done at outside hospital also essentially unremarkable and EKG done they also showed no acute ST changes.? She has been admitted to be managed for dizziness and lightheadedness to rule out a stroke. Hospital Course: 1. Dizziness?72-year-old female with a history of a stroke in the past with continued left-sided deficits presents to the hospital with dizziness. She was transferred from an outside hospital for further work-up. MRI was negative and echo was normal. Her dizziness has improved some and she does endorse a lack of p.o. intake for couple days prior to admission. She does notice that the dizziness improves after a few seconds of a change in position she was able to tolerate ambulation with physical therapy today. I do recommend vestibular therapy on discharge to try to help with likely vertigo. Can resume her home blood pressure medications without any changes. I discussed with her the plan for discharge today and she expressed understanding of the risk benefits of going home and would like to go home today I do recommend follow-up with her PCP in 3 to 5 days. 2. Hypertension, history of CVA, anxiety, depression, GERD are all chronic medical conditions which complicate her care. Her home medications were continued where appropriate Physical Exam Narrative General: Alert, Oriented x3, Cooperative, No apparent distress HEENT: Atraumatic, PERRLA, EOMI, Normocephalic Oral: Moist Mucosa Neck: Supple, No JVD Lungs: Clear to auscultation, Normal air movement, No rhonchi, No wheeze, No rales Cardiovascular: Regular rate, Regular Rhythm, Normal S1, Normal S2, No murmurs Abdomen: Soft, Non Tender, Non-Distended, No Hepato-splenomegaly Extremities: No edema, Capillary Refill Less than 3 Seconds Skin: No rashes, No breakdown Musculoskeletal: No Tenderness to Palpation of Joints or Extremities Neurological: Motor Exam 4/5 strength on the left side with left-sided foot drop, right side is 5/5, Sensory exam intact to light touch and pain Psych/Mental Status: Normal Affect, Appropriate Weight / BMI Weight Weight: 146 lb 9.718 oz Body Mass Index (BMI) 26.8 ABG / Lab / Microbiology Data Result Diagrams: 01/16/23 04:31 01/16/23 04:31 Laboratory: Laboratory Results - last 24 hr 01/15/23 14:53: Troponin I High Sens 6 01/15/23 16:58: Troponin I High Sens 6 01/15/23 20:50: Troponin I High Sens 7 01/16/23 04:31: WBC 7.6, RBC 4.82, Hgb 14.7, Hct 43.5, MCV 90.2, MCH 30.5, MCHC 33.8, RDW Std Deviation 43.6, RDW Coeff of [place] 13.2, Plt Count 353, MPV 10.2, Immature Gran % (Auto) 0.300, Neut % (Auto) 65.2, Lymph % (Auto) 22.1, [place] % (Auto) 10.6 H, Eos % (Auto) 1.3, Baso % (Auto) 0.5, Absolute Neuts (auto) 5.0, Absolute Lymphs (auto) 1.69, Nucleated RBC % 0 01/16/23 04:31: Sodium 139, Potassium 3.3 L, Chloride 106, Carbon Dioxide 23.0, Anion Gap 10, BUN 15, Creatinine 0.65, Estim Creat Clear Calc 40.81, Est GFR (MDRD) Af Amer 115, Est GFR (MDRD) Non-Af 95, BUN/Creatinine Ratio 23.1 H, Glucose 86, Calcium 9.0, Triglycerides 147, Cholesterol 224 H, LDL Cholesterol 134 H, VLDL Cholesterol 29, HDL Cholesterol 61 Radiography Diagnostic Testing: Radiology Impression Echocardiogram 01/15/23 14:23 Interpretation Summary The estimated ejection fraction is 55-60 %. No significant change from prior echocardiogram in Ordering Physician: Bárbara Pierre Referring Physician: Jhoan Dickey Performed By: Sherron Riojas RCS Brain CT 01/15/23 14:44 IMPRESSION: Stable focal encephalomalacia in the body of the right caudate nucleus. Electronically Signed: Andre Church MD at 15:03 EDT , Head/Neck CTA 01/16/23 05:55 IMPRESSION: 1. No large vessel occlusion, dissection, or other acute arterial abnormality identified on this CTA evaluation of the head/neck. 2. Mild, 40% stenosis of the proximal right ICA. Electronically Signed: Parviz Kemp MD at 7:35 EDT , Brain MRI 01/16/23 09:00 IMPRESSION: No acute intracranial abnormality. Chronic ischemic change. Electronically Signed: Adal Maki MD at 9:56 EDT , D/C Instructions Discharge Diet: Low fat / Low cholesterol Call your doctor if you observe: Fever of 101 or Higher, Shortness of breath, Dizziness, Fainting spells, Swelling in the ankles, Chest pain and Increased palpitations (irregular heartbeat) Meaningful Use Info Meaningful Use Diagnoses (Choose all that apply): None applicable Discharge Plan Admission Admit Date/Time: 01/15/23 14:19 Attending Provider: Sky Rasmussen Primary Care Provider: Shantelle Mclain Consulting Providers: Jhoan Dickey ; Bárbara Pierre Instructions Additional Instructions / Restrictions: We will have you follow-up as an outpatient with physical therapy for vestibular therapy Discharge Orders/Prescriptions Prescriptions: Continued (DME) Handicap Placard See Rx Instructions .ROUTE .MEDSUPPLY Qty: 1 0RF Rx Instructions: As directed, length of time 3 years hydrocortisone 2.5 % cream 1 applic topical BID PRN (Reason: rash) Qty: 30 2RF Rx Instructions: apply to psoriasis areas baclofen 5 mg tablet 20 mg PO Q8H Label Comments: take 1 tablet by mouth three times a day diclofenac sodium 75 mg tablet,delayed release (DR/EC) 75 mg PO BID aspirin 81 MG tablet,chewable 81 mg PO DAILY@0800 acetaminophen 325 MG tablet 650 mg PO Q6H PRN PRN (Reason: PAIN) 0RF montelukast 10 mg tablet 10 mg PO QHS cholecalciferol (vitamin D3) 50 mcg (2,000 unit) capsule 50 mcg PO QHS magnesium oxide 400 mg magnesium capsule 500 mg PO QHS omeprazole 40 mg capsule,delayed release(DR/EC) 40 mg PO DAILY Qty: 90 1RF citalopram 20 mg tablet 20 mg PO DAILY Qty: 90 3RF gabapentin 300 mg capsule 300 mg PO QHS Qty: 90 1RF amlodipine 5 mg tablet 5 mg PO DAILY Qty: 90 3RF buspirone 7.5 mg tablet 7.5 mg PO BID Qty: 180 3RF potassium chloride 20 mEq tablet,ER particles/crystals 20 meq PO DAILYCM Qty: 90 1RF Referrals / Follow Up: Shantelle Mclain MD [Primary Care Provider] - Within 1 Week Disposition Disposition (needs filled in before D/C Order can be placed): Home, Self Care Charges/Coding Visit Charges Inpatient E&M: 18535 Disch Hosp >30min
[2023-01-16 14:30] VITALS: BP 151/83; PULSE 84; RESP 16; TEMP 36.4; O2SAT 94
== END 2023-01-16 14:30 | disposition home or self-care (01) ==
PROVIDERS: Student in an Organized Health Care Education/Training Program; PCP Internal Medicine; Visit Provider Family Medicine
DX: R42 Dizziness and giddiness (principal); I69.354 Hemiplegia and hemiparesis following cerebral infarction affecting left non-dominant side; Z87.891 Personal history of nicotine dependence; R53.1 Weakness; R51.9 Headache, unspecified; I10 Essential (primary) hypertension; Z79.82 Long term (current) use of aspirin; Z79.899 Other long term (current) drug therapy; K21.9 Gastro-esophageal reflux disease without esophagitis; F41.9 Anxiety disorder, unspecified; F32.A Depression, unspecified
CPT/HCPCS: 36415; 70450; 70496; 70498; 70551; 80048; 80061; 84484; 85025; 93005; 93306; 94762; 96372; 97162; 97166; 99221; Q9957; Q9967; A4216; G0378; G0379

== ENCOUNTER → 2023-02-26 | Outpatient (CLI) | payer MEDICARE, MEDICAID, SELFPAY | END | disposition home or self-care (01) | LOC: SL 09:45 | PROVIDERS: PCP Internal Medicine; Referring Provider Nurse Practitioner Family; Visit Provider Nurse Practitioner Family | DX: G47.10 Hypersomnia, unspecified (principal) | CPT/HCPCS: 95806 ==

== ENCOUNTER → 2023-03-26 | Outpatient (CLI) | payer MEDICARE, MEDICAID, SELFPAY | END | disposition home or self-care (01) | LOC: SL 21:40 | PROVIDERS: PCP Internal Medicine; Referring Provider Internal Medicine; Visit Provider Internal Medicine | DX: G47.10 Hypersomnia, unspecified (principal); G47.33 Obstructive sleep apnea (adult) (pediatric) | CPT/HCPCS: 95811 ==

== ENCOUNTER → 2023-05-07 | Outpatient (CLI) | payer MEDICARE, MEDICAID, SELFPAY ==
[2023-05-07 15:57] LABS: Bacteria 0 SEEN /hpf (None Seen); Mucous, Urine 0 SEEN /hpf (<or=2+); Red Blood Cells-Urine 0 SEEN /hpf (0-5); Squamous Epithelial Cells - UA 0 SEEN /hpf (5-10)
[2023-05-07 16:03] LABS: Color, Urine Yellow (Yellow); Glucose, Dipstick Normal (Normal); Ketone-Dipstick Negative (Negative); Leukocyte Esterase-Dipstick 100 /ul (Negative); Nitrite-Dipstick Negative (Negative); Occult Blood-Urine Negative /ul (Negative); Protein-Dipstick Negative (Negative); Urine Bilirubin Dipstick Negative (Negative); Urine Clarity Clear (Clear); Urine Urobilinogen Normal (Normal)
[2023-05-07 16:41] LABS: White Blood Cells 0-5 SEEN /hpf (0-5)
== END | disposition home or self-care (01) ==
LOC: LABSPEC 14:58
PROVIDERS: PCP Internal Medicine; Referring Provider Physician Assistant; Visit Provider Physician Assistant
DX: R30.0 Dysuria (principal)
CPT/HCPCS: 81001; 87086; 87088

== ENCOUNTER 2023-07-03 11:30 | Outpatient (RCR) | payer MEDICARE, MEDICAID, SELFPAY ==
--- NOTE | 2022-12-24 14:11 | HP.PTEVAL ---
Patient's Visit Information SATURNINO MAY is a 72 year old F referred to Physical Therapy by Dr. Shantelle Mclain MD with a diagnosis of PAIN IN RIGHT SHOULDER ,HEMIPLEGIA AFFECTING LEFT NONDOMINANT. Date of Evaluation: 12/24/22 Physical Therapist: Julito Baez, PT, Cert MDT, OCS - Visit Plan Frequency: 2x /Week Duration: 4 Weeks Plan: H/O CVA LEFT SIDE ,OT ORDER FOR LEFT UE. RIGHT SHOULDER RE-TORE RTC,. PT INTERVETIONS FOCUSING RIGHT SHOULDER MANUAL THERAPT PROM,G-H JOINT MOBILIZATION ,ROM , GRADED STRENGTHENING RIGHT SHOULDER ,POSTURL EX'S AND LEFT LLE FLEXABLITY/STRENGTHENING /BALANCE PROGRAM - Subjective This 71 y/o female presents to physical right shoulder pain and left hemiplegia . Patient has h/o CVA affecting left side . Patient has had PT for right shoulder for RTC and re-tore .Patient has left shoulder pain with inability to use left along with pain and had MRI showed RTC tear . Along with tear patient has hemiparesis. Patient has right RTC torn but unable to have surgery. Patient had left RTC torn RTC along with adhesive capsular tightness . Patient tried PT in past. Patient feLl last year January 2022 fx left wrist and and left fibula. Also fell November 07 hit head and had bruise. Patient has inability to use left and right arm for ADL and function/housework tasks. Patient has difficulty with reaching behind back bathing, cooking. Denies paresthesia tingling. MEDS muscle relaxer-bactofilin. Patient stated candidate for reverse TSR. Seen Neurologist and plans to have Botox. Patient plans to have OT for left UE. GOALS: improve ROM and function left UE. SOCIAL: SINGLE. VOCATION: [employer] - Pain Right Shoulder Pain Intensity (Out of 10): 10 Pain Intensity Range: 10 - Objective POSTURE: mild forward posture. GAIT: reciprocal pattern mild forward posture slight ataxia left LE with increase tone with decrease hip/knee flexion and stance time. NUERO: increase hypertonicity LLE ,reflexes hyperreflexia Achilles /patella. AROM: shoulder flexion 90 degrees ,abduction 85. CAPSULAR TIGHTNESS : mod tight G-H. PROM: right shoulder flexion 140 degrees ,abduction in scaption 145 degrees ,ER 25 degrees pain. MMT: ( peak force) infraspinatus/supraspinatus 0, subscapularis 10.7. quads 38.6 ,hip flexion 42.2 ,hip abduction 6.8 ,hamstrings 27.8. FLEXABLITY: hamstrings mod tight. BALANCE: good- - Special Tests R Shoulder External Rotation Lag Test - RC Tear: Positive R Shoulder Supine Impingement Test - RC Tear: Negative R Shoulder Lift Off Test - Subscapular Tear: Positive R Shoulder Drop Sign - IS Test: Positive R Shoulder Empty Can - SS: Positive R Shoulder Neer - Impingement: Positive R Shoulder Shrug Sign - OA/Adhesive Capsulitis: Positive - Balance/Special Test Scores Quick DASH Score: 59.0900 - Goals Goal 1:: Patient to be I with HEP for right shoulder and left leg . Goal Time Frame: 4-6 Weeks Goal 2:: Patient demonstrate 40% right shoulder for ADLS and job demands Goal Time Frame: 4-6 Weeks Goal 3:: Patient to improve AROM shoulder flexion/abduction by 10-15 degrees to improve for ADL's Goal Time Frame: 4-6 Weeks Goal 4:: Patient to improve peak force left hip abd and left shoulder by 5 to improve QOL Goal Time Frame: 4-6 Weeks Goal 5:: Patient to improve quick dash shoulder by 5 points to improve QOL. Goal Time Frame: 4-6 Weeks - Rehabilitation Potential Physical Therapy Diagnosis: This patient has right shoulder pain due to re-tore RTC thus candidate for reverse TSR but comorbities influences condition with h/o CVA affecting left side and torn RTC along with hemiplegia left shoulder with current deficits with pain right shoulder ,weakness ,decrease ROM impairs ADLS and housework tasks thus benefit from skilled PT Rehabilitation Potential: Good - Anticipated Interventions Patient/Client Instruction: Educate patient on: Condition, Plan of Care For the Purpose of:: To decrease pain, To increase ROM, To improve muscle performance and motor function, To improve ability to perform ADL's, To increase tolerance to activity/condition/position, To improve ability of physical actions for home/community/work/leisure, To improve health of tissue, To decrease soft tissue restriction, To increase flexibility/ROM Therapeutic Exercise to Include: Strength training, Balance training, Postural training, Flexibilty training, Passive ROM, Active ROM For the Purpose of:: To decrease pain, To increase ROM, To improve muscle performance and motor function, To improve ability to perform ADL's, To increase tolerance to activity/condition/position, To improve ability of physical actions for home/community/work/leisure, To improve health of tissue, To decrease soft tissue restriction, To increase flexibility/ROM, To improve endurance, To improve balance Manual Therapy Techniques to Include: Mobilization, Passive ROM Comment: G-H For the Purpose of:: To decrease pain, To increase ROM, To improve nutrient delivery to tissue, To increase oxygenation perfusion, To improve health of tissue, To decrease soft tissue restriction, To increase flexibility/ROM Thank you for the opportunity to evaluate your patient. For Medicare and Medicare HMO plans, please review the plan of care and approve it. It will need to be FAXED BACK to us at [phone] for Medicare purposes. For Medicare only, by signing this I certify the plan of care. Please let me know if there are questions or concerns regarding this plan of care. Physician Signature: Date:
--- NOTE | 2023-01-03 11:07 | HP.OTEVAL ---
Patient's Visit Information SATURNINO MAY is a 72 year old F, referred to Occupational Therapy by Dr. Shantelle Mclain MD, with a diagnosis of Left hemiplegia. Date of Evaluation: 01/03/23 Occupational Therapist: Sari Turner, ARIANA/Neal, CHT - Subjective This 72 year old female was seen for OT eval with dx of hemiplegia affecting left UE- pt also has compromised right shoulder rotator cuff. pt states she had a fall January 2022 suffering a left wrist fx. pt arrives today with orders for left UE care to assist with tone of left UE. 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 Pt states she is hopeful she can attend 2 therapy sessions a week due to her work schedule. Pt states she is sing. limited with ADLs and IADls due to limited motion of her left UE. pt would like to know what she can do to increase her ind. and use of left UE. - ADLs Dressing: Bra, Pants, Socks, Shoes Fasteners: Tie shoes, Buttons, Zippers Eating: Use silverware, Cut food Bathing: Handle washcloth & soap, Wash hair, Squeeze shampoo bottle Grooming: Curling iron, Trim nails Kitchen: Chop with knife, Peel fruits & vegetables, Open jars, Open bottle caps, Take dish out of oven, Load/unload certified residential medication aide Household: Sweep/mop, Laundry Miscellaneous: Open medication bottle, Hold change, Take things out of wallet, Carry shopping bag, Open doors/Including car door, Pump gas, Function in drive through window - ROM Shoulder: right Limited 70* (old injury) left PROM 110* Elbow: right WNL left Forearm: right WNL left supination slow but WFL Wrist: right WNL left 45/50 ROM Comments: pt demo - Strength Health Information Management Director: right 40# left 10# - Sensation Sensation Comments: denies at this time but will have falling asleep sensation in all fingers - Movement Muscle Tone: left shoulder min, elbow mod, forearm mod, wrist and digits mod tone Movement Comments: pt unable to move left shoulder in forward flexion due to hx of left RCT. - In-Hand Manipulation Finger to Palm Translation: Normal - Right, Severe - Left Palm to Finger Translation: Normal - Right, Severe - Left Shift: Normal - Right, Severe - Left Rotation: Normal - Right, Severe - Left - Quick DASH-Disab of Arm,Shoulder& Hand Quick DASH Score: 68.3325 - Goals Goal:: pt will demo a increase in left esthetician/owner strength by 15# to increase pts ind.with ADLs and IADLs by d.c Goal:: pt will demo increase in AROM of wrist/elbow and digits to functionally grasp/release and lift objects 3# by d/c Goal:: pt will demo adaptive irma. to tie, button and manipulate fasteners at EFREN by d/c Goal:: pt will demo understanding of ad. irma.and ad. eq. for ADLs by d/c - Rehabilitation General Assessment: pt suffered stroke 2020 and had a RCT of left shoulder. pt is significantly limited with ROM of left UE/elbow /wrist/hand due to mod tone with increase use of left UE. pt would benefit from skilled OT services 2-3x week for 8-12 weeks to address pts left UE hemiplegia, tone and ed. on ad. eq. to increase pts ind. with ADLs and IADLs. pt agrees with POC. Rehabilitation Potential: Good - Anticipated Interventions A/AAROM/PROM, Triggerpoint Release, Modalities, Orthoses, Joint Protection/Energy Conservation, Ergonomic Education, Fine Motor Coord/Baron, Neuro Reeducation, Education re assistive Equipment, Education re Diagnosis, Home Program - Visit Plan Frequency: 2-3x /Week Duration: 6 Weeks General Plan: will initiate PROM to decrease tone-. initiate wrist ext ex to strength for ADLs. pt may need wrist stabilization ex. decrease tone of left UE TEXT: Thank you for the opportunity to evaluate your patient. For Medicare and Medicare HMO plans, please review the plan of care and approve it. It will need to be FAXED BACK to us at [phone] for Medicare purposes. Please let me know if there are questions or concerns regarding this plan of care. Physician Signature: Date:
--- NOTE | 2023-01-22 11:22 | HP.PTEVAL2_ITS ---
Patient's Visit Information SATURNINO MAY is a 72 year old F referred to Physical Therapy by Dr. Shantelle Mclain MD with a diagnosis of vertigo. Date of Evaluation: 01/22/23 Physical Therapist: Jhoan Foote, JESSICAT, OCS, CSCS - Visit Plan Frequency: 1x/Week Duration: 4-6 Weeks Plan: weekly x 4-6 for progression of adaptation and habituation ex as needed. Given H VOr and head turns 15x all 6x/day today with pics. May need vertical and VOR x 2 - Subjective Subjective: Spinning sporadically. It lasts for short period. Bending over will cause it. Lying in bed. Rolls on side to R will make her spin. This has been happening for a week or so starting last Saturday and never had it before. Was fine the day prior. Spun if moved for two days. Went to ER Saturday. Ran CT and no new CVA. 50% better now. Has to be careful. has to hold on when stands. No falls. Working at [employer] standing at desk, Missed last week. Currently Sleeping Ok. Hobbies eat, sleep and work. 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 - Objective Objective: L leg motor control is poor from stroke. This causes gait deficit and difficulty with marching and L leg stance time which effects balance score. I gait without AD into adn out of PT, trasnfers I bed and chair without UE. Steps reciprocal with one rail, weak obvious on L side. - B hallpike elsi and - roll test. cervical arom WFL and without pain today. Oculomotor: no nystagmus with gaze or head shake. - head thrust. - ocular tilt. - skew eye deviation. normal pursuit and saccades. slightly synmptomatic VOR H 2/10 for a few seconds after 30 seconds, Vertical not as bad. DVA 5 lines different from SVA with glasses on. - Balance/Special Gait Scores Functional Gait Assessment Score: 20 % Disability: 33.3400 - Goals Goal 1:: abolish vertigo feeling with bending and R turns. Goal Time Frame: 2-4 Weeks Goal 2:: FGA score 22/30 Goal Time Frame: 2-4 Weeks Goal 3:: pt feel 100% back to normal gait and dizzyness Goal Time Frame: 4-6 Weeks - Rehabilitation Potential Physical Therapy Diagnosis: likely vestibular hypofunction R. Rehabilitation Potential: Good - Anticipated Interventions Patient/Client Instruction: Educate patient on: Condition, Risk Factors For the Purpose of:: To improve muscle performance and motor function, To increase tolerance to activity/condition/position, To improve ability of physical actions for home/community/work/leisure, To improve gait and locomotor functions Therapeutic Exercise to Include: Balance training For the Purpose of:: To improve muscle performance and motor function, To increase tolerance to activity/condition/position, To improve gait and locomotor functions, To improve health of tissue Thank you for the opportunity to evaluate your patient. For Medicare and Medicare HMO plans, please review the plan of care and approve it. It will need to be FAXED BACK to us at [phone] for Medicare purposes. For Medicare only, by signing this I certify the plan of care. Please let me know if there are questions or concerns regarding this plan of care. Physician Signature:_ Date:
--- NOTE | 2023-02-25 09:50 | HP.PTDCS(2) ---
It has been my pleasure to treat SATURNINO MAY referred by Dr. Shantelle Mclain MD, with the diagnosis of vertigo for a total of 3 visit(s). Discharge Date: 02/25/23 Please see the following information for a summary of their discharge status. Subjective: Vertigo is pretty good. Gets momentary dysequilibrium a couple times per week. Still slightly lying down and to the right. No pattern that she noticed. Lie down to the right may cause it. Feels good balance velasquez and dizzy velasquez in between these episodes. Put on medication to dry ear out. % Improvement: 80 Objective/Function/Assessment: - B hallpike lesi. - roll test. FGA +5 today and missing points more for gait deviation than balance deficits. Patient Goals: Other Other Goals: rid dizzyness. Goal 1:: abolish vertigo feeling with bending and R turns. Goal Progress: Progressing Goal 2:: FGA score 22/30 Goal Progress: Goal Met Goal 3:: pt feel 100% back to normal gait and dizzyness Goal Progress: Goal Met Plan: d/c If there are questions or concerns regarding this patient's physical therapy, please feel free to call me at [phone]. Thank you for the referral of this patient. Sincerely, Jhoan Foote, DPT, OCS, CSCS Balance/Special Test Scores - Balance/Special Test Scores Functional Gait Assessment Score: 25 % Disability: 16.4384
--- NOTE | 2023-02-25 10:50 | OTREVAL_ITS ---
Dr. Shantelle Mclain MD, It has been my pleasure to treat SATURNINO MAY over the last 9 visits for Left hemiplegia. Please see the progress note below for an update on the occupational therapy plan of care! Subjective: pt states she is feeling she can move her hand more since her Botox injection. would like to still initiate shoulder flexion to gain more IND with ADLs. Objective/Function: left shoulder ext at 40*. left shoulder flexion standing 20*. shoulder flexion with truck flexion 45* demo some compensation with shoulder shrug will correct with verbal cues. left elbow ROM WNL. left forearm demo WFL. tone - noted decrease tone of wrist and fingers- noted limited LF adduction - and wrist positions in ulnar deviation position. Plan Frequency: 2-3x /Week Duration: 2 Months Visits in this POC: has ordered 24 visits of OT Plan: will continue OT services 2-3x week for 8 weeks to treat pt to increase wrist and finger extension to gain fluid flexion extension motion to gain increase consistent left hand grasp for ADLs and IADLs. Goals - Goals Patient Goals: Regain Mobility, Use Hand/Wrist/Arm Normally Again, Increase ROM, Decrease Muscle Tone Goal:: pt will demo a increase in left body maker machine setter strength by 15# to increase pts ind.with ADLs and IADLs by d.c Goal:: pt will demo increase in AROM of wrist/elbow and digits to functionally grasp/release and lift objects 3# by d/c Goal:: pt will demo adaptive irma. to tie, button and manipulate fasteners at EFREN by d/c Goal:: pt will demo understanding of ad. irma.and ad. eq. for ADLs by d/c Anticipated Interventions Anticipated Interventions: A/AAROM/PROM, Triggerpoint Release, Modalities, Orthoses, Joint Protection/Energy Conservation, Ergonomic Education, Fine Motor Coord/Baron, Neuro Reeducation, Education re assistive Equipment, Education re Diagnosis, Home Program Please do not hesitate to contact me at [phone] by phone or if you have questions or concerns regarding this new plan of care! Sincerely, Sari Turner, OTR/L, CHT
--- NOTE | 2023-04-10 09:07 | HP.PTEVAL_ITS ---
Patient's Visit Information Visit Information Visit Information: SATURNINO MAY is a 72 year old F referred to Physical Therapy by Dr. Shantelle Mclain MD with a diagnosis of PAIN IN RIGHT SHOULDER ,HEMIPLEGIA AFFECTING LEFT NONDOMINANT. Date of Evaluation: 12/24/22 Physical Therapist: Julito Baez, PT, Cert MDT, OCS Visit Plan Frequency: 2x /Week Duration: 4 Weeks Plan: H/O CVA LEFT SIDE ,OT ORDER FOR LEFT UE RIGHT SHOULDER RE-TORE RTC, PRECUATION: LATEX ALLERGY FOCUS ON STRENGTHENING /ROM PT INTERVETIONS FOCUSING RIGHT SHOULDER MANUAL THERAPT PROM,G-H JOINT MOBILIZATION TO ,ROM , GRADED STRENGTHENING RIGHT SHOULDER ,POSTURL EX's Subjective Subjective: This 71 y/o female presents to physical right shoulder pain and left hemiplegia . Patient has h/o CVA affecting left side . Patient has had PT for right shoulder for RTC and re-tore .Patient has left shoulder pain with inability to use left along with pain and had MRI showed RTC tear . Along with tear patient has hemiparesis. Patient has right RTC torn but unable to have surgery. Patient had left RTC torn RTC along with adhesive capsular tightness . Patient tried PT in past. Patient feLl last year January 2022 fx left wrist and and left fibula. Also fell November 07 hit head and had bruise. Patient has inability to use left and right arm for ADL and function/housework tasks. Patient has difficulty with reaching behind back bathing, cooking. Denies paresthesia tingling. MEDS muscle relaxer-bactofilin. Patient stated candidate for reverse TSR. Seen Neurologist and plans to have Botox. Patient plans to have OT for left UE. GOALS: improve ROM and function left UE. SOCIAL: SINGLE. VOCATION: [employer] Pain Right Shoulder: Pain Intensity (Out of 10): 2 Pain Intensity Range: 10 Objective Objective: POSTURE: mild forward posture GAIT: reciprocal pattern mild forward posture slight ataxia left LE with increase tone with decrease hip/knee flexion and stance time NUERO: increase hypertonicity LLE ,reflexes hyperreflexia Achilles /patella AROM: shoulder flexion 90 degrees ,abduction 85 CAPSULAR TIGHTNESS : mod tight G-H PROM: right shoulder flexion 140 degrees ,abduction in scaption 145 degrees ,ER 25 degrees pain MMT: ( peak force) infraspinatus/supraspinatus 0, subscapularis 10.7 quads 38.6 ,hip flexion 42.2 ,hip abduction 6.8 ,hamstrings 27.8 FLEXABLITY: hamstrings mod tight BALANCE: good- Special Tests R Shoulder External Rotation Lag Test - RC Tear: Positive R Shoulder Supine Impingement Test - RC Tear: Negative R Shoulder Lift Off Test - Subscapular Tear: Positive R Shoulder Drop Sign - IS Test: Positive R Shoulder Empty Can - SS: Positive R Shoulder Neer - Impingement: Positive R Shoulder Shrug Sign - OA/Adhesive Capsulitis: Positive Balance/Special Test Scores Dizziness Score: 2 Quick DASH Score: 59.0900 Goals Goal 1:: Patient to be I with HEP for right shoulder and left leg . Goal Time Frame: 4-6 Weeks Goal 2:: Patient demonstrate 40% right shoulder for ADLS and job demands Goal Time Frame: 4-6 Weeks Goal 3:: Patient to improve AROM shoulder flexion/abduction by 10-15 degrees to improve for ADL's Goal Time Frame: 4-6 Weeks Goal 4:: Patient to improve peak force left hip abd and left shoulder by 5 to improve QOL Goal Time Frame: 4-6 Weeks Goal 5:: Patient to improve quick dash shoulder by 5 points to improve QOL. Goal Time Frame: 4-6 Weeks Rehabilitation Potential Physical Therapy Diagnosis: This patient has right shoulder pain due to re-tore RTC thus candidate for reverse TSR but comorbities influences condition with h/o CVA affecting left side and torn RTC along with hemiplegia left shoulder with current deficits with pain right shoulder ,weakness ,decrease ROM impairs ADLS and housework tasks thus benefit from skilled PT Rehabilitation Potential: Good Anticipated Interventions Patient/Client Instruction: Educate patient on: Condition and Plan of Care For the Purpose of:: To decrease pain, To increase ROM, To improve muscle performance and motor function, To improve ability to perform ADL's, To increase tolerance to activity/condition/position, To improve ability of physical actions for home/community/work/leisure, To improve health of tissue, To decrease soft tissue restriction and To increase flexibility/ROM Therapeutic Exercise to Include: Strength training, Balance training, Postural training, Flexibilty training, Passive ROM and Active ROM For the Purpose of:: To decrease pain, To increase ROM, To improve muscle performance and motor function, To improve ability to perform ADL's, To increase tolerance to activity/condition/position, To improve ability of physical actions for home/community/work/leisure, To improve health of tissue, To decrease soft tissue restriction, To increase flexibility/ROM, To improve endurance and To improve balance Manual Therapy Techniques to Include: Mobilization and Passive ROM Comment: G-H For the Purpose of:: To decrease pain, To increase ROM, To improve nutrient delivery to tissue, To increase oxygenation perfusion, To improve health of tissue, To decrease soft tissue restriction and To increase flexibility/ROM Text: Thank you for the opportunity to evaluate your patient. For Medicare and Medicare HMO plans, please review the plan of care and approve it. It will need to be FAXED BACK to us at [phone] for Medicare purposes. For Medicare only, by signing this I certify the plan of care. Please let me know if there are questions or concerns regarding this plan of care. Physician Signature: Date:
--- NOTE | 2023-04-10 12:44 | HP.PTREVAL ---
Re-Evaluation Intro: Dr. Shantelle Mclain MD, It has been my pleasure to treat SATURNINO MAY over the last 20 visits for PAIN IN RIGHT SHOULDER ,HEMIPLEGIA AFFECTING LEFT NONDOMINANT. Please see the progress note below for an update on the physical therapy plan of care! Subjective Subjective: Seen Neurologist want to work on left leg goals to increase mobility Shoulder is feeling better Objective Objective/Function: Objective: POSTURE: mild forward posture PALAPTION: tender greater trochanter left > right GAIT: reciprocal pattern mild forward posture slight ataxia left LE with increase tone with decrease hip/knee flexion and stance time NUERO: increase hypertonicity LLE ,reflexes hyperreflexia Achilles /patella AROM: shoulder flexion 90 degrees ,abduction 85 CAPSULAR TIGHTNESS : mod tight G-H PROM: right shoulder flexion 140 degrees ,abduction in scaption 145 degrees ,ER 25 degrees pain MMT: ( peak force) infraspinatus/supraspinatus 0, subscapularis 10.7 quads 30.6 ,hip flexion 31.2 ,hip abduction 6.8 ,hamstrings 18.8 FLEXABLITY: hamstrings mod tight Plan Plan Plan: H/O CVA LEFT SIDE ,OT ORDER FOR LEFT UE RIGHT SHOULDER RE-TORE RTC, PRECUATION: LATEX ALLERGY CONT POC 4WEEKS PT INTERVETIONS FOCUSING RIGHT SHOULDER MANUAL THERAPT PROM,G-H JOINT MOBILIZATION TO ,ROM , GRADED STRENGTHENING RIGHT SHOULDER ,POSTURL EX's ,ADD LEFT LOWER EXTREMITY FLEXABLITY ,STRENGTHENING ,BALANCE AN DFUNCTIONAL STRENGTHENING Balance/Gait/Functional tests Balance/Special Test Scores Functional Gait Assessment Score: 16 % Disability: 46.6700 CATSIB Score (Max score 120 seconds): 92 Dizziness Score: 2 Quick DASH Score: 59.0900 30 Second Chair Rise Test Seconds: 11 Goals Goals Goal 1:: Patient to be I with HEP for right shoulder and left leg . Goal Time Frame: 4-6 Weeks Goal Progress: Progressing Goal 2:: Patient demonstrate 60% right shoulder/left leg for ADLS and job demands Goal Time Frame: 4-6 Weeks Goal 3:: Patient to improve AROM shoulder flexion/abduction by 10-15 degrees to improve for ADL's Goal Time Frame: 4-6 Weeks Goal Progress: Progressing Goal 4:: Patient to improve peak force left hip abd and left shoulder by 5 to improve QOL and sit -stand 30sec test by 5 to improve function.( new goal) Goal Time Frame: 4-6 Weeks Goal Progress: Progressing Goal 5:: Patient to improve quick dash shoulder by 5 points to improve QOL and field Goal Time Frame: 4-6 Weeks Goal Progress: Progressing Goal 6:: Patient to improve CATSIB /functional gait assessment score by 5-10 points to improve function ( new goal) Anticipated Interventions Anticipated Interventions Patient/Client Instruction: Educate patient on: Condition and Plan of Care For the Purpose of:: To decrease pain, To increase ROM, To improve muscle performance and motor function, To improve ability to perform ADL's, To increase tolerance to activity/condition/position, To improve ability of physical actions for home/community/work/leisure, To improve health of tissue, To decrease soft tissue restriction and To increase flexibility/ROM Therapeutic Exercise to Include: Strength training, Balance training, Postural training, Flexibilty training, Passive ROM and Active ROM For the Purpose of:: To decrease pain, To increase ROM, To improve muscle performance and motor function, To improve ability to perform ADL's, To increase tolerance to activity/condition/position, To improve ability of physical actions for home/community/work/leisure, To improve health of tissue, To decrease soft tissue restriction, To increase flexibility/ROM, To improve endurance and To improve balance Manual Therapy Techniques to Include: Mobilization and Passive ROM Comment: G-H For the Purpose of:: To decrease pain, To increase ROM, To improve nutrient delivery to tissue, To increase oxygenation perfusion, To improve health of tissue, To decrease soft tissue restriction and To increase flexibility/ROM Re-Evaluation Ending Re-evaluation ending: Please do not hesitate to contact me at [phone] by phone or if you have questions or concerns regarding this new plan of care! Sincerely, Julito Baez, PT, Cert MDT, OCS
--- NOTE | 2023-05-31 09:44 | HP.PTREVAL ---
Re-Evaluation Intro: Dr. Shantelle Mclain MD, It has been my pleasure to treat SATURNINO MAY over the last 26 visits for PAIN IN RIGHT SHOULDER ,HEMIPLEGIA AFFECTING LEFT NONDOMINANT. Please see the progress note below for an update on the physical therapy plan of care! Subjective Subjective: Patient C-pap aspirated your lungs ,then UTI and have felt well need to see DR Margarito Moran bad reaction to anti-biotic. So ,you had a Botox ~ 1week ago left leg heavy and numbness in left hand Objective Objective/Function: POSTURE: mild forward posture PALAPTION: tender greater trochanter left > right GAIT: reciprocal pattern mild forward posture slight ataxia left LE with increase tone with decrease hip/knee flexion and stance time NUERO: increase hypertonicity LLE ,reflexes hyperreflexia Achilles /patella AROM: shoulder flexion 80 degrees ,abduction 75 CAPSULAR TIGHTNESS : mod tight G-H PROM: right shoulder flexion 140 degrees ,abduction in scaption 145 degrees ,ER 25 degrees pain MMT: ( peak force) infraspinatus/supraspinatus 0, subscapularis 10.7 quads 38.6 ,hip flexion 18.2 ,hip abduction 6.9 ,hamstrings 17.8 FLEXABLITY: hamstrings mod tight Plan Plan Plan: H/O CVA LEFT SIDE ,OT ORDER FOR LEFT UE RIGHT SHOULDER RE-TORE RTC, PRECUATION: LATEX ALLERGY CONT POC 4WEEKS PT INTERVETIONS FOCUSING RIGHT SHOULDER MANUAL THERAPT PROM,G-H JOINT MOBILIZATION TO ,ROM , GRADED STRENGTHENING RIGHT SHOULDER ,POSTURL EX's ,ADD LEFT LOWER EXTREMITY FLEXABLITY ,STRENGTHENING ,BALANCE AN DFUNCTIONAL STRENGTHENING Balance/Gait/Functional tests Balance/Special Test Scores Functional Gait Assessment Score: 16 % Disability: 46.6700 CATSIB Score (Max score 120 seconds): 92 Dizziness Score: 2 Quick DASH Score: 59.0900 30 Second Chair Rise Test Seconds: 11 Goals Goals Goal 1:: Patient to be I with HEP for right shoulder and left leg . Goal Time Frame: 4-6 Weeks Goal Progress: Progressing Goal 2:: Patient demonstrate 60% right shoulder/left leg for ADLS and job demands Goal Time Frame: 4-6 Weeks Goal 3:: Patient to improve AROM shoulder flexion/abduction by 10-15 degrees to improve for ADL's Goal Time Frame: 4-6 Weeks Goal Progress: Progressing Goal 4:: Patient to improve peak force left hip abd and left shoulder by 5 to improve QOL and sit -stand 30sec test by 5 to improve function.( new goal) Goal Time Frame: 4-6 Weeks Goal Progress: Progressing Goal 5:: Patient to improve quick dash shoulder by 5 points to improve QOL and field Goal Time Frame: 4-6 Weeks Goal Progress: Progressing Goal 6:: Patient to improve CATSIB /functional gait assessment score by 5-10 points to improve function ( new goal) Anticipated Interventions Anticipated Interventions Patient/Client Instruction: Educate patient on: Condition and Plan of Care For the Purpose of:: To decrease pain, To increase ROM, To improve muscle performance and motor function, To improve ability to perform ADL's, To increase tolerance to activity/condition/position, To improve ability of physical actions for home/community/work/leisure, To improve health of tissue, To decrease soft tissue restriction and To increase flexibility/ROM Therapeutic Exercise to Include: Strength training, Balance training, Postural training, Flexibilty training, Passive ROM and Active ROM For the Purpose of:: To decrease pain, To increase ROM, To improve muscle performance and motor function, To improve ability to perform ADL's, To increase tolerance to activity/condition/position, To improve ability of physical actions for home/community/work/leisure, To improve health of tissue, To decrease soft tissue restriction, To increase flexibility/ROM, To improve endurance and To improve balance Manual Therapy Techniques to Include: Mobilization and Passive ROM Comment: G-H For the Purpose of:: To decrease pain, To increase ROM, To improve nutrient delivery to tissue, To increase oxygenation perfusion, To improve health of tissue, To decrease soft tissue restriction and To increase flexibility/ROM Re-Evaluation Ending Re-evaluation ending: Please do not hesitate to contact me at [phone] by phone or if you have questions or concerns regarding this new plan of care! Sincerely, Julito Baez, PT, Cert MDT, OCS
== END 2023-07-03 14:35 | disposition home or self-care (01) ==
LOC: OT 11:30
PROVIDERS: PCP Internal Medicine; Referring Provider Internal Medicine; Visit Provider Internal Medicine
DX: G81.94 Hemiplegia, unspecified affecting left nondominant side (principal); M25.511 Pain in right shoulder; M19.90 Unspecified osteoarthritis, unspecified site
CPT/HCPCS: 97110; 97112; 97140; 97161; 97162; 97164; 97166; 97530; 97760

== ENCOUNTER 2023-10-12 16:11 | Inpatient (IN) | payer MEDICARE, MEDICAID, SELFPAY ==
[2023-10-12] VITALS (26 sets, daily range): BP systolic 123–183; BP diastolic 7–117; PULSE 69–88; RESP 12–22; TEMP 36.8; O2SAT 90–98; BMI 27.8; BMI 27.3
--- NOTE | 2023-10-12 16:14 | CT_ITS ---
We are attempting to reach an attending provider to discuss findings. An addendum with communication details will be sent when the communication is complete. EXAMINATION : Head CT w/out contrast HISTORY : Neuro deficit, acute, stroke suspected COMPARISON : 01/15/2023. TECHNIQUE : Multiple contiguous axial images were obtained from the skull base to the vertex without intravenous contrast. A radiation dose optimization technique was used for this scan. FINDINGS : There is no evidence for acute intracranial hemorrhage, mass effect, or midline shift. There is no extra-axial fluid collection. There are periventricular white matter changes consistent with chronic microvascular ischemic disease. There is sulcal widening and ventricular enlargement consistent with cerebral atrophy. There is normal paulino-white differentiation, without CT evidence of acute ischemia or infarct. Old right centrum semiovale and caudate nucleus lacunar infarcts. The skull base and calvarium are unremarkable. The orbits are unremarkable. The paranasal sinuses are clear. The mastoid air cells are well-aerated. The soft tissues are unremarkable. CT/STROKE Brain/Head without Cont IMPRESSION: No acute intracranial abnormality. Old right centrum semiovale and caudate nucleus lacunar infarcts. Chronic involutional and ischemic changes of the brain. Electronically Signed: Christ Gordon MD at 16:36 EST ,
--- NOTE | 2023-10-12 16:15 | CT_ITS ---
We are attempting to reach an attending provider to discuss findings. An addendum with communication details will be sent when the communication is complete. STUDY: CTA HEAD AND NECK WITH CONTRAST REASON FOR EXAM: Female, 73 years old. Neuro deficit, acute, stroke suspected RADIATION DOSAGE (If Supplied By Facility): CTDIvol = ( 16.94 ) mGy, DLP = ( 551.46 ) mGycm TECHNIQUE: CT angiography was performed with a multi-detector CT scanner. Data acquisition was obtained from the skull base through the vertex following intravenous administration of IV 100mL [id number]-370. MIP images were reconstructed from the axial data set. Post-processing of the angiographic images was performed, with multiplanar reformation and 3D reconstruction. Individualized dose optimization techniques were used for this CT. COMPARISON: 01/16/2023 FINDINGS: Normal bilateral petrous carotid arteries. Mild calcific plaquing of the right cavernous carotid artery with a normal supraclinoid bifurcation. Mild calcific plaquing of the left cavernous carotid artery with a normal supraclinoid bifurcation. Normal right A1 segments of the anterior cerebral artery. Normal left A1 segments of the anterior cerebral artery. Anterior communicating artery not visualized consistent with normal variant). Normal bilateral A2 segments of the anterior cerebral arteries. Normal right M1 and M2 segments of the middle cerebral arteries, with a normal M1 bifurcation. Normal left M1 and M2 segments of the middle cerebral arteries, with a normal M1 bifurcation. Normal right posterior communicating artery (PCOM). Normal left posterior communicating artery (PCOM). Normal bilateral vertebral arteries. Normal basilar artery with a normal basilar bifurcation. The visualized bilateral superior cerebellar (SCA) arteries are normal. Normal bilateral P1, P2 and visualized P3 segments of the posterior cerebral arteries. There is no demonstrated aneurysm of the [place]. AORTIC ARCH: Normal visualized aortic arch. Normal origins of the brachiocephalic, mild calcific plaquing of the origin of the left common carotid, and left subclavian arteries. RIGHT CAROTID ARTERIES: Normal right common carotid artery (CCA). Mild calcific plaquing of the right common carotid bulb. Moderate and soft calcific plaquing of the right internal carotid. Moderate calcific plaquing of the cervical portion of the right internal carotid artery. Normal origin of the right external carotid artery (ECA). LEFT CAROTID ARTERIES: Normal left common carotid artery (CCA). Normal left common carotid bulb. Minor calcific plaquing of the origin of the left internal carotid (ICA) artery without a hemodynamically significant stenosis. Normal visualized cervical portion of the left internal carotid artery. Normal origin of the left external carotid artery (ECA). VERTEBRAL ARTERIES: Dominant left vertebral which is normal in caliber. Diffusely narrowed right vertebral which may be normal variant. CT/STROKE CTA Head AND Neck W/Con IMPRESSION: No significant atherosclerotic disease of the brain.. Mild to moderate atherosclerotic disease in the neck with most severe involvement of the right internal carotid. Electronically Signed: Jose A Wilson MD at 16:51 EST ,
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
--- OUTSIDE RECORDS SUMMARY | 2023-10-12 16:17 | XMS RPT_ITS | CCD ---
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 Name Role Phone Erich Hall Primary Care Provider PHYSICIAN, NONE Primary Care Physician Unavailab le Unavailable Primary Care Provider UnavailORIN Carmona Referring Unavailable ORIN REIS Attending Unavailable Shantelle Mclain MD Primary Care Provider KATIUSKA GODDARD Attending Unavailable KATIUSKA GODDARD Attending Unavailable SELF Referring Unavailable BRENDA EFEWONGBE Alex Primary Care Unavailable BRENDA EFEWONGBE Alex Primary Care Unavailable KATIUSKA GODDARD Referring Unavailable KATIUSKA GODDARD Referring Unavailable BRENDA EFEWONGBE Alex Primary Care Unavailable SHELBY TIRADO MD Attending Unavailable PHYSICIAN, NONE Primary Care Unavailable DR BROOKE ROBLES DO Consulting Unavailable HYUN CAMP MD Attending Unavailable SHANTELLE MCLAIN MD Primary Care Unavailab le Allergies Allergy Classification Reported Allergen(s) Allergy Type Date of Onset Reaction(s) Facility (1 source) Ciprofloxacin Drug Allergy 5 Other (See Comments) [employer] [place], [place] (9 sources) Codeine; Translations: [codeine] Drug Allergy 5 Nausea And Vomiting, Other (See Comments), Syncope (disorder), [facility] [place] [place] ([facility] source) Hmg-Coa Reductase Inhibitors (Statins) Propensity to adverse reactions to drug 9 Other (See Comments) [employer] [place] (1 source) Penicillins Propensity to adverse reactions to drug 5 Shortness Of Breath, Rash [facility] [place] [place] ([facility] source) Procaine Drug Allergy 5 Other (See Comments) [place], [place] (1 source) Sulfonamides (Antibiotic) Propensity to adverse reactions to drug 5 Nausea And Vomiting [place], [place] (1 source) Penicillin; Translations: [penicillin] Drug Allergy Difficulty breathing (finding) [facility] (6 sources) Sulfonamides (Antibiotic); Translations: [sulfa drugs] Drug allergy 0 Vomiting food (finding), Vomiting [facility] (7 sources) Penicillin G; Translations: [PENICILLIN G] Drug Allergy 0 Rash [facility] (2 sources) Sulfonamides (Antibiotic); Translations: [SULFA (SULFONAMIDE ANTIBIOTICS)] Propensity to adverse reactions to drug (disorder) 0 [facility] Medications Current Medications Medication Drug Class(es) Dates Sig (Normalized) Sig (Original) albuterol sulfate HFA 108 (90 Base) MCG/ACT inhaler (1 source) Start: 10-28-2019 take 2 puff(s) by inhalation every six hours as needed for wheezing albuterol sulfate HFA 108 (90 Base) MCG/ACT inhaler Inhale 2 puffs into the lungs every 6 hours as needed for Wheezing 1 Inhaler 1 10/28/2019 Active aspirin 81 mg oral tablet (6 sources) Platelet Aggregation Inhibitor, Nonsteroidal Anti-inflammatory Drug Start: 01-15-2023 take 1 dose by mouth once daily aspirin Dose : 81 mg =, Oral, qDay, 0 Refill(s) Start Date: 01/15/23 Status: Ordered Completed/Discontinued Medications Medication Drug Class(es) Dates Sig (Normalized) Sig (Original) amLODIPine 5 mg oral tablet (5 sources) Dihydropyridine Calcium Channel Verenice Start: 01-07-2023 take 1 tablet by mouth once daily amLODIPine (NORVASC) 5 mg tablet Take 5 mg by mouth once daily. 0 01/07/2023 Active Problems Active Problems Problem Classification Problem Date Documented Da te Episodic/Chronic Disorders of lipid metabolism (1 source) Hypercholesterolemi a; Translations: [Hypercholesterolem ia] 08-05-2015 Chronic Essential hypertension (1 source) Essential hypertension; Translations: [Essential hypertension] 08-05-2015 Chronic Miscellaneous mental health disorders (1 source) Abnormal affect; Translations: [Depressed affect] 08-05-2015 Chronic Osteoarthritis (5 sources) Degenerative joint disease involving multiple joints; Translations: [Polyosteoarthritis , unspecified] Onset: 03-08-2023 Chronic Other connective tissue disease (6 sources) Fibromyalgia; Translations: [Fibromyalgia] Onset: 03-08-2023 08-05-2015 Episodic Other inflammatory condition of skin (5 sources) Psoriasis; Translations: [Psoriasis, unspecified] Onset: 03-08-2023 Chronic Other lower respiratory disease (1 source) Cough; Translations: [Cough] Episodic Other non-traumatic joint disorders (3 sources) Multiple joint pain; Translations: [Pain in unspecified joint] Episodic Other non-traumatic joint disorders (1 source) Pain in unspecified joint; Translations: [Pain in joint, multiple sites] Onset: 02-01-2023 Episodic Paralysis (5 sources) Left hemiparesis; Translations: [Hemiplegia, unspecified affecting left nondominant side] Onset: 03-08-2023 Chronic Residual codes; unclassified (1 source) Family history of malignant neoplasm of breast; Translations: [Family history of breast cancer in mother] 08-05-2015 Episodic Unclassified (1 source) Patient encounter status; Translations: [NSAID long-term use] 08-05-2015 Past or Other Problems Problem Classification Problem Date Documented Da te Episodic/Chronic Other connective tissue disease (1 source) Complete rotator cuff tear or rupture of right shoulder, not specified as traumatic; Translations: [Nontraumatic complete tear of right rotator cuff] Onset: 01-28-2020 Episodic Other lower respiratory disease (1 source) Interstitial lung disease; Translations: [Interstitial lung disease] Onset: 09-02-2018 06-25-2019 Episodic Residual codes; unclassified (1 source) Family history of malignant melanoma; Translations: [Family history of malignant melanoma] Onset: 06-25-2018 06-25-2019 Episodic Screening and history of mental health and substance abuse codes (1 source) H/O: depression; Translations: [History of depression] Onset: 09-02-2015 10-17-2018 Episodic Results Test Name Value Interpretation Reference Range Facil ity Vital Signs Date Time Vital Sign Value Performing Clinician Facility 03-08-2023 10:15-0400 Body height 154.9 cm Katiuska Goddard MD Work Phone: [facility] 03-08-2023 10:15-0400 Body temperature 97.5 [degF] Katiuska Goddard MD Work Phone: [facility] 03-08-2023 10:15-0400 Body weight 68.22 kg Katiuska Goddard MD Work Phone: [facility] 03-08-2023 10:15-0400 Diastolic blood pressure 81 mm[Hg] Katiuska Goddard MD Work Phone: [facility] 03-08-2023 10:15-0400 Heart rate 75 /min Katiuska Goddard MD Work Phone: [facility] 03-08-2023 10:15-0400 SaO2% (BldA) [Mass fraction] 95 % Katiuska Goddard MD Work Phone: [facility] 03-08-2023 10:15-0400 Systolic blood pressure 136 mm[Hg] Katiuska Goddard MD Work Phone: [facility] 01-15-2023 12:17-0400 Diastolic Blood Pressure Non-Invasive 83 1 SHELBY TIRADO MD [facility] 01-15-2023 12:17-0400 Heart rate 90 /min SHELBY TIRADO MD [facility] 01-15-2023 12:17-0400 Respiratory rate 16 /min SHELBY TIRADO MD [facility] 01-15-2023 12:17-0400 Systolic Blood Pressure Non-Invasive 163 1 SHELBY TIRADO MD [facility] 01-15-2023 10:41-0400 Diastolic Blood Pressure Non-Invasive 75 1 SHELBY TIRADO MD [facility] 01-15-2023 10:41-0400 Heart rate 90 /min SHELBY TIRADO MD [facility] 01-15-2023 10:41-0400 Respiratory rate 16 /min SHELBY TIRADO MD [facility] 01-15-2023 10:41-0400 Systolic Blood Pressure Non-Invasive 147 1 SHELBY TIRADO MD [facility] 01-15-2023 09:14-0400 Diastolic Blood Pressure Non-Invasive 82 1 SHELBY TIRADO MD [facility] 01-15-2023 09:14-0400 Heart rate 91 /min SHELBY TIRADO MD [facility] 01-15-2023 09:14-0400 Respiratory rate 14 /min SHELBY TIRADO MD [facility] 01-15-2023 09:14-0400 Systolic Blood Pressure Non-Invasive 169 1 SHELBY TIRADO MD [facility] 01-15-2023 08:24-0400 Heart rate 86 /min SHELBY TIRADO MD [facility] 01-15-2023 07:36-0400 Body temperature 97.88 [degF] SHELBY TIRADO MD [facility] 01-15-2023 07:36-0400 Body weight 68 kg SHELBY TIRADO MD [facility] 01-15-2023 07:36-0400 Heart rate 97 /min SHELBY TIRADO MD [facility] Encounters Encounter Date Encounter Type Care Provider Facility Start: 07-05-2023 End: 07-05-2023 Emergency department patient visit HYUN CAMP MD Facility:B Start: 04-09-2023 Telephone encounter Katiuska blevins MD Work Phone: [facility] General Rheumatology and Arthritis Procedures Date Procedure Procedure Detail Performing Clinician Start: 12-31-2019 Radiologic exam ches t 2 views Erich Hall Work Phone: Plan of Treatment Date Care Activity Detail Author Start: 11-15-2025 LIPID SCREEN LIPID SCREEN [facility] Start: 01-10-2025 DTaP/Tdap/Td vaccine (2 - Td) DTaP/Tdap/Td vaccine (2 - Td) [place] Start: 06-25-2024 Lipid panel Lipid screen [place] Start: 05-03-2023 Influenza vaccination C [facility] Start: 03-08-2023 End: 05-08-2023 25-hydroxyvitamin D3 [Mass/volume] in Serum or Plasma [facility] Work Phone: Immunizations Immunization Date Immunization Notes Care Provider Fa [facility] 06-25-2019 influenza, high dose seasonal, preservative-free [place], [place] 06-25-2019 pneumococcal polysaccharide vaccine, 23 valent [facility], [place] 06-25-2018 influenza, high dose seasonal, preservative-free [place] 06-25-2018 pneumococcal conjuga te vaccine, 13 valent [facility], [place] 06-22-2015 influenza virus vacc ine, whole virus [place] Payers Date Payer Category Payer Unknown [id number] 2019 Medicare [employer] [place] [place] [id number] 2019-Present [phone] [address] [place] [address] O [id number] 2019 Medicare [id number] 2018 Medicare [employer] ADVANTAGE [facility]-MEDIC[facility] ADVANTAGE xxxxxxxxxxx 2018-Present [phone] [address] [place] [address] xxxxxxxxxxx [id number] 1950 Unknown [id number] 1950 Unknown [id number] Social History Date Type Detail Facility Start: 12-28-2019 [facility] [place] End: 04-29-2004 History of tobacco use Current [place] Start: 12-28-2019 End: 02-07-2020 Alcohol intake Current drinker of alcohol (finding) [place] Start: 12-25-2018 History SDOH Alcohol Frequency 2 [place] Start: 12-25-2018 History SDOH Alcohol Std Drinks 1 [place] Start: 12-25-2018 History SDOH Social Connections Phone 5 [place] Start: 12-25-2018 History SDOH Social Connections Meetings 3 [place] Start: 12-25-2018 History SDOH Financial 4 [place] Start: 04-29-2015 Alcohol Comment rare Shobha Castro [place], [place] Start: 1950 Sex Assigned At Not on file [place], [place] Start: 01-07-2020 Tobacco smoking stat [facility] Never smoked tobacco [facility] Start: 01-07-2020 Tobacco use and exposure Smoke less tobacco non-user [facility] Start: 01-11-2020 Alcohol Comment Rarely [facility] Start: 02-07-2020 End: 03-08-2023 History of Social function [facility] Start: 02-07-2020 End: 03-08-2023 Area Deprivation Index [facility] National Score (1-10 0), lower number is lower risk 43 [facility] Functional Status Date Assessment Result Facility 01-15-2023 Functional Status Minimum assistance [facility] 01-15-2023 Functional Status ID band on, Call device within reach, Bed in low position, Wheels locked, Upper/Half-Length side-rails up [facility] 01-15-2023 Functional Status Identified as high risk, Fall ID band on, Room located near nursing station [facility] Mental Status Date Assessment Result Facility 01-15-2023 Mental Status Orientation Oriented x 4 [facility] 01-15-2023 Mental Status [facility] 01-15-2023 Mental Status [facility] Clinical Notes 01-15-2023 to 04-09-2023 Telephone Encounter - Radha Chan - 04/09/2023 10:08 AM EDTTelephone Encounter - Aileen Hoffmann LPN - 03/21/2023 1:01 PM EDTTelephone Encounter - Katiuska Goddard MD - 03/21/2023 9:54 AM EDT Note Date & Type Note Facility 04-09-2023 Miscellaneous Notes No Show Documentation Donita Jay no showed for an appointment on [id number] with Katiuska Goddard MD at [facility]. She was scheduled for 939. I called and spoke with the patient regarding her missed appointment. Donita stated the reason that she missed her appointment was because forgot about appointment . Resources discussed/offered to patient: LM No show determined to be fault of patient: Yes This is the patients first no show in the last 12 months. Patient was rescheduled for no. Letter mailed : Yes Is this the Third or Fourth No Show ? No Radha Chan April 09, 2023 10:08 AM documented in this encounter [facility] 03-21-2023 Miscellaneous Notes Left message on voicemail asking to return call do discuss lab results. 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 No signs of RA or PsA. 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 Will monitor. Follow up with derm for psoriasis. documented in this encounter [facility] 03-08-2023 Note HNO ID: [id number] Author: RT Raffy(R) Service: ? Author Type: Medical Radiation Therapist Type: Progress Notes Filed: 03/08/2023 11:29 AM Note Text: Radiology Service Progress Note PATIENT NAME: Donita Jay DATE OF SERVICE: March 08, 2023 TIME: 11:26 AM PATIENT IDENTITY VERIFICATION COMPLETED USING TWO (2) IDENTIFIERS: Name and Date of confirmed by patient verbally. FALL SCREENING: Has the patient had 2 falls in the last year or 1 fall with injury or currently using an Ambulatory Assistive Device (Walker, Cane, Wheelchair, Crutches, etc.)? No PATIENT GENDER DATA: Female. status: : No status: NO. PATIENT RELEVANT IMPLANT DATA REVIEWED: Not Applicable RADIOLOGY DEPARTMENT: General X-ray: Exam(s) Completed: Spine X-Ray(s): Cervical AP / LAT and Lumbar AP / LAT / L5-S1 Pelvis X-Ray: sacroiliac joints Lower Extremity X-Ray(s): Ankle, Bilateral and Feet, Bilateral Upper Extremity X-Ray(s): Hand, bilateral PERIPHERAL IV DATA: Not applicable SIGNED BY: RT Raffy(R) March 08, 2023 11:26 AM [facility] 03-08-2023 Note HNO ID: [id number] Author: Katiuska Goddard MD Service: ? Author Type: Physician Type: Progress Notes Filed: 03/08/2023 3:30 PM Note Text: RHEUMATOLOGY NEW PATIENT NOTE REFERRING PHYSICIAN: Self CHIEF COMPLAINT: Patient presents with: Joint Pain HPI: Donita Jay is a 72 year old female who presents with joint pain. Joint pain. PCP notes reviewed. Concern for possible psoriasis and PsA. LAUREL positive, RF, CCP neg. She was diagnosed with psoriasis by derm. Prescribed shampoo. Joint pain awful every joint, neck, shoulder, hips, wrists, elbow. Swelling. Pain is worse towards the end of the day. pain x 1 year. She tried tylenol arthritis which helps some. Takes baclofen, neurontin per neuro. No clear triggering or relieving actors. Resting does not help. PT makes it worse. AM stiffness lasting for all day. Sciatica sometimes. HTN ROS poor sleep due to pain. On meds for anxiety, depression. Sicca, fatigue. Fall 2021, broke leg. She had a recent BMD, not sure of the results. She takes vit d. Ca causes GI issues. H/o CVA Family history of autoimmune disease: none Smoking status: Tobacco Use: Never Rheumatology REVIEW OF SYSTEMS: Constitutional: Recent Weight Change: No Fatigue: No Fever: No Night sweats: No Heent: Alopecia: No H/o Inflammatory eye disease (iritis/scleritis): No Hearing loss: No Frequent sinusitis: No Oral ulcers: No Sicca: No Parotid swelling: No Hoarseness: No Dysphagia: No Heme/lymph: Lymphadenopathy: No Hematological abnormalities (anemia, thrombocytopenia, leukopenia): No Abnormal bleeding: No Skin: Malar or discoid lesions: No Photosensitivity: No Other rashes: No Raynaud's phenomenon: No Hives: No Tightness: No Nodules/bumps: No Easy Bruising: No Nail changes: No H/o psoriasis: No Gastroenterology: Nausea: {No Vomiting: No Change in bowel movements: No Heartburn: No Respiratory: Dry cough/SOB: No Cardiovascular: Pain in chest: No Musculoskeletal: Per HPI Joint pain or swelling: No Prolonged morning stiffness: No Back pain or neck pain: No Muscle weakness: No Genitourinary: Vaginal dryness: No Rash/ulcers: No Neurological: Headaches: No Sensitivity or pain of hands and/or feet: No Psychiatry: Anxiety: No Depression: No Poor sleep: No H/o loss: No H/o thrombosis: No Increased susceptibility to infection: No PAST MEDICAL HISTORY Diagnosis Date Hypertension PAST SURGICAL HISTORY Procedure Laterality Date APPENDECTOMY DELIVERY ONLY 1975,1976 , low transverse DANDC, DIAG AND/OR THERAPEUTIC Dilation AND curettage X2 REMOVE TONSILS/ADENOIDS,<12 Y/O T/A (under age 12 years) TOTAL ABDOM HYSTERECTOMY 1979 Hysterectomy, BRANDI Current Outpatient Medications Medication Sig baclofen 20 mg tablet take 1 tablet by mouth every 6 to 8 hours citalopram (CELEXA) 20 mg tablet Take 20 mg by mouth once daily. gabapentin (NEURONTIN) 300 mg capsule take 1 tablet by mouth at bedtime if needed for NERVE PAIN meclizine (ANTIVERT) 25 mg tab take 1 tablet by mouth twice a day if needed for dizziness busPIRone (BUSPAR) 7.5 mg tablet Take 7.5 mg by mouth twice daily. magnesium oxide (MAG-OX) 400 mg (241.3 mg magnesium) tablet magnesium oxide 400 mg (241.3 mg magnesium) tablet take 1 tablet by mouth once daily aspirin, enteric coated (ASPIRIN, ENTERIC COATED) 81 mg EC tablet Take 81 mg by mouth. fluticasone-salmeterol (ADVAIR, WIXELA) 250-50 mcg/dose inhaler Dose = 1 puff(s), Inhalation, BID, 0 Refill(s) amLODIPine (NORVASC) 5 mg tablet Take 5 mg by mouth once daily. montelukast (SINGULAIR) 10 mg tablet Take 10 mg by mouth. ADVAIR DISKUS 250-50 mcg/dose inhale 1 puff INTO THE LUNGS every 12 hours triamterene-hydrochlorothiazide 37.5-25 mg per capsule Take 1 capsule by mouth. cyclobenzaprine (FLEXERIL) 10 mg tablet Take 1 tablet by mouth three times daily as needed for Muscle Spasm. (Patient not taking: Reported on 01/28/2020 ) No current facility-administered medications for this visit. ALLERGIES Allergen Reactions Codeine Vomiting Penicillin G Rash Sulfa (Sulfonamide * Vomiting FAMILY HISTORY Problem Relation Age of Onset Breast Cancer Mother Social History Tobacco Use Smoking status: Never Smokeless tobacco: Never Vaping Use Vaping Use: Never used Substance Use Topics Alcohol use: Yes Comment: Rarely Drug use: Never Occupation: Employer And Job Title: None on file Years Of Education Completed: Not specified Marital Status: History Review: I have reviewed and modified as needed, the following during this visit: Allergies, Past Medical History, Past Surgical History, Past Family History, Past Social History. BP 136/81 Pulse 75 Temp 36.4 ?C (97.5 ?F) (Temporal) Ht 154.9 cm (5' 1 ) Wt 68.2 kg (150 lb 6.4 oz) SpO2 95% BMI 28.42 kg/m? Physical Exam GENERAL: Well appearing, alert, com (more content not included)... [facility] 03-08-2023 History of Presen t illness Narrative Radiology Service Progress Note PATIENT NAME: Donita Jay DATE OF SERVICE: March 08, 2023 TIME: 11:26 AM PATIENT IDENTITY VERIFICATION COMPLETED USING TWO (2) IDENTIFIERS: Name and Date of confirmed by patient verbally. FALL SCREENING: Has the patient had 2 falls in the last year or 1 fall with injury or currently using an Ambulatory Assistive Device (Walker, Cane, Wheelchair, Crutches, etc.)? No PATIENT GENDER DATA: Female. status: : No status: NO. PATIENT RELEVANT IMPLANT DATA REVIEWED: Not Applicable RADIOLOGY DEPARTMENT: General X-ray: Exam(s) Completed: Spine X-Ray(s): Cervical AP / LAT and Lumbar AP / LAT / L5-S1 Pelvis X-Ray: sacroiliac joints Lower Extremity X-Ray(s): Ankle, Bilateral and Feet, Bilateral Upper Extremity X-Ray(s): Hand, bilateral PERIPHERAL IV DATA: Not applicable SIGNED BY: RT Raffy(R) March 08, 2023 11:26 AM documented in this encounter [facility] 03-08-2023 History of Presen t illness Narrative RHEUMATOLOGY NEW PATIENT NOTE REFERRING PHYSICIAN: Self CHIEF COMPLAINT: Patient presents with: Joint Pain HPI: Donita Jay is a 72 year old female who presents with joint pain. Joint pain. PCP notes reviewed. Concern for possible psoriasis and PsA. LAUREL positive, RF, CCP neg. She was diagnosed with psoriasis by derm. Prescribed shampoo. Joint pain awful every joint, neck, shoulder, hips, wrists, elbow. Swelling. Pain is worse towards the end of the day. pain x 1 year. She tried tylenol arthritis which helps some. Takes baclofen, neurontin per neuro. No clear triggering or relieving actors. Resting does not help. PT makes it worse. AM stiffness lasting for all day. Sciatica sometimes. HTN ROS poor sleep due to pain. On meds for anxiety, depression. Sicca, fatigue. Fall 2021, broke leg. She had a recent BMD, not sure of the results. She takes vit d. Ca causes GI issues. H/o CVA Family history of autoimmune disease: none Smoking status: Tobacco Use: Never Rheumatology REVIEW OF SYSTEMS: Constitutional: Recent Weight Change: No Fatigue: No Fever: No Night sweats: No Heent: Alopecia: No H/o Inflammatory eye disease (iritis/scleritis): No Hearing loss: No Frequent sinusitis: No Oral ulcers: No Sicca: No Parotid swelling: No Hoarseness: No Dysphagia: No Heme/lymph: Lymphadenopathy: No Hematological abnormalities (anemia, thrombocytopenia, leukopenia): No Abnormal bleeding: No Skin: Malar or discoid lesions: No Photosensitivity: No Other rashes: No Raynaud's phenomenon: No Hives: No Tightness: No Nodules/bumps: No Easy Bruising: No Nail changes: No H/o psoriasis: No Gastroenterology: Nausea: {No Vomiting: No Change in bowel movements: No Heartburn: No Respiratory: Dry cough/SOB: No Cardiovascular: Pain in chest: No Musculoskeletal: Per HPI Joint pain or swelling: No Prolonged morning stiffness: No Back pain or neck pain: No Muscle weakness: No Genitourinary: Vaginal dryness: No Rash/ulcers: No Neurological: Headaches: No Sensitivity or pain of hands and/or feet: No Psychiatry: Anxiety: No Depression: No Poor sleep: No H/o loss: No H/o thrombosis: No Increased susceptibility to infection: No PAST MEDICAL HISTORY Diagnosis Date Hypertension PAST SURGICAL HISTORY Procedure Laterality Date APPENDECTOMY DELIVERY ONLY 1975,1976 , low transverse D&C, DIAG AND/OR THERAPEUTIC Dilation & curettage X2 REMOVE TONSILS/ADENOIDS,<12 Y/O T/A (under age 12 years) TOTAL ABDOM HYSTERECTOMY 1979 Hysterectomy, BRANDI Current Outpatient Medications Medication Sig baclofen 20 mg tablet take 1 tablet by mouth every 6 to 8 hours citalopram (CELEXA) 20 mg tablet Take 20 mg by mouth once daily. gabapentin (NEURONTIN) 300 mg capsule take 1 tablet by mouth at bedtime if needed for NERVE PAIN meclizine (ANTIVERT) 25 mg tab take 1 tablet by mouth twice a day if needed for dizziness busPIRone (BUSPAR) 7.5 mg tablet Take 7.5 mg by mouth twice daily. magnesium oxide (MAG-OX) 400 mg (241.3 mg magnesium) tablet magnesium oxide 400 mg (241.3 mg magnesium) tablet take 1 tablet by mouth once daily aspirin, enteric coated (ASPIRIN, ENTERIC COATED) 81 mg EC tablet Take 81 mg by mouth. fluticasone-salmeterol (ADVAIR, WIXELA) 250-50 mcg/dose inhaler Dose = 1 puff(s), Inhalation, BID, 0 Refill(s) amLODIPine (NORVASC) 5 mg tablet Take 5 mg by mouth once daily. montelukast (SINGULAIR) 10 mg tablet Take 10 mg by mouth. ADVAIR DISKUS 250-50 mcg/dose inhale 1 puff INTO THE LUNGS every 12 hours triamterene-hydrochlorothiazide 37.5-25 mg per capsule Take 1 capsule by mouth. cyclobenzaprine (FLEXERIL) 10 mg tablet Take 1 tablet by mouth three times daily as needed for Muscle Spasm. (Patient not taking: Reported on 01/28/2020 ) No current facility-administered medications for this visit. ALLERGIES Allergen Reactions Codeine Vomiting Penicillin G Rash Sulfa (Sulfonamide * Vomiting FAMILY HISTORY Problem Relation Age of Onset Breast Cancer Mother Social History Tobacco Use Smoking status: Never Smokeless tobacco: Never Vaping Use Vaping Use: Never used Substance Use Topics Alcohol use: Yes Comment: Rarely Drug use: Never Occupation: Employer And Job Title: None on file Years Of Education Completed: Not specified Marital Status: History Review: I have reviewed and modified as needed, the following during this visit: Allergies, Past Medical History, Past Surgical History, Past Family History, Past Social History. BP 136/81 Pulse 75 Temp 36.4 C (97.5 F) (Temporal) Ht 154.9 cm (5' 1 ) Wt 68.2 kg (150 lb 6.4 oz) SpO2 95% BMI 28.42 kg/m Physical Exam GENERAL: Well appearing, alert, comfortable, in no acute distress, well-hydrated, well nourished. HEENT: Negative for external ears normal. Canals are clear. Both TMs visualized and are normal. Eye Exam normal. External nose normal, no nasal ulcer or throat ulcer. NECK: NECK Supple, no adenopathy; thyroid symmetric, normal size, no bruits CARDIAC: regular rate and rhythm, No murmur asculated., and Equal peripheral pulses RESPIRATORY: Lungs clear to auscultation. No wheezing, rhonchi, rales VASCULAR: RRR without murmur, gallop, or rubs. No ectopy. ABDOMEN: Soft, non tender. BS active. No masses or organomegaly. LYMPHATIC: Negative for adenopathy in the neck, axillae, groin, supraclavicular and auricular. NEURO: Motor and sensory exam normal MOTOR: Normal; including tone, gait, stressed gait, power and coordination. SKIN: Negative for alopecia, skin rash, malar rash, skin lesion, skin ulcer, pits, thickening, color changes, telangiectasias, nail changes, nail ridging, nail pitting, onycholysis MUSCULOSKELETAL: DIPS: Normal PIPS: Normal MCPs: Normal Wrists: Normal Elbows: Normal Shoulders: Normal C-Spine: Normal Hips: Normal Knees: Normal Ankles: Normal MTPs / Toes: Normal Arches: Normal Summary of old labs/radiology: Review/request of outside labs and imaging: Pertinent labs: No results found for this basename: gluc, K, NA, CHLOR, CO2, CREAT, BUN, ANION, CA, TPROT, ALB, TBILI, ALKPHOS, AST,ALT,WBC,HB,PLT,wsr,crp Serology: Pertinent imaging: IMPRESSION: Mild acromioclavicular joint space DJD. No acute findings. IMPRESSION: COMPLETE FULL-THICKNESS TEARS OF BOTH THE SUPRASPINATUS AND INFRASPINATUS TENDONS WITH SIGNIFICANT MEDIAL RETRACTION Assessment and Plan (M25.50) Pain in joint, multiple sites (primary encounter diagnosis) (L40.9) Psoriasis (M15.9) Primary osteoarthritis involving multiple joints (M79.7) Fibromyalgia 72 year old with joint pain. She has psoriasis and joint pain. No signs of synovitis. No clear signs of PsA. Patient has osteoarthritis and fibromyalgia which are likely contributing to her pain. Lack of findings on exam to contribute to psoriatic arthritis. Completing the work-up with below labs and x-rays. If work-up for psoriatic arthritis is negative she can follow-up with dermatology for further treatment options. Given exercises for trochanteric bursitis. May need injections. Office Visit on 03/08/23 XR HAND GENERAL 3V PA/LAT/OBL LEFT XR HAND GENERAL 3V PA/LAT/OBL RIGHT XR FOOT GENERAL 3V AP/LAT/OBL LEFT XR FOOT GENERAL 3V AP/LAT/OBL RIGHT XR ANKLE GENERAL 3V AP/LAT/OBL RIGHT XR ANKLE GENERAL 3V AP/LAT/OBL LEFT XR CERV GENERAL 2V AP/LAT XR LUMBAR GENERAL 3V AP/LAT/L5-S1 XR SACROILIAC JOINTS 2V AP PELVIS/FERGUESON DNA ANTIBODY DS BLD TRUST ADMINISTRATOR ANTIBODY BLOOD WILDE IGG AB SJOGREN ABS SSA/SSB VITAMIN D 25 HYDROXY No orders of the defined types were placed in this encounter. No follow-ups on file. Katiuska Goddard MD documented in this encounter [facility] 01-15-2023 Note ORIGINAL EXAMINATION: ONE XRAY VIEW OF THE CHEST01/15/2023 8:45 am COMPARISON: None available at time of dictation. HISTORY: ORDERING SYSTEM PROVIDED HISTORY: Reason for Exam: Generalized weakness FINDINGS: Cardiomediastinal contours are within normal limits. No focal consolidation or pulmonary edema. No pneumothorax or pleural effusion. No acute osseous abnormalities. Variable multilevel degenerative changes of the spine and bilateral shoulders. IMPRESSION: No acute cardiopulmonary process. I have personally reviewed the images of this examination and agree with the resident's findings and interpretations. Interpreted by: Julito Zazueta MD Preliminary Report By: Chidi Stevens Electronically signed By Julito Zazueta MD Dictated Date: 01/15/2023 8:47:14 AM Prelim Date: 01/15/2023 9:50:06 AM Sign Date: 01/15/2023 9:50:06 AM Ordering Provider: [facility] 01-15-2023 Note ORIGINAL EXAMINATION: CT OF THE HEAD WITHOUT CONTRAST 01/15/2023 8:47 am TECHNIQUE: CT of the head was performed without the administration of intravenous contrast. Automated exposure control, iterative reconstruction, and/or weight based adjustment of the mA/kV was utilized to reduce the radiation dose to as low as reasonably achievable. COMPARISON: None. HISTORY: ORDERING SYSTEM PROVIDED HISTORY: Reason for Exam: Dizziness, left-sided weakness; h/o CVA with residual left arm weakness FINDINGS: BRAIN/VENTRICLES: There is no acute intracranial hemorrhage, mass effect or midline shift. No abnormal extra-axial fluid collection. There is chronic infarct of the right basal ganglia and right gonzalez radiata. There is no evidence of hydrocephalus. Dilatation of the anterior through mid right lateral ventricular body is secondary to adjacent parenchymal volume loss due to the aforementioned chronic infarct. Mild parenchymal volume loss most pronounced in the frontal convexities. Scattered white matter hypodensities likely reflecting [id number] chronic microvascular angiopathy. A partially empty sella is noted. ORBITS: The visualized portion of the orbits demonstrate no acute abnormality. SINUSES: The visualized paranasal sinuses and mastoid air cells are grossly clear. SOFT TISSUES/SKULL: No acute abnormality of the visualized skull or soft tissues. Atherosclerosis of bilateral carotid siphons. IMPRESSION: No acute intracranial pathology. Should symptoms persist further evaluation with MRI brain advised. Chronic infarcts of the right basal ganglia and right gonzalez radiata. Parenchymal volume loss and chronic microvascular white matter ischemic changes. I have personally reviewed the images of this examination and agree with the resident's findings and interpretation. Interpreted by: Micheal Welsh MD Preliminary Report By: Lucio Chin Electronically signed By Micheal Welsh MD Dictated Date: 01/15/2023 8:48:48 AM Prelim Date: 01/15/2023 9:08:47 AM Sign Date: 01/15/2023 9:08:47 AM Ordering Provider: [facility] 01-15-2023 Note ORIGINAL EXAMINATION: CT OF THE HEAD WITHOUT CONTRAST 01/15/2023 8:47 am TECHNIQUE: CT of the head was performed without the administration of intravenous contrast. Automated exposure control, iterative reconstruction, and/or weight based adjustment of the mA/kV was utilized to reduce the radiation dose to as low as reasonably achievable. COMPARISON: None. HISTORY: ORDERING SYSTEM PROVIDED HISTORY: Reason for Exam: Dizziness, left-sided weakness; h/o CVA with residual left arm weakness FINDINGS: BRAIN/VENTRICLES: There is no acute intracranial hemorrhage, mass effect or midline shift. No abnormal extra-axial fluid collection. There is chronic infarct of the right basal ganglia and right gonzalez radiata. There is no evidence of hydrocephalus. Dilatation of the anterior through mid right lateral ventricular body is secondary to adjacent parenchymal volume loss due to the aforementioned chronic infarct. Mild parenchymal volume loss most pronounced in the frontal convexities. Scattered white matter hypodensities likely reflecting [id number] chronic microvascular angiopathy. A partially empty sella is noted. ORBITS: The visualized portion of the orbits demonstrate no acute abnormality. SINUSES: The visualized paranasal sinuses and mastoid air cells are grossly clear. SOFT TISSUES/SKULL: No acute abnormality of the visualized skull or soft tissues. Atherosclerosis of bilateral carotid siphons. IMPRESSION: No acute intracranial pathology. Should symptoms persist further evaluation with MRI brain advised. Chronic infarcts of the right basal ganglia and right gonzalez radiata. Parenchymal volume loss and chronic microvascular white matter ischemic changes. I have personally reviewed the images of this examination and agree with the resident's findings and interpretation. Interpreted by: Micheal Welsh MD Preliminary Report By: Lucio Chin Electronically signed By Micheal Welsh MD Dictated Date: 01/15/2023 8:48:48 AM Prelim Date: 01/15/2023 9:08:47 AM Sign Date: 01/15/2023 9:08:47 AM Ordering Provider: [facility] 01-15-2023 Note ORIGINAL EXAMINATION: ONE XRAY VIEW OF THE CHEST01/15/2023 8:45 am COMPARISON: None available at time of dictation. HISTORY: ORDERING SYSTEM PROVIDED HISTORY: Reason for Exam: Generalized weakness FINDINGS: Cardiomediastinal contours are within normal limits. No focal consolidation or pulmonary edema. No pneumothorax or pleural effusion. No acute osseous abnormalities. Variable multilevel degenerative changes of the spine and bilateral shoulders. IMPRESSION: No acute cardiopulmonary process. I have personally reviewed the images of this examination and agree with the resident's findings and interpretations. Interpreted by: Julito Zazueta MD Preliminary Report By: Chidi Stevens Electronically signed By Julito Zazueta MD Dictated Date: 01/15/2023 8:47:14 AM Prelim Date: 01/15/2023 9:50:06 AM Sign Date: 01/15/2023 9:50:06 AM Ordering Provider: [facility] Evaluation + Plan note No data available for this section [facility] documented in this encounter [facility] note* Diagnosis Pain in joint, multiple sites- Primary Psoriasis Other psoriasis Primary osteoarthritis involving multiple joints Fibromyalgia Mylagia and myositis, unspecified Left hemiparesis (HCC) Hemiplegia, unspecified, affecting unspecified side documented in this encounter [facility] note* Diagnosis Pain in joint, multiple sites [facility] Dis[facility] No data available for this section [facility] Reason for referral (narrative)* Diagnostic Procedure Only (Routine) - Closed Specialty Diagnoses / Procedures Referred By Contac t Referred To Contact XR IMAGING Diagnoses Pain in joint, multiple sites Procedures XR SACROILIAC JOINTS 2V AP PELVIS/FERGUESON RADIOLOGIC EXAMINATION SACROILIAC JNTS <3 VIEWS Katiuska Goddard MD [address] [facility] [address] [place] [address] Xr Imaging Referral ID Status Reason Start Date Expiration Date V isits Requested Visits Authorized [id number] Closed Auto-Generate d Referral 03/08/2023 04/06/2024 1 1 * Diagnostic Procedure Only (Routine) - Closed Specialty Diagnoses / Procedures Referred By Contac t Referred To Contact XR IMAGING Diagnoses Pain in joint, multiple sites Procedures XR LUMBAR GENERAL 3V AP/LAT/L5-S1 RADEX SPINE LUMBOSACRAL 2/3 VIEWS Katiuska Goddard MD [address] [facility] [address] [place] [address] Xr Imaging Referral ID Status Reason Start Date Expiration Date V isits Requested Visits Authorized [id number] Closed Auto-Generate d Referral 03/08/2023 04/06/2024 1 1 * Diagnostic Procedure Only (Routine) - Closed Specialty Diagnoses / Procedures Referred By Contac t Referred To Contact XR IMAGING Diagnoses Pain in joint, multiple sites Procedures XR CERV GENERAL 2V AP/LAT RADEX SPINE CERVICAL 2 OR 3 VIEWS Katiuska Goddard MD [address] [place] [address] Xr Imaging Referral ID Status Reason Start Date Expiration Date V isits Requested Visits Authorized [id number] Closed Auto-Generate d Referral 03/08/2023 04/06/2024 1 1 * Diagnostic Procedure Only (Routine) - Closed Specialty Diagnoses / Procedures Referred By Contac t Referred To Contact XR IMAGING Diagnoses Pain in joint, multiple sites Procedures XR ANKLE GENERAL 3V AP/LAT/OBL LEFT RADEX ANKLE COMPLETE MINIMUM 3 VIEWS Katiuska Goddard MD [address] [place] [address] Xr Imaging Referral ID Status Reason Start Date Expiration Date V isits Requested Visits Authorized [id number] Closed Auto-Generate d Referral 03/08/2023 04/06/2024 1 1 * Diagnostic Procedure Only (Routine) - Closed Specialty Diagnoses / Procedures Referred By Contac t Referred To Contact XR IMAGING Diagnoses Pain in joint, multiple sites Procedures XR ANKLE GENERAL 3V AP/LAT/OBL RIGHT RADEX ANKLE COMPLETE MINIMUM 3 VIEWS Katiuska Goddard MD [address] [place] [address] Xr Imaging Referral ID Status Reason Start Date Expiration Date V isits Requested Visits Authorized [id number] Closed Auto-Generate d Referral 03/08/2023 04/06/2024 1 1 * Diagnostic Procedure Only (Routine) - Closed Specialty Diagnoses / Procedures Referred By Contac t Referred To Contact XR IMAGING Diagnoses Pain in joint, multiple sites Procedures XR FOOT GENERAL 3V AP/LAT/OBL RIGHT RADEX FOOT COMPLETE MINIMUM 3 VIEWS Katiuska Goddard MD [address] [place] [address] Xr Imaging Referral ID Status Reason Start Date Expiration Date V isits Requested Visits Authorized [id number] Closed Auto-Generate d Referral 03/08/2023 04/06/2024 1 1 * Diagnostic Procedure Only (Routine) - Closed Specialty Diagnoses / Procedures Referred By Contac t Referred To Contact XR IMAGING Diagnoses Pain in joint, multiple sites Procedures XR FOOT GENERAL 3V AP/LAT/OBL LEFT RADEX FOOT COMPLETE MINIMUM 3 VIEWS Katiuska Goddard MD [address] [place] [address] Xr Imaging Referral ID Status Reason Start Date Expiration Date V isits Requested Visits Authorized [id number] Closed Auto-Generate d Referral 03/08/2023 04/06/2024 1 1 * Diagnostic Procedure Only (Routine) - Closed Specialty Diagnoses / Procedures Referred By Contac t Referred To Contact XR IMAGING Diagnoses Pain in joint, multiple sites Procedures XR HAND GENERAL 3V PA/LAT/OBL RIGHT RADEX HAND MINIMUM 3 VIEWS Katiuska Goddard MD [address] [place] [address] Xr Imaging Referral ID Status Reason Start Date Expiration Date V isits Requested Visits Authorized [id number] Closed Auto-Generate d Referral 03/08/2023 04/06/2024 1 1 * Diagnostic Procedure Only (Routine) - Closed Specialty Diagnoses / Procedures Referred By Contac t Referred To Contact XR IMAGING Diagnoses Pain in joint, multiple sites Procedures XR HAND GENERAL 3V PA/LAT/OBL LEFT RADEX HAND MINIMUM 3 VIEWS Katiuska Goddard MD [address] [place] [address] Xr Imaging Referral ID Status Reason Start Date Expiration Date V isits Requested Visits Authorized [id number] Closed Auto-Generate d Referral 03/08/2023 04/06/2024 1 1 [facility] for visit Narrative* Diagnostic Procedure Only (Routine) - Closed Specialty Diagnoses / Procedures Referred By Contac t Referred To Contact XR IMAGING Diagnoses Pain in joint, multiple sites Procedures XR SACROILIAC JOINTS 2V AP PELVIS/FERGUESON RADIOLOGIC EXAMINATION SACROILIAC JNTS <3 VIEWS Katiuska Goddard MD [address] [place] [address] Xr Imaging Referral ID Status Reason Start Date Expiration Date V isits Requested Visits Authorized [id number] Closed Auto-Generate d Referral 03/08/2023 04/06/2024 1 1 [facility] Assessments Diagnosis Cough Advance Directives No Advanced Directives Records FoundDocuments on File Type Date Recorded Patient Placement Assistant Expl anation Advance Directives and Living Will Power of Health Diagnostics Teacher Summary Purpose Family History No Family History Records FoundNo Family History Records FoundNo Family History Records FoundNo Family History Records FoundNo Family History Records Found Additional Source Comments INFORMATION SOURCE (unrecogn ized section and content) DATE CREATED AUTHOR AUTHOR'S ORGANIZ ATION 02/28/2022 [facility] DATE CREATED AUTHOR AUTHOR'S ORGANIZ ATION 02/12/[address] [facility] DATE CREATED AUTHOR AUTHOR'S ORGANIZ ATION 04/09/2023 [facility] DATE CREATED AUTHOR AUTHOR'S ORGANIZ ATION 07/22/2023 [facility] ([place]) Patient Care team informatio n (unrecognized section and content) Tool Honing Machine Set Up Operator Relationship Specialty Start Date End Date Shantelle Mclain MD [address] [facility] [place] [address] PCP - General Internal Medicine 03/08/23 [employer] Machine Set Up Operator Relationship Specialty Start Date End Date Shantelle Mclain MD [address] [facility] [place] [address] PCP - General Internal Medicine 03/08/23 Tool Honing Machine Set Up Operator Relationship Specialty Start Date End Date Shantelle Mclain MD [address] [place] [address] PCP - General Internal Medicine 03/08/23 Source Comments (unrecognize d section and content) In the event this informatio n is protected by the Federal Confidentiality of Alcohol and Drug Abuse Patient Records regulations: The Federal rules restrict any use of the information to criminally investigate or prosecute any alcohol or drug abuse patient.[facility] the event this information is protected by the Federal Confidentiality of Alcohol and Drug Abuse Patient Records regulations: The Federal rules restrict any use of the information to criminally investigate or prosecute any alcohol or drug abuse patient.[facility] the event this information is protected by the Federal Confidentiality of Alcohol and Drug Abuse Patient Records regulations: The Federal rules restrict any use of the information to criminally investigate or prosecute any alcohol or drug abuse patient.[facility] the event this information is protected by the Federal Confidentiality of Alcohol and Drug Abuse Patient Records regulations: The Federal rules restrict any use of the information to criminally investigate or prosecute any alcohol or drug abuse patient.[facility] the event this information is protected by the Federal Confidentiality of Alcohol and Drug Abuse Patient Records regulations: The Federal rules restrict any use of the information to criminally investigate or prosecute any alcohol or drug abuse patient.[facility] Reason for Visit (unrecogniz ed section and content) Reason Comments Joint Pain Reason Comments Results Reason Comments No Show FOR RECORDS PERTAINING TO PATIENTS WHO ARE OR HAVE BEEN ENROLLED IN A CHEMICAL DEPENDENCY/SUBSTANCEABUSE PROGRAM, SOME INFORMATION MAY BE OMITTED. This clinical summary was aggregated from multiple sources. Caution should be exercised in using it in the provision of clinical care. This summary normalizes information from multiple sources, and as a consequence, information in this document may materially change the coding, format and clinical context of patient data. In addition, data may be omitted in some cases. CLINICAL DECISIONS SHOULD BE BASED ON THE PRIMARY CLINICAL RECORDS. [employer] [facility]. provides no warranty or guarantee of the accuracy or completeness of information in this document.
[2023-10-12 16:20] LABS: Absolute Lymphocyte Count 1.93 X10^3/uL (0.83-4.51); Basophil# 0.04 X10^3/uL; Basophil% 0.6 % (0-1); Eosinophil# 0.13 X10^3/uL; Eosinophils% 1.9 % (0-5); Hematocrit 43.7 % (37-47); Hemoglobin 14.5 g/dL (12.0-15.0); Lymphocyte # 1.93 X10^3/ul (0.83-4.51); Lymphocyte % 28.9 % (19-41); Mean Corp Hgb Conc 33.2 g/dL (32-36); Mean Corpuscular Hgb 30.3 pg (27.0-32.0); Mean Corpuscular Volume 91.2 fL (81-99); Mean Platelet Vol. 10.1 fl (6.2-12.0); NRBC Flagged by Analyzer 0 % (0-5); Neutrophil # 3.96 X10^3/uL (2.7-7.7); Neutrophil % 59.3 % (47-70); Platelet Count 270 K/mm3 (150-450); RBC Distribution Width CV 13.3 % (11.6-14.6); Red Blood Count 4.79 M/mm3 (4.2-5.4); White Blood Count 6.7 K/mm3 (4.4-11.0)
[2023-10-12 16:32] LABS: Prothrombin Time (Protime)PT. 12.7 SECONDS (11.7-14.9)
[2023-10-12 16:33] LABS: Partial Thromboplast Time 27.4 Seconds (24.1-36.2)
[2023-10-12 16:42] LABS: Anion Gap 5 (5-15); BUN 18 mg/dL (7-18); BUN/Creat Ratio 20.2 RATIO (10-20); Calcium,Total 9.6 mg/dL (8.5-10.1); Chloride 109 mmol/L (98-107); Creatinine, Serum 0.89 mg/dL (0.55-1.02); EST Glomerular Filtration Rate 66 mL/min (>60); Est Glom Filt Rate - Afr Amer 80 mL/min (>60); Estimated Creatinine Clearance 50.01 ml/min; Glucose 137 mg/dL (74-106); Potassium 3.8 mmol/L (3.5-5.1); Sodium Level 140 mmol/L (136-145); Troponin-I HS 5 pg/mL (3.0-54.0)
--- NOTE | 2023-10-12 16:52 | ED.RN ---
THIS RN CALLED PATIENT'S DAUGHTER PER PT REQUEST. NOTIFIED DAUGHTER, ROSIE, THAT PT IS IN ED FOR STROKE ALERT AND UPDATE PROVIDED ON CARE. ALSO CALLED PATIENT'S SISTER PER PT REQUEST. LEFT VOICEMAIL WITH SISTER, SHIRAZ
[2023-10-12] MEDS: TENECTEPLASE 2404.80000000000018 MG IV (16:57)
[2023-10-12] MEDS: 0.9% Saline Lock 10 ML Syringe IV ×3 (16:57→22:02)
[2023-10-12] MEDS: 0.9% Normal Saline (1000mL) 1,000 ML 100 ML IV (17:04)
--- NOTE | 2023-10-12 17:20 | RAD_ITS ---
INDICATION: Neuro deficit, acute, stroke suspected EXAMINATION/TECHNIQUE: X-RAY - XR Chest 1 View COMPARISON: 01/15/2023. FINDINGS: The lungs are clear. Tortuous and calcified thoracic aorta. The heart is not enlarged. No pleural effusion or pneumothorax. Degenerative changes of the thoracic spine. RAD/Chest 1 View IMPRESSION: No acute radiographic abnormalities. Electronically Signed: Christ Gordon MD at 18:01 EST ,
--- OUTSIDE RECORDS SUMMARY | 2023-10-12 18:51 | XMS RPT_ITS | CCD ---
Author Name Unknown Address [address] [place] [address] Organization [facility] Care Team Providers Care Rn Clinical Research Name Role Phone Erich Hall Primary Care Provider PHYSICIAN, NONE Primary Care Physician Unavailab le Unavailable Primary Care Provider UnavailORIN Carmona Referring Unavailable ORIN REIS Attending Unavailable Shantelle Mclain MD Primary Care Provider [phone] KATIUSKA GODDARD Attending Unavailable KATIUSKA GODDARD Attending Unavailable SELF Referring Unavailable BRENDA EFEWONGBE Alex Primary Care Unavailable BRENDA EFEWONGBE Alex Primary Care Unavailable KATISUKA GODDARD Referring Unavailable KATIUSKA GODDARD Referring Unavailable BRENDA EFEWONGBE Alex Primary Care Unavailable SHELBY TIRADO MD Attending Unavailable PHYSICIAN, NONE Primary Care Unavailable DR BROOKE ROBLES DO Consulting Unavailable HYUN CAMP MD Attending Unavailable SHANTELLE MCLAIN MD Primary Care Unavailab le Allergies Allergy Classification Reported Allergen(s) Allergy Type Date of Onset Reaction(s) Facility (1 source) Ciprofloxacin Drug Allergy 5 Other (See Comments) [employer] [place] (9 sources) Codeine; Translations: [codeine] Drug Allergy 5 Nausea And Vomiting, Other (See Comments), Syncope (disorder), [facility] [place] [place] [facility] Hmg-Coa Reductase Inhibitors (Statins) Propensity to adverse reactions to drug 9 Other (See Comments) [employer] [place] (1 source) Penicillins Propensity to adverse reactions to drug 5 Shortness Of Breath, Rash [facility] [place] ([facility] source) Procaine Drug Allergy 5 Other (See Comments) [place] (1 source) Sulfonamides (Antibiotic) Propensity to adverse reactions to drug 5 Nausea And Vomiting [place] (1 source) Penicillin; Translations: [penicillin] Drug Allergy Difficulty breathing (finding) [facility] (6 sources) Sulfonamides (Antibiotic); Translations: [sulfa drugs] Drug allergy 0 Vomiting food (finding), Vomiting [facility] (7 sources) Penicillin G; Translations: [PENICILLIN G] Drug Allergy 0 Rash [facility] (2 sources) Sulfonamides (Antibiotic); Translations: [SULFA (SULFONAMIDE ANTIBIOTICS)] Propensity to adverse reactions to drug (disorder) 0 [facility] Repository Medications Current Medications Medication Drug Class(es) [...] 154.9 cm Katiuska Goddard MD Work Phone: [facility] 03-08-2023 10:15-0400 Body temperature 97.5 [degF] Katiuska Goddard MD Work Phone: [facility] 03-08-2023 10:15-0400 Body weight 68.22 kg Katiuska Goddadr MD Work Phone: [facility] 03-08-2023 10:15-0400 Diastolic blood pressure 81 mm[Hg] Katiuska Goddard MD Work Phone: [facility] 03-08-2023 10:15-0400 Heart rate 75 /min Katiuska Goddard MD Work Phone: [facility] 03-08-2023 10:15-0400 SaO2% (BldA) [Mass fraction] 95 % Katiuska Goddard MD Work Phone: [facility] 03-08-2023 10:15-0400 Systolic blood pressure 136 mm[Hg] Katiuska Goddard MD Work Phone: [facility] 01-15-2023 12:17-0400 Diastolic Blood Pressure Non-Invasive 83 1 SHELBY TIRADO MD [facility] 01-15-2023 12:17-0400 Heart rate 90 /min SHELBY TIRADO MD [facility] 01-15-2023 12:17-0400 Respiratory rate 16 /min SHELBY TIRADO MD [facility] 01-15-2023 12:17-0400 Systolic Blood Pressure Non-Invasive 163 1 SHELBY TIRADO MD [facility] 01-15-2023 10:41-0400 Diastolic Blood Pressure Non-Invasive 75 1 SHELBY TIRADO MD [facility] 01-15-2023 10:41-0400 Heart rate 90 /min SHELBY TIRADO MD [facility] 01-15-2023 10:41-0400 Respiratory rate 16 /min SHELBY TIRADO MD [facility] 01-15-2023 10:41-0400 Systolic Blood Pressure Non-Invasive 147 1 SHELBY TIRADO MD [facility] 01-15-2023 09:14-0400 Diastolic Blood Pressure Non-Invasive 82 1 SHELBY TIRADO MD [facility] 01-15-2023 09:14-0400 Heart rate 91 /min SHELBY TIRADO MD [facility] 01-15-2023 09:14-0400 Respiratory rate 14 /min SHELBY TIRADO MD [facility] 01-15-2023 09:14-0400 Systolic Blood Pressure Non-Invasive 169 1 SHELBY TIRADO MD [facility] 01-15-2023 08:24-0400 Heart rate 86 /min SHELBY TIRADO MD [facility] 01-15-2023 07:36-0400 Body temperature 97.88 [degF] SHELBY TIRADO MD [facility] 01-15-2023 07:36-0400 Body weight 68 kg SHELBY TIRADO MD [facility] 01-15-2023 07:36-0400 Heart rate 97 /min SHELBY TIRADO MD [facility] Encounters Encounter Date Encounter Type Care Provider Facility Start: 07-05-2023 End: 07-05-2023 Emergency department patient visit HYUN CAMP MD Facility:B Start: 04-09-2023 Telephone encounter Katiuska blevins MD Work Phone: [facility] General Rheumatology and Arthritis Procedures Date Procedure Procedure Detail Performing Clinician Start: 12-31-2019 Radiologic exam ches t 2 views Erich Hall Work Phone: Plan of Treatment Date Care Activity Detail Author Start: 11-15-2025 LIPID SCREEN LIPID SCREEN [facility] Start: 01-10-2025 DTaP/Tdap/Td vaccine (2 - Td) DTaP/Tdap/Td vaccine (2 - Td) [place] Start: 06-25-2024 Lipid panel Lipid screen [place] Start: 05-03-2023 Influenza vaccination C [facility] Start: 03-08-2023 End: 05-08-2023 25-hydroxyvitamin D3 [Mass/volume] in Serum or Plasma [facility] Work Phone: Immunizations Immunization Date Immunization Notes Care Provider Fa [facility] 06-25-2019 influenza, high dose seasonal, preservative-free [place], [place] 06-25-2019 pneumococcal polysaccharide vaccine, 23 valent [facility], [place] 06-25-2018 influenza, high dose seasonal, preservative-free [place] 06-25-2018 pneumococcal conjuga te vaccine, 13 valent [facility], [place] 06-22-2015 influenza virus vacc ine, whole virus [place] Payers Date Payer Category Payer Unknown [id number] 2019 Medicare [employer] [place] [id number] 2019-Present [phone] [address] [place] [id number] O [id number] 2019 Medicare [id number] 2018 Medicare [employer]-MEDICA RE ADVANTAGE [facility]-MEDICARE ADVANTAGE xxxxxxxxxxx 2018-Present [phone] [address] [place] [address] xxxxxxxxxxx [id number] 1950 Unknown [id number] 1950 Unknown [id number] Social History Date Type Detail Facility Start: 12-28-2019 Tobacco smoking stat [email or web address] Former smoker [place] End: 04-29-2004 History of tobacco use Current [place] Start: 12-28-2019 End: 02-07-2020 Alcohol intake Current drinker of alcohol (finding) [place] Start: 12-25-2018 History SDOH Alcohol Frequency 2 [place] Start: 12-25-2018 History SDOH Alcohol Std Drinks 1 [place] Start: 12-25-2018 History SDOH Social Connections Phone 5 [place] Start: 12-25-2018 History SDOH Social Connections Meetings 3 [place] Start: 12-25-2018 History SDOH Financial 4 [place] Start: 04-29-2015 Alcohol Comment rare Shobha Castro [place], [place] Start: 1950 Sex Assigned At Not on file [place] Start: 01-07-2020 Tobacco smoking stat [facility] Never smoked tobacco [facility] Start: 01-07-2020 Tobacco use and exposure Smoke less tobacco non-user [facility] Start: 01-11-2020 Alcohol Comment Rarely [facility] Start: 02-07-2020 End: 03-08-2023 History of Social function [facility] Start: 02-07-2020 End: 03-08-2023 Area Deprivation Index [facility] National Score (1-10 0), lower number is lower risk 43 [facility] Functional Status Date Assessment Result Facility 01-15-2023 Functional Status Minimum assistance [facility] 01-15-2023 Functional Status ID band on, Call device within reach, Bed in low position, Wheels locked, Upper/Half-Length side-rails up [facility] 01-15-2023 Functional Status Identified as high risk, Fall ID band on, Room located near nursing station [facility] Mental Status Date Assessment Result Facility 01-15-2023 Mental Status Orientation Oriented x 4 [facility] 01-15-2023 Mental Status [facility] 01-15-2023 Mental Status [facility] Clinical Notes 01-15-2023 to 04-09-2023 Telephone Encounter - Radha Chan - 04/09/2023 10:08 AM EDTTelephone Encounter - Aileen Hoffmann LPN - 03/21/2023 1:01 PM EDTTelephone Encounter - Katiuska Goddard MD - 03/21/2023 9:54 AM EDT Note Date & Type Note Facility 04-09-2023 Miscellaneous Notes No Show Documentation Donita Jay no showed for an appointment on [id number] with Katiuska Goddard MD at [place]. She was scheduled for 939. I called [...] 2023 10:08 AM documented in this encounter [facility] 03-21-2023 Miscellaneous Notes Left message on voicemail asking to return call do discuss lab results. 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 No signs of RA or PsA. 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 Will monitor. Follow up with derm for psoriasis. documented in this encounter [facility] 03-08-2023 Note HNO ID: [id number] Author: RT Raffy(R) Service: ? Author Type: Channel Sales Director Type: Progress Notes Filed: 03/08/2023 11:29 AM [...] RT Raffy(R) March 08, 2023 11:26 AM [facility] 03-08-2023 Note HNO ID: [id number] Author: Katiuska Goddard MD Service: ? Author [...] appearing, alert, com (more content not included)... [facility] 03-08-2023 History of Presen t illness [...] 2023 11:26 AM documented in this encounter [facility] 03-08-2023 History of Presen t [...] 2V AP PELVIS/FERGUESON DNA ANTIBODY DS BLD SHOT COAT TENDER ANTIBODY BLOOD WILDE IGG AB SJOGREN ABS SSA/SSB VITAMIN D 25 HYDROXY No orders of the defined types were placed in this encounter. No follow-ups on file. Katiuska Goddard MD documented in this encounter [facility] 01-15-2023 Note ORIGINAL EXAMINATION: ONE XRAY VIEW [...] Sign Date: 01/15/2023 9:50:06 AM Ordering Provider: [facility] 01-15-2023 Note ORIGINAL EXAMINATION: CT OF THE [...] convexities. Scattered white matter hypodensities likely reflecting [id number] chronic microvascular angiopathy. A partially empty sella [...] Sign Date: 01/15/2023 9:08:47 AM Ordering Provider: [facility] 01-15-2023 Note ORIGINAL EXAMINATION: CT OF THE [...] convexities. Scattered white matter hypodensities likely reflecting vchp-[id number]-[id number] chronic microvascular angiopathy. A partially empty sella [...] Sign Date: 01/15/2023 9:08:47 AM Ordering Provider: [facility] 01-15-2023 Note ORIGINAL EXAMINATION: ONE XRAY VIEW [...] Sign Date: 01/15/2023 9:50:06 AM Ordering Provider: [facility] Evaluation + Plan note No data available for this section [facility] documented in this encounter [facility] note* Diagnosis Pain in joint, multiple sites- Primary Psoriasis Other psoriasis Primary osteoarthritis involving multiple joints Fibromyalgia Mylagia and myositis, unspecified Left hemiparesis (HCC) Hemiplegia, unspecified, affecting unspecified side documented in this encounter [facility] note* Diagnosis Pain in joint, multiple sites [facility] No data available for this section [facility] Reason for referral (narrative)* Diagnostic Procedure Only (Routine) - Closed Specialty Diagnoses / Procedures Referred By Contac t Referred To Contact XR IMAGING Diagnoses Pain in joint, multiple sites Procedures XR SACROILIAC JOINTS 2V AP PELVIS/FERGUESON RADIOLOGIC EXAMINATION SACROILIAC JNTS <3 VIEWS Katiuska Goddard MD [address] [facility] [address] [place] [address] Xr Imaging Referral ID Status Reason Start Date Expiration Date V isits Requested Visits Authorized [id number] Closed Auto-Generate d Referral 03/08/2023 04/06/2024 1 1 * Diagnostic Procedure Only (Routine) - Closed Specialty Diagnoses / Procedures Referred By Contac t Referred To Contact XR IMAGING Diagnoses Pain in joint, multiple sites Procedures XR LUMBAR GENERAL 3V AP/LAT/L5-S1 RADEX SPINE LUMBOSACRAL 2/3 VIEWS Katiuska Goddard MD [address] [facility] [address] [place] [address] Xr Imaging Referral ID Status Reason Start Date Expiration Date V isits Requested Visits Authorized [id number] Closed Auto-Generate d Referral 03/08/2023 04/06/2024 1 1 * Diagnostic Procedure Only (Routine) - Closed Specialty Diagnoses / Procedures Referred By Contac t Referred To Contact XR IMAGING Diagnoses Pain in joint, multiple sites Procedures XR CERV GENERAL 2V AP/LAT RADEX SPINE CERVICAL 2 OR 3 VIEWS Katiuska Goddard MD [address] [place] [address] Xr Imaging Referral ID Status Reason Start Date Expiration Date V isits Requested Visits Authorized [id number] Closed Auto-Generate d Referral 03/08/2023 04/06/2024 1 1 * Diagnostic Procedure Only (Routine) - Closed Specialty Diagnoses / Procedures Referred By Contac t Referred To Contact XR IMAGING Diagnoses Pain in joint, multiple sites Procedures XR ANKLE GENERAL 3V AP/LAT/OBL LEFT RADEX ANKLE COMPLETE MINIMUM 3 VIEWS Katiuska Goddard MD [address] [place] [address] Xr Imaging Referral ID Status Reason Start Date Expiration Date V isits Requested Visits Authorized [id number] Closed Auto-Generate d Referral 03/08/2023 04/06/2024 1 1 * Diagnostic Procedure Only (Routine) - Closed Specialty Diagnoses / Procedures Referred By Contac t Referred To Contact XR IMAGING Diagnoses Pain in joint, multiple sites Procedures XR ANKLE GENERAL 3V AP/LAT/OBL RIGHT RADEX ANKLE COMPLETE MINIMUM 3 VIEWS Katiuska Goddard MD [address] [place] [address] Xr Imaging Referral ID Status Reason Start Date Expiration Date V isits Requested Visits Authorized [id number] Closed Auto-Generate d Referral 03/08/2023 04/06/2024 1 1 * Diagnostic Procedure Only (Routine) - Closed Specialty Diagnoses / Procedures Referred By Contac t Referred To Contact XR IMAGING Diagnoses Pain in joint, multiple sites Procedures XR FOOT GENERAL 3V AP/LAT/OBL RIGHT RADEX FOOT COMPLETE MINIMUM 3 VIEWS Katiuska Goddard MD [address] [place] [address] Xr Imaging Referral ID Status Reason Start Date Expiration Date V isits Requested Visits Authorized [id number] Closed Auto-Generate d Referral 03/08/2023 04/06/2024 1 1 * Diagnostic Procedure Only (Routine) - Closed Specialty Diagnoses / Procedures Referred By Contac t Referred To Contact XR IMAGING Diagnoses Pain in joint, multiple sites Procedures XR FOOT GENERAL 3V AP/LAT/OBL LEFT RADEX FOOT COMPLETE MINIMUM 3 VIEWS Katiuska Goddard MD [address] [place] [address] Xr Imaging Referral ID Status Reason Start Date Expiration Date V isits Requested Visits Authorized [id number] Closed Auto-Generate d Referral 03/08/2023 04/06/2024 1 1 * Diagnostic Procedure Only (Routine) - Closed Specialty Diagnoses / Procedures Referred By Contac t Referred To Contact XR IMAGING Diagnoses Pain in joint, multiple sites Procedures XR HAND GENERAL 3V PA/LAT/OBL RIGHT RADEX HAND MINIMUM 3 VIEWS Katiuska Goddard MD [address] [place] [address] Xr Imaging Referral ID Status Reason Start Date Expiration Date V isits Requested Visits Authorized [id number] Closed Auto-Generate d Referral 03/08/2023 04/06/2024 1 1 * Diagnostic Procedure Only (Routine) - Closed Specialty Diagnoses / Procedures Referred By Contac t Referred To Contact XR IMAGING Diagnoses Pain in joint, multiple sites Procedures XR HAND GENERAL 3V PA/LAT/OBL LEFT RADEX HAND MINIMUM 3 VIEWS Katiuska Goddard MD [address] [place] [address] Xr Imaging Referral ID Status Reason Start Date Expiration Date V isits Requested Visits Authorized [id number] Closed Auto-Generate d Referral 03/08/2023 04/06/2024 1 1 [facility] for visit Narrative* Diagnostic Procedure Only (Routine) - Closed Specialty Diagnoses / Procedures Referred By Contac t Referred To Contact XR IMAGING Diagnoses Pain in joint, multiple sites Procedures XR SACROILIAC JOINTS 2V AP PELVIS/FERGUESON RADIOLOGIC EXAMINATION SACROILIAC JNTS <3 VIEWS Katiuska Goddard MD [address] [place] [address] Xr Imaging Referral ID Status Reason Start Date Expiration Date V isits Requested Visits Authorized [id number] Closed Auto-Generate d Referral 03/08/2023 04/06/2024 1 1 [facility] Assessments Diagnosis Cough Advance Directives No Advanced Directives Records FoundDocuments on File Type Date Recorded 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 Advance Directives and Living Will Power of Senior Staff Consultant Summary Purpose Family History No Family History Records FoundNo Family History Records FoundNo Family History Records FoundNo Family History Records FoundNo Family History Records Found Additional Source Comments INFORMATION SOURCE (unrecogn ized section and content) DATE CREATED AUTHOR AUTHOR'S ORGANIZ ATION 02/28/2022 [facility] DATE CREATED AUTHOR AUTHOR'S ORGANIZ ATION 02/12/2023 [facility] DATE CREATED AUTHOR AUTHOR'S ORGANIZ ATION 04/09/2023 [facility] DATE CREATED AUTHOR AUTHOR'S ORGANIZ ATION 07/22/2023 [facility] ([place]) Patient Care team informatio n (unrecognized section and content) Rn Clinical Research Relationship Specialty Start Date End Date Shantelle Mclain MD [address] [facility] [place] [address] PCP - General Internal Medicine 03/08/23 Rn Clinical Research Relationship Specialty Start Date End Date Shantelle Mclain MD [address] [facility] [address] PCP - General Internal Medicine 03/08/23 Rn Clinical Research Relationship Specialty Start Date End Date Shantelle Mclain MD [address] [place] [address] PCP - General Internal Medicine 03/08/23 Source Comments (unrecognize d section and content) In the event this informatio n is protected by the Federal Confidentiality of Alcohol and Drug Abuse Patient Records regulations: The Federal rules restrict any use of the information to criminally investigate or prosecute any alcohol or drug abuse patient.[facility] the event this information is protected by the Federal Confidentiality of Alcohol and Drug Abuse Patient Records regulations: The Federal rules restrict any use of the information to criminally investigate or prosecute any alcohol or drug abuse patient.[facility] the event this information is protected by the Federal Confidentiality of Alcohol and Drug Abuse Patient Records regulations: The Federal rules restrict any use of the information to criminally investigate or prosecute any alcohol or drug abuse patient.[facility] the event this information is protected by the Federal Confidentiality of Alcohol and Drug Abuse Patient Records regulations: The Federal rules restrict any use of the information to criminally investigate or prosecute any alcohol or drug abuse patient.[facility] the event this information is protected by the Federal Confidentiality of Alcohol and Drug Abuse Patient Records regulations: The Federal rules restrict any use of the information to criminally investigate or prosecute any alcohol or drug abuse patient.[facility] Reason for Visit (unrecogniz ed section and [...] BE BASED ON THE PRIMARY CLINICAL RECORDS. [facility]. provides no warranty or guarantee of the accuracy or completeness of information in this document.
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
--- NOTE | 2023-10-12 19:36 | ECHOL_ITS ---
Reason For Study: TIA/CVA Procedure This was a limited 2D transthoracic echocardiogram. Exam performed portable in ICU/CCU. Left Ventricle Normal LV size. The estimated ejection fraction is 65 %. Unable to assess diastolic dysfunction. No regional wall motion abnormalities noted. Right Ventricle Normal RV size. Normal systolic function. Atria Normal left atrium. Normal right atrium. Mitral Valve There is no mitral valve stenosis. Not assessed. Tricuspid Valve There is no tricuspid stenosis. Not assessed. Aortic Valve There is no aortic stenosis. Not assessed. Pulmonic Valve The pulmonic valve is not well visualized. Great Vessels Normal aortic root. Pericardium/Pleural No pericardial effusion. MMode/2D Measurements & Calculations LVIDd: 3.8 cm IVSd: 0.99 cm Ao root diam: 3.2 cm LVIDs: 2.6 cm LVPWd: 0.92 cm LA dimension: 2.9 cm FS: 32.7 % LAV(MOD-bp): 37.4 ml LVAd ap4: 24.9 cm2 LVAd ap2: 22.8 cm2 LAV(MOD-bp) Indexed: 23.0 ml/m2 LVLd ap4: 7.9 cm LVLd ap2: 7.6 cm LAV(MOD-sp2): 39.9 ml EDV(MOD-sp4): 65.9 ml EDV(MOD-sp2): 57.8 ml LAV(MOD-sp4): 32.8 ml EDV(sp4-el): 67.3 ml EDV(sp2-el): 57.5 ml LVAs ap4: 13.5 cm2 LVAs ap2: 12.3 cm2 LVLs ap4: 6.5 cm LVLs ap2: 6.3 cm ESV(MOD-sp4): 25.2 ml ESV(MOD-sp2): 20.3 ml ESV(sp4-el): 23.6 ml ESV(sp2-el): 20.2 ml EF(MOD-sp4): 61.8 % EF(MOD-sp2): 64.8 % EF(sp4-el): 64.9 % SV(MOD-sp4): 40.7 ml SV(MOD-sp2): 37.4 ml SV(sp4-el): 43.7 ml LA A4 area: 14.1 cm2 RA A4 area: 11.8 cm2 ECHO/Echo, Limited Study Interpretation Summary The estimated ejection fraction is 65 %. Unable to assess diastolic dysfunction. Previous bubble study was negative Ordering Physician: Graciela Bill Referring Physician: Shantelle Mclain Performed By: Praveena Padilla, RDCS, RVT
[2023-10-12] MEDS: Labetalol (Prefilled) 20 MG/4 ML IV (20:24)
--- OUTSIDE RECORDS SUMMARY | 2023-10-12 20:27 | XMS RPT_ITS | CCD ---
Author Name Unknown Address [address] [place] [address] Organization [facility] Care Team Providers Care Account Retention Representative Name Role Phone Erich [facility] [...] Ciprofloxacin Drug Allergy 5 Other (See Comments) [address] [place], [place] (9 sources) Codeine; Translations: [codeine] Drug Allergy 5 Nausea And Vomiting, Other (See Comments), Syncope (disorder), [facility] [place] ([facility] source) Hmg-Coa Reductase Inhibitors (Statins) Propensity to adverse reactions to drug 9 Other (See Comments) [address] [place] (1 source) Penicillins Propensity to adverse reactions to drug 5 Shortness Of Breath, Rash [facility] [place] ([facility] source) Procaine Drug Allergy 5 Other (See Comments) [place], [place] (1 source) Sulfonamides (Antibiotic) Propensity to adverse reactions to drug 5 Nausea And Vomiting [place] (1 source) Penicillin; Translations: [penicillin] Drug Allergy Difficulty breathing (finding) [facility] (6 sources) Sulfonamides (Antibiotic); Translations: [sulfa drugs] Drug allergy 0 Vomiting food (finding), Vomiting [facility] (7 sources) Penicillin G; Translations: [PENICILLIN G] Drug Allergy 0 Rash [facility] (2 sources) Sulfonamides (Antibiotic); Translations: [SULFA (SULFONAMIDE ANTIBIOTICS)] Propensity to adverse reactions to drug (disorder) 0 [facility] Repository Medications Current Medications Medication Drug Class(es) [...] 154.9 cm Katiuska Goddard MD Work Phone: [facility] 03-08-2023 10:15-0400 Body temperature 97.5 [degF] Katiuska Goddard MD Work Phone: [facility] 03-08-2023 10:15-0400 Body weight 68.22 kg Katiuska Goddard MD Work Phone: [facility] 03-08-2023 10:15-0400 Diastolic blood pressure 81 mm[Hg] Katiuska Goddard MD Work Phone: [facility] 03-08-2023 10:15-0400 Heart rate 75 /min Katiuska Goddard MD Work Phone: [facility] 03-08-2023 10:15-0400 SaO2% (BldA) [Mass fraction] 95 % Katiuska Goddard MD Work Phone: [facility] 03-08-2023 10:15-0400 Systolic blood pressure 136 mm[Hg] Katiuska Goddard MD Work Phone: [facility] 01-15-2023 12:17-0400 Diastolic Blood Pressure Non-Invasive [address] [facility] 01-15-2023 12:17-0400 Heart rate 90 /min SHELBY TIRADO MD [facility] 01-15-2023 12:17-0400 Respiratory rate 16 /min SHELBY TIRADO MD [facility] 01-15-2023 12:17-0400 Systolic Blood Pressure Non-Invasive 163 [address] [facility] 01-15-2023 10:41-0400 Diastolic Blood Pressure Non-Invasive 75 [address] [facility] 01-15-2023 10:41-0400 Heart rate 90 /min SHELBY TIRADO MD [facility] 01-15-2023 10:41-0400 Respiratory rate 16 /min SHELBY TIRADO MD [facility] 01-15-2023 10:41-0400 Systolic Blood Pressure Non-Invasive 147 [address] [facility] 01-15-2023 09:14-0400 Diastolic Blood Pressure Non-Invasive 82 [address] [facility] 01-15-2023 09:14-0400 Heart rate 91 /min SHELBY TIRADO MD [facility] 01-15-2023 09:14-0400 Respiratory rate 14 /min SHELBY TIRADO MD [facility] 01-15-2023 09:14-0400 Systolic Blood Pressure Non-Invasive 169 [address] [facility] 01-15-2023 08:24-0400 Heart rate 86 /min SHELBY TIRADO MD [facility] 01-15-2023 07:36-0400 Body temperature 97.88 [degF] SHELBY TIRADO MD [facility] 01-15-2023 07:36-0400 Body weight 68 kg SHELBY TIRADO MD [facility] 01-15-2023 07:36-0400 Heart rate 97 /min SHELBY TIRADO MD [facility] Encounters Encounter Date Encounter Type Care Provider Facility Start: 07-05-2023 End: 07-05-2023 Emergency department patient visit HYUN CAMP MD Facility:B Start: 04-09-2023 Telephone encounter Katiuska blevins MD Work Phone: [facility] General Rheumatology and Arthritis Procedures Date Procedure Procedure Detail Performing Clinician Start: 12-31-2019 Radiologic exam ches t 2 views Erich Hall Work Phone: Plan of Treatment Date Care Activity Detail Author Start: 11-15-2025 LIPID SCREEN LIPID SCREEN [facility] Start: 01-10-2025 DTaP/Tdap/Td vaccine (2 - Td) DTaP/Tdap/Td vaccine (2 - Td) [place] Start: 06-25-2024 Lipid panel Lipid screen [place], [place] Start: 05-03-2023 Influenza vaccination C [facility] Start: 03-08-2023 End: 05-08-2023 25-hydroxyvitamin D3 [Mass/volume] in Serum or Plasma [facility] Work Phone: Immunizations Immunization Date Immunization Notes Care Provider Fa [facility] 06-25-2019 influenza, high dose seasonal, preservative-free [place], [place] 06-25-2019 pneumococcal polysaccharide vaccine, 23 valent [facility] [place] 06-25-2018 influenza, high dose seasonal, preservative-free [place] 06-25-2018 pneumococcal conjuga te vaccine, 13 valent [facility] [place] 06-22-2015 influenza virus vacc ine, whole virus [place], [place] Payers Date Payer Category Payer Unknown [id number] 2019 [place] [employer] [place] [id number] 2019-Present [phone] [address] [place] [address] O [id number] 2019 Medicare [id number] 2018 Medicare [employer] ADVANTAGE [facility]-MEDICARE ADVANTAGE xxxxxxxxxxx 2018-Present [phone] [address] [place] [address] xxxxxxxxxxx [id number] 1950 Unknown [id number] 1950 Unknown [id number] Social History Date Type Detail Facility Start: 12-28-2019 [facility] End: 04-29-2004 History of tobacco use Current [place] Start: 12-28-2019 End: 02-07-2020 Alcohol intake Current drinker of alcohol (finding) [place] Start: 12-25-2018 History SDOH Alcohol Frequency 2 [place] Start: 12-25-2018 History SDOH Alcohol Std Drinks 1 [place] Start: 12-25-2018 History SDOH Social Connections Phone 5 [place] Start: 12-25-2018 History SDOH Social Connections Meetings 3 [place] Start: 12-25-2018 History SDOH Financial 4 [place] Start: 04-29-2015 Alcohol Comment rare Shobha Castro [place], [place] Start: 1950 Sex Assigned At Not on file [place], [place] Start: 01-07-2020 Tobacco smoking stat [facility] Never smoked tobacco [facility] Start: 01-07-2020 Tobacco use and exposure Smoke less tobacco non-user [facility] Start: 01-11-2020 Alcohol Comment Rarely [facility] Start: 02-07-2020 End: 03-08-2023 History of Social function [facility] Start: 02-07-2020 End: 03-08-2023 Area Deprivation Index [facility] National Score (1-10 0), lower number is lower risk 43 [facility] Functional Status Date Assessment Result Facility 01-15-2023 Functional Status Minimum assistance [facility] 01-15-2023 Functional Status ID band on, Call device within reach, Bed in low position, Wheels locked, Upper/Half-Length side-rails up [facility] 01-15-2023 Functional Status Identified as high risk, Fall ID band on, Room located near nursing station [facility] Mental Status Date Assessment Result Facility 01-15-2023 Mental Status Orientation Oriented x [facility] 01-15-2023 Mental Status [facility] 01-15-2023 Mental Status [facility] Clinical Notes 01-15-2023 to 04-09-2023 Telephone Encounter - Radha Chan - 04/09/2023 10:08 AM EDTTelephone Encounter - Aileen Hoffmann LPN - 03/21/2023 1:01 PM EDTTelephone Encounter - Katiuska Goddard MD - 03/21/2023 9:54 AM EDT Note Date & Type Note Facility 04-09-2023 Miscellaneous Notes No Show Documentation Donita Jay no showed for an appointment on [id number] with Katiuska Goddard MD at [place]. She was scheduled for 939. I called [...] 2023 10:08 AM documented in this encounter [facility] 03-21-2023 Miscellaneous Notes Left message on voicemail asking to return call do discuss lab results. 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 No signs of RA or PsA. Low level [facility]ICE C[facility] SPECIALIST - not significant. Will monitor. Follow up with derm for psoriasis. documented in this encounter [facility] 03-08-2023 Note HNO ID: [id number] Author: RT Raffy(R) Service: ? Author Type: Time Clock Inspector Type: Progress Notes Filed: 03/08/2023 11:29 AM [...] RT Raffy(R) March 08, 2023 11:26 AM [facility] 03-08-2023 Note HNO ID: [id number] Author: Katiuska Goddard MD Service: ? Author [...] appearing, alert, com (more content not included)... [facility] 03-08-2023 History of Presen t illness [...] 2023 11:26 AM documented in this encounter [facility] 03-08-2023 History of Presen t illness [...] 2V AP PELVIS/FERGUESON DNA ANTIBODY DS BLD SERVICE CENTER SPECIALIST ANTIBODY BLOOD WILDE IGG AB SJOGREN ABS SSA/SSB VITAMIN D 25 HYDROXY No orders of the defined types were placed in this encounter. No follow-ups on file. Katiuska Goddard MD documented in this encounter [facility] 01-15-2023 Note ORIGINAL EXAMINATION: ONE XRAY [...] Sign Date: 01/15/2023 9:50:06 AM Ordering Provider: [facility] 01-15-2023 Note ORIGINAL EXAMINATION: CT OF THE [...] convexities. Scattered white matter hypodensities likely reflecting [id number] chronic microvascular angiopathy. A partially empty sella [...] Sign Date: 01/15/2023 9:08:47 AM Ordering Provider: [facility] 01-15-2023 Note ORIGINAL EXAMINATION: CT OF THE [...] convexities. Scattered white matter hypodensities likely reflecting [id number] chronic microvascular angiopathy. A partially empty sella [...] Sign Date: 01/15/2023 9:08:47 AM Ordering Provider: [facility] 01-15-2023 Note ORIGINAL EXAMINATION: ONE XRAY VIEW [...] Sign Date: 01/15/2023 9:50:06 AM Ordering Provider: [facility] Evaluation + Plan note No data available for this section [facility] documented in this encounter [facility] note* Diagnosis Pain in joint, multiple sites- Primary Psoriasis Other psoriasis Primary osteoarthritis involving multiple joints Fibromyalgia Mylagia and myositis, unspecified Left hemiparesis (HCC) Hemiplegia, unspecified, affecting unspecified side documented in this encounter [facility] note* Diagnosis Pain in joint, multiple sites [facility] No data available for this section [facility] Reason for referral (narrative)* Diagnostic Procedure Only (Routine) - Closed Specialty Diagnoses / Procedures Referred By Contac t Referred To Contact XR IMAGING Diagnoses Pain in joint, multiple sites Procedures XR SACROILIAC JOINTS 2V AP PELVIS/FERGUESON RADIOLOGIC EXAMINATION SACROILIAC JNTS <3 VIEWS Katiuska Goddard MD [address] [facility] [address] [place] [address] Xr Imaging Referral ID Status Reason Start Date Expiration Date V isits Requested Visits Authorized [id number] Closed Auto-Generate d Referral 03/08/2023 04/06/2024 1 1 * Diagnostic Procedure Only (Routine) - Closed Specialty Diagnoses / Procedures Referred By Contac t Referred To Contact XR IMAGING Diagnoses Pain in joint, multiple sites Procedures XR LUMBAR GENERAL 3V AP/LAT/L5-S1 RADEX SPINE LUMBOSACRAL 2/3 VIEWS Katiuska Goddard MD [address] [facility] [address] [place] [address] Xr Imaging Referral ID Status Reason Start Date Expiration Date V isits Requested Visits Authorized [id number] Closed Auto-Generate d Referral 03/08/2023 04/06/2024 1 1 * Diagnostic Procedure Only (Routine) - Closed Specialty Diagnoses / Procedures Referred By Contac t Referred To Contact XR IMAGING Diagnoses Pain in joint, multiple sites Procedures XR CERV GENERAL 2V AP/LAT RADEX SPINE CERVICAL 2 OR 3 VIEWS Katiuska Goddard MD [address] [place] [address] Xr Imaging Referral ID Status Reason Start Date Expiration Date V isits Requested Visits Authorized [id number] Closed Auto-Generate d Referral 03/08/2023 04/06/2024 1 1 * Diagnostic Procedure Only (Routine) - Closed Specialty Diagnoses / Procedures Referred By Contac t Referred To Contact XR IMAGING Diagnoses Pain in joint, multiple sites Procedures XR ANKLE GENERAL 3V AP/LAT/OBL LEFT RADEX ANKLE COMPLETE MINIMUM 3 VIEWS Katiuska Goddard MD [address] [place] [address] Xr Imaging Referral ID Status Reason Start Date Expiration Date V isits Requested Visits Authorized [id number] Closed Auto-Generate d Referral 03/08/2023 04/06/2024 1 1 * Diagnostic Procedure Only (Routine) - Closed Specialty Diagnoses / Procedures Referred By Contac t Referred To Contact XR IMAGING Diagnoses Pain in joint, multiple sites Procedures XR ANKLE GENERAL 3V AP/LAT/OBL RIGHT RADEX ANKLE COMPLETE MINIMUM 3 VIEWS Katiuska Goddard MD [address] [place] [address] Xr Imaging Referral ID Status Reason Start Date Expiration Date V isits Requested Visits Authorized [id number] Closed Auto-Generate d Referral 03/08/2023 04/06/2024 1 1 * Diagnostic Procedure Only (Routine) - Closed Specialty Diagnoses / Procedures Referred By Contac t Referred To Contact XR IMAGING Diagnoses Pain in joint, multiple sites Procedures XR FOOT GENERAL 3V AP/LAT/OBL RIGHT RADEX FOOT COMPLETE MINIMUM 3 VIEWS Katiuska Goddard MD [address] [place] [address] Xr Imaging Referral ID Status Reason Start Date Expiration Date V isits Requested Visits Authorized [id number] Closed Auto-Generate d Referral 03/08/2023 04/06/2024 1 1 * Diagnostic Procedure Only (Routine) - Closed Specialty Diagnoses / Procedures Referred By Contac t Referred To Contact XR IMAGING Diagnoses Pain in joint, multiple sites Procedures XR FOOT GENERAL 3V AP/LAT/OBL LEFT RADEX FOOT COMPLETE MINIMUM 3 VIEWS Katiuska Goddard MD [address] [place] [address] Xr Imaging Referral ID Status Reason Start Date Expiration Date V isits Requested Visits Authorized [id number] Closed Auto-Generate d Referral 03/08/2023 04/06/2024 1 1 * Diagnostic Procedure Only (Routine) - Closed Specialty Diagnoses / Procedures Referred By Contac t Referred To Contact XR IMAGING Diagnoses Pain in joint, multiple sites Procedures XR HAND GENERAL 3V PA/LAT/OBL RIGHT RADEX HAND MINIMUM 3 VIEWS Katiuska Goddard MD [address] [place] [address] Xr Imaging Referral ID Status Reason Start Date Expiration Date V isits Requested Visits Authorized [id number] Closed Auto-Generate d Referral 03/08/2023 04/06/2024 1 1 * Diagnostic Procedure Only (Routine) - Closed Specialty Diagnoses / Procedures Referred By Contac t Referred To Contact XR IMAGING Diagnoses Pain in joint, multiple sites Procedures XR HAND GENERAL 3V PA/LAT/OBL LEFT RADEX HAND MINIMUM 3 VIEWS Katiuska Goddard MD [address] [place] [address] Xr Imaging Referral ID Status Reason Start Date Expiration Date V isits Requested Visits Authorized [id number] Closed Auto-Generate d Referral 03/08/2023 04/06/2024 1 1 [facility] for visit Narrative* Diagnostic Procedure Only (Routine) - Closed Specialty Diagnoses / Procedures Referred By Contac t Referred To Contact XR IMAGING Diagnoses Pain in joint, multiple sites Procedures XR SACROILIAC JOINTS 2V AP PELVIS/FERGUESON RADIOLOGIC EXAMINATION SACROILIAC JNTS <3 VIEWS Katiuska Goddard MD [address] [place] [address] Xr Imaging Referral ID Status Reason Start Date Expiration Date V isits Requested Visits Authorized [id number] Closed Auto-Generate d Referral 03/08/2023 04/06/2024 1 1 [facility] Assessments Diagnosis Cough Advance Directives No Advanced Directives Records FoundDocuments on File Type Date 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 Advance Directives and Living Will Power of Clay Pigeon Loader Summary Purpose Family History No Family History Records FoundNo Family History Records FoundNo Family History Records FoundNo Family History Records FoundNo Family History Records Found Additional Source Comments INFORMATION SOURCE (unrecogn ized section and content) DATE CREATED AUTHOR AUTHOR'S ORGANIZ ATION 02/28/2022 [facility] DATE CREATED AUTHOR AUTHOR'S ORGANIZ ATION 02/12/2023 [facility] DATE CREATED AUTHOR AUTHOR'S ORGANIZ ATION 04/09/2023 [facility] DATE CREATED AUTHOR AUTHOR'S ORGANIZ ATION 07/22/2023 [facility] ([place]) Patient Care team informatio n (unrecognized section and content) Account Retention Representative Relationship Specialty Start Date End Date Shantelle Mclain MD [address] [facility] [place] [address] PCP - General Internal Medicine 03/08/23 Account Retention Representative Relationship Specialty Start Date End Date Shantelle Mclain MD [address] [facility] [place] [address] PCP - General Internal Medicine 03/08/23 Account Retention Representative Relationship Specialty Start Date End Date Shantelle Mclain MD [address] [place] [address] PCP - General Internal Medicine 03/08/23 Source Comments (unrecognize d section and content) In the event this informatio n is protected by the Federal Confidentiality of Alcohol and Drug Abuse Patient Records regulations: The Federal rules restrict any use of the information to criminally investigate or prosecute any alcohol or drug abuse patient.[facility] the event this information is protected by the Federal Confidentiality of Alcohol and Drug Abuse Patient Records regulations: The Federal rules restrict any use of the information to criminally investigate or prosecute any alcohol or drug abuse patient.[facility] the event this information is protected by the Federal Confidentiality of Alcohol and Drug Abuse Patient Records regulations: The Federal rules restrict any use of the information to criminally investigate or prosecute any alcohol or drug abuse patient.[facility] the event this information is protected by the Federal Confidentiality of Alcohol and Drug Abuse Patient Records regulations: The Federal rules restrict any use of the information to criminally investigate or prosecute any alcohol or drug abuse patient.[facility] the event this information is protected by the Federal Confidentiality of Alcohol and Drug Abuse Patient Records regulations: The Federal rules restrict any use of the information to criminally investigate or prosecute any alcohol or drug abuse patient.[facility] Reason for Visit (unrecogniz ed section [...] BE BASED ON THE PRIMARY CLINICAL RECORDS. [employer] [facility]. provides no warranty or guarantee of the accuracy or completeness of information in this document.
[2023-10-12] MEDS: Atorvastatin Calcium 80 MG Tablet PO (22:01)
[2023-10-12] MEDS: Gabapentin 300 MG Capsule PO (22:01)
[2023-10-12] MEDS: busPIRone 5 MG Tablet 7.5 MG PO (22:01)
[2023-10-12] MEDS: Montelukast 10 MG Tablet PO (22:01)
[2023-10-13] VITALS (26 sets, daily range): BP systolic 115–172; BP diastolic 60–97; PULSE 63–94; RESP 11–23; TEMP 36.6–37.1; O2SAT 89–95; BMI 27.3; BMI 27.2
[2023-10-13] MEDS: 0.9% Normal Saline (1000mL) 1,000 ML 100 ML IV ×2 (03:12→13:20)
[2023-10-13 05:24] LABS: Absolute Lymphocyte Count 1.66 X10^3/uL (0.83-4.51); Absolute Neutrophil Count 3.7 X10^3/uL (2.0-7.7); Basophil# 0.06 X10^3/uL; Eosinophil# 0.15 X10^3/uL; Eosinophils% 2.4 % (0-5); Hematocrit 39.8 % (37-47); Lymphocyte # 1.66 X10^3/ul (0.83-4.51); Lymphocyte % 26.6 % (19-41); Mean Corp Hgb Conc 32.7 g/dL (32-36); Mean Corpuscular Hgb 29.5 pg (27.0-32.0); Mean Corpuscular Volume 90.5 fL (81-99); Mean Platelet Vol. 10.2 fl (6.2-12.0); Monocyte# 0.68 X10^3/uL; Monocyte% 10.9 % (0-10); NRBC Flagged by Analyzer 0 % (0-5); Neutrophil # 3.68 X10^3/uL (2.7-7.7); Neutrophil % 58.9 % (47-70); Platelet Count 262 K/mm3 (150-450); RBC Distribution Width CV 13.3 % (11.6-14.6); RBC Distribution Width SD 44.4 fl (35.1-43.9); White Blood Count 6.2 K/mm3 (4.4-11.0)
[2023-10-13 05:37] LABS: Prothrombin Time (Protime)PT. 12.8 SECONDS (11.7-14.9)
[2023-10-13 06:12] LABS: Anion Gap 5 (5-15); BUN 13 mg/dL (7-18); BUN/Creat Ratio 19.8 RATIO (10-20); Calcium,Total 8.7 mg/dL (8.5-10.1); Chloride 111 mmol/L (98-107); Cholesterol 231 mg/dL (200); Creatinine, Serum 0.66 mg/dL (0.55-1.02); EST Glomerular Filtration Rate 94 mL/min (>60); Est Glom Filt Rate - Afr Amer 114 mL/min (>60); Estimated Creatinine Clearance 55.11 ml/min; Glucose 92 mg/dL (74-106); High Density Lipoprotein 59 mg/dL; Potassium 3.8 mmol/L (3.5-5.1); Sodium Level 142 mmol/L (136-145); Triglycerides 185 mg/dL; Very Low Density Lipoprotein 37 mg/dL (5-40)
[2023-10-13] MEDS: Acetaminophen 325 MG Tablet 650 MG PO ×3 (06:23→22:04)
--- NOTE | 2023-10-13 07:15 | PN.HOSP_ITS ---
Reason for Visit Reason for Visit: Diagnoses Hypothyroidism, unspecified (10/12/23) Depression, unspecified (10/12/23) Anxiety disorder, unspecified (10/12/23) Obstructive sleep apnea (adult) (pediatric) (10/12/23) Cerebral infarction, unspecified (10/12/23) Gastro-esophageal reflux disease without esophagitis (10/12/23) Objective Data Objective Data Vital Signs: Vital Signs Temp Pulse Resp BP Pulse Ox O2 Del Method 98.2 F 65 16 153/70 H 95 Room Air 10/13/23 05:30 10/13/23 06:30 10/13/23 06:30 10/13/23 06:30 10/13/23 06:30 10/13/23 06:30 Oxygen Delivery Method Room Air Weight: 65.4 kg Body Mass Index (BMI) 27.2 Intake & Output: Intake and Output for Last 24 Hours 10/11/23 10/12/23 10/13/23 23:59 23:59 23:59 Intake Total 1000 / 1000 Output Total 650 / 650 Balance 350 / 350 Lab / Micro Data 10/13/23 05:05 10/13/23 05:05 Labs: Laboratory Results - last 24 hr 10/12/23 16:00: WBC 6.7, RBC 4.79, Hgb 14.5, Hct 43.7, MCV 91.2, MCH 30.3, MCHC 33.2, RDW Std Deviation 45.0 H, RDW Coeff of [place] 13.3, Plt Count 270, MPV 10.1, Immature Gran % (Auto) 0.300, Neut % (Auto) 59.3, Lymph % (Auto) 28.9, [place] % (Auto) 9.0, Eos % (Auto) 1.9, Baso % (Auto) 0.6, Absolute Neuts (auto) 4.0, Absolute Lymphs (auto) 1.93, Nucleated RBC % 0, PT 12.7, INR 1.0, APTT 27.4, Sodium 140, Potassium 3.8, Chloride 109 H, Carbon Dioxide 26.0, Anion Gap 5, BUN 18, Creatinine 0.89, Estim Creat Clear Calc 50.01, Est GFR (MDRD) Af Amer 80, Est GFR (MDRD) Non-Af 66, BUN/Creatinine Ratio 20.2 H, Glucose 137 H, Calcium 9.6, Troponin I High Sens 5 10/13/23 05:05: WBC 6.2, RBC 4.40, Hgb 13.0, Hct 39.8, MCV 90.5, MCH 29.5, MCHC 32.7, RDW Std Deviation 44.4 H, RDW Coeff of [place] 13.3, Plt Count 262, MPV 10.2, Immature Gran % (Auto) 0.200, Neut % (Auto) 58.9, Lymph % (Auto) 26.6, [place] % (Auto) 10.9 H, Eos % (Auto) 2.4, Baso % (Auto) 1.0, Absolute Neuts (auto) 3.7, Absolute Lymphs (auto) 1.66, Nucleated RBC % 0, PT 12.8, INR 1.0, Sodium 142, Potassium 3.8, Chloride 111 H, Carbon Dioxide 26.0, Anion Gap 5, BUN 13, Creatinine 0.66, Estim Creat Clear Calc 55.11, Est GFR (MDRD) Af Amer 114, Est GFR (MDRD) Non-Af 94, BUN/Creatinine Ratio 19.8, Glucose 92, Calcium 8.7, Triglycerides 185, Cholesterol 231 H, LDL Cholesterol 135 H, VLDL Cholesterol 37, HDL Cholesterol 59 Radiography Diagnostic Testing: Radiology Impression Brain CT 10/12/23 16:14 IMPRESSION: No acute intracranial abnormality. Old right centrum semiovale and caudate nucleus lacunar infarcts. Chronic involutional and ischemic changes of the brain. Electronically Signed: Christ Gordon MD at 16:36 EST , ADDENDUM: 10/12/23 0100 IMPRESSION: No acute intracranial abnormality. Old right centrum semiovale and caudate nucleus lacunar infarcts. Chronic involutional and ischemic changes of the brain. N.B. : The above Results were Read Back by Christ Gordon MD to Aleks Riley DO, and understanding confirmed on 10/12/2023 16:44:19 (ET). Electronically Signed: Christ Gordon MD at 16:36 EST , Head/Neck CTA 10/12/23 16:15 IMPRESSION: No significant atherosclerotic disease of the brain.. Mild to moderate atherosclerotic disease in the neck with most severe involvement of the right internal carotid. Electronically Signed: Jose A Wilson MD at 16:51 EST , ADDENDUM: 10/12/23 1659 IMPRESSION: No significant atherosclerotic disease of the brain.. Mild to moderate atherosclerotic disease in the neck with most severe involvement of the right internal carotid. N.B. : The above Results were Read Back by Jose A Wilson MD to Aleks Riley DO, and understanding confirmed on 10/12/2023 16:52:59 (ET). Electronically Signed: Jose A Wilson MD at 16:51 EST , ADDENDUM: 10/12/23 1700 IMPRESSION: undefined Chest X-Ray 10/12/23 17:20 IMPRESSION: No acute radiographic abnormalities. Electronically Signed: Christ Gordon MD at 18:01 EST , Physical Exam Narrative General: Alert, oriented, no apparent distress HEENT: Atraumatic, very minimal decrease in left side of facial movement compared to right, subtle Eyes: Anicteric, normal conjunctiva, extraocular movements intact, pupils equal Neck: Supple Respiratory: Clear to auscultation bilaterally, normal respiratory effort Cardiovascular: Regular rate and rhythm GI: Soft, nontender, nondistended Extremities: No edema Musculoskeletal: Strength 5 out of 5 in right upper extremity, 5 - out of 5 left upper extremity, 5 out of 5 right lower extremity, 5 out of 5 left lower extremity Neuro: Very minor left lower facial asymmetry otherwise no overt focal neurological deficits and cranial nerves II through XII intact, [id number] without significant difficulty on right side, due to chronic limitations with left arm and hand unable to complete on left side Skin: No rashes appreciated Psych: Cooperative Assessment & Plan Assessment/Plan (1) CVA (cerebral vascular accident): QUALIFIERS: CVA mechanism: unspecified Qualified Code(s): I63.9 - Cerebral infarction, unspecified (2) Anxiety and depression: (3) GERD (gastroesophageal reflux disease): (4) Hypothyroidism: (5) SAIRA (obstructive sleep apnea): PLAN: Plan #Acute CVA s/p TNK -CT head w/ old right centrum semiovale and caudate nucleus lacunar infarcts with chronic changes -CTA head and neck with no significant atherosclerotic disease in the brain, mild to moderate disease in the neck with most severe involvement of right internal carotid -Echo w/ bubble study previously performed and negative, will obtain limited echo to evaluate for any obvious valvular pathology or clots -Admit to ICU w/ strict blood pressure parameters -Blood pressure must be maintained at or below 180/105 mmHg during the first 24 hours, Labetolol prn for BP goals, nicardipine if unable to manage w/ labetolol -VS and neurochecks per protocol, Vital signs and neurologic status should be checked every 15 minutes for two hours, then every 30 minutes for six hours, then every 60 minutes until 24 hours from the start of thrombolysis -Hannah catheter placed, bed rest for 24 hours -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 -C/s Neurology -MRI ordered, will also need repeat CT at 24 hours prior to transfer to the floor and prior to any antithrombotic or antiplatelet agents -PT/OT/speech -Atorvastatin -Lipid panel in AM # History of CVA -Continue statin, holding aspirin dose today given TNK -Management workup as above # Anxiety and depression -Continue home citalopram and BuSpar #Hx SAIRA -No longer uses her cpap # Hypertension -As above #GERD -Continue PPI #DVT ppx: s/p TNK, SCDs Graciela Bill MD Time spent in the patient's overall evaluation,decision-making process, review of diagnostic data, adjustment of management, discussion with other providers, nursing nursing and ancillary staff involved in patient's care documentation, 60 Minutes
--- NOTE | 2023-10-13 07:15 | PCM.PN.HOSP ---
Reason for Visit Reason for Visit: Diagnoses Hypothyroidism, unspecified (10/12/23) Depression, unspecified (10/12/23) Anxiety disorder, unspecified (10/12/23) Obstructive sleep apnea (adult) (pediatric) (10/12/23) Cerebral infarction, unspecified (10/12/23) Gastro-esophageal reflux disease without esophagitis (10/12/23) Subjective Subjective Patient is a 73-year-old lady with previous history of CVA who presented with left upper extremity weakness and facial droop. An assessment of acute ischemic CVA made did receive TNK and subsequently admitted to intensive care unit Objective Data Objective Data Vital Signs: Vital Signs Temp Pulse Resp BP Pulse Ox O2 Del Method 98.2 F 65 16 153/70 H 95 Room Air 10/13/23 05:30 10/13/23 06:30 10/13/23 06:30 10/13/23 06:30 10/13/23 06:30 10/13/23 06:30 Oxygen Delivery Method Room Air Weight: 65.4 kg Body Mass Index (BMI) 27.2 Intake & Output: Intake and Output for Last 24 Hours 10/11/23 10/12/23 10/13/23 23:59 23:59 23:59 Intake Total 1000 / 1000 Output Total 650 / 650 Balance 350 / 350 Lab / Micro Data 10/13/23 05:05 10/13/23 05:05 Labs: Laboratory Results - last 24 hr 10/12/23 16:00: WBC 6.7, RBC 4.79, Hgb 14.5, Hct 43.7, MCV 91.2, MCH 30.3, MCHC 33.2, RDW Std Deviation 45.0 H, RDW Coeff of [place] 13.3, Plt Count 270, MPV 10.1, Immature Gran % (Auto) 0.300, Neut % (Auto) 59.3, Lymph % (Auto) 28.9, [place] % (Auto) 9.0, Eos % (Auto) 1.9, Baso % (Auto) 0.6, Absolute Neuts (auto) 4.0, Absolute Lymphs (auto) 1.93, Nucleated RBC % 0, PT 12.7, INR 1.0, APTT 27.4, Sodium 140, Potassium 3.8, Chloride 109 H, Carbon Dioxide 26.0, Anion Gap 5, BUN 18, Creatinine 0.89, Estim Creat Clear Calc 50.01, Est GFR (MDRD) Af Amer 80, Est GFR (MDRD) Non-Af 66, BUN/Creatinine Ratio 20.2 H, Glucose 137 H, Calcium 9.6, Troponin I High Sens 5 10/13/23 05:05: WBC 6.2, RBC 4.40, Hgb 13.0, Hct 39.8, MCV 90.5, MCH 29.5, MCHC 32.7, RDW Std Deviation 44.4 H, RDW Coeff of [place] 13.3, Plt Count 262, MPV 10.2, Immature Gran % (Auto) 0.200, Neut % (Auto) 58.9, Lymph % (Auto) 26.6, [place] % (Auto) 10.9 H, Eos % (Auto) 2.4, Baso % (Auto) 1.0, Absolute Neuts (auto) 3.7, Absolute Lymphs (auto) 1.66, Nucleated RBC % 0, PT 12.8, INR 1.0, Sodium 142, Potassium 3.8, Chloride 111 H, Carbon Dioxide 26.0, Anion Gap 5, BUN 13, Creatinine 0.66, Estim Creat Clear Calc 55.11, Est GFR (MDRD) Af Amer 114, Est GFR (MDRD) Non-Af 94, BUN/Creatinine Ratio 19.8, Glucose 92, Calcium 8.7, Triglycerides 185, Cholesterol 231 H, LDL Cholesterol 135 H, VLDL Cholesterol 37, HDL Cholesterol 59 Radiography Diagnostic Testing: Radiology Impression Brain CT 10/12/23 16:14 IMPRESSION: No acute intracranial abnormality. Old right centrum semiovale and caudate nucleus lacunar infarcts. Chronic involutional and ischemic changes of the brain. Electronically Signed: Christ Gordon MD at 16:36 EST , ADDENDUM: 10/12/23 8900 IMPRESSION: No acute intracranial abnormality. Old right centrum semiovale and caudate nucleus lacunar infarcts. Chronic involutional and ischemic changes of the brain. N.B. : The above Results were Read Back by Christ Gordon MD to Aleks Riley DO, and understanding confirmed on 10/12/2023 16:44:19 (ET). Electronically Signed: Christ Gordon MD at 16:36 EST , Head/Neck CTA 10/12/23 16:15 IMPRESSION: No significant atherosclerotic disease of the brain.. Mild to moderate atherosclerotic disease in the neck with most severe involvement of the right internal carotid. Electronically Signed: Jose A Wilson MD at 16:51 EST Reading Location ID and State: [facility] Tel [phone], Service support , ADDENDUM: 10/12/23 1659 IMPRESSION: No significant atherosclerotic disease of the brain.. Mild to moderate atherosclerotic disease in the neck with most severe involvement of the right internal carotid. N.B. : The above Results were Read Back by Jose A Wilson MD to Aleks Riley DO, and understanding confirmed on 10/12/2023 16:52:59 (ET). Electronically Signed: Jose A Wilson MD at 16:51 EST Reading Location ID and State: [address] [place] [address] Tel [phone], Service support , ADDENDUM: 10/12/23 1700 IMPRESSION: undefined Chest X-Ray 10/12/23 17:20 IMPRESSION: No acute radiographic abnormalities. Electronically Signed: Christ Gordon MD at 18:01 EST , Physical Exam Narrative GENERAL: cooperative HEENT: Atraumatic; normocephalic EYES; Anicteric, Normal Conjunctiva NECK; supple, normal thyroid, RESPIRATORY: Diminished to auscultation CARDIOVASCULAR: Regular S1 S2, GI: soft, normoactive bowel sounds, : No Renal angle tenderness; EXTREMITIES: No edema, no clubbing, MUSCULOSKELETAL: no muscle wasting NEURO: Awake; left upper extremity paresis (per patient back to baseline) SKIN: No Rash PSYCH; Flat affect Assessment & Plan Assessment/Plan (1) CVA (cerebral vascular accident): QUALIFIERS: CVA mechanism: unspecified Qualified Code(s): I63.9 - Cerebral infarction, unspecified (2) Anxiety and depression: (3) GERD (gastroesophageal reflux disease): (4) Hypothyroidism: (5) SAIRA (obstructive sleep apnea): PLAN: Plan Patient is a 73-year-old lady with previous history of CVA who presented with left upper extremity weakness and facial droop. An assessment of acute ischemic CVA made did receive TNK and subsequently admitted to intensive care unit Acute CVA ? Initial studies with CT head demonstrated old right centrum semiovale and caudate nucleus lacunar infarcts with chronic changes .CTA head and neck with no significant atherosclerotic disease in the brain, mild to moderate disease in the neck with most severe involvement of right internal carotid. Patient did receive TNK subsequently admitted to the intensive care unit. 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 Plan is to obtain repeat CT 24 hours after her initial imaging studies 2. Previous history of ischemic CVA ? With residual right upper extremity weakness 3. Hypertension - Blood pressure controlled, home medications continued with dose adjustment as needed 4. Depression with anxiety Patient is on citalopram and BuSpar, continued 5. Obstructive sleep apnea Patient no longer uses CPAP 6. GERD ? On PPI 7. DVT prophylaxis ? Bilateral SCDs for Time spent in the patient's overall evaluation,decision-making process, review of diagnostic data, adjustment of management, discussion with other providers, nursing nursing and ancillary staff involved in patient's care documentation, 50 Minutes Charges/Coding Visit Charges Inpatient E&M: 70802 Subs Hosp L3
[2023-10-13] MEDS: Citalopram 20 MG Tablet PO (09:31)
[2023-10-13] MEDS: Pantoprazole Sodium 40 MG Tablet PO (09:31)
[2023-10-13] MEDS: busPIRone 5 MG Tablet 7.5 MG PO ×2 (09:32→22:04)
[2023-10-13] MEDS: 0.9% Saline Lock 10 ML Syringe IV (09:32)
--- NOTE | 2023-10-13 10:58 | STROKE.PNOTE ---
Objective Data Objective Data Vital Signs: Vital Signs Temp Pulse Resp BP Pulse Ox O2 Del Method 98.1 F 85 21 H 153/71 H 94 Room Air 10/13/23 07:30 10/13/23 10:30 10/13/23 10:30 10/13/23 10:30 10/13/23 10:30 10/13/23 10:30 Oxygen Delivery Method Room Air Weight: 65.4 kg Body Mass Index (BMI) 27.2 Intake & Output: Intake and Output for Last 24 Hours 10/11/23 10/12/23 10/13/23 23:59 23:59 23:59 Intake Total 1240 / 1240 Output Total 1250 / 1250 Balance - Lab / Micro Data 10/13/23 05:05 10/13/23 05:05 Labs: Laboratory Results - last 24 hr 10/12/23 16:00: WBC 6.7, RBC 4.79, Hgb 14.5, Hct 43.7, MCV 91.2, MCH 30.3, MCHC 33.2, RDW Std Deviation 45.0 H, RDW Coeff of [place] 13.3, Plt Count 270, MPV 10.1, Immature Gran % (Auto) 0.300, Neut % (Auto) 59.3, Lymph % (Auto) 28.9, [place] % (Auto) 9.0, Eos % (Auto) 1.9, Baso % (Auto) 0.6, Absolute Neuts (auto) 4.0, Absolute Lymphs (auto) 1.93, Nucleated RBC % 0, PT 12.7, INR 1.0, APTT 27.4, Sodium 140, Potassium 3.8, Chloride 109 H, Carbon Dioxide 26.0, Anion Gap 5, BUN 18, Creatinine 0.89, Estim Creat Clear Calc 50.01, Est GFR (MDRD) Af Amer 80, Est GFR (MDRD) Non-Af 66, BUN/Creatinine Ratio 20.2 H, Glucose 137 H, Calcium 9.6, Troponin I High Sens 5 10/13/23 05:05: WBC 6.2, RBC 4.40, Hgb 13.0, Hct 39.8, MCV 90.5, MCH 29.5, MCHC 32.7, RDW Std Deviation 44.4 H, RDW Coeff of [place] 13.3, Plt Count 262, MPV 10.2, Immature Gran % (Auto) 0.200, Neut % (Auto) 58.9, Lymph % (Auto) 26.6, [place] % (Auto) 10.9 H, Eos % (Auto) 2.4, Baso % (Auto) 1.0, Absolute Neuts (auto) 3.7, Absolute Lymphs (auto) 1.66, Nucleated RBC % 0, PT 12.8, INR 1.0, Sodium 142, Potassium 3.8, Chloride 111 H, Carbon Dioxide 26.0, Anion Gap 5, BUN 13, Creatinine 0.66, Estim Creat Clear Calc 55.11, Est GFR (MDRD) Af Amer 114, Est GFR (MDRD) Non-Af 94, BUN/Creatinine Ratio 19.8, Glucose 92, Calcium 8.7, Triglycerides 185, Cholesterol 231 H, LDL Cholesterol 135 H, VLDL Cholesterol 37, HDL Cholesterol 59 Radiography Diagnostic Testing: Radiology Impression Brain CT 10/12/23 16:14 IMPRESSION: No acute intracranial abnormality. Old right centrum semiovale and caudate nucleus lacunar infarcts. Chronic involutional and ischemic changes of the brain. Electronically Signed: Christ Gordon MD at 16:36 EST , ADDENDUM: 10/12/23 1651 IMPRESSION: No acute intracranial abnormality. Old right centrum semiovale and caudate nucleus lacunar infarcts. Chronic involutional and ischemic changes of the brain. N.B. : The above Results were Read Back by Christ Gordon MD to Aleks Riley DO, and understanding confirmed on 10/12/2023 16:44:19 (ET). Electronically Signed: Christ Gordon MD at 16:36 EST , Head/Neck CTA 10/12/23 16:15 IMPRESSION: No significant atherosclerotic disease of the brain.. Mild to moderate atherosclerotic disease in the neck with most severe involvement of the right internal carotid. Electronically Signed: Jose A Wilson MD at 16:51 EST , ADDENDUM: 10/12/23 1659 IMPRESSION: No significant atherosclerotic disease of the brain.. Mild to moderate atherosclerotic disease in the neck with most severe involvement of the right internal carotid. N.B. : The above Results were Read Back by Jose A Wilson MD to Aleks Riley DO, and understanding confirmed on 10/12/2023 16:52:59 (ET). Electronically Signed: Jose A Wilson MD at 16:51 EST , ADDENDUM: 10/12/23 1700 IMPRESSION: undefined Chest X-Ray 10/12/23 17:20 IMPRESSION: No acute radiographic abnormalities. Electronically Signed: Christ Gordon MD at 18:01 EST , Physical Exam Neuro Neuro Narrative: Neurological examination: General:?The patient appears nutritionally appropriate, well-groomed, and appears comfortable in no acute distress.?Mental Status:??The patient?s mental status was normal including orientation.? Language was intact.??Cranial nerves:? Visual juarez full, and extra-ocular motion was intact. Face motion symmetric. Tongue was midline with normal movement.? There was no dysarthria.?Motor:?Chronic torn left shoulder and has difficulty with abduction at baseline. Otherwise Anti-gravity other limbs without drift. Sensation:?Intact light touch bilaterally.??Coordination:? Bilateral finger to nose was normal.? There was no dysmetria.?Gait:? deferred Subject: Neurology Subjective She feels back to baseline this AM. She reports the left sided weakness resolved after several hours, maybe around midnight. Sinus RAHMAN currently 10/12. She has chronic left arm shoulder torn (unable to abduct fully) which is her baseline. 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 Patient brought to [facility] ER. Initial NIHSS [address] brain negative. CTA head/neck shows moderate right carotid stenosis, otherwise negative. She received IV TNK and was admitted to ICU. LDL 135. Neurological examination shows chronic left shoulder injury (unable to abduct fully), otherwise nonfocal exam, NIHSS-1 (LUE-1, old shoulder injury). ASSESSNENT/PLAN: Suspected acute ischemic stroke s/p IV TNK. Recommend post TNK protocol with repeat CT brain at 24hr. If repeat CT brain is negative for hemorrhage, start antiplatelet medication (Asa) and DVT prophylaxis with lovenox SQ. Recommend stroke work-up including MRI brain, TTE, PT/OT, and EM on discharge. Continue vascular risk factor modification. On lipitor 80. Primary team Dr Almendarez messaged with recommendations.
--- NOTE | 2023-10-13 19:20 | CT_ITS ---
We are attempting to reach an attending provider to discuss findings. An addendum with communication details will be sent when the communication is complete. STUDY: CT BRAIN WITHOUT CONTRAST REASON FOR EXAM: Female, 73 years old. 24 hr post tnk RADIATION DOSAGE (If Supplied By Facility): CTDIvol = ( ) mGy, DLP = ( ) mGycm TECHNIQUE: Transaxial CT imaging of the brain was performed without administration of intravenous contrast material. Individualized dose optimization techniques were used for this CT. COMPARISON: 10/12/2023 FINDINGS: Normal soft tissue structures. Normal calvarium. There is mild cerebral atrophy with widening of the extra-axial spaces and ventricular dilatation. There are areas of decreased attenuation within the white matter tracts of the supratentorial brain, consistent with microvascular disease changes. No change in the chronic lacunar infarct of the body the right caudate nucleus. Normal brainstem. Normal cerebellum. There is no intracranial hemorrhage. There are no findings of an acute ischemic infarction. Normal visualized paranasal sinuses. CT/STROKE Brain/Head without Cont IMPRESSION: Chronic involutional changes of the brain. Electronically Signed: Zac Mathew MD at 17:10 EST ,
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
[2023-10-13] MEDS: Atorvastatin Calcium 80 MG Tablet PO (22:04)
[2023-10-13] MEDS: Montelukast 10 MG Tablet PO (22:04)
[2023-10-13] MEDS: Gabapentin 300 MG Capsule PO (22:04)
[2023-10-14] VITALS (11 sets, daily range): BP systolic 124–148; BP diastolic 67–74; PULSE 74–82; RESP 14–19; TEMP 36.6–36.8; O2SAT 91–99; BMI 27.2; BMI 26.8
[2023-10-14] MEDS: Acetaminophen 325 MG Tablet 650 MG PO (04:21)
[2023-10-14] MEDS: 0.9% Saline Lock 10 ML Syringe IV ×2 (04:22)
[2023-10-14 06:41] LABS: Absolute Lymphocyte Count 1.63 X10^3/uL (0.83-4.51); Absolute Neutrophil Count 3.6 X10^3/uL (2.0-7.7); Basophil# 0.06 X10^3/uL; Eosinophil# 0.18 X10^3/uL; Eosinophils% 2.9 % (0-5); Hematocrit 41.3 % (37-47); Hemoglobin 13.8 g/dL (12.0-15.0); Lymphocyte # 1.63 X10^3/ul (0.83-4.51); Lymphocyte % 26.7 % (19-41); Mean Corp Hgb Conc 33.4 g/dL (32-36); Mean Corpuscular Hgb 29.9 pg (27.0-32.0); Mean Corpuscular Volume 89.4 fL (81-99); Mean Platelet Vol. 10.5 fl (6.2-12.0); Monocyte# 0.61 X10^3/uL; NRBC Flagged by Analyzer 0 % (0-5); Neutrophil # 3.62 X10^3/uL (2.7-7.7); Neutrophil % 59.2 % (47-70); Platelet Count 283 K/mm3 (150-450); RBC Distribution Width CV 13.5 % (11.6-14.6); Red Blood Count 4.62 M/mm3 (4.2-5.4); White Blood Count 6.1 K/mm3 (4.4-11.0)
[2023-10-14 06:55] LABS: Anion Gap 7 (5-15); BUN 13 mg/dL (7-18); BUN/Creat Ratio 19.9 RATIO (10-20); Calcium,Total 8.9 mg/dL (8.5-10.1); Chloride 109 mmol/L (98-107); Creatinine, Serum 0.65 mg/dL (0.55-1.02); EST Glomerular Filtration Rate 95 mL/min (>60); Est Glom Filt Rate - Afr Amer 115 mL/min (>60); Estimated Creatinine Clearance 54.67 ml/min; Glucose 86 mg/dL (74-106); Magnesium 1.9 mg/dL (1.6-2.6); Phosphorus 3.7 mg/dL (2.5-4.9); Potassium 3.4 mmol/L (3.5-5.1); Sodium Level 141 mmol/L (136-145)
--- NOTE | 2023-10-14 07:18 | PN.CC_ITS ---
Assessment & Plan Assessment/Plan (1) CVA (cerebral vascular accident): QUALIFIERS: CVA mechanism: unspecified Qualified Code(s): I63.9 - Cerebral infarction, unspecified PLAN: Plan RECOMMENDATIONS: 1. Await MRI 2. Okay to supplement potassium with diet 3. Okay to reinitiate all baseline medications 4. Post stroke protocol 5. Hemodynamically stable on room air. Will sign off from a critical care perspective IMPRESSIONS: 1. Acute CVA status post TNK Examination limited by previous stroke and orthopedic issues. CT of the h ead does not show any obvious complications. Patient have an MRI for better evaluation of infarction. Clinically, patient appears to be at baseline with limited restrictions. Patient has remained hemodynamically stable. Will sign off from a critical care perspective. Please call if there are any changes 2. History of previous CVA Patient reportedly did present to [facility]. Patient was not found to have any atrial fibrillation. Patient describes a carotid angio that was within normal limits. This presentation does signify her third CVA presentation. Will continue with Po stroke protocol. PT/OT to evaluate. Patient is still working full-time per her report. 3. Hypertension/SAIRA/GERD/seasonal allergies/advanced age/hypokalemia Complicates care, management, recovery and prognosis. Okay to continue with baseline medications. Patient not using his CPAP for ASIRA, but repeated CVAs do increase her risk for complications or development of central sleep apnea. This could be addressed as an outpatient. Patient does take Lasix intermittently and does have potassium supplementation. Potassium 3.5 today. Likely okay to use diet supplementation such as the addition of a banana at the breakfast. Patient is agreeable. Subjective Subjective Patient did well overnight. No acute issues were reported. Patient does have limited mobility secondary to orthopedic issues, especially of the shoulders. Patient believes that she has no deficits subjectively, accounting for 2 previous strokes. Patient did have a showing no complications of TNK. Patient is not reporting any headache or change in vision. Objective Data Objective Data Vital Signs: Vital Signs Temp Pulse Resp BP Pulse Ox O2 Del Method 36.8 C 74 17 129/73 H 98 Room Air 10/14/23 04:00 10/14/23 06:00 10/14/23 06:00 10/14/23 06:00 10/14/23 06:00 10/14/23 06:00 Oxygen Delivery Method Room Air Weight: 64.5 kg Body Mass Index (BMI) 26.8 Intake & Output: Intake and Output for Last 24 Hours 10/12/23 10/13/23 10/14/23 23:59 23:59 23:59 Intake Total 3306.67 / 3306.67 Output Total 2650 / 2650 Balance 656.67 / 656.67 Lab / Micro Data Attestation: I reviewed the patient's lab results. 10/14/23 04:25 10/14/23 04:25 Labs: Laboratory Results - last 24 hr 10/14/23 04:25: WBC 6.1, RBC 4.62, Hgb 13.8, Hct 41.3, MCV 89.4, MCH 29.9, MCHC 33.4, RDW Std Deviation 44.0 H, RDW Coeff of Keya 13.5, Plt Count 283, MPV 10.5, Immature Gran % (Auto) 0.200, Neut % (Auto) 59.2, Lymph % (Auto) 26.7, Dewitt % (Auto) 10.0, Eos % (Auto) 2.9, Baso % (Auto) 1.0, Absolute Neuts (auto) 3.6, Absolute Lymphs (auto) 1.63, Nucleated RBC % 0, Sodium 141, Potassium 3.4 L, Chloride 109 H, Carbon Dioxide 25.0, Anion Gap 7, BUN 13, Creatinine 0.65, Estim Creat Clear Calc 54.67, Est GFR (MDRD) Af Amer 115, Est GFR (MDRD) Non-Af 95, BUN/Creatinine Ratio 19.9, Glucose 86, Calcium 8.9, Phosphorus 3.7, Magnesium 1.9 Radiography Diagnostic Testing: Radiology Impression Brain CT 10/13/23 19:20 IMPRESSION: Chronic involutional changes of the brain. Electronically Signed: Zac Mathew MD at 17:10 EST , ADDENDUM: 10/13/23 1720 IMPRESSION: Chronic involutional changes of the brain. N.B. : The above Results were Read Back by Zac Mathew MD to Alin Almendarez MD, and understanding confirmed on 10/13/2023 17:13:26 (ET). Electronically Signed: Zac Mathew MD at 17:10 EST , Rhythm Strip Rhythm Strip: Sinus Rhythm Rate: 76 Ectopy: None Physical Exam Const alert, oriented x3 and no apparent distress Constitutional Narrative: No conversational dyspnea noted. HEENT normocephalic and head/scalp atraumatic HEENT Narrative: Slight right-sided facial droop noted Eyes PERRL, EOMs intact bilaterally and conjunctivae normal Eyes Narrative: Glasses in place Neck full ROM Chest inspection of chest normal Resp normal respiratory effort Effort and Inspection: able to speak in complete sentences Auscultation: clear to auscultation bilaterally; Negative for rales, rhonchi or wheezes Cardio regular rate, regular rhythm, S1 normal heart sound, S2 normal heart sound, no murmurs, no rub and no gallops GI normal to inspection, nondistended, normoactive bowel sounds Extremity no clubbing, cyanosis or edema Extremity Narrative: Limited mobility of bilateral shoulders. Ulnar deviation of fingers Neuro oriented x3 Neuro Narrative: Slight right facial droop noted. Unable to hold up left arm secondary to rotator cuff tear Psych cooperative and affect normal Charges/Coding Visit Charges Inpatient E&M: 24415 Subs Hosp L2
[2023-10-14] MEDS: Pantoprazole Sodium 40 MG Tablet PO (08:22)
[2023-10-14] MEDS: busPIRone 5 MG Tablet 7.5 MG PO (08:22)
[2023-10-14] MEDS: Aspirin 81 MG TAB.CHEW PO (08:22)
[2023-10-14] MEDS: Enoxaparin 40 MG/0.4 ML Syringe SC (08:22)
[2023-10-14] MEDS: Citalopram 20 MG Tablet PO (08:22)
--- NOTE | 2023-10-14 09:00 | MRI_ITS ---
STUDY: MRI BRAIN WITHOUT CONTRAST REASON FOR EXAM: Female, 73 years old. CVA -- MRI after IV thrombolytic administration, LT SIDED FACIAL DROOP SLURRING SPEACH 2/10, HX OF PREVIOUS STROKE TECHNIQUE: Standardized multiplanar fat and water weighted pulse sequences were obtained. COMPARISON: Head CT dated October 13, 2023. MRI of the brain dated January 17, 2020 FINDINGS: Normal size of the ventricles and extra-axial spaces for the patient''s age. There are a limited number of small white matter hyperintensities, distributed throughout the deep white matter tracts of the cerebral hemispheres, consistent with mild chronic white matter ischemic changes. Normal T2* images of the brain without demonstrated susceptibility artifact. There is no demonstrated hemosiderin stain. Redemonstration of a cluster old lacunar infarct surrounded by a band of gliotic edema in the mid aspect of the right periventricular white matter extending up to the gonzalez radiata. There is no evidence for recent intracranial ischemia or other cause of cytotoxic edema on diffusion weighted imaging (DWI). Normal thalami. There is no extra-axial fluid accumulation. Normal flow voids within the major intracranial circulation suggesting patency by spin echo criteria. Normal sella turcica, pituitary gland, infundibular stalk, optic chiasm and hypothalamus. Normal tectal plate and pineal gland. Normal midbrain, asuncion and medulla. Normal cerebellum. Normal basal cisterns. Normal bilateral temporal bones. Normal bilateral internal auditory canals. No demonstrated orbital abnormality, within the constraints of a routine brain study. Normal visualized paranasal sinuses. Normal calvarium and skull base. Normal visualized soft tissue structures. Normal visualized upper cervical spine. MRI/Brain without Contrast IMPRESSION: 1. Involutional and chronic ischemic changes of the brain, as described above. 2. Redemonstration of a cluster old lacunar infarct surrounded by a band of gliotic edema in the mid aspect of the right periventricular white matter extending up to the gonzalez radiata. 3. There is no evidence of acute infarction or acute intracranial hemorrhage Electronically Signed: Kt Grover MD at 10:55 EST ,
--- NOTE | 2023-10-14 10:25 | CASEMGMT ---
LIZY JARAMILLO Assessment: Face to Face with pt for initial transition planning/care coordination assessment. LIZY JARAMILLO introduced self and role at [facility], pt voices understanding and consents to assessment. Pt is A&O x4 and answers all questions appropriately at this time. Pt sitting up in chair in no distress. Care providers, pharmacy, and demographics verified/updated. Admitting Dx: CVA s/p TNK PCP:[facility] Specialists:hemal Gallego Preferred [facility]acy: [facility] Insurance: [facility], [facility] Prescription Benefit: yes LNOK: Dangelo Jay, son; Loni Barnett, dtr Living Arrangements: Pt lives alone in a ground level apt with 2 steps to enter with a rail. Pt reports she is I in ADL's and denies concerns at home. Transportation: Pt drives self and denies concerns with transportation. DME:trf bench, shower chair, cane, quad cane HHC/SNF: Pt has had HHC in the past but is unsure of the name of the agency. Pt has been to [facility] in the past. Pt is currently receiving PT and OT at [facility]. Pt states no concerns with going home at time of dc. She feels she is at her baseline. Therapy to eval. Pt would like to go back to [facility] for outpt therapy. Pt states no further concerns/needs. CM to follow. Advised pt to ask CM if any further question/concerns/needs arise, voices understanding. Pt Goal: Home with outpt therapy at [facility] Plan: Home with outpt therapy to resume pending therapy evals.
--- NOTE | 2023-10-14 13:34 | CASEMGMT ---
SW completed a PHQ9 with patient as she had a TIA. Patient scored a 3 which indicates minimal depression. Patient denied need for counseling resources. Vanessa ANAYA
--- NOTE | 2023-10-14 13:52 | DCINST_ITS ---
Discharge Instructions Diet Discharge Diet: No restrictions Activity Discharge Activity: Return to Normal Activity Weight Bearing Status: Full weight bearing Follow Up Care Test Results: Test results from this visit will be discussed in further detail at your follow- up appointment, if applicable. Discharge Plan Admission Admit Date/Time: 10/12/23 19:09 Primary Reason for Your Visit: TIA Attending Provider: Jacobo Trejo Primary Care Provider: Shantelle Mclain Consulting Providers: Graciela Bill; Rony Iniguez; Anjali Hernandez; Destini Thornton; Denisha Soto; Marilyn Campos; Leonides Heart; Chapis Huang; Saud Mcrae; Julito Campbell; Sanjuana Rogers; Sidney Lee; Blanca Manzano; Jumana iSnha; Leda Mendez; Brendon Díaz; Felipe Hubbard; Lion Souza; June Long; Juana Coy; Alin Almendarez Discharge Orders/Prescriptions Prescriptions: Continued (DME) Handicap Placard See Rx Instructions .ROUTE .MEDSUPPLY Qty: 1 0RF Rx Instructions: As directed, length of time 3 years hydrocortisone 2.5 % cream 1 applic topical BID PRN (Reason: rash) Qty: 30 2RF Rx Instructions: apply to psoriasis areas meclizine 25 mg tablet 25 mg PO BID PRN (Reason: dizziness) Qty: 30 1RF amlodipine 5 mg tablet 5 mg PO DAILY Qty: 90 3RF buspirone 7.5 mg tablet 7.5 mg PO BID Qty: 180 3RF citalopram 20 mg tablet 20 mg PO DAILY Qty: 90 3RF gabapentin 300 mg capsule 300 mg PO QHS Qty: 90 3RF omeprazole 40 mg capsule,delayed release(DR/EC) 40 mg PO DAILY Qty: 90 3RF montelukast 10 mg tablet 10 mg PO QHS Qty: 90 3RF potassium chloride 20 mEq tablet,ER particles/crystals 20 meq PO DAILYCM Qty: 90 1RF aspirin 81 MG tablet,chewable 81 mg PO DAILY@0800 cholecalciferol (vitamin D3) 50 mcg (2,000 unit) capsule 50 mcg PO QHS magnesium oxide 400 mg magnesium capsule 500 mg PO QHS furosemide [Lasix] 20 mg tablet 20 mg PO Q OTHER DAY PRN (Reason: SWELLING, WATER RETENTION) diclofenac sodium 75 mg tablet,delayed release (DR/EC) 75 mg PO BID PRN (Reason: pain) Qty: 60 2RF baclofen 20 mg tablet 20 mg PO TID PRN (Reason: muscle spasm) 90 Days Qty: 180 1RF Referrals / Follow Up: Shantelle Mclain MD [Primary Care Provider] - Disposition Disposition (needs filled in before D/C Order can be placed): Home, Self Care
--- NOTE | 2023-10-14 14:00 | PCM.DC.SUM ---
Providers Date of Admission: 10/12/23 Date of Discharge: 10/14/23 Primary Care Physician: Dr. Shantelle Mclain MD Consultations 10/12/23 16:51 Consult: Cook Barbecue / Pulmonary Medicine Routine Consulting Provider: Pulmonary Medicine scooter [place] Reason for Consult: stroke for thrombolytic administration EMERGENT Consult: Yes MD Notified: Yes Date Notified: 10/12/23 Time Notified: 16:51 Method of Notification: Text Comments:: Consult may be done in ED or ICU 10/12/23 19:36 Consult: Cook Barbecue / Pulmonary Medicine Routine Consulting Provider: Pulmonary Medicine scooter [place] Reason for Consult: stroke for thrombolytic EMERGENT Consult: No Notified: Yes Date Notified: 10/12/23 Time Notified: 19:19 Method of Notification: Text Consult: Tele-Neurology Routine Consulting Provider: [facility] Reason for Consult: stroke for thrombolytic EMERGENT Consult: No Notified: Yes Date Notified: 10/12/23 Time Notified: 19:19 Method of Notification: Answering Service Comments:: Saw in ED as stroke call Nursing Unit Staff Notify [facility] of Tele-Neurology Consult: Yes Reason For Visit: CVA S/P TNK Diagnosis Discharge Diagnosis (1) CVA (cerebral vascular accident): Status: Chronic Code(s): I63.9 - Cerebral infarction, unspecified Qualifiers: CVA mechanism: unspecified Qualified Code(s): I63.9 - Cerebral infarction, unspecified Plan 1. Transient ischemic attack #2 cerebrovascular disease without new ischemic or embolic infarction #3 essential hypertension #4 chronic depression Medications at Discharge Home Medications aspirin 81 mg chewable tablet 81 mg PO DAILY@0800 heart 11/13/20 Handicap Placard #1 ea 01/03/21 hydrocortisone 2.5 % topical cream 1 applic topical BID PRN rash #30 grams 04/11/21 cholecalciferol (vitamin D3) 50 mcg (2,000 unit) capsule 50 mcg PO QHS 01/15/23 magnesium oxide 500 mg PO QHS 01/15/23 meclizine 25 mg tablet 25 mg PO BID PRN dizziness #30 tabs 01/29/23 amlodipine 5 mg tablet 5 mg PO DAILY #90 tabs 07/12/23 buspirone 7.5 mg tablet 7.5 mg PO BID #180 tabs 07/12/23 citalopram 20 mg tablet 20 mg PO DAILY #90 tabs 07/12/23 gabapentin 300 mg capsule 300 mg PO QHS nerve pain #90 caps 07/12/23 montelukast 10 mg tablet 10 mg PO QHS allegries #90 tabs 07/12/23 omeprazole 40 mg capsule,delayed release 40 mg PO DAILY #90 caps 07/12/23 potassium chloride 20 mEq tablet,extended release(part/cryst) 20 meq PO DAILYCM potassium #90 tabs 07/12/23 diclofenac sodium 75 mg tablet,delayed release 75 mg PO BID PRN pain #60 tabs 07/30/23 baclofen 20 mg tablet 20 mg PO TID PRN muscle spasm 3 months #180 tabs 09/30/23 furosemide 20 mg tablet (Lasix) 20 mg PO Q OTHER DAY PRN SWELLING, WATER RETENTION 10/12/23 Hospital Course Operations None Procedures None Summary of Care Provided Minutes Spent on Discharge: 31 Hospital Course: This 73-year-old white female was seen in the emergency room at [facility] with complaints of a left facial droop that started about 20 minutes prior to arrival in the ER, patient is on aspirin at home. Patient also had mildly slurred speech with facial droop. Patient's NIH stroke score was 3, CT of the brain and CTA of the head and neck were negative, teleneurologist felt that it was reasonable discussed the risk benefit of tenecteplase with the patient, patient wanted to have the tenecteplase administered and tenecteplase was given. Patient was admitted to ICU, an MRI was obtained which showed no acute stroke however, patient was seen by PT and OT. On 10/14/2023, patient was seen and examined: On examination she appeared in good health and spirits, she does not appear to be in any distress. Vital signs as documented. Skin warm and dry and without overt rashes. Neck without JVD, thyroid appears normal, trachea is midline, neck is supple. Lungs clear, normal air movement was noted. Heart exam notable for regular rhythm, normal sounds and absence of murmurs, rubs or gallops. Abdomen unremarkable and without evidence of organomegaly, masses, or abdominal aortic enlargement, bowel sounds are present in all 4 quadrants, no abdominal tenderness was noted. Extremities nonedematous, no cyanosis was noted, no clubbing was noted. Neuro: Cranial nerves II through XII are grossly intact, no focal motor deficits were noted, sensation to light touch and pinprick is intact, motor exam 5/5 throughout. Psych: Patient is alert and oriented x3, she does not appear anxious or depressed, she does not appear agitated. Patient was noted to be stable for discharge on 10/14/2023. Weight / BMI Weight Weight: 64.5 kg Body Mass Index (BMI) 26.8 ABG / Lab / Microbiology Data 10/14/23 04:25 10/14/23 04:25 Laboratory: Laboratory Results - last 24 hr 10/14/23 04:25: WBC 6.1, RBC 4.62, Hgb 13.8, Hct 41.3, MCV 89.4, MCH 29.9, MCHC 33.4, RDW Std Deviation 44.0 H, RDW Coeff of [place] 13.5, Plt Count 283, MPV 10.5, Immature Gran % (Auto) 0.200, Neut % (Auto) 59.2, Lymph % (Auto) 26.7, [place] % (Auto) 10.0, Eos % (Auto) 2.9, Baso % (Auto) 1.0, Absolute Neuts (auto) 3.6, Absolute Lymphs (auto) 1.63, Nucleated RBC % 0, Sodium 141, Potassium 3.4 L, Chloride 109 H, Carbon Dioxide 25.0, Anion Gap 7, BUN 13, Creatinine 0.65, Estim Creat Clear Calc 54.67, Est GFR (MDRD) Af Amer 115, Est GFR (MDRD) Non-Af 95, BUN/Creatinine Ratio 19.9, Glucose 86, Calcium 8.9, Phosphorus 3.7, Magnesium 1.9 Radiography Diagnostic Testing: Radiology Impression Echocardiogram 10/12/23 19:36 Interpretation Summary The estimated ejection fraction is 65 %. Unable to assess diastolic dysfunction. Previous bubble study was negative Ordering Physician: Graciela Bill Referring Physician: Shantelle Mclain Performed By: Praveena Padilla, RDCS, RVT Brain CT 10/13/23 19:20 IMPRESSION: Chronic involutional changes of the brain. Electronically Signed: Zac Mathew MD at 17:10 EST , ADDENDUM: 10/13/23 1720 IMPRESSION: Chronic involutional changes of the brain. N.B. : The above Results were Read Back by Zac Mathew MD to Alin Almendarez MD, and understanding confirmed on 10/13/2023 17:13:26 (ET). Electronically Signed: Zac Mathew MD at 17:10 EST , Brain MRI 10/14/23 09:00 IMPRESSION: 1. Involutional and chronic ischemic changes of the brain, as described above. 2. Redemonstration of a cluster old lacunar infarct surrounded by a band of gliotic edema in the mid aspect of the right periventricular white matter extending up to the gonzalez radiata. 3. There is no evidence of acute infarction or acute intracranial hemorrhage Electronically Signed: Kt Grover MD at 10:55 EST , D/C Instructions Discharge Diet: No restrictions Weight Bearing Status: Full weight bearing Meaningful Use Info Meaningful Use Diagnoses (Choose all that apply): None applicable Discharge Plan Admission Admit Date/Time: 10/12/23 19:09 Primary Reason for Your Visit: TIA Attending Provider: Jacobo Trejo Primary Care Provider: Shantelle Mclain Consulting Providers: Graciela Bill; Rony Iniguez; Anjali Hernandez; Destini Thornton; Denisha Soto; Marilyn Campos; Leonides Heart; Chapis Huang; Saud Mcrae; Julito Campbell; Sanjuana Rogers; Sidney Lee; Blanca Manzano; Jumana Sinha; Leda Mendez; Brendon Díaz; Felipe Hubbard; Lion Souza; June Long; Juana Coy; Alin Almendarez Discharge Orders/Prescriptions Prescriptions: Continued (DME) Handicap Placard See Rx Instructions .ROUTE .MEDSUPPLY Qty: 1 0RF Rx Instructions: As directed, length of time 3 years hydrocortisone 2.5 % cream 1 applic topical BID PRN (Reason: rash) Qty: 30 2RF Rx Instructions: apply to psoriasis areas meclizine 25 mg tablet 25 mg PO BID PRN (Reason: dizziness) Qty: 30 1RF amlodipine 5 mg tablet 5 mg PO DAILY Qty: 90 3RF buspirone 7.5 mg tablet 7.5 mg PO BID Qty: 180 3RF citalopram 20 mg tablet 20 mg PO DAILY Qty: 90 3RF gabapentin 300 mg capsule 300 mg PO QHS Qty: 90 3RF omeprazole 40 mg capsule,delayed release(DR/EC) 40 mg PO DAILY Qty: 90 3RF montelukast 10 mg tablet 10 mg PO QHS Qty: 90 3RF potassium chloride 20 mEq tablet,ER particles/crystals 20 meq PO DAILYCM Qty: 90 1RF aspirin 81 MG tablet,chewable 81 mg PO DAILY@0800 cholecalciferol (vitamin D3) 50 mcg (2,000 unit) capsule 50 mcg PO QHS magnesium oxide 400 mg magnesium capsule 500 mg PO QHS furosemide [Lasix] 20 mg tablet 20 mg PO Q OTHER DAY PRN (Reason: SWELLING, WATER RETENTION) diclofenac sodium 75 mg tablet,delayed release (DR/EC) 75 mg PO BID PRN (Reason: pain) Qty: 60 2RF baclofen 20 mg tablet 20 mg PO TID PRN (Reason: muscle spasm) 90 Days Qty: 180 1RF Referrals / Follow Up: Shantelle Mclain MD [Primary Care Provider] - Disposition Disposition (needs filled in before D/C Order can be placed): Home, Self Care Charges/Coding Visit Charges Inpatient E&M: 63260 Disch Hosp >30min
--- NOTE | 2023-10-14 14:36 | CHAPLAIN ---
Type of Pastoral Visit _x__ Initial Visit ___ Follow-up Visit ___ On-call Visit ___ General Patient Visit ___ Spiritual Assessment ___ Family Conference ___ Bereavement ___ Rapid Response ___ Code Blue ___ Other (describe below) Pastoral Care Referral From _x__ Patient ___ Family ___ Nurse ___ Physician ___ Crm Technical Lead ___ Potato Inspector ___ Other (describe below) Sacrament/Intervention _x__ Active listening ___ Anointing ___ Shinto ___ Bereavement ___ Communion ___ Emili exploration ___ ___ Life review ___ Prayer ___ Reconciliation ___ Sacrament of Sick _x__ Supportive presence ___ Wedding ___ Other (describe below) Pastoral Comments patient has been seen before in previous admissions and 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
== END 2023-10-14 15:05 | disposition home or self-care (01) | DRG 63 ==
LOC: ED 17:19 → ICU 20:25
PROVIDERS: Internal Medicine; Admitting Provider Internal Medicine; Emergency Provider Student in an Organized Health Care Education/Training Program; PCP Internal Medicine; Visit Provider Internal Medicine
DX: G45.9 Transient cerebral ischemic attack, unspecified (principal); E03.9 Hypothyroidism, unspecified; I48.91 Unspecified atrial fibrillation; I10 Essential (primary) hypertension; E87.6 Hypokalemia; K21.9 Gastro-esophageal reflux disease without esophagitis; G47.33 Obstructive sleep apnea (adult) (pediatric); F41.8 Other specified anxiety disorders; J30.2 Other seasonal allergic rhinitis; Z87.891 Personal history of nicotine dependence; Z86.73 Personal history of transient ischemic attack (TIA), and cerebral infarction without residual deficits; Z79.82 Long term (current) use of aspirin; R29.704 NIHSS score 4
CPT/HCPCS: 70450; 70496; 70498; 70551; 71045; 80048; 80061; 83735; 84100; 84484; 85025; 85610; 85730; 92610; 93005; 93308; 97162; 97166; 97802; 99285; J3101; J7030; Q9967; A4216

== ENCOUNTER → 2023-10-28 | Outpatient (CLI) | payer MEDICARE, MEDICAID, SELFPAY ==
[2023-10-28 14:26] LABS: Bacteria 0 SEEN /hpf (None Seen); Mucous, Urine 0 SEEN /hpf (<or=2+); Red Blood Cells-Urine 0 SEEN /hpf (0-5); Squamous Epithelial Cells - UA 0 SEEN /hpf (5-10)
[2023-10-28 15:35] LABS: Color, Urine Yellow (Yellow); Glucose, Dipstick Normal (Normal); Ketone-Dipstick Negative (Negative); Leukocyte Esterase-Dipstick 25 /ul (Negative); Nitrite-Dipstick Negative (Negative); Occult Blood-Urine Negative /ul (Negative); Protein-Dipstick Negative (Negative); Specific Gravity, Urine 1.015 (1.002-1.030); Urine Bilirubin Dipstick Negative (Negative); Urine Clarity Clear (Clear); Urine Urobilinogen Normal (Normal)
[2023-10-28 15:54] LABS: White Blood Cells 0-5 SEEN /hpf (0-5)
--- OUTSIDE RECORDS SUMMARY | 2023-10-28 23:06 | XMS RPT_ITS | CCD ---
Author Name Unknown Address [address] [place] [address] Organization [facility] Care Team Providers Care Service Station Equipment Mechanic Name Role Phone Erich Hall Primary [facility] [...] Ciprofloxacin Drug Allergy 5 Other (See Comments) [employer] [place] (9 sources) Codeine; Translations: [codeine] Drug Allergy 5 Nausea And Vomiting, Other (See Comments), Syncope (disorder), [facility] [place] [place] ([facility] source) Hmg-Coa Reductase Inhibitors (Statins) Propensity to adverse reactions to drug 9 Other (See Comments) [employer] [place] (1 source) Penicillins Propensity to adverse reactions to drug 5 Shortness Of Breath, Rash [facility] [place] (1 source) Procaine Drug Allergy 5 Other (See Comments) [place], [place] (1 source) Sulfonamides (Antibiotic) Propensity to adverse reactions to drug 5 Nausea And Vomiting [place] (1 source) Penicillin; Translations: [penicillin] Drug Allergy Difficulty breathing (finding) [facility] (6 sources) Sulfonamides (Antibiotic); Translations: [sulfa drugs] Drug allergy 0 Vomiting food (finding), Vomiting [facility] (7 sources) Penicillin G; Translations: [PENICILLIN G] Drug Allergy 0 Rash [facility] (2 sources) Sulfonamides (Antibiotic); Translations: [SULFA (SULFONAMIDE ANTIBIOTICS)] Propensity to adverse reactions to drug (disorder) 0 [facility] Medications Current Medications Medication Drug Class(es) [...] 154.9 cm Katiuska Goddard MD Work Phone: [facility] 03-08-2023 10:15-0400 Body temperature 97.5 [degF] Katiuska Goddard MD Work Phone: [facility] 03-08-2023 10:15-0400 Body weight 68.22 kg Katiuska Goddard MD Work Phone: [facility] 03-08-2023 10:15-0400 Diastolic blood pressure 81 mm[Hg] Katiuska Goddard MD Work Phone: [facility] 03-08-2023 10:15-0400 Heart rate 75 /min Katiuska Goddard MD Work Phone: [facility] 03-08-2023 10:15-0400 SaO2% (BldA) [Mass fraction] 95 % Katiuska Goddard MD Work Phone: [facility] 03-08-2023 10:15-0400 Systolic blood pressure 136 mm[Hg] Katiuska Goddard MD Work Phone: [facility] 01-15-2023 12:17-0400 Diastolic Blood Pressure Non-Invasive 83 1 SHELBY TIRADO MD [facility] 01-15-2023 12:17-0400 Heart rate 90 /min SHELBY TIRADO MD [facility] 01-15-2023 12:17-0400 Respiratory rate 16 /min SHELBY TIRADO MD [facility] 01-15-2023 12:17-0400 Systolic Blood Pressure Non-Invasive 163 1 SHELBY TIRADO MD [facility] 01-15-2023 10:41-0400 Diastolic Blood Pressure Non-Invasive 75 1 SHELBY TIRADO MD [facility] 01-15-2023 10:41-0400 Heart rate 90 /min SHELBY TIRADO MD [facility] 01-15-2023 10:41-0400 Respiratory rate 16 /min SHELBY TIRADO MD [facility] 01-15-2023 10:41-0400 Systolic Blood Pressure Non-Invasive 147 1 SHELBY TIRADO MD [facility] 01-15-2023 09:14-0400 Diastolic Blood Pressure Non-Invasive 82 1 SHELBY TIRADO MD [facility] 01-15-2023 09:14-0400 Heart rate 91 /min SHELBY TIRADO MD [facility] 01-15-2023 09:14-0400 Respiratory rate 14 /min SHELBY TIRADO MD [facility] 01-15-2023 09:14-0400 Systolic Blood Pressure Non-Invasive 169 1 SHELBY TIRADO MD [facility] 01-15-2023 08:24-0400 Heart rate 86 /min SHELBY TIRADO MD [facility] 01-15-2023 07:36-0400 Body temperature 97.88 [degF] SHELBY TIRADO MD [facility] 01-15-2023 07:36-0400 Body weight 68 kg SHELBY TIRADO MD [facility] 01-15-2023 07:36-0400 Heart rate 97 /min SHELBY TIRADO MD [facility] Encounters Encounter Date Encounter Type Care Provider Facility Start: 07-05-2023 End: 07-05-2023 Emergency department patient visit HYUN CAMP MD Facility:B Start: 04-09-2023 Telephone encounter Katiuska blevins MD Work Phone: [facility] General Rheumatology and Arthritis Procedures Date Procedure Procedure Detail Performing Clinician Start: 12-31-2019 Radiologic exam ches t 2 views Erich Hall Work Phone: Plan of Treatment Date Care Activity Detail Author Start: 11-15-2025 LIPID SCREEN LIPID SCREEN [facility] Start: 01-10-2025 DTaP/Tdap/Td vaccine (2 - Td) DTaP/Tdap/Td vaccine (2 - Td) [place] Start: 06-25-2024 Lipid panel Lipid screen [place], [place] Start: 05-03-2023 Influenza vaccination [facility] Start: 03-08-2023 End: 05-08-2023 25-hydroxyvitamin D3 [Mass/volume] in Serum or Plasma [facility] Work Phone: Immunizations Immunization Date Immunization Notes Care Provider [facility] 06-25-2019 influenza, high dose seasonal, preservative-free [place], [place] 06-25-2019 pneumococcal polysaccharide vaccine, 23 valent [facility], [place] 06-25-2018 influenza, high dose seasonal, preservative-free [place] 06-25-2018 pneumococcal conjuga te vaccine, 13 valent [facility], [place] 06-22-2015 influenza virus vacc ine, whole virus [place] Payers Date Payer Category Payer Unknown [id number] 2019 Medicare [employer] [place] [id number] 2019-Present [phone] [address] [place] [address] O [id number] 2019 Medicare [id number] 2018 Medicare [employer] RE ADVANTAGE [facility]-MEDICARE ADVANTAGE xxxxxxxxxxx 2018-Present [phone] [address] [place] [address] xxxxxxxxxxx [id number] 1950 Unknown [id number] 1950 Unknown [id number] Social History Date Type Detail Facility Start: 12-28-2019 [facility] [place] End: 04-29-2004 History of tobacco use Current [place] Start: 12-28-2019 End: 02-07-2020 Alcohol intake Current drinker of alcohol (finding) [place] Start: 12-25-2018 History SDOH Alcohol Frequency 2 [place] Start: 12-25-2018 History SDOH Alcohol Std Drinks 1 [place] Start: 12-25-2018 History SDOH Social Connections Phone 5 [place] Start: 12-25-2018 History SDOH Social Connections Meetings 3 [place] Start: 12-25-2018 History SDOH Financial 4 [place] Start: 04-29-2015 Alcohol Comment rare Shobha Castro [place], [place] Start: 1950 Sex Assigned At Not on file [place], [place] Start: 01-07-2020 Tobacco smoking stat [facility] Never smoked tobacco [facility] Start: 01-07-2020 Tobacco use and exposure Smoke less tobacco non-user [facility] Start: 01-11-2020 Alcohol Comment Rarely [facility] Start: 02-07-2020 End: 03-08-2023 History of Social function [facility] Start: 02-07-2020 End: 03-08-2023 Area Deprivation Index [facility] National Score (1-10 0), lower number is lower risk 43 [facility] Functional Status Date Assessment Result Facility 01-15-2023 Functional Status Minimum assistance [facility] 01-15-2023 Functional Status ID band on, Call device within reach, Bed in low position, Wheels locked, Upper/Half-Length side-rails up [facility] 01-15-2023 Functional Status Identified as high risk, Fall ID band on, Room located near nursing station [facility] Mental Status Date Assessment Result Facility 01-15-2023 Mental Status Orientation Oriented x 4 [facility] 01-15-[address] [facility] 01-15-[address] [facility] Clinical Notes 01-15-2023 to 04-09-2023 Telephone Encounter - Radha Chan - 04/09/2023 10:08 AM EDTTelephone Encounter - Aileen Hoffmann LPN - 03/21/2023 1:01 PM EDTTelephone Encounter - Katiuska Goddard MD - 03/21/2023 9:54 AM EDT Note Date & Type Note Facility 04-09-2023 Miscellaneous Notes No Show Documentation Donita Jay no showed for an appointment on [id number] with Katiuska Goddard MD at [place]. She was scheduled for 939. I called [...] 2023 10:08 AM documented in this encounter [facility] 03-21-2023 Miscellaneous Notes Left message on voicemail asking to return call do discuss lab results. 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 No signs of RA or PsA. 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 Will monitor. Follow up with derm for psoriasis. documented in this encounter [facility] 03-08-2023 Note HNO ID: [id number] Author: RT Raffy(R) Service: ? Author Type: Director Of Photography Type: Progress Notes Filed: 03/08/2023 11:29 AM [...] March 08, 2023 11:26 AM [facility] 03-08-2023 Note HNO ID: [id number] Author: Katiuska Goddard MD Service: ? Author [...] com (more content not included)... [facility] 03-08-2023 History of Presen t [...] 2023 11:26 AM documented in this encounter [facility] 03-08-2023 History of Presen t [...] 2V AP PELVIS/FERGUESON DNA ANTIBODY DS BLD SUPERVISOR SLATE SPLITTING ANTIBODY BLOOD WILDE IGG AB SJOGREN ABS SSA/SSB VITAMIN D 25 HYDROXY No orders of the defined types were placed in this encounter. No follow-ups on file. Katiuska Goddard MD documented in this encounter [facility] 01-15-2023 Note ORIGINAL EXAMINATION: ONE [...] Sign Date: 01/15/2023 9:50:06 AM Ordering Provider: [facility] 01-15-2023 Note ORIGINAL EXAMINATION: CT OF [...] convexities. Scattered white matter hypodensities likely reflecting [id number] chronic microvascular angiopathy. A partially empty sella [...] Sign Date: 01/15/2023 9:08:47 AM Ordering Provider: [facility] 01-15-2023 Note ORIGINAL EXAMINATION: CT OF [...] convexities. Scattered white matter hypodensities likely reflecting [id number] chronic microvascular angiopathy. A partially empty sella [...] Sign Date: 01/15/2023 9:08:47 AM Ordering Provider: [facility] 01-15-2023 Note ORIGINAL EXAMINATION: ONE XRAY [...] Sign Date: 01/15/2023 9:50:06 AM Ordering Provider: [facility] Evaluation + Plan note No data available for this section [facility] documented in this encounter [facility] note* Diagnosis Pain in joint, multiple sites- Primary Psoriasis Other psoriasis Primary osteoarthritis involving multiple joints Fibromyalgia Mylagia and myositis, unspecified Left hemiparesis (HCC) Hemiplegia, unspecified, affecting unspecified side documented in this encounter [facility] note* Diagnosis Pain in joint, multiple sites [facility] No data available for this section [facility] Reason for referral (narrative)* Diagnostic Procedure Only (Routine) - Closed Specialty Diagnoses / Procedures Referred By Contac t Referred To Contact XR IMAGING Diagnoses Pain in joint, multiple sites Procedures XR SACROILIAC JOINTS 2V AP PELVIS/FERGUESON RADIOLOGIC EXAMINATION SACROILIAC JNTS <3 VIEWS Katiuska Goddard MD [address] [place] [address] Xr Imaging Referral ID Status Reason Start Date Expiration Date V isits Requested Visits Authorized [id number] Closed Auto-Generate d Referral 03/08/2023 04/06/2024 1 1 * Diagnostic Procedure Only (Routine) - Closed Specialty Diagnoses / Procedures Referred By Contac t Referred To Contact XR IMAGING Diagnoses Pain in joint, multiple sites Procedures XR LUMBAR GENERAL 3V AP/LAT/L5-S1 RADEX SPINE LUMBOSACRAL 2/3 VIEWS Katiuska Goddard MD [address] [facility] [address] [place] [address] Xr Imaging Referral ID Status Reason Start Date Expiration Date V isits Requested Visits Authorized [id number] Closed Auto-Generate d Referral 03/08/2023 04/06/2024 1 1 * Diagnostic Procedure Only (Routine) - Closed Specialty Diagnoses / Procedures Referred By Contac t Referred To Contact XR IMAGING Diagnoses Pain in joint, multiple sites Procedures XR CERV GENERAL 2V AP/LAT RADEX SPINE CERVICAL 2 OR 3 VIEWS Katiuska Goddard MD [address] [place] [address] Xr Imaging Referral ID Status Reason Start Date Expiration Date V isits Requested Visits Authorized [id number] Closed Auto-Generate d Referral 03/08/2023 04/06/2024 1 1 * Diagnostic Procedure Only (Routine) - Closed Specialty Diagnoses / Procedures Referred By Contac t Referred To Contact XR IMAGING Diagnoses Pain in joint, multiple sites Procedures XR ANKLE GENERAL 3V AP/LAT/OBL LEFT RADEX ANKLE COMPLETE MINIMUM 3 VIEWS Katiuska Goddard MD [address] [place] [address] Xr Imaging Referral ID Status Reason Start Date Expiration Date V isits Requested Visits Authorized [id number] Closed Auto-Generate d Referral 03/08/2023 04/06/2024 1 1 * Diagnostic Procedure Only (Routine) - Closed Specialty Diagnoses / Procedures Referred By Contac t Referred To Contact XR IMAGING Diagnoses Pain in joint, multiple sites Procedures XR ANKLE GENERAL 3V AP/LAT/OBL RIGHT RADEX ANKLE COMPLETE MINIMUM 3 VIEWS Katiuska Goddard MD [address] [place] [address] Xr Imaging Referral ID Status Reason Start Date Expiration Date V isits Requested Visits Authorized [id number] Closed Auto-Generate d Referral 03/08/2023 04/06/2024 1 1 * Diagnostic Procedure Only (Routine) - Closed Specialty Diagnoses / Procedures Referred By Contac t Referred To Contact XR IMAGING Diagnoses Pain in joint, multiple sites Procedures XR FOOT GENERAL 3V AP/LAT/OBL RIGHT RADEX FOOT COMPLETE MINIMUM 3 VIEWS Katiuska Goddard MD [address] [place] [address] Xr Imaging Referral ID Status Reason Start Date Expiration Date V isits Requested Visits Authorized [id number] Closed Auto-Generate d Referral 03/08/2023 04/06/2024 1 1 * Diagnostic Procedure Only (Routine) - Closed Specialty Diagnoses / Procedures Referred By Contac t Referred To Contact XR IMAGING Diagnoses Pain in joint, multiple sites Procedures XR FOOT GENERAL 3V AP/LAT/OBL LEFT RADEX FOOT COMPLETE MINIMUM 3 VIEWS Katiuska Goddard MD [address] [place] [address] Xr Imaging Referral ID Status Reason Start Date Expiration Date V isits Requested Visits Authorized [id number] Closed Auto-Generate d Referral 03/08/2023 04/06/2024 1 1 * Diagnostic Procedure Only (Routine) - Closed Specialty Diagnoses / Procedures Referred By Contac t Referred To Contact XR IMAGING Diagnoses Pain in joint, multiple sites Procedures XR HAND GENERAL 3V PA/LAT/OBL RIGHT RADEX HAND MINIMUM 3 VIEWS Katiuska Goddard MD [address] [place] [address] Xr Imaging Referral ID Status Reason Start Date Expiration Date V isits Requested Visits Authorized [id number] Closed Auto-Generate d Referral 03/08/2023 04/06/2024 1 1 * Diagnostic Procedure Only (Routine) - Closed Specialty Diagnoses / Procedures Referred By Contac t Referred To Contact XR IMAGING Diagnoses Pain in joint, multiple sites Procedures XR HAND GENERAL 3V PA/LAT/OBL LEFT RADEX HAND MINIMUM 3 VIEWS Katiuska Goddard MD [address] [place] [address] Xr Imaging Referral ID Status Reason Start Date Expiration Date V isits Requested Visits Authorized [id number] Closed Auto-Generate d Referral 03/08/2023 04/06/2024 1 1 [facility] for visit Narrative* Diagnostic Procedure Only (Routine) - Closed Specialty Diagnoses / Procedures Referred By Contac t Referred To Contact XR IMAGING Diagnoses Pain in joint, multiple sites Procedures XR SACROILIAC JOINTS 2V AP PELVIS/FERGUESON RADIOLOGIC EXAMINATION SACROILIAC JNTS <3 VIEWS Katiuska Goddard MD [address] [place] [address] Xr Imaging Referral ID Status Reason Start Date Expiration Date V isits Requested Visits Authorized [id number] Closed Auto-Generate d Referral 03/08/2023 04/06/2024 1 1 [facility] Assessments Diagnosis Cough Advance Directives No Advanced Directives Records FoundDocuments on File Type Date Recorded 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 DATE CREATED AUTHOR AUTHOR'S ORGANIZ ATION 02/12/2023 [facility] DATE CREATED AUTHOR AUTHOR'S ORGANIZ ATION 04/09/2023 [facility] DATE CREATED AUTHOR AUTHOR'S ORGANIZ ATION 07/22/2023 [facility] ([place]) Patient Care team informatio n (unrecognized section and content) Service Station Equipment Mechanic Relationship Specialty Start Date End Date Shantelle Mclain MD [address] [facility] [address] PCP - General Internal Medicine 03/08/23 Service Station Equipment Mechanic Relationship Specialty Start Date End Date Shantelle Mclain MD [address] [facility] [address] PCP - General Internal Medicine 03/08/23 Service Station Equipment Mechanic Relationship Specialty Start Date End Date Shantelle Mclain MD [address] [place] [address] PCP - General Internal Medicine 03/08/23 Source Comments (unrecognize d section and content) In the event this informatio n is protected by the Federal Confidentiality of Alcohol and Drug Abuse Patient Records regulations: The Federal rules restrict any use of the information to criminally investigate or prosecute any alcohol or drug abuse patient.[facility] the event this information is protected by the Federal Confidentiality of Alcohol and Drug Abuse Patient Records regulations: The Federal rules restrict any use of the information to criminally investigate or prosecute any alcohol or drug abuse patient.[facility] the event this information is protected by the Federal Confidentiality of Alcohol and Drug Abuse Patient Records regulations: The Federal rules restrict any use of the information to criminally investigate or prosecute any alcohol or drug abuse patient.[facility] the event this information is protected by the Federal Confidentiality of Alcohol and Drug Abuse Patient Records regulations: The Federal rules restrict any use of the information to criminally investigate or prosecute any alcohol or drug abuse patient.[facility] the event this information is protected by the Federal Confidentiality of Alcohol and Drug Abuse Patient Records regulations: The Federal rules restrict any use of the information to criminally investigate or prosecute any alcohol or drug abuse patient.[facility] Reason for Visit (unrecogniz ed [...] BE BASED ON THE PRIMARY CLINICAL RECORDS. [employer]. provides no warranty or guarantee of the accuracy or completeness of information in this document.
== END | disposition home or self-care (01) ==
LOC: LABSPEC 14:24
PROVIDERS: PCP Internal Medicine; Visit Provider Nurse Practitioner
DX: R53.81 Other malaise (principal); N39.0 Urinary tract infection, site not specified
CPT/HCPCS: 81001; 87077; 87086; 87088

== ENCOUNTER → 2023-11-11 | Outpatient (CLI) | payer MEDICARE, MEDICAID, SELFPAY ==
--- OUTSIDE RECORDS SUMMARY | 2023-11-11 12:03 | XMS RPT_ITS | CCD ---
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 Role Phone Erich Hall Primary Care Provider PHYSICIAN, NONE Primary Care Physician Unavailab le Unavailable Primary Care Provider UnavailORIN Carmona Referring Unavailable ORIN REIS Attending Unavailable Shantelle Mclain MD Primary Care Provider [phone] KATIUSKA GODDARD Attending Unavailable KATIUSKA GODDARD Attending [...] Ciprofloxacin Drug Allergy 5 Other (See Comments) [employer] [place] (9 sources) Codeine; Translations: [codeine] Drug Allergy 5 Nausea And Vomiting, Other (See Comments), Syncope (disorder), [facility] [place] ([facility] source) Hmg-Coa Reductase Inhibitors (Statins) Propensity to adverse reactions to drug 9 Other (See Comments) [employer] [place] (1 source) Penicillins Propensity to adverse reactions to drug 5 Shortness Of Breath, Rash [facility] [place] (1 source) Procaine Drug Allergy 5 Other (See Comments) [place], [place] (1 source) Sulfonamides (Antibiotic) Propensity to adverse reactions to drug 5 Nausea And Vomiting [place] (1 source) Penicillin; Translations: [penicillin] Drug Allergy Difficulty breathing (finding) [facility] (6 sources) Sulfonamides (Antibiotic); Translations: [sulfa drugs] Drug allergy 0 Vomiting food (finding), Vomiting [facility] (7 sources) Penicillin G; Translations: [PENICILLIN G] Drug Allergy 0 Rash [facility] (2 sources) Sulfonamides (Antibiotic); Translations: [SULFA (SULFONAMIDE ANTIBIOTICS)] Propensity to adverse reactions to drug (disorder) 0 [facility] Repository Medications Current Medications Medication Drug [...] 154.9 cm Katiuska Goddard MD Work Phone: [facility] 03-08-2023 10:15-0400 Body temperature 97.5 [degF] Katiuska Goddard MD Work Phone: [facility] 03-08-2023 10:15-0400 Body weight 68.22 kg Katiuska Goddard MD Work Phone: [facility] 03-08-2023 10:15-0400 Diastolic blood pressure 81 mm[Hg] Katiuska Goddard MD Work Phone: [facility] 03-08-2023 10:15-0400 Heart rate 75 /min Katiuska Goddard MD Work Phone: [facility] 03-08-2023 10:15-0400 SaO2% (BldA) [Mass fraction] 95 % Katiuska Goddard MD Work Phone: [facility] 03-08-2023 10:15-0400 Systolic blood pressure 136 mm[Hg] Katiuska Goddard MD Work Phone: [facility] 01-15-2023 12:17-0400 Diastolic Blood Pressure Non-Invasive 83 1 SHELBY TIRADO MD [facility] 01-15-2023 12:17-0400 Heart rate 90 /min SHELBY TIRADO MD [facility] 01-15-2023 12:17-0400 Respiratory rate 16 /min SHELBY TIRADO MD [facility] 01-15-2023 12:17-0400 Systolic Blood Pressure Non-Invasive 163 1 SHELBY TIRADO MD [facility] 01-15-2023 10:41-0400 Diastolic Blood Pressure Non-Invasive 75 1 SHELBY TIRADO MD [facility] 01-15-2023 10:41-0400 Heart rate 90 /min SHELBY TIRADO MD [facility] 01-15-2023 10:41-0400 Respiratory rate 16 /min SHELBY TIRADO MD [facility] 01-15-2023 10:41-0400 Systolic Blood Pressure Non-Invasive 147 1 SHELBY TIRADO MD [facility] 01-15-2023 09:14-0400 Diastolic Blood Pressure Non-Invasive 82 1 SHELBY TIRADO MD [facility] 01-15-2023 09:14-0400 Heart rate 91 /min SHELBY TIRADO MD [facility] 01-15-2023 09:14-0400 Respiratory rate 14 /min SHELBY TIRADO MD [facility] 01-15-2023 09:14-0400 Systolic Blood Pressure Non-Invasive 169 1 SHELBY TIRADO MD [facility] 01-15-2023 08:24-0400 Heart rate 86 /min SHELBY TIRADO MD [facility] 01-15-2023 07:36-0400 Body temperature 97.88 [degF] SHELBY TIRADO MD [facility] 01-15-2023 07:36-0400 Body weight 68 kg SHELBY TIRADO MD [facility] 01-15-2023 07:36-0400 Heart rate 97 /min SHELBY TIRADO MD [facility] Encounters Encounter Date Encounter Type Care Provider Facility Start: 07-05-2023 End: 07-05-2023 Emergency department patient visit HYUN CAMP MD Facility:B Start: 04-09-2023 Telephone encounter Katiuska blevins MD Work Phone: [facility] General Rheumatology and Arthritis Procedures Date Procedure Procedure Detail Performing Clinician Start: 12-31-2019 Radiologic exam ches t 2 views Erich Hall Work Phone: Plan of Treatment Date Care Activity Detail Author Start: 11-15-2025 LIPID SCREEN LIPID SCREEN [facility] Start: 01-10-2025 DTaP/Tdap/Td vaccine (2 - Td) DTaP/Tdap/Td vaccine (2 - Td) [place] Start: 06-25-2024 Lipid panel Lipid screen [place], [place] Start: 05-03-2023 Influenza vaccination [facility] Start: 03-08-2023 End: 05-08-2023 25-hydroxyvitamin D3 [Mass/volume] in Serum or Plasma [facility] Work Phone: Immunizations Immunization Date Immunization Notes Care Provider Fa [facility] 06-25-2019 influenza, high dose seasonal, preservative-free [place] 06-25-2019 pneumococcal polysaccharide vaccine, 23 [facility], [place] 06-25-2018 influenza, high dose seasonal, preservative-free [place] 06-25-2018 pneumococcal conjuga te vaccine, 13 [facility] [place] 06-22-2015 influenza virus vacc ine, whole virus [place] Payers Date Payer Category Payer Unknown [id number] 2019 Medicare [employer] [place] [id number] 2019-Present [phone] [address] [place] [address] O [id number] 2019 Medicare [id number] 2018 Medicare [employer] ADV[employer]AGE [facility]-MEDICARE ADVANTAGE xxxxxxxxxxx 2018-Present [phone] [address] [place] [id number] xxxxxxxxxxx [id number] 1950 Unknown [id number] 1950 Unknown [id number] Social History Date Type Detail Facility Start: 12-28-2019 [facility] [place] End: 04-29-2004 History of tobacco use Current [place] Start: 12-28-2019 End: 02-07-2020 Alcohol intake Current drinker of alcohol (finding) [place] Start: 12-25-2018 History SDOH Alcohol Frequency 2 [place] Start: 12-25-2018 History SDOH Alcohol Std Drinks 1 [place] Start: 12-25-2018 History SDOH Social Connections Phone 5 [place] Start: 12-25-2018 History SDOH Social Connections Meetings 3 [place] Start: 12-25-2018 History SDOH Financial 4 [place] Start: 04-29-2015 Alcohol Comment rare Shobha Castro [place], [place] Start: 1950 Sex Assigned At Not on file [place] Start: 01-07-2020 Tobacco smoking stat [facility] Never smoked tobacco [facility] Start: 01-07-2020 Tobacco use and exposure Smoke less tobacco non-user [facility] Start: 01-11-2020 Alcohol Comment Rarely [facility] Start: 02-07-2020 End: 03-08-2023 History of Social function [facility] Start: 02-07-2020 End: 03-08-2023 Area Deprivation Index [facility] National Score (1-10 0), lower number is lower risk 43 [facility] Functional Status Date Assessment Result Facility 01-15-2023 Functional Status Minimum assistance [facility] 01-15-2023 Functional Status ID band on, Call device within reach, Bed in low position, Wheels locked, Upper/Half-Length side-rails up [facility] 01-15-2023 Functional Status Identified as high risk, Fall ID band on, Room located near nursing station [facility] Mental Status Date Assessment Result Facility 01-15-2023 Mental Status Orientation Oriented x 4 [facility] 01-15-2023 Mental Status [facility] 01-15-2023 Mental Status [facility] Clinical Notes 01-15-2023 to 04-09-2023 Telephone Encounter - Radha Chan - 04/09/2023 10:08 AM EDTTelephone Encounter - Aileen Hoffmann LPN - 03/21/2023 1:01 PM EDTTelephone Encounter - Katiuska Goddard MD - 03/21/2023 9:54 AM EDT Note Date & Type Note Facility 04-09-2023 Miscellaneous Notes No Show Documentation Donita Jay no showed for an appointment on [id number] with Katiuska Goddard MD at [facility]. She was scheduled for 939. I called [...] 2023 10:08 AM documented in this encounter [facility] 03-21-2023 Miscellaneous Notes Left message on voicemail asking to return call do discuss lab results. 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 No signs of RA or PsA. 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 Will monitor. Follow up with derm for psoriasis. documented in this encounter [facility] 03-08-2023 Note HNO ID: [id number] Author: RT Raffy(R) Service: ? Author Type: Transaction Advisory Services Manager Type: Progress Notes Filed: 03/08/2023 11:29 AM [...] RT Raffy(R) March 08, 2023 11:26 AM [facility] 03-08-2023 Note HNO ID: [id number] Author: Katiuska Goddard MD Service: ? Author [...] appearing, alert, com (more content not included)... 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 No follow-ups on file. Katiuska Goddard MD documented in this encounter [facility] 01-15-2023 Note ORIGINAL EXAMINATION: ONE XRAY [...] Sign Date: 01/15/2023 9:50:06 AM Ordering Provider: [facility] 01-15-2023 Note ORIGINAL EXAMINATION: CT OF [...] convexities. Scattered white matter hypodensities likely reflecting opwp-ib-qusoyete chronic microvascular angiopathy. A partially empty sella [...] Sign Date: 01/15/2023 9:08:47 AM Ordering Provider: [facility] 01-15-2023 Note ORIGINAL EXAMINATION: CT OF [...] convexities. Scattered white matter hypodensities likely reflecting opsy-cg-niizrxoa chronic microvascular angiopathy. A partially empty sella [...] Sign Date: 01/15/2023 9:08:47 AM Ordering Provider: [facility] 01-15-2023 Note ORIGINAL EXAMINATION: ONE XRAY [...] Sign Date: 01/15/2023 9:50:06 AM Ordering Provider: [facility] Evaluation + Plan note No data available for this section [facility] documented in this encounter [facility] note* Diagnosis Pain in joint, multiple sites- Primary Psoriasis Other psoriasis Primary osteoarthritis involving multiple joints Fibromyalgia Mylagia and myositis, unspecified Left hemiparesis (HCC) Hemiplegia, unspecified, affecting unspecified side documented in this encounter [facility] note* Diagnosis Pain in joint, multiple sites [facility] No data available for this section [facility] Reason for referral (narrative)* Diagnostic Procedure Only (Routine) - Closed Specialty Diagnoses / Procedures Referred By Contac t Referred To Contact XR IMAGING Diagnoses Pain in joint, multiple sites Procedures XR SACROILIAC JOINTS 2V AP PELVIS/FERGUESON RADIOLOGIC EXAMINATION SACROILIAC JNTS <3 VIEWS Katiuska Goddard MD [address] [facility] [address] [place] [address] Xr Imaging Referral ID Status Reason Start Date Expiration Date V isits Requested Visits Authorized [id number] Closed Auto-Generate d Referral 03/08/2023 04/06/2024 1 1 * Diagnostic Procedure Only (Routine) - Closed Specialty Diagnoses / Procedures Referred By Contac t Referred To Contact XR IMAGING Diagnoses Pain in joint, multiple sites Procedures XR LUMBAR GENERAL 3V AP/LAT/L5-S1 RADEX SPINE LUMBOSACRAL 2/3 VIEWS Katiuska Goddard MD [address] [facility] [address] [place] [address] Xr Imaging Referral ID Status Reason Start Date Expiration Date V isits Requested Visits Authorized [id number] Closed Auto-Generate d Referral 03/08/2023 04/06/2024 1 1 * Diagnostic Procedure Only (Routine) - Closed Specialty Diagnoses / Procedures Referred By Contac t Referred To Contact XR IMAGING Diagnoses Pain in joint, multiple sites Procedures XR CERV GENERAL 2V AP/LAT RADEX SPINE CERVICAL 2 OR 3 VIEWS Katiuska Goddard MD [address] [place] [address] Xr Imaging Referral ID Status Reason Start Date Expiration Date V isits Requested Visits Authorized [id number] Closed Auto-Generate d Referral 03/08/2023 04/06/2024 1 1 * Diagnostic Procedure Only (Routine) - Closed Specialty Diagnoses / Procedures Referred By Contac t Referred To Contact XR IMAGING Diagnoses Pain in joint, multiple sites Procedures XR ANKLE GENERAL 3V AP/LAT/OBL LEFT RADEX ANKLE COMPLETE MINIMUM 3 VIEWS Katiuska Goddard MD [address] [place] [address] Xr Imaging Referral ID Status Reason Start Date Expiration Date V isits Requested Visits Authorized [id number] Closed Auto-Generate d Referral 03/08/2023 04/06/2024 1 1 * Diagnostic Procedure Only (Routine) - Closed Specialty Diagnoses / Procedures Referred By Contac t Referred To Contact XR IMAGING Diagnoses Pain in joint, multiple sites Procedures XR ANKLE GENERAL 3V AP/LAT/OBL RIGHT RADEX ANKLE COMPLETE MINIMUM 3 VIEWS Katiuska Goddard MD [address] [place] [address] Xr Imaging Referral ID Status Reason Start Date Expiration Date V isits Requested Visits Authorized [id number] Closed Auto-Generate d Referral 03/08/2023 04/06/2024 1 1 * Diagnostic Procedure Only (Routine) - Closed Specialty Diagnoses / Procedures Referred By Contac t Referred To Contact XR IMAGING Diagnoses Pain in joint, multiple sites Procedures XR FOOT GENERAL 3V AP/LAT/OBL RIGHT RADEX FOOT COMPLETE MINIMUM 3 VIEWS Katiuska Goddard MD [address] [place] [address] Xr Imaging Referral ID Status Reason Start Date Expiration Date V isits Requested Visits Authorized [id number] Closed Auto-Generate d Referral 03/08/2023 04/06/2024 1 1 * Diagnostic Procedure Only (Routine) - Closed Specialty Diagnoses / Procedures Referred By Contac t Referred To Contact XR IMAGING Diagnoses Pain in joint, multiple sites Procedures XR FOOT GENERAL 3V AP/LAT/OBL LEFT RADEX FOOT COMPLETE MINIMUM 3 VIEWS Katiuska Goddard MD [address] [place] [address] Xr Imaging Referral ID Status Reason Start Date Expiration Date V isits Requested Visits Authorized [id number] Closed Auto-Generate d Referral 03/08/2023 04/06/2024 1 1 * Diagnostic Procedure Only (Routine) - Closed Specialty Diagnoses / Procedures Referred By Contac t Referred To Contact XR IMAGING Diagnoses Pain in joint, multiple sites Procedures XR HAND GENERAL 3V PA/LAT/OBL RIGHT RADEX HAND MINIMUM 3 VIEWS Katiuska Goddard MD [address] [place] [address] Xr Imaging Referral ID Status Reason Start Date Expiration Date V isits Requested Visits Authorized [id number] Closed Auto-Generate d Referral 03/08/2023 04/06/2024 1 1 * Diagnostic Procedure Only (Routine) - Closed Specialty Diagnoses / Procedures Referred By Contac t Referred To Contact XR IMAGING Diagnoses Pain in joint, multiple sites Procedures XR HAND GENERAL 3V PA/LAT/OBL LEFT RADEX HAND MINIMUM 3 VIEWS Katiuska Goddard MD [address] [place] [address] Xr Imaging Referral ID Status Reason Start Date Expiration Date V isits Requested Visits Authorized [id number] Closed Auto-Generate d Referral 03/08/2023 04/06/2024 1 1 [facility] for visit Narrative* Diagnostic Procedure Only (Routine) - Closed Specialty Diagnoses / Procedures Referred By Contac t Referred To Contact XR IMAGING Diagnoses Pain in joint, multiple sites Procedures XR SACROILIAC JOINTS 2V AP PELVIS/FERGUESON RADIOLOGIC EXAMINATION SACROILIAC JNTS <3 VIEWS Katiuska Goddard MD [address] [place] [address] Xr Imaging Referral ID Status Reason Start Date Expiration Date V isits Requested Visits Authorized [id number] Closed Auto-Generate d Referral 03/08/2023 04/06/2024 1 1 [facility] Assessments Diagnosis Cough Advance Directives No Advanced Directives Records FoundDocuments on File Type Date Recorded Patient [employer] Expl anation Advance Directives and Living Will Power of Administration Internship Summary Purpose Family History No Family History Records FoundNo Family History Records FoundNo Family History Records FoundNo Family History Records FoundNo Family History Records Found Additional Source Comments INFORMATION SOURCE (unrecogn ized section and content) DATE CREATED AUTHOR AUTHOR'S ORGANIZ ATION 02/28/2022 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 Relationship Specialty Start Date End Date Shantelle Mclain MD [address] [facility] [place] [address] PCP - General Internal Medicine 03/08/23 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 Relationship Specialty Start Date End Date Shantelle Mclain MD [address] [place] [address] PCP - General Internal Medicine 03/08/23 Source Comments (unrecognize d section and content) In the event this informatio n is protected by the Federal Confidentiality of Alcohol and Drug Abuse Patient Records regulations: The Federal rules restrict any use of the information to criminally investigate or prosecute any alcohol or drug abuse patient.[facility] the event this information is protected by the Federal Confidentiality of Alcohol and Drug Abuse Patient Records regulations: The Federal rules restrict any use of the information to criminally investigate or prosecute any alcohol or drug abuse patient.[facility] the event this information is protected by the Federal Confidentiality of Alcohol and Drug Abuse Patient Records regulations: The Federal rules restrict any use of the information to criminally investigate or prosecute any alcohol or drug abuse patient.[facility] the event this information is protected by the Federal Confidentiality of Alcohol and Drug Abuse Patient Records regulations: The Federal rules restrict any use of the information to criminally investigate or prosecute any alcohol or drug abuse patient.[facility] the event this information is protected by the Federal Confidentiality of Alcohol and Drug Abuse Patient Records regulations: The Federal rules restrict any use of the information to criminally investigate or prosecute any alcohol or drug abuse patient.[facility] Reason for Visit (unrecogniz ed section [...] BE BASED ON THE PRIMARY CLINICAL RECORDS. [facility]. provides no warranty or guarantee of the accuracy or completeness of information in this document.
[2023-11-11 12:54] LABS: Vitamin D,25 Hydroxy 42.3 ng/mL
[2023-11-11 13:45] LABS: Anion Gap 6 (5-15); BUN 14 mg/dL (7-18); BUN/Creat Ratio 19.2 RATIO (10-20); Calcium,Total 9.4 mg/dL (8.5-10.1); Chloride 107 mmol/L (98-107); Creatinine, Serum 0.73 mg/dL (0.55-1.02); EST Glomerular Filtration Rate 83 mL/min (>60); Est Glom Filt Rate - Afr Amer 101 mL/min (>60); Glucose 85 mg/dL (74-106); Potassium 4.4 mmol/L (3.5-5.1); Sodium Level 140 mmol/L (136-145); Thyroid Stim Hormone (TSH) 1.87 uIU/mL (0.358-3.74)
== END | disposition home or self-care (01) ==
LOC: BIMLAB 11:11
PROVIDERS: PCP Internal Medicine; Referring Provider Internal Medicine; Visit Provider Internal Medicine
DX: E03.9 Hypothyroidism, unspecified (principal); E87.6 Hypokalemia; M85.80 Other specified disorders of bone density and structure, unspecified site
CPT/HCPCS: 36415; 80048; 82306; 84439; 84443

== ENCOUNTER 2023-12-25 11:00 | Outpatient (RCR) | payer MEDICARE, MEDICAID, SELFPAY ==
--- NOTE | 2023-09-09 10:31 | HP.PTREVAL ---
Re-Evaluation Intro: Dr. Shantelle Mclain MD, It has been my pleasure to treat SATURNINO MAY over the last 40 visits for COREY MORALEZ. Please see the progress note below for an update on the physical therapy plan of care! Subjective Subjective: Not as sore .. been using massage gun Waiting for reverse TSR Objective Objective/Function: POSTURE: mild forward posture PALAPTION: less tender IT BAND CALF GAIT: reciprocal pattern mild forward posture slight ataxia left LE with increase tone with decrease hip/knee flexion and stance time NUERO: increase hypertonicity LLE ,reflexes hyperreflexia Achilles /patella AROM: shoulder flexion 90 degrees ,abduction 85 ,pain ER 40 degrees pain CAPSULAR TIGHTNESS : mod tight G-H PROM: right shoulder flexion 140 degrees ,abduction in scaption 145 degrees ,ER 25 degrees pain MMT: ( peak force) infraspinatus/supraspinatus 0, subscapularis 11.7 quads 37.6 ,hip flexion 19.2 ,hip abduction 7.9 ,hamstrings 17.9 FLEXABLITY: hamstrings MIN tight Plan Plan Plan: H/O CVA LEFT ULYSSES LATEX ALLERGY RIGHT SHOULDER RTC TEAR NEEDS PT INTERVETIONS FOCUSING RIGHT SHOULDER MANUAL THERAPT PROM,G-H JOINT MOBILIZATION TO ,ROM , GRADED STRENGTHENING RIGHT SHOULDER ,POSTURL EX's , LEFT LOWER EXTREMITY FLEXABLITY ,STRENGTHENING ,BALANCE AN DFUNCTIONAL STRENGTHENING Balance/Gait/Functional tests Balance/Special Test Scores Quick DASH Score: 52.2725 Goals Goals Goal 1:: Patient to be I with HEP shoulder and left leg Goal Time Frame: 4-6 Weeks Goal Progress: Progressing Goal 2:: Patient to demonstrate 50% improvement with right shoulder and left leg(new goals) Goal Time Frame: 4-6 Weeks Goal 3:: Patient panchito improve right shoulder AROM by 5-10 degrees to improve function and OH activites Goal Time Frame: 4-6 Weeks Goal Progress: Progressing Goal 4:: Patient to improve peak force of quads/hams/hip by 5-10# strength to improve function Goal Time Frame: 4-6 Weeks Goal Progress: Progressing Goal 5:: Patient to improve Quality of gait 80% OF THE TIME Goal Time Frame: 4-6 Weeks Goal Progress: Progressing Goal 6:: Patient to improve quick dash by 5 points to improve QOL Goal Time Frame: 4-6 Weeks Goal Progress: Progressing Anticipated Interventions Anticipated Interventions Patient/Client Instruction: Educate patient on: Condition and Plan of Care For the Purpose of:: To decrease pain, To increase ROM, To improve muscle performance and motor function, To improve ability to perform ADL's, To increase tolerance to activity/condition/position, To improve ability of physical actions for home/community/work/leisure, To improve health of tissue, To decrease soft tissue restriction, To increase flexibility/ROM, To improve endurance, To improve balance, To assume or resume ADL's and To improve tolerance to ADL's Therapeutic Exercise to Include: Strength training, Body mechanics, Postural training, Flexibilty training, Gait and locomotor training, Active ROM and Scapular Strength/Stabilization Comment: RTC , BLE STRENGTHENING QUADS/HAMSHIP For the Purpose of:: To decrease pain, To increase ROM, To improve muscle performance and motor function, To improve ability to perform ADL's, To increase tolerance to activity/condition/position, To improve ability of physical actions for home/community/work/leisure, To improve health of tissue, To decrease soft tissue restriction, To increase flexibility/ROM, To improve endurance, To improve balance, To reduce risk of recurrence and To improve tolerance to ADL's Re-Evaluation Ending Re-evaluation ending: Please do not hesitate to contact me at [phone] by phone or if you have questions or concerns regarding this new plan of care! Sincerely, Julito Baez, PT, Cert MDT, OCS
--- NOTE | 2023-10-23 11:43 | HP.PTREVAL_ITS ---
Re-Evaluation Intro: Dr. Shantelle Mclain MD, It has been my pleasure to treat SATURNINO MAY over the last 50 visits for COREY MORALEZ. Please see the progress note below for an update on the physical therapy plan of care! Subjective Subjective: Did okay Objective Objective/Function: * Patient will benefit from skilled PT due to new CVA -TIA which patient was hospitalized as needs TSA reverse which patient will consult* POSTURE: mild forward posture PALAPTION: less tender IT BAND CALF GAIT: reciprocal pattern mild forward posture slight ataxia left LE with increase tone with decrease hip/knee flexion and stance time NUERO: increase hypertonicity LLE ,reflexes hyperreflexia Achilles /patella AROM: shoulder flexion 90 degrees ,abduction 85 ,pain ER 20 degrees pain CAPSULAR TIGHTNESS : mod tight G-H PROM: right shoulder flexion 110 degrees ,abduction in scaption 105 degrees ,ER 25 degrees pain MMT: ( peak force) infraspinatus/supraspinatus 0, subscapularis 11.7 quads 46. ,hip flexion 28.2 ,hip abduction 10.9 ,hamstrings 362 FLEXABLITY: hamstrings MIN tight Plan Plan Plan: H/O CVA LEFT ULYSSES LATEX ALLERGY RIGHT SHOULDER RTC TEAR NEEDS PT INTERVETIONS FOCUSING RIGHT SHOULDER MANUAL THERAPT PROM,G-H JOINT MOBILIZATION TO ,ROM , GRADED STRENGTHENING RIGHT SHOULDER ,POSTURL EX's , LEFT LOWER EXTREMITY FLEXABLITY ,STRENGTHENING ,BALANCE AN DFUNCTIONAL STRENGTHENING Balance/Gait/Functional tests Balance/Special Test Scores Quick DASH Score: 52.2725 Goals Goals Goal 1:: Patient to be I with HEP shoulder and left leg Goal Time Frame: 4-6 Weeks Goal Progress: Progressing Goal 2:: Patient to demonstrate 50% improvement with right shoulder and left l eg(new goals) Goal Time Frame: 4-6 Weeks Goal 3:: Patient panchito improve right shoulder AROM by 5-10 degrees to improve function and OH activites Goal Time Frame: 4-6 Weeks Goal Progress: Progressing Goal 4:: Patient to improve peak force of quads/hams/hip by 5-10# strength to improve function Goal Time Frame: 4-6 Weeks Goal Progress: Progressing Goal 5:: Patient to improve Quality of gait 80% OF THE TIME Goal Time Frame: 4-6 Weeks Goal Progress: Progressing Goal 6:: Patient to improve quick dash by 5 points to improve QOL Goal Time Frame: 4-6 Weeks Goal Progress: Progressing Anticipated Interventions Anticipated Interventions Patient/Client Instruction: Educate patient on: Condition and Plan of Care For the Purpose of:: To decrease pain, To increase ROM, To improve muscle performance and motor function, To improve ability to perform ADL's, To increase tolerance to activity/condition/position, To improve ability of physical actions for home/community/work/leisure, To improve health of tissue, To decrease soft tissue restriction, To increase flexibility/ROM, To improve endurance, To improve balance, To assume or resume ADL's and To improve tolerance to ADL's Therapeutic Exercise to Include: Strength training, Body mechanics, Postural training, Flexibilty training, Gait and locomotor training, Active ROM and Scapular Strength/Stabilization Comment: RTC , BLE STRENGTHENING QUADS/HAMSHIP For the Purpose of:: To decrease pain, To increase ROM, To improve muscle performance and motor function, To improve ability to perform ADL's, To increase tolerance to activity/condition/position, To improve ability of physical actions for home/community/work/leisure, To improve health of tissue, To decrease soft tissue restriction, To increase flexibility/ROM, To improve endurance, To improve balance, To reduce risk of recurrence and To improve tolerance to ADL's Re-Evaluation Ending Re-evaluation ending: Please do not hesitate to contact me at [phone] by phone or if you have questions or concerns regarding this new plan of care! Sincerely, Julito Baez, PT, Cert MDT, OCS
--- NOTE | 2023-12-25 11:02 | HP.OTDCSUM ---
Discharge Summary D/C Summary: It has been my pleasure to treat SATURNINO MAY under orders from Dr. Shantelle Mclain MD, for the diagnosis of CVA, left UE contractures for a total of 20 visit(s). Please see the following information for a summary of their discharge status. Overall Improvement % Improvement: 50 Objective Objective/Function: pt continues to demo with wrist instability and fisted resting position- pt is using stress ball to prevent full digit contracture Plan Plan: pt would like to see if there is an orthosis she can wear on fingers to keep them straighter and estim to use at home. D/C Information Discharge Comments: Pt was seen for OT to increase functional ROM grasp/release. 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 pt has asked to be D/C. d/c sentence: If there are questions or concerns regarding this patient's occupational therapy, please fell free to call me at [phone]. Thank you for the referral of this patient. Sincerely, Sari Turner, OTR/L, CHT
--- NOTE | 2023-12-25 11:25 | HP.PTDCSUM ---
Discharge Summary D/C summary: It has been my pleasure to treat SATURNINO MAY referred by Dr. Shantelle Mclain MD, with the diagnosis of COREY MORALEZ for a total of 59 visit(s). Discharge Date: Please see the following information for a summary of their discharge status. 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 Pain Bilateral Hip: Pain Intensity (Out of 10): 8 Right Shoulder: Pain Intensity (Out of 10): 9 Overall Improvement % Improvement: 70 Objective Objective/Function: mild forward posture PALAPTION: less tender IT BAND CALF GAIT: reciprocal pattern mild forward posture slight ataxia left LE with increase tone with decrease hip/knee flexion and stance time NUERO: increase hypertonicity LLE ,reflexes hyperreflexia Achilles /patella AROM: shoulder flexion 90 degrees ,abduction 85 ,pain ER 20 degrees pain CAPSULAR TIGHTNESS : mod tight G-H PROM: right shoulder flexion 110 degrees ,abduction in scaption 105 degrees ,ER 25 degrees pain MMT: ( peak force) infraspinatus/supraspinatus 0, subscapularis 11.7 quads 46. ,hip flexion 28.2 ,hip abduction 10.9 ,hamstrings 362 FLEXABLITY: hamstrings MIN tight Goals Goal 1:: Patient to be I with HEP shoulder and left leg Goal Progress: Progressing Goal 2:: Patient to demonstrate 50% improvement with right shoulder and left leg(new goals) Goal 3:: Patient panchito improve right shoulder AROM by 5-10 degrees to improve function and [place] activites Goal Progress: Progressing Goal 4:: Patient to improve peak force of quads/hams/hip by 5-10# strength to improve function Goal Progress: Progressing Goal 5:: Patient to improve Quality of gait 80% OF THE TIME Goal Progress: Progressing Goal 6:: Patient to improve quick dash by 5 points to improve QOL Goal Progress: Progressing Plan Plan: d/c D/C Information d/c sentence: If there are questions or concerns regarding this patient's physical therapy, please feel free to call me at [phone]. Thank you for the referral of this patient. Sincerely, Julito Androsik, PT, Cert MDT, OCS Balance/Gait/Functional tests Balance/Special Test Scores Quick DASH Score: 52.2725 Improvement % Improvement: 70
== END 2023-12-25 19:00 | disposition home or self-care (01) ==
LOC: PT 11:00
PROVIDERS: PCP Internal Medicine; Visit Provider Internal Medicine
DX: G81.94 Hemiplegia, unspecified affecting left nondominant side (principal); M25.511 Pain in right shoulder; M19.90 Unspecified osteoarthritis, unspecified site
CPT/HCPCS: 97110; 97112; 97140; 97530

== ENCOUNTER → 2024-02-14 | Outpatient (CLI) | payer MEDICARE, SELFPAY ==
[2024-02-14 12:29] LABS: Absolute Neutrophil Count 5.8 X10^3/uL (2.0-7.7); Basophil# 0.05 X10^3/uL; Basophil% 0.6 % (0-1); Eosinophil# 0.18 X10^3/uL; Eosinophils% 2.3 % (0-5); Hematocrit 46.2 % (37-47); Hemoglobin 15.1 g/dL (12.0-15.0); Lymphocyte % 16.3 % (19-41); Mean Corp Hgb Conc 32.7 g/dL (32-36); Mean Corpuscular Volume 91.7 fL (81-99); Mean Platelet Vol. 10.2 fl (6.2-12.0); Monocyte# 0.64 X10^3/uL; NRBC Flagged by Analyzer 0 % (0-5); Neutrophil # 5.81 X10^3/uL (2.7-7.7); Neutrophil % 72.7 % (47-70); Platelet Count 428 K/mm3 (150-450); RBC Distribution Width CV 13.2 % (11.6-14.6); RBC Distribution Width SD 44.7 fl (35.1-43.9); Red Blood Count 5.04 M/mm3 (4.2-5.4)
[2024-02-15 02:15] LABS: ALB/GLOB Ratio 1.1 RATIO (0.9-2.4); AST(SGOT) 22 U/L (15-37); Alanine Aminotransfer ALT/SGPT 31 U/L (13-56); Alkaline Phosphatase 127 U/L (45-117); Anion Gap 8 (5-15); BUN 14 mg/dL (7-18); BUN/Creat Ratio 19.4 RATIO (10-20); Calcium,Total 9.3 mg/dL (8.5-10.1); Chloride 106 mmol/L (98-107); Cholesterol 205 mg/dL (200); Creatinine, Serum 0.72 mg/dL (0.55-1.02); EST Glomerular Filtration Rate 84 mL/min (>60); Est Glom Filt Rate - Afr Amer 102 mL/min (>60); Globulin 3.6 g/dL (2.2-4.2); Glucose 79 mg/dL (74-106); High Density Lipoprotein 69 mg/dL; Potassium 3.9 mmol/L (3.5-5.1); Protein, Total 7.6 g/dL (6.4-8.2); Sodium Level 140 mmol/L (136-145); Triglycerides 188 mg/dL; Very Low Density Lipoprotein 38 mg/dL (5-40)
== END | disposition home or self-care (01) ==
LOC: BIMLAB 11:25
PROVIDERS: PCP Internal Medicine; Visit Provider Internal Medicine
DX: E03.9 Hypothyroidism, unspecified (principal); E78.5 Hyperlipidemia, unspecified
CPT/HCPCS: 36415; 80053; 80061; 84443; 85025

== ENCOUNTER → 2024-05-13 | Outpatient (CLI) | payer MEDICARE, SELFPAY ==
[2024-05-13 12:30] LABS: Absolute Lymphocyte Count 1.48 X10^3/uL (0.83-4.51); Absolute Neutrophil Count 6.1 X10^3/uL (2.0-7.7); Basophil# 0.05 X10^3/uL; Basophil% 0.6 % (0-1); Color, Urine Yellow (Yellow); Eosinophil# 0.21 X10^3/uL; Eosinophils% 2.5 % (0-5); Glucose, Dipstick Normal (Normal); Hematocrit 43.7 % (37-47); Ketone-Dipstick Negative (Negative); Leukocyte Esterase-Dipstick 25 /ul (Negative); Lymphocyte # 1.48 X10^3/ul (0.83-4.51); Lymphocyte % 17.3 % (19-41); Mean Corpuscular Hgb 28.9 pg (27.0-32.0); Mean Corpuscular Volume 90.3 fL (81-99); Mean Platelet Vol. 11.1 fl (6.2-12.0); Monocyte% 8.2 % (0-10); NRBC Flagged by Analyzer 0 % (0-5); Neutrophil # 6.08 X10^3/uL (2.7-7.7); Neutrophil % 71.2 % (47-70); Nitrite-Dipstick Negative (Negative); Occult Blood-Urine Negative /ul (Negative); POSITIVE COUNT YES; Protein-Dipstick 15 mg/dl (Negative); RBC Distribution Width CV 14.3 % (11.6-14.6); Red Blood Count 4.84 M/mm3 (4.2-5.4); Urine Bilirubin Dipstick Negative (Negative); Urine Clarity Sl. Cloudy (Clear); Urine Urobilinogen Normal (Normal); White Blood Count 8.5 K/mm3 (4.4-11.0)
[2024-05-13 12:39] LABS: Bacteria 0 SEEN /hpf (None Seen); Mucous, Urine 0 SEEN /hpf (<or=2+); Red Blood Cells-Urine 0 SEEN /hpf (0-5)
[2024-05-13 12:40] LABS: Squamous Epithelial Cells - UA 0-5 SEEN /hpf (5-10); White Blood Cells 0-5 SEEN /hpf (0-5)
[2024-05-13 13:00] LABS: Differential Indicated SCAN CRITERIA MET
[2024-05-13 13:01] LABS: Platelet Estimate ADEQUATE (ADEQ)
[2024-05-13 13:25] LABS: AST(SGOT) 15 U/L (15-37); Alanine Aminotransfer ALT/SGPT 22 U/L (13-56); Albumin, Serum 3.6 g/dL (3.2-5.0); Alkaline Phosphatase 113 U/L (45-117); Anion Gap 4 (5-15); BUN 22 mg/dL (7-18); BUN/Creat Ratio 29.9 RATIO (10-20); Calcium,Total 9.2 mg/dL (8.5-10.1); Chloride 109 mmol/L (98-107); Creatinine, Serum 0.74 mg/dL (0.55-1.02); EST Glomerular Filtration Rate 82 mL/min (>60); Est Glom Filt Rate - Afr Amer 100 mL/min (>60); Globulin 3.5 g/dL (2.2-4.2); Glucose 93 mg/dL (74-106); Potassium 4.4 mmol/L (3.5-5.1); Protein, Total 7.1 g/dL (6.4-8.2); Sodium Level 138 mmol/L (136-145)
== END | disposition home or self-care (01) ==
LOC: BIMLAB 11:07
PROVIDERS: PCP Internal Medicine; Referring Provider Internal Medicine; Visit Provider Internal Medicine
DX: R31.9 Hematuria, unspecified (principal); E78.5 Hyperlipidemia, unspecified
CPT/HCPCS: 36415; 80053; 81001; 85025

== ENCOUNTER → 2024-05-15 | Outpatient (CLI) | payer MEDICARE, SELFPAY ==
--- NOTE | 2024-05-15 11:00 | RAD_ITS ---
STUDY: X-RAY - LEFT SHOULDER REASON FOR EXAM: Female, 73 years old. FALL, PAIN TECHNIQUE: 4 views of the left shoulder. COMPARISON: None. FINDINGS: Normal glenohumeral articulation. There is minimal acromioclavicular arthrosis. Normal acromion. Normal humeral head and visualized proximal humerus. The soft tissue structures are unremarkable. There is no demonstrated fracture. Normal visualized pulmonary apex. RAD/Shoulder min 2 Views IMPRESSION: Minimal acromioclavicular arthrosis. Electronically Signed: Peter Long MD at 15:58 EDT ,
--- NOTE | 2024-05-15 11:48 | RAD_ITS ---
STUDY: X-RAY - CERVICAL SPINE REASON FOR EXAM: Female, 73 years old. Left radiculopathy. TECHNIQUE: 3 view(s) of the cervical spine were obtained. COMPARISON: January 11, 2021 FINDINGS: Osteopenia. Normal anterior atlantoaxial articulation. Normal odontoid process. Reversal of the normal lordosis. Diffuse moderate to marked uncovertebral and facet sclerosis. 6 mm of anterolisthesis of C3 on C4 and 5 mm of anterolisthesis of C3-4 on C5. Marked intervertebral disc space narrowing with erosive changes at the C4-5 interspace. Intervertebral disc space narrowing at C6-7, C7-T1 and T1-T2, slightly progressed since the prior study. Carotid calcification is unchanged. RAD/Cerv Spine 2 or 3 Views IMPRESSION: Osteopenia with progression of erosive changes at the C4-5 level and moderate to severe cervical spondylosis. Electronically Signed: Levi Casanova MD at 13:20 EDT ,
--- NOTE | 2024-05-15 11:48 | RAD_ITS ---
INDICATION: Left Hip Pain EXAMINATION/TECHNIQUE: X-RAY - XR Hip Unilateral with Pelvis when performed; 3 Views COMPARISON: FINDINGS: PELVIC BONES: No displaced fracture, destructive or sclerotic lesions. Note that overlapping bowel shadows may however obscure fine detail. Sacroiliac joints are unremarkable. No widening of the pubic symphysis. HIPS: The articular structures are unremarkable. No displaced fracture seen in this frontal view. SOFT TISSUES: No soft tissue swelling or gas. RAD/HIP, UNI W/ Pelvis 2-3 Views IMPRESSION: No evidence of displaced pelvic or hip fracture. Electronically Signed: Jonny Cruz DO at 18:41 EDT Reading Location ID and State: [id number] / [place] Tel [phone], Service support ,
--- NOTE | 2024-05-15 11:48 | RAD_ITS ---
STUDY: X-RAY - RIGHT SHOULDER REASON FOR EXAM: Female, 73 years old. Bilateral shoulder pain. TECHNIQUE: 4 views of the right shoulder. COMPARISON: None. FINDINGS: There is severe glenohumeral arthrosis with joint space narrowing, marginal osteophyte formation, remodeling of the articular surfaces, and subchondral cyst formation. There is superior migration of the humeral head with respect to the glenoid with severe narrowing of the acromiohumeral space. There is minimal acromioclavicular arthrosis. Normal acromion. Intact humeral head and visualized proximal humerus. The soft tissue structures are unremarkable. There is no demonstrated fracture. Normal visualized pulmonary apex. RAD/Shoulder min 2 Views IMPRESSION: Severe glenohumeral arthrosis, with superior migration of the humeral head with severe narrowing of the acromiohumeral space. Minimal acromioclavicular arthrosis. Electronically Signed: Peter Long MD at 16:05 EDT ,
== END | disposition home or self-care (01) ==
LOC: RAD 11:39
PROVIDERS: PCP Internal Medicine; Referring Provider Internal Medicine; Visit Provider Internal Medicine
DX: M25.511 Pain in right shoulder (principal); M25.512 Pain in left shoulder; M25.552 Pain in left hip
CPT/HCPCS: 72040; 73030; 73502

== ENCOUNTER 2024-05-25 18:36 | Emergency (ER) | payer OTHER, MEDICARE, SELFPAY ==
[2024-05-25 18:37] VITALS: BP 147/79; PULSE 88; RESP 16; TEMP 36.7; O2SAT 99; BMI 27.8
--- NOTE | 2024-05-25 19:45 | RAD_ITS ---
EXAM: XR LEFT HAND COMPLETE, 3 OR MORE VIEWS CLINICAL INDICATION: FALL TECHNIQUE: Frontal, lateral and oblique views of the left hand. COMPARISON: 3 views of the left wrist June 05, 2023, 3 views of the left wrist March 07, 2022, 3 views of left hand April 22, 2021. FINDINGS: BONES/JOINTS: Mild dorsal tilt of the radial articular surface on the lateral view, there was acute fracture April 04, 2022 involving the distal radius which appears healed but with contour deformity and dorsal tilt at the radial articular surface and radiocarpal joint. The bones again appear demineralized. There is similar degree of moderate flexion of the proximal IP joint of the fifth digit compared to prior oblique view, it remains flexed on the frontal view, it was straight in position on prior frontal view. There is degenerative change of the carpus. Degenerative change of the MCP and IP joints. The distal ulna appears mildly ventral in position on the lateral view but similar to prior exam. No sclerotic or destructive changes observed. SOFT TISSUES: Similar mild soft tissue swelling the PIP and DIP joints. No radiopaque foreign body. RAD/Hand Min 3 Views IMPRESSION: 1. Advanced chronic changes. Multi articular advanced degenerative changes. Demineralization. Old fracture of distal radius with dorsal tilt at the distal radius and radiocarpal joint on the lateral view. 2. Persistent flexion at the fifth PIP joint, please correlate with mobility at this joint. 3. No visible acute fracture. Electronically Signed: Yana Fernandez MD at 20:40 EDT ,
--- NOTE | 2024-05-25 19:45 | RAD_ITS ---
EXAM: XR LEFT WRIST COMPLETE, 3 OR MORE VIEWS CLINICAL INDICATION: FALL TECHNIQUE: Frontal, lateral and oblique views of the left wrist. COMPARISON: June 04, 2023. FINDINGS: BONES/JOINTS: There is similar advanced demineralization for the patient''s age. Similar mild broadening of the distal radial articular surface and irregular contour of the distal ulna on frontal view. Similar dorsal tilt of the articular surface of the distal radius and radiocarpal joint and mild dorsal tilt of the lunate on the lateral view. No sclerotic or destructive changes observed. No visible acute fracture. SOFT TISSUES: Mild dorsal soft tissue swelling. No radiopaque foreign body. RAD/Wrist min 3 Views IMPRESSION: 1. Soft tissue swelling, especially dorsally. 2. Old healed fractures of distal radius and ulna styloid process with advanced degenerative joint changes. 3. Persistent dorsal tilt of the articular surface of the radius and the lunate bone. 4. No visible acute fractures. Electronically Signed: Yana Fernandez MD at 20:46 EDT ,
--- NOTE | 2024-05-25 22:10 | CT_ITS ---
EXAM: CT HEAD WITHOUT INTRAVENOUS CONTRAST CLINICAL INDICATION: Trauma TECHNIQUE: Multiple axial images were obtained of the head without intravenous contrast. This CT exam was performed using one or more of the following dose reduction techniques: automated exposure control, adjustment of the mA and/or kV according to patient size, and/or use of iterative reconstruction technique. RADIATION DOSE: CTDIvol = 44.99 mGy, DLP = 762.36 mGy-cm COMPARISON: October 13, 2023. FINDINGS: BRAIN AND EXTRA-AXIAL SPACES: There is chronic infarct in the right cerebrum adjacent to the body of the caudate nucleus, similar to prior exam. No intracranial hemorrhage. Mild intracranial carotid calcifications. No intracranial mass or mass effect. Posterior fossa structures are unremarkable. Ventricles are appropriate for age. No hydrocephalus. Basal cisterns are patent. BONES/JOINTS: See below. SOFT TISSUES: There is moderate left forehead scalp contusion. No underlying skull fracture. SINUSES: Unremarkable as visualized. Clear. MASTOID AIR CELLS: Unremarkable. Clear. ORBITS: Visualized globes, extraocular muscles, optic nerves and retrobulbar fat appear unremarkable. CT/Brain/Head without Contrast IMPRESSION: Scalp contusion. No acute intracranial abnormality. Electronically Signed: Yana Fernandez MD at 0:09 EDT ,
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
[2024-05-25 22:36] VITALS: BP 155/89; PULSE 74; RESP 16; O2SAT 96
[2024-05-26 00:41] VITALS: BP 150/77; PULSE 74; RESP 16; TEMP 36.6; O2SAT 96
== END 2024-05-26 00:45 | disposition home or self-care (01) ==
LOC: ED 22:54
PROVIDERS: Emergency Provider Emergency Medicine; PCP Internal Medicine; Referring Provider Emergency Medicine; Visit Provider Emergency Medicine
DX: S00.83XA Contusion of other part of head, initial encounter (principal); Z87.891 Personal history of nicotine dependence; S09.90XA Unspecified injury of head, initial encounter; W01.10XA Fall on same level from slipping, tripping and stumbling with subsequent striking against unspecified object, initial encounter; Y93.01 Activity, walking, marching and hiking; Y99.0 Civilian activity done for income or pay; Y92.89 Other specified places as the place of occurrence of the external cause; Z86.73 Personal history of transient ischemic attack (TIA), and cerebral infarction without residual deficits; F41.8 Other specified anxiety disorders; Z79.899 Other long term (current) drug therapy; K21.9 Gastro-esophageal reflux disease without esophagitis; Z90.710 Acquired absence of both cervix and uterus
CPT/HCPCS: 70450; 73110; 73130; 99282

== ENCOUNTER → 2024-06-12 | Outpatient (CLI) | payer MEDICARE, SELFPAY ==
--- NOTE | 2024-06-12 11:28 | RAD_ITS ---
INDICATION: LEFT HAND INJURY EXAMINATION/TECHNIQUE: X-RAY - LEFT XR Hand Min 3 Views 3 VIEWS COMPARISON: May 25, 2024 FINDINGS: SOFT TISSUES: There is soft tissue swelling of the hand. No radiopaque foreign body. BONES/JOINTS: No acute fracture or subluxation.. Degenerative changes and narrowing at the interphalangeal joints of the digits. Old distal radial fracture. Flexion deformity of the fifth finger. Generalized osteopenia. RAD/Hand Min 3 Views IMPRESSION: Relatively stable chronic changes. Soft tissue edema. Electronically Signed: Jonny Cruz DO at 20:49 EDT Reading Location ID and State: [facility] / [place] Tel [phone], Service support ,
== END | disposition home or self-care (01) ==
LOC: MTRAD 11:27
PROVIDERS: PCP Internal Medicine; Referring Provider Physician Assistant Surgical; Visit Provider Physician Assistant Surgical
DX: S60.222A Contusion of left hand, initial encounter (principal)
CPT/HCPCS: 73130

== ENCOUNTER 2024-07-29 11:30 | Outpatient (RCR) | payer OTHER, MEDICARE, SELFPAY ==
--- NOTE | 2024-07-01 08:01 | HP.OTEVAL ---
Patient's Visit Information Visit Information Visit Information: SATURNINO MAY is a 74 year old F, referred to Occupational Therapy by ABDELRAHMAN Marie, with a diagnosis of left hand contusion. Date of Evaluation: 06/30/24 Occupational Therapist: ARIANA Tracey/Neal, CHT Subjective Subjective: This 74 year old female was seen for OT eval with dx of left hand contusion. Pt states she suffered a fall about 4 weeks ago. ( 05/25/24) Pt works at [email or web address] working 40 hours a week. Pt states she caught her foot on a table to move out of the way of a customer. Pt states she drover herself to the ER. x-ray taken with dx of contusion pt states she has concerns as she has noticed left UE pain, limited shoulder ROM and hand motion. pt would like to know what she can do to decrease her pain and improve her ROM to return to her PLOF. Pain left hand: Current Pain Intensity: 7 Pain Intensity Range: 4 and 7 ROM ROM Comments: bilateral shoulder ROM limited with flexion and shoulder abduction Left shoulder abduction 30* this has increased difficulty with washing under her arm ( states pain on deltoid region limits her motion) Movement Movement Comments: pt demo with flexor tone of left digits- pt prior was able to open fingers with forearm in supinated position- ( pt limited to slight motion at this time) Quick DASH-Disab of Arm,Shoulder& Hand Quick DASH Score: 75.0000 Goals Goal:: pt will demo a increase in left shoulder AROM by 60* to increase pts ability to wash under her arm by d/c. pt will demo the ability to open hand to decrease skin break down by d/c. Goal:: pt will report no pain greater than 1/10 with use of left UE in her ROM by d.c Goal:: pt will demo IND doffing/donning of supportive bracing to decrease tone and improve her ROM by end of 4th session. Rehabilitation General Assessment: pt demo with limited ROM of left UE with increase in flexor tone and still demo with bruising on left hand/shoulder face. pt limited with functional ADLs and IADLs at this time and would benefit from skilled OT services 3x week for 6-8 weeks to return pt to her PLOF. Today therapist discussed with pt possible need of custom orthosis to wear to stabilize wrist in more of a N position to decrease tone of flexors- pt may need night orthosis for full hand and fingers- therapist will work with pts ROM to increase to her PLOF so she can complete her IADLs and ADLs at her PLOF. Rehabilitation Potential: Good Anticipated Interventions Anticipated Interventions: A/AAROM/PROM, Strengthening, Triggerpoint Release, Modalities, Orthoses, Joint Protection/Energy Conservation, Ergonomic Education, Education re assistive Equipment, Education re Diagnosis and Home Program Visit Plan Frequency: 2-3x /Week Duration: 6 Weeks TEXT: Thank you for the opportunity to evaluate your patient. For Medicare and Medicare HMO plans, please review the plan of care and approve it. It will need to be FAXED BACK to us at [phone] for Medicare purposes. Please let me know if there are questions or concerns regarding this plan of care. Physician Signature: Date:
--- NOTE | 2024-07-29 15:06 | HP.OT.NRP ---
Patient Information Patient Information: SATURNINO MAY was seen in my office for initial evaluation on 06/30/24. The following Plan of Care was established for this patient: POC Established Initial Frequency: 2-3x /Week Initial Duration: 6 Weeks Plan: Continue POC: 6 weeks (2-3x week) Anticipated Interventions Anticipated Interventions: A/AAROM/PROM, Strengthening, Triggerpoint Release, Modalities, Orthoses, Joint Protection/Energy Conservation, Ergonomic Education, Education re assistive Equipment, Education re Diagnosis and Home Program Last Seen Last Seen: This patient was last seen in our office 07/29/24. Pertinent comments regarding their Occupational therapy will appear below: This 74 year old female seen by OT with dx of L hand contusion. pt progressed in POC including the ability to don and doff hand/ arm brace on own, improved pain in L hand as well as functional use ability to open hand at thumb and d2-3 for functional use. pt discharge at this time and pt in agreeance. At this point I will be discontinuing this patient from occupational therapy. I would be happy to see this patient again in the future if found appropriate by the physician. Thank you! Ernestina Bellamy
== END 2024-07-29 19:00 | disposition home or self-care (01) ==
LOC: OT 11:30
PROVIDERS: PCP Internal Medicine; Referring Provider Physician Assistant Surgical; Visit Provider Physician Assistant Surgical
DX: S60.222D Contusion of left hand, subsequent encounter (principal)
CPT/HCPCS: 97110; 97140; 97166; 97530

== ENCOUNTER → 2024-09-17 | Outpatient (CLI) | payer OTHER, SELFPAY ==
--- NOTE | 2024-09-17 10:26 | RAD_ITS ---
STUDY: X-RAY - LEFT SHOULDER REASON FOR EXAM: Female, 74 years old. Left shoulder pain after fall 4 months ago TECHNIQUE: 4 view(s) of the shoulder. COMPARISON: None. FINDINGS: Normal glenohumeral articulation. Normal acromioclavicular joint. Normal acromion. Normal humeral head and visualized proximal humerus. The soft tissue structures are unremarkable. Normal visualized pulmonary apex. RAD/Shoulder min 2 Views IMPRESSION: Normal x-ray examination of the shoulder. Electronically Signed: Andre Church MD at 11:27 EST ,
== END | disposition home or self-care (01) ==
LOC: MTRAD 10:24
PROVIDERS: PCP Internal Medicine; Referring Provider Physician Assistant Surgical; Visit Provider Physician Assistant Surgical
DX: M25.512 Pain in left shoulder (principal)
CPT/HCPCS: 73030

== ENCOUNTER → 2024-10-28 | Outpatient (CLI) | payer MEDICARE, SELFPAY ==
[2024-10-28 15:21] LABS: Absolute Lymphocyte Count 1.52 X10^3/uL (0.83-4.51); Absolute Neutrophil Count 6.6 X10^3/uL (2.0-7.7); Basophil# 0.07 X10^3/uL; Basophil% 0.8 % (0-1); Eosinophil# 0.14 X10^3/uL; Eosinophils% 1.5 % (0-5); Hematocrit 44.3 % (37-47); Hemoglobin 14.2 g/dL (12.0-15.0); Lymphocyte # 1.52 X10^3/ul (0.83-4.51); Lymphocyte % 16.8 % (19-41); Mean Corp Hgb Conc 32.1 g/dL (32-36); Mean Corpuscular Volume 90.4 fL (81-99); Mean Platelet Vol. 10.3 fl (6.2-12.0); Monocyte# 0.67 X10^3/uL; Monocyte% 7.4 % (0-10); NRBC Flagged by Analyzer 0 % (0-5); Neutrophil # 6.61 X10^3/uL (2.7-7.7); Neutrophil % 73.2 % (47-70); Platelet Count 491 K/mm3 (150-450); RBC Distribution Width CV 14.1 % (11.6-14.6); RBC Distribution Width SD 46.7 fl (35.1-43.9)
[2024-10-28 16:05] LABS: ALB/GLOB Ratio 1.6 RATIO (0.9-2.4); AST(SGOT) 22 U/L (<=31); Alanine Aminotransfer ALT/SGPT 14 U/L (<=34); Albumin, Serum 4.1 g/dL (3.4-4.8); Alkaline Phosphatase 99 U/L (35-104); Anion Gap 13 (5-15); BUN 13 mg/dL (4-19); Calcium 9.3 mg/dL (7.6-11.0); Carbon Dioxide 21.9 mmol/L (22.0-29.0); Chloride 104 mmol/L (96-108); Cholesterol 247 mg/dL (<=200); Creatinine, Serum 0.7 mg/dL (0.6-1.0); EST Glomerular Filtration Rate 92 (>60); Globulin 2.6 g/dL (2.2-4.2); Glucose 86 mg/dL (70-99); High Density Lipoprotein 64 mg/dL; Low Density Lipoprotein Calc. 134 mg/dL; Potassium 4.2 mmol/L (3.3-5.1); Protein, Total 6.7 g/dL (5.9-8.4); Sodium Level 138 mmol/L (133-145); Total Bilirubin 0.64 mg/dL (0.00-1.30); Triglycerides 248 mg/dL; Very Low Density Lipoprotein 50 mg/dL (5-40); cholesterol:hdl ratio screen 3.87
== END | disposition home or self-care (01) ==
LOC: BIMLAB 12:06
PROVIDERS: PCP Internal Medicine; Referring Provider Internal Medicine; Visit Provider Internal Medicine
DX: E78.5 Hyperlipidemia, unspecified (principal)
CPT/HCPCS: 36415; 80053; 80061; 85025

== ENCOUNTER → 2025-02-25 | Outpatient (CLI) | payer MEDICARE, SELFPAY | END | disposition home or self-care (01) | LOC: SL 10:03 | PROVIDERS: PCP Internal Medicine; Referring Provider Nurse Practitioner Acute Care; Visit Provider Nurse Practitioner Acute Care | DX: G47.33 Obstructive sleep apnea (adult) (pediatric) (principal) | CPT/HCPCS: 98960; G0463 ==

== ENCOUNTER 2025-04-14 10:00 | Outpatient (RCR) | payer MEDICARE, SELFPAY ==
--- NOTE | 2025-03-15 15:06 | HP.PTEVAL ---
Patient's Visit Information Visit Information Visit Information: SATURNINO MAY is a 74 year old F referred to Physical Therapy by Dr. Gregorio Lopez DO with a diagnosis of L knee OA, L greater trochanteric bursitis. Date of Evaluation: 03/15/25 Physical Therapist: Jim Hernández DPT Visit Plan Frequency: 1-2x /Week Duration: 4 Weeks Plan: 1) US to L greater trochanter 2) IT band and piriformis stretching 3) glute medius and glute viviana strengthening Subjective Subjective: Pt. is here today for her initial evaluation with diagnosis of L knee OA, degenerative scoliosis, IT band L side, L hip bursitis. Pt. reports falling in December and really increased her symptoms. She did have an injection in her L knee and L hip both have been helpful. Pt. is still after prolonged sitting. Walking is better. She reports the knee gave out on her causing her to fall. Pt. reports doctor wants to her work on strengthening of her legs. Pt. is hopeful to reduce symptoms in order to complete all activities without limitations. Pain L hip: Pain Intensity (Out of 10): 0 Pain Intensity Range: 0 and 9 Objective Objective: POSTURE: Pt. has a slight flexed posture. Pt. has increased wt. shift to R side. PALPATION: Pt. is tender at lateral knee and along greater trochanter NEURO: Pt. has increased reflexes in BLEs, L worse than R. Pt. has normal sensation in BLEs. ROM: L hip: flexion 120deg NE, abd 45deg, IR 30deg, ER 50deg increase NW. + IT obers test. MMT: RLE 5/5 throughout. LLE: hip: flex 4/5, abd 4-/5, ext 4/5. GAIT: pt. ambulates without AD. Pt. has limited L hip extension and flexion. tends to vault over her LLE. Balance/Special Test Scores Lower Extremity Functional Score: 44 Goals Goal 1:: LTG: Pt. to be I with HEP. Goal Time Frame: 4-6 Weeks Goal 2:: STG: Pt. to have increase L IT band length indicated by -obers test Goal Time Frame: 2-4 Weeks Goal 3:: LTG: Pt. to have symmetrical glute strength Goal Time Frame: 4-6 Weeks Goal 4:: LTG: Pt. to be able to complete all work activities without increase in symptoms. Goal Time Frame: 4-6 Weeks Rehabilitation Potential Physical Therapy Diagnosis: Pt. has signs and symptoms consistent with L knee OA and L greater trochanteric bursitis. Rehabilitation Potential: Good Anticipated Interventions Patient/Client Instruction: Educate patient on: Condition, Plan of Care, Risk Factors and Benefits of Fitness Program For the Purpose of:: To foster healthy habits, To improve decision making, To facilitate caregiver knowledge, To improve self management, To prevent re-injury and To improve ability to perform tasks related to life management Therapeutic Exercise to Include: Strength training, Power training, Postural training, Flexibilty training, Gait and locomotor training, Passive ROM and Active ROM For the Purpose of:: To decrease pain, To decrease swelling/inflammation, To increase ROM, To improve nutrient delivery to tissue, To increase oxygenation perfusion, To improve ability to perform ADL's, To improve health of tissue, To decrease soft tissue restriction and To increase flexibility/ROM Manual Therapy Techniques to Include: Mobilization and Passive ROM For the Purpose of:: To decrease pain, To decrease swelling/inflammation and To increase ROM Ultrasound (thermal/non thermal): Yes For the Purpose of:: To decrease pain, To decrease swelling/inflammation, To increase ROM and To improve nutrient delivery to tissue Text: Thank you for the opportunity to evaluate your patient. For Medicare and Medicare HMO plans, please review the plan of care and approve it. It will need to be FAXED BACK to us at [phone] for Medicare purposes. For Medicare only, by signing this I certify the plan of care. Please let me know if there are questions or concerns regarding this plan of care. Physician Signature: Date:
--- NOTE | 2025-04-14 10:19 | HP.PTDCSUM ---
Discharge Summary D/C summary: It has been my pleasure to treat SATURNINO MAY referred by Dr. Gregorio Lopez DO, with the diagnosis of L knee OA, L greater trochanteric bursitis for a total of 5 visit(s). Discharge Date: 04/14/25 Please see the following information for a summary of their discharge status. Subjective Subjective: Pt reports overall doing well. Pt. reports no pain currently. Pt. reports being 80% better overall. Pt. reports overall being stiff still. Pain L hip: Pain Intensity (Out of 10): 0 Overall Improvement % Improvement: 80 Objective Objective/Function: ROM: Pt. has normal length of IT band of BLEs. Pt. reports no tightness MMT: RLE: hip flex: 48.8#, abd 41.4# LLE: hip flex: 38.6#, abd 30.9# GAIT: pt. ambulates without AD with good tolerance. Pt. does vault on her RLE due to her L foot drop. Pt. is overall doing well. She will be DC from PT for her L hip at this point in time. Goals Goal 1:: LTG: Pt. to be I with HEP. Goal Progress: Goal Met Goal 2:: STG: Pt. to have increase L IT band length indicated by -obers test Goal Progress: Goal Met Goal 3:: LTG: Pt. to have symmetrical glute strength Goal Progress: Goal Met Goal 4:: LTG: Pt. to be able to complete all work activities without increase in symptoms. Goal Progress: Goal Met Plan Plan: Pt. is overall doing well. Pt. will be DC from PT. D/C Information d/c sentence: If there are questions or concerns regarding this patient's physical therapy, please feel free to call me at [phone]. Thank you for the referral of this patient. Sincerely, Jim De Jesus Sipos, DPT Balance/Gait/Functional tests Balance/Special Test Scores Lower Extremity Functional Score: 54 30 Second Chair Rise Test Seconds: 13 Improvement % Improvement: 80
== END 2025-04-14 19:00 | disposition home or self-care (01) ==
LOC: PT 10:00
PROVIDERS: PCP Internal Medicine; Referring Provider Orthopaedic Surgery; Visit Provider Orthopaedic Surgery
DX: M17.12 Unilateral primary osteoarthritis, left knee (principal); M41.50 Other secondary scoliosis, site unspecified; M70.62 Trochanteric bursitis, left hip; M76.32 Iliotibial band syndrome, left leg
CPT/HCPCS: 97035; 97110; 97161; 97530

== ENCOUNTER → 2025-05-06 | Outpatient (CLI) | payer MEDICARE, SELFPAY | END | disposition home or self-care (01) | LOC: LABSPEC 12:50 | PROVIDERS: PCP Internal Medicine; Referring Provider Physician Assistant Surgical; Visit Provider Physician Assistant Surgical | DX: R82.90 Unspecified abnormal findings in urine (principal) | CPT/HCPCS: 87077; 87086; 87088; 87186 ==